=== PATIENT | female | born 1940 | race Hispanic/Latino ===

== ENCOUNTER 2017-12-12 22:17 | Emergency (ER) | payer MEDICARE ==
[2017-12-12] MEDS ORDERED: MOTRIN PO ONE (22:33)
--- NOTE | 2017-12-12 22:45 | Emergency Department Report ---
ED Fall HPI - General Chief Complaint: Extremity Injury, Lower Stated Complaint: FALL HIP PAIN Time Seen by Provider: 12/12/17 22:27 Source: patient, family, EMS Mode of arrival: Stretcher Limitations: No Limitations - History of Present Illness Initial Comments: 77-year-old female presents to the hospital complaining of right hip pain status post fall. Earlier today patient fell backwards landing on toilet and has had right hip pain ever since. Able to ambulate without assistance since injury. Pain is moderate in intensity, constant, worse with palpation and movement. No alleviating factors reported. No head injury or LOC reported. Patient is not on anticoagulants. - Related Data Home Medications Medication Instructions Recorded Confirmed Last Taken Ezetimibe [Zetia] 10 mg PO DAILY 06/20/14 07/13/16 06/20/15 Rosuvastatin Calcium [Crestor] 40 mg PO HS 06/20/14 07/13/16 06/20/15 Aspirin [Aspirin TAB] 81 mg PO ONCE 06/20/15 07/13/16 06/20/15 PriLOSEC Otc 1 tab PO DAILY 07/13/16 07/13/16 Unknown Previous Rx's Medication Instructions Recorded Last Taken Type Ciprofloxacin [Ciprofloxacin ORAL 250 mg PO Q12H 7 Days ml 07/16/16 Unknown Rx LIQ] Ibuprofen [Motrin] 800 mg PO Q8HR PRN #30 tablet 12/13/17 Unknown Rx Allergies Allergy/AdvReac Type Severity Reaction Status Date / Time No Known Allergies Allergy Unverified 06/20/14 22:55 ED Review of Systems ROS: Stated complaint: FALL HIP PAIN Other details as noted in HPI Comment: All other systems reviewed and negative ED Past Medical Hx - Past Medical History Hx Hypertension: Yes Hx CVA: Yes Hx Heart Attack/AMI: Yes (CVA 05/04/15) Hx Diabetes: Yes - Surgical History Additional Surgical History: hysterectomy 1981 - Social History Smoking Status: Never Smoker - Medications Home Medications: Home Medications Medication Instructions Recorded Confirmed Last Taken Type Ezetimibe [Zetia] 10 mg PO DAILY 06/20/14 07/13/16 06/20/15 History Rosuvastatin Calcium [Crestor] 40 mg PO HS 06/20/14 07/13/16 06/20/15 History Aspirin [Aspirin TAB] 81 mg PO ONCE 06/20/15 07/13/16 06/20/15 History PriLOSEC Otc 1 tab PO DAILY 07/13/16 07/13/16 Unknown History Ciprofloxacin [Ciprofloxacin ORAL 250 mg PO Q12H 7 Days ml 07/16/16 Unknown Rx LIQ] Ibuprofen [Motrin] 800 mg PO Q8HR PRN #30 tablet 12/13/17 Unknown Rx ED Physical Exam - General Limitations: Language Barrier, Altered Mental Status, Physical Limitation - Other Other exam information: General: No limitations, patient is alert in no acute distress Head exam: Atraumatic, normocephalic Eyes exam: Normal appearance, pupils equal reactive to light, extraocular movements intact ENT: Moist mucous membrane, normal oropharynx Neck exam: Normal inspection, full range of motion, no meningismus nontender Respiratory exam: Clear to auscultation bilateral, no wheezes, rales, crackles Cardiovascular: Normal rate and rhythm, normal heart sounds Abdomen: Soft, nondistended, and nontender, with normal bowel sounds, no rebound, or guarding Extremity: Full range of motion normal inspection no deformity. Mild tenderness to right buttock area with palpation. Full range of motion of the hip without shortening or deformity. Back: Normal Inspection, full range of motion, no bruising to back and nontender on examination Neurologic: Alert, oriented x3, cranial nerves intact, no motor or sensory deficit Psychiatric: normal affect, normal mood Skin: Warm, dry, intact ED Course Vital Signs 12/12/17 12/12/17 12/12/17 22:19 22:30 22:45 Temperature 97.5 F L Pulse Rate 75 69 Respiratory 16 22 23 Rate Blood Pressure 119/63 122/73 O2 Sat by Pulse 97 98 Oximetry 12/12/17 12/12/17 12/12/17 23:00 23:15 23:30 Temperature Pulse Rate 67 68 68 Respiratory 17 11 L 12 Rate Blood Pressure 120/66 116/71 116/71 O2 Sat by Pulse 98 97 99 Oximetry ED Medical Decision Making - Radiology Data Radiology results: report reviewed Right hip x-ray with pelvis: No acute fracture. Bilateral hip osteoarthritis. Degenerative disc disease at L4-5 - Medical Decision Making X-rays unremarkable. Pain improved with Motrin. Patient able to ambulate. We' ll discharge home - Differential Diagnosis fracture, contusion, sprain Critical Care Time: No Critical care attestation.: If time is entered above; I have spent that time in minutes in the direct care of this critically ill patient, excluding procedure time. ED Disposition Clinical Impression: Contusion of hip, right, Osteoarthritis, Degenerative disc disease Disposition: TO HOME OR SELFCARE Is pt being admited?: No Does the pt Need Aspirin: No Condition: Stable Instructions: Hip Sprain (ED), Osteoarthritis (ED), Degenerative Disc Disease ( ED) Additional Instructions: Taken medication as prescribed. Follow-up with your doctor. Return if symptoms worsen as indicated by your discharge instructions Prescriptions: Ibuprofen [Motrin] 800 mg PO Q8HR PRN #30 tablet PRN Reason: Pain Referrals: PRIMARY CARE, [Primary Care Provider] - 3-5 Days Time of Disposition: 00:17
--- NOTE | 2017-12-12 23:38 | XRay Report ---
FINAL REPORT PROCEDURE: XR HIP 2-3V RT TECHNIQUE: RIGHT hip radiographs, 2 views each, including AP view of the pelvis. HISTORY: right hip pain after fall COMPARISON: No prior studies are available for comparison. FINDINGS: There is mild degree narrowing of bilateral hip joint spaces. An acute fracture is not identified. Intervertebral disc space narrowing is noted at L4-5. Soft tissues are unremarkable IMPRESSION: No acute fracture Bilateral hip osteoarthritis Degenerative disc disease at L4-5
[2017-12-13 00:34] VITALS: BP 122/71
== END 2017-12-13 00:34 | disposition home or self-care (01) ==
LOC: ED 22:17
DX: S70.01XA Contusion of right hip, initial encounter (principal); I10 Essential (primary) hypertension; E11.9 Type 2 diabetes mellitus without complications; M16.0 Bilateral primary osteoarthritis of hip; M51.36 Other intervertebral disc degeneration, lumbar region; Z86.73 Personal history of transient ischemic attack (TIA), and cerebral infarction without residual deficits; Z90.710 Acquired absence of both cervix and uterus; Z79.899 Other long term (current) drug therapy; W18.11XA Fall from or off toilet without subsequent striking against object, initial encounter; Y93.89 Activity, other specified; Y99.8 Other external cause status; Y92.89 Other specified places as the place of occurrence of the external cause

== ENCOUNTER 2018-02-03 01:35 | Emergency (ER) | payer MEDICARE ==
[2018-02-03 02:49] LABS: Basophils % (Auto) 0.3 % (0.0-1.8); Eosinophils # (Auto) 0.1 K/mm3 (0.0-0.4); Eosinophils % (Auto) 1.1 % (0.0-4.3); Hematocrit 36.7 % (30.3-42.9); Hemoglobin 12.3 gm/dl (10.1-14.3); Lymphocytes # (Auto) 1.3 K/mm3 (1.2-5.4); Lymphocytes % (Auto) 15.8 % (13.4-35.0); Mean Corpuscular HGB Conc 33 % (30-34); Mean Corpuscular Hemoglobin 30 pg (28-32); Mean Corpuscular Volume 88 fl (79-97); Monocytes # (Auto) 0.6 K/mm3 (0.0-0.8); Monocytes % (Auto) 7.1 % (0.0-7.3); Platelet Count 179 K/mm3 (140-440); Red Blood Count 4.17 M/mm3 (3.65-5.03); Red Cell Distribution Width 14.3 % (13.2-15.2)
[2018-02-03 03:05] LABS: Calcium 8.4 mg/dL (8.4-10.2)
--- NOTE | 2018-02-03 04:39 | Cat Scan Report ---
FINAL REPORT EXAM: CT HEAD/BRAIN WO CON HISTORY: left leg weak 1 week. eval poss recent CVA TECHNIQUE: Routine axial imaging was obtained of the brain without IV contrast. Comparison is made to the study of 07/13/2016. FINDINGS: There is age related atrophy. There are stable remote lacunar infarcts in the deep white matter of the left temporal lobe and in the irene. There is no evidence of acute stroke or hemorrhage. There are benign basal ganglial calcifications. There are no extra-axial fluid collections. The ventricular system is appropriate in size and is symmetric. The sinuses reveal secretions in the right sphenoid sinus. This is unchanged the previous study. The mastoid air cells are well pneumatized IMPRESSION: Age related atrophy with remote lacunar infarcts in the deep white matter of the left temporal lobe and irene. No evidence of acute stroke or hemorrhage. Patchy secretions in the right sphenoid sinus.
[2018-02-03 05:53] VITALS: BP 138/57
--- NOTE | 2018-02-03 07:04 | XRay Report ---
FINAL REPORT EXAM: XR HIP 2-3V LT HISTORY: left leg pain, weakness; eval poss occult hip inj TECHNIQUE: An AP view of the pelvis was obtained along with an additional view of the left hip. FINDINGS: There is generalized osteoporosis. The left hip joint space is well maintained. There is no evidence of fracture. The bony pelvic ring appears intact. The right hip and SI joints appear well maintained also. There is disc degeneration in the lower lumbar spine. The soft tissues are unremarkable. IMPRESSION: Osteoporosis. No evidence of fracture or arthritic changes of the left hip. Disc degeneration in the lower lumbar spine
--- NOTE | 2018-02-03 07:20 | Emergency Department Report ---
ED Neuro Deficit HPI - General Chief Complaint: Medical Clearance Stated Complaint: DIFFICULTY MOVING LEFT LEG Time Seen by Provider: 02/03/18 03:55 Source: EMS Mode of arrival: Wheelchair Limitations: Physical Limitation - History of Present Illness Initial Comments: 77-year-old patient brought in by family members for concern about left leg weakness present for the past 7-10 days, with concern for whether she has had a new stroke. 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 Family has tried patient at a longterm, but she did not tolerate this, and patient does better with family, and is cared for by daughters. Family noticed that patient developed a distinct weakness in her left leg, with the leg slapping while she walks, but she's not had any other symptoms. In particular, she's had no left-sided arm discomfort, no facial droop, and has been conversant talking normally with no change elsewhere. Past medical history significant also for diabetes, insulin-dependent, which family cares for with basal unit plus sliding scale at meals. Glucose levels have been variable, and patient's glucose level is 460 here, but daughter reports that it is not unusual for her to go to 400 at home, which is why they managed with sliding scale. She has had no additional symptoms, no falls, no injuries, but patient was seen here 6 weeks ago for a fall due to chronic unsteadiness with possible hip injury, with negative evaluation at that time. Onset/Timin -: days(s) Location: left leg History of same: Yes Place: home Severity: moderate (difficulty with using leg appropriately due to weakness of foot) Quality: weak On Anticoagulants: No (intolerant of clopidogrel and aspirin, currently takes nothing for anticoag) Context: gradual onset Associated Symptoms: denies other symptoms Treatments Prior to Arrival: none - Related Data Home Medications: Home Medications Medication Instructions Recorded Confirmed Last Taken Ezetimibe [Zetia] 10 mg PO DAILY 06/20/14 07/13/16 06/20/15 Rosuvastatin Calcium [Crestor] 40 mg PO HS 06/20/14 07/13/16 06/20/15 Aspirin [Aspirin TAB] 81 mg PO ONCE 06/20/15 07/13/16 06/20/15 PriLOSEC Otc 1 tab PO DAILY 07/13/16 07/13/16 Unknown Previous Rx's Medication Instructions Recorded Last Taken Type Ciprofloxacin [Ciprofloxacin ORAL 250 mg PO Q12H 7 Days ml 07/16/16 Unknown Rx LIQ] Ibuprofen [Motrin] 800 mg PO Q8HR PRN #30 tablet 12/13/17 Unknown Rx Allergies/Adverse Reactions: Allergies Allergy/AdvReac Type Severity Reaction Status Date / Time No Known Allergies Allergy Verified 02/03/18 01:53 ED Review of Systems ROS: Stated complaint: DIFFICULTY MOVING LEFT LEG Other details as noted in HPI Constitutional: denies: chills, fever ENT: denies: ear pain, throat pain Respiratory: denies: cough, shortness of breath, wheezing Cardiovascular: denies: chest pain, palpitations Endocrine: no symptoms reported Gastrointestinal: denies: abdominal pain, nausea, diarrhea Genitourinary: denies: urgency, dysuria, discharge Musculoskeletal: denies: back pain, joint swelling, arthralgia Skin: denies: rash, lesions Neurological: weakness (left leg, foot) Psychiatric: denies: anxiety, depression Hematological/Lymphatic: denies: easy bleeding, easy bruising ED Past Medical Hx - Past Medical History Hx Hypertension: Yes Hx CVA: Yes (X3) Hx Heart Attack/AMI: Yes (CVA 05/04/15) Hx Diabetes: Yes - Surgical History Additional Surgical History: hysterectomy 1981 - Social History Smoking Status: Never Smoker Substance Use Type: None - Medications Home Medications: Home Medications Medication Instructions Recorded Confirmed Last Taken Type Ezetimibe [Zetia] 10 mg PO DAILY 06/20/14 07/13/16 06/20/15 History Rosuvastatin Calcium [Crestor] 40 mg PO HS 06/20/14 07/13/16 06/20/15 History Aspirin [Aspirin TAB] 81 mg PO ONCE 06/20/15 07/13/16 06/20/15 History PriLOSEC Otc 1 tab PO DAILY 07/13/16 07/13/16 Unknown History Ciprofloxacin [Ciprofloxacin ORAL 250 mg PO Q12H 7 Days ml 07/16/16 Unknown Rx LIQ] Ibuprofen [Motrin] 800 mg PO Q8HR PRN #30 tablet 12/13/17 Unknown Rx ED Neuro Physical Exam - General Limitations: Physical Limitation General appearance: alert, in no apparent distress, other (very hard of hearing , but generally alert and oriented and cooperative) Suspected Stroke: No - Head Head exam: Present: atraumatic - Eye Eye exam: Present: PERRL - ENT ENT exam: Present: normal exam, mucous membranes moist - Neck Neck exam: Present: normal inspection, full ROM. Absent: tenderness - Respiratory Respiratory exam: Present: normal lung sounds bilaterally - Cardiovascular Cardiovascular Exam: Present: regular rate, normal heart sounds - GI/Abdominal GI/Abdominal exam: Present: soft, normal bowel sounds. Absent: tenderness - Rectal Rectal exam: Present: deferred - Extremities Exam Extremities exam: Present: normal inspection, full ROM (some stiffness, muscular , a little worse on left than right, but good range of motion both hips), other (somewhat tremulous, generally unsteady, no bony defect, ). Absent: tenderness - Back Exam Back exam: Present: normal inspection. Absent: tenderness - Neurological Exam Neurological exam: Present: alert, CN II-XII intact, abnormal gait (grossly unsteady, poor balance, prominent left foot drop, but good general strength left lower extremity overall) - NIHSS Assessment Interval: Baseline 1a. Level of Consciousness: alert 1b. LOC Questions: answers correctly 1c. LOC Commands: performs tasks correctly 2. Best Gaze: normal 3. Visual: no visual loss 4. Facial Palsy: normal symmetrical movement 5b. Motor Arm Right: no drift 5a. Motor Arm Left: no drift 6a. Motor Leg Left: no drift (isolated footdrop, no distinct extremity weakness) 6b. Motor Leg Right: no drift 7. Limb Ataxia: present 2 limbs (all limbs with gross chronic ataxia) 8. Sensory: normal 9. Best Language: no aphasia (heart of hearing) 10. Dysarthria: normal 11. Extinction/Inattention: no abnormality Total Score: 2 Stroke Severity: Minor Stroke - Psychiatric Psychiatric exam: Present: normal affect, normal mood - Skin Skin exam: Present: warm, dry ED Course Vital Signs 02/03/18 02/03/18 02/03/18 01:53 03:50 05:52 Temperature 36.6 C Pulse Rate 80 78 81 Respiratory 14 18 18 Rate Blood Pressure 134/40 Blood Pressure 160/57 138/57 [Right] O2 Sat by Pulse 97 97 97 Oximetry - Reevaluation(s) Reevaluation #1: 02/03/18 07:28 Patient has remained stable during. Of observation, wakens easily, shows no signs of acute illness, no progression of deficit, and all findings appear to be typically chronic. Telephone consultation with stroke apartment leasing consultant, Dr. Gray, 0700 hrs., who agrees that patient is not candidate for acute interventional therapy, but given findings of negative CT scan, would benefit from MRI, although timing and benefit of urgent evaluation is not clear. - Lab Data Result diagrams: 02/03/18 02:40 02/03/18 02:40 Lab Results 02/03/18 02/03/18 Range/Units 02:40 02:40 WBC 8.5 (4.5-11.0) K/mm3 RBC 4.17 (3.65-5.03) M/mm3 Hgb 12.3 (10.1-14.3) gm/dl Hct 36.7 (30.3-42.9) % MCV 88 (79-97) fl MCH 30 (28-32) pg MCHC 33 (30-34) % RDW 14.3 (13.2-15.2) % Plt Count 179 (140-440) K/mm3 Lymph % (Auto) 15.8 (13.4-35.0) % [place] % (Auto) 7.1 (0.0-7.3) % Eos % (Auto) 1.1 (0.0-4.3) % Baso % (Auto) 0.3 (0.0-1.8) % Lymph # 1.3 (1.2-5.4) K/mm3 [place] # 0.6 (0.0-0.8) K/mm3 Eos # 0.1 (0.0-0.4) K/mm3 Baso # 0.0 (0.0-0.1) K/mm3 Seg Neutrophils % 75.7 H (40.0-70.0) % Seg Neutrophils # 6.4 (1.8-7.7) K/mm3 Sodium 137 (137-145) mmol/L Potassium 3.7 (3.6-5.0) mmol/L Chloride 95.5 L (98-107) mmol/L Carbon Dioxide 30 (22-30) mmol/L Anion Gap 15 mmol/L BUN 14 (7-17) mg/dL Creatinine 1.2 (0.7-1.2) mg/dL Estimated GFR 44 ml/min BUN/Creatinine Ratio 12 % Glucose 460 H (65-100) mg/dL Calcium 8.4 (8.4-10.2) mg/dL - Radiology Data Radiology results: report reviewed (CT scan shows no findings suggestive of new or recent stroke on right side that would ask lying patient's left foot drop) interpreted by me: No acute stroke findings, no fluid collection, no mass effect. Old lacunar infarcts, stable, noted in left basal ganglion, Hip x-rays are negative for fracture, unchanged from prior imaging November 2017 - Medical Decision Making Patient is medically neurologically stable, although she is chronically ill, and has had prior strokes. Patient has isolated finding of foot drop, which either suggest a completed stroke with a spastic gait, or an isolated peroneal nerve injury. Given her prior strokes, or intolerance of aspirin or clopidogrel , there is little additional benefit from hospitalization of this patient, or from additional therapy. Further, although patient has hyperglycemia, this is in the range of patient's glucose levels, which have a wide tendency to swelling , and which family is well aware of, and treat easily with sliding scale insulin , which they're accustomed to. Given that she is not in ketoacidosis, and she has no acute findings suggestive of recent stroke, she is stable for discharge home. Neurologist recommends MRI, to identify potential other underlying causes , but these are not acute, and do not require immediate imaging. Further evaluation can be carried out by patient's primary physician in [place], Dr. Duron, and since patient has not been under the routine care of neurologist due to family's dissatisfaction with previous neurologist, they can make further arrangements for neurological evaluation and consultation on the basis of significant findings at time of follow-up. - Core Measures AMI Core Measures Followed: Yes - Thrombolytic Inclusion/Exclusion Thrombolytic Exclusion Criteria: Symptom Onset > 3 Hours Critical care attestation.: If time is entered above; I have spent that time in minutes in the direct care of this critically ill patient, excluding procedure time. ED Disposition Clinical Impression: Left leg weakness, Foot drop, left Disposition: [id number] TO HOME OR SELFCARE Is pt being admited?: No Does the pt Need Aspirin: No Condition: Stable Instructions: Foot Drop (ED) Additional Instructions: CT scan of brain today shows no evidence of new or even recent stroke. There is evidence of prior strokes, but these are stable. We have consulted with the neurologic specialist, and he recommends an MRI to rule out other possible neurologic conditions, but these are not emergencies, and MRI can be arranged on an outpatient basis. Primary finding is weakness of the left foot, which is known as a foot drop, and suggests a palsy, or injury to a peripheral nerve in the leg, which is, in after being bumped or perhaps falling. There is no specific treatment for a foot drop, but bracing may help. Continue your use of walker. We recommend following up with Dr. Duron in the next few days, for follow-up, and to make arrangements for MRI. You can also discuss whether she needs further assistance with walking, or perhaps whether she needs a higher level of care, such as a longterm. There was high today, 460, but this is in the range that you have experienced at home before, and there are no findings to suggest ketoacidosis, and you can treat the high sugar with sliding scale insulin, as you have before. We're not recommending any additional changes to the insulin regimen today either. Referrals: PRIMARY MD LINDA [Primary Care Provider] - 3-5 Days CHET DURON MD [Staff Physician] - 3-5 Days Time of Disposition: 07:45
== END 2018-02-03 09:00 | disposition home or self-care (01) ==
LOC: ED 01:35
DX: M21.372 Foot drop, left foot (principal); I10 Essential (primary) hypertension; I25.2 Old myocardial infarction; E11.9 Type 2 diabetes mellitus without complications; Z86.73 Personal history of transient ischemic attack (TIA), and cerebral infarction without residual deficits; Z79.82 Long term (current) use of aspirin
CPT/HCPCS: 36415; 70450; 80048; 85025; 99284

== ENCOUNTER 2019-03-25 02:19 | Inpatient (IN) | payer MEDICARE ==
[2019-03-25] MEDS ORDERED: UNASYN/NS 3 GM/100 ML 3 GM/100 ML BAG IV ONE (03:13)
--- NOTE | 2019-03-25 03:48 | XRay Report ---
FOOT 3 VIEWS. INDICATION / CLINICAL INFORMATION: foot infection, diabetic, red swollen toe COMPARISON: None available. FINDINGS: BONES / JOINT(S): Satisfactory alignment without acute injury. Cortical erosion is seen along the tuf t of the distal phalanx of the first digit medially typical of osteomyelitis. Osteopenia and a large calcaneal spur are also noted. SOFT TISSUES: Vascular calcification and mild diffuse soft tissue swelling. ADDITIONAL FINDINGS: None. Signer Name: Mamadou Morales MD Signed: 03/25/2019 3:43 AM Workstation Name: [id number]
[2019-03-25 03:52] LABS: Basophils % (Auto) 0.5 % (0.0-1.8); Eosinophils # (Auto) 0.2 K/mm3 (0.0-0.4); Eosinophils % (Auto) 1.5 % (0.0-4.3); Hematocrit 39.6 % (30.3-42.9); Hemoglobin 13.1 gm/dl (10.1-14.3); Lymphocytes # (Auto) 1.8 K/mm3 (1.2-5.4); Lymphocytes % (Auto) 16.7 % (13.4-35.0); Mean Corpuscular HGB Conc 33 % (30-34); Mean Corpuscular Volume 88 fl (79-97); Monocytes # (Auto) 0.8 K/mm3 (0.0-0.8); Monocytes % (Auto) 7.5 % (0.0-7.3); Platelet Count 254 K/mm3 (140-440); Red Blood Count 4.49 M/mm3 (3.65-5.03); Red Cell Distribution Width 13.8 % (13.2-15.2)
[2019-03-25 04:11] LABS: Calcium 8.9 mg/dL (8.4-10.2)
[2019-03-25] MEDS ORDERED: VANCOMYCIN/NS 1 GM/250 ML 1 GM/250 ML BAG IV ONE (04:13)
--- NOTE | 2019-03-25 04:33 | Emergency Department Report ---
ED Lower Extremity HPI - General Chief Complaint: Extremity Injury, Lower Stated Complaint: RIGHT TOE PAIN Time Seen by Provider: 03/25/19 02:53 Source: family, EMS Mode of arrival: Stretcher Limitations: No Limitations - History of Present Illness Initial Comments: Mrs. Moreira is a 78 yo female with hx of CVA, DM, CKD, HTN, UTI who presents with red, tender right great toe. Unknown of trauma. Family member at bedside has noted fluctuating sugar reading. Patient is poor historian. Hx obtained from family member and EMR. Family called EMS because she had difficulty walking. PCP is Dr. Domi WARD Complaint: foot injury -: days(s) (1 day noticed by family), unknown Injury: Foot: Right, Toes: Right Type of Injury: unknown Place: home Severity: moderate Improves With: nothing Worsens With: weight bearing, movement, palpation Other Symptoms: other (fluctuating blood sugar readings at home) - Related Data Home Medications Medication Instructions Recorded Confirmed Last Taken Ezetimibe [Zetia] 10 mg PO DAILY 06/20/14 07/13/16 06/20/15 Rosuvastatin Calcium [Crestor] 40 mg PO HS 06/20/14 07/13/16 06/20/15 Aspirin 81 mg PO ONCE 06/20/15 07/13/16 06/20/15 PriLOSEC Otc 1 tab PO DAILY 07/13/16 07/13/16 Unknown Previous Rx's Medication Instructions Recorded Last Taken Type Ciprofloxacin [Ciprofloxacin ORAL 250 mg PO Q12H 7 Days ml 07/16/16 Unknown Rx LIQ] Ibuprofen [Motrin] 800 mg PO Q8HR PRN #30 tablet 12/13/17 Unknown Rx Allergies Allergy/AdvReac Type Severity Reaction Status Date / Time No Known Allergies Allergy Verified 02/03/18 01:53 ED Review of Systems ROS: Stated complaint: RIGHT TOE PAIN Other details as noted in HPI Comment: Unobtainable due to pts medical conditions (patient is unable to give history due to senility) ED Past Medical Hx - Past Medical History Previous Medical History?: Yes Hx Hypertension: Yes Hx CVA: Yes Hx Heart Attack/AMI: Yes (CVA 05/04/15) Hx Diabetes: Yes - Surgical History Past Surgical History?: Yes Additional Surgical History: hysterectomy 1981 - Social History Smoking Status: Former Smoker - Medications Home Medications: Home Medications Medication Instructions Recorded Confirmed Last Taken Type Ezetimibe [Zetia] 10 mg PO DAILY 06/20/14 07/13/16 06/20/15 History Rosuvastatin Calcium [Crestor] 40 mg PO HS 06/20/14 07/13/16 06/20/15 History Aspirin 81 mg PO ONCE 06/20/15 07/13/16 06/20/15 History PriLOSEC Otc 1 tab PO DAILY 07/13/16 07/13/16 Unknown History Ciprofloxacin [Ciprofloxacin ORAL 250 mg PO Q12H 7 Days ml 07/16/16 Unknown Rx LIQ] Ibuprofen [Motrin] 800 mg PO Q8HR PRN #30 tablet 12/13/17 Unknown Rx ED Physical Exam - General Limitations: No Limitations General appearance: alert, in no apparent distress - Head Head exam: Present: atraumatic, normocephalic - Eye Eye exam: Present: normal appearance - ENT ENT exam: Present: mucous membranes moist - Neck Neck exam: Present: normal inspection, full ROM - Respiratory Respiratory exam: Present: normal lung sounds bilaterally. Absent: respiratory distress, wheezes, rales, rhonchi - Cardiovascular Cardiovascular Exam: Present: regular rate, normal rhythm, normal heart sounds. Absent: rubs, gallop - GI/Abdominal GI/Abdominal exam: Present: soft. Absent: distended, tenderness, guarding, rebound - Extremities Exam Extremities exam: Present: other (right toe is edematous inflamed erythematous, erythema faintly extends to the dorsum of the foot) - Back Exam Back exam: Present: normal inspection - Neurological Exam Neurological exam: Present: alert - Psychiatric Psychiatric exam: Present: agitated, flat affect - Skin Skin exam: Present: warm, dry, intact, normal color. Absent: rash ED Course Vital Signs 03/25/19 02:25 Pulse Rate 88 Respiratory 17 Rate Blood Pressure 120/70 O2 Sat by Pulse 98 Oximetry ED Lower Extremity MDM - Lab Data Result diagrams: 03/25/19 03:29 03/25/19 03:29 - Radiology Data Radiology results: report reviewed Right foot x-ray: First digit erosion typical for osteomyelitis - Medical Decision Making Mrs. Thomas presents with diabetic foot infection, with great toe with extension of cellulitis to the foot. Radiographs concerning for osteomyelitis Admitted to hospital service for further care and treatment Critical care attestation.: If time is entered above; I have spent that time in minutes in the direct care of this critically ill patient, excluding procedure time. ED Disposition Clinical Impression: Diabetic infection of right foot, Cellulitis, Osteomyelitis Disposition: DC09 OP ADMIT IP TO THIS HOSP Is pt being admited?: Yes Does the pt Need Aspirin: No Condition: Stable
[2019-03-25] MEDS ORDERED: D50W (25GM) Syringe IV PRN (06:11)
[2019-03-25] MEDS ORDERED: SODIUM CHLORIDE FLUSH SYRINGE 10 ML IV PRN (06:11)
--- NOTE | 2019-03-25 06:18 | History and Physical Report ---
History of Present Illness Date of examination: 03/25/19 History of present illness: 78-year-old woman with history of hypertension, diabetes, coronary artery disease, CVA with dysarthia comes to the emergency room with complaints of red toe. History is per daughter, stating that 1-1/2 week ago to 2 became bright, swollen, I spent painful and the patient is having difficulty sleeping. Denies fever chills, drainage, and entry point. Difficult to obtain review of System PAST MEDICAL HISTORY: hypertension, diabetes, coronary artery disease, CVA with dysarthia PAST SURGICAL HISTORY: Hysterectomy SOCIAL HISTORY: Lives at home, no alcohol, tobacco, drugs FAMILY HISTORY: Hypertension Medications and Allergies Allergies Allergy/AdvReac Type Severity Reaction Status Date / Time No Known Allergies Allergy Verified 02/03/18 01:53 Home Medications Medication Instructions Recorded Confirmed Last Taken Type Rosuvastatin Calcium [Crestor] 40 mg PO DAILY 06/20/14 03/25/19 03/24/19 10:00 History Aspirin 81 mg PO DAILY 06/20/15 03/25/19 03/24/19 10:00 History PriLOSEC Otc 1 tab PO DAILY 07/13/16 03/25/19 03/24/19 10:00 History Ciprofloxacin [Ciprofloxacin ORAL 250 mg PO Q12H 7 Days ml 07/16/16 03/25/19 Unknown Rx LIQ] Ibuprofen [Motrin] 800 mg PO Q8HR PRN #30 tablet 12/13/17 03/25/19 03/24/19 22:00 Rx FLUoxetine HCL [Prozac] 60 mg PO DAILY 03/25/19 03/25/19 03/24/19 10:00 History Levemir VIAL 35 unit SUB-Q HS 03/25/19 03/25/19 03/24/19 11:00 History NovoLOG 100 UNITS/ML VIAL See Protocol SQ QACHS 03/25/19 03/25/19 03/24/19 16:30 History Active Meds: Active Medications Acetaminophen (Tylenol) 650 mg PO Q4H PRN PRN Reason: Pain MILD(1-3)/Fever >100.5/OQUENDO Dextrose (D50w (25gm) Syringe) 50 ml IV PRN PRN PRN Reason: Hypoglycemia Enoxaparin Sodium (Lovenox) 40 mg SUB-Q QDAY [facility] Insulin Human Lispro (Humalog) 0 unit SUB-Q ACHS [facility]; Protocol Ondansetron HCl (Zofran) 4 mg IV Q8H PRN PRN Reason: Nausea And Vomiting Sodium Chloride (Sodium Chloride Flush Syringe 10 Ml) 10 ml IV BID LOVELY Sodium Chloride (Sodium Chloride Flush Syringe 10 Ml) 10 ml IV PRN PRN PRN Reason: LINE FLUSH Exam - Physical Exam Narrative exam: Gen. appearance: Patient lying in bed, no apparent distress HEENT: Normocephalic, atraumatic, pupils equally round and reactive to light, extraocular movement intact, and no sclericterus,. No JVD or thyromegaly or nodule,neck supple, no carotid bruit ,mucous membranes moist, no exudate or erythema Heart: S1, S2, regular rate and rhythm Lungs: Clear to auscultation bilaterally, breathing comfortable Abdomen: Positive bowel sounds, nontender, nondistended, no organomegaly Extremity: No edema, cyanosis, clubbing Skin: Right great toe right, swollen, tender No rash, nodules, warm, dry Neuro: Difficult to assess - Constitutional Vitals: Temp Pulse Resp BP Pulse Ox 88 17 113/80 97 03/25/19 02:25 03/25/19 02:25 03/25/19 06:01 03/25/19 06:01 Results - Labs CBC & Chem 7: 04/02/19 04:29 04/05/19 06:53 Labs: Abnormal lab results 03/25/19 03/25/19 Range/Units 03:29 03:29 [place] % (Auto) 7.5 H (0.0-7.3) % Seg Neutrophils % 73.8 H (40.0-70.0) % Seg Neutrophils # 7.9 H (1.8-7.7) K/mm3 BUN 22 H (7-17) mg/dL Glucose 196 H (65-100) mg/dL Assessment and Plan X-ray of the foot revealed osseous changes of osteomyelitis Asessment Osteomyelitis of the right great toe, differential also include gout Diabetes type 2 Coronary artery disease History of CVA Admit to medicine Start IV Zosyn, consult infectious disease Check fingersticks initiated insulin sliding scale Start DVT prophylaxis
[2019-03-25] MEDS: HumaLOG SUB-Q SCH ×4 (08:27→22:06)
[2019-03-25] MEDS: LOVENOX SUB-Q SCH (09:44)
[2019-03-25] MEDS: SODIUM CHLORIDE FLUSH SYRINGE 10 ML IV SCH ×2 (09:45→22:12)
[2019-03-25] MEDS ORDERED: ZOSYN/NS 3.375GM/50ML 3.375 GM/50 ML BAG IV SCH (10:00)
--- NOTE | 2019-03-25 11:24 | Consultation ---
History of Present Illness - Reason for Consult Consult date: 03/25/19 Osteomyelitis, R toe Requesting physician: KAYLA FLORENCE - History of Present Illness The patient is a 78-year-old female with hypertension, diabetes, CVA with dysarthria, coronary artery disease was brought into the emergency room yesterday with a complain of a painful, swollen right great toe. Patient is a poor historian. She complains of the toe being swollen, painful and red. Denies any known trauma. History also obtained by chart review, apparently this has been worsening over 1-2 weeks. Denies any fever or chills. Review of Systems: General: no fevers,chills or rigors HEENT: no new visual disturbance Respiratory: No cough, sputum, hemoptysis or shortness of breath Cardiovascular: No chest pain, syncope Gastrointestinal: No nausea, vomiting or diarrhea Genitourinary: No dysuria or hematuria Musculoskeletal: No new or worsening neck pain or back pain Neurologic: No headaches, seizures Hematologic: No easy bruising or bleeding Endocrine: No night sweats or acute weight loss Skin: negative for rash, jaundice Psychiatric: No suicidal or homicidal ideation Medications and Allergies Allergies Allergy/AdvReac Type Severity Reaction Status Date / Time No Known Allergies Allergy Verified 02/03/18 01:53 Home Medications Medication Instructions Recorded Confirmed Last Taken Type Ezetimibe [Zetia] 10 mg PO DAILY 06/20/14 03/25/19 06/20/15 History Rosuvastatin Calcium [Crestor] 40 mg PO DAILY 06/20/14 03/25/19 03/24/19 10:00 History Aspirin 81 mg PO DAILY 06/20/15 03/25/19 03/24/19 10:00 History PriLOSEC Otc 1 tab PO DAILY 07/13/16 03/25/19 03/24/19 10:00 History Ciprofloxacin [Ciprofloxacin ORAL 250 mg PO Q12H 7 Days ml 07/16/16 03/25/19 Unknown Rx LIQ] Ibuprofen [Motrin] 800 mg PO Q8HR PRN #30 tablet 12/13/17 03/25/19 03/24/19 22:00 Rx FLUoxetine HCL [Prozac] 60 mg PO DAILY 03/25/19 03/25/19 03/24/19 10:00 History Levemir VIAL 35 unit SUB-Q HS 03/25/19 03/25/19 03/24/19 11:00 History NovoLOG 100 UNITS/ML VIAL See Protocol SQ QACHS 03/25/19 03/25/19 03/24/19 16:30 History Active Meds: Active Medications Acetaminophen (Tylenol) 650 mg PO Q4H PRN PRN Reason: Pain MILD(1-3)/Fever >100.5/OQUENDO Dextrose (D50w (25gm) Syringe) 50 ml IV PRN PRN PRN Reason: Hypoglycemia Enoxaparin Sodium (Lovenox) 40 mg SUB-Q QDAY [facility] Last Admin: 03/25/19 09:44 Dose: 40 mg Documented by: Piperacillin Sod/Tazobactam Sod (Zosyn/Ns 4.5gm/100ml) 4.5 gm in 100 mls @ 200 mls/hr IV Q8HR [facility] Insulin Human Lispro (Humalog) 0 unit SUB-Q ACHS [facility]; Protocol Last Admin: 03/25/19 08:27 Dose: Not Given Documented by: Ondansetron HCl (Zofran) 4 mg IV Q8H PRN PRN Reason: Nausea And Vomiting Sodium Chloride (Sodium Chloride Flush Syringe 10 Ml) 10 ml IV BID LOVELY Sodium Chloride (Sodium Chloride Flush Syringe 10 Ml) 10 ml IV PRN PRN PRN Reason: LINE FLUSH Physical Examination - Physical Exam Narrative exam: Physical Exam: Constitutional: Alert, cooperative. No acute distress. Small and cachectic. Head, Ears, Nose: Normocephalic, atraumatic. External ears, nose normal Eyes: Conjunctivae/corneas clear. No icterus. No ptosis. Neck: Supple, no meningeal signs Oral: edentulous, no thrush Cardiovascular: S1, S2 normal. Respiratory: Good air entry, clear to auscultation bilaterally GI: Soft, non-tender; bowel sounds normal. No peritoneal signs Musculoskeletal: No pedal edema, no cyanosis. Right great toe with erythema, swelling and severe tenderness. There is no open wound, no drainage. Skin: No rash or abscess Hem/Lymphatic: No palpable cervical or supraclavicular nodes. No lymphangitis Psych: Mood ok. Affect normal Neurological: Awake, alert, speech incoherent. - Constitutional Vitals: Vital Signs Temp Pulse Resp BP Pulse Ox 98.5 F 88 18 132/78 96 08/24/19 07:38 03/25/19 07:38 03/25/19 07:38 03/25/19 07:38 03/25/19 09:11 Temperature -Last 24 Hours Temperature 98.5 F Temperature 98.2 F Results - Labs CBC & Chem 7: 03/25/19 03:29 03/25/19 03:29 Labs: Abnormal lab results 03/25/19 03/25/19 Range/Units 03:29 03:29 [place] % (Auto) 7.5 H (0.0-7.3) % Seg Neutrophils % 73.8 H (40.0-70.0) % Seg Neutrophils # 7.9 H (1.8-7.7) K/mm3 BUN 22 H (7-17) mg/dL Glucose 196 H (65-100) mg/dL Assessment and Plan X-ray of the right foot, image reviewed, shows cortical erosion of the great toe distal phalanx, concerning for osteomyelitis. Cultures: 03/25/2019 blood culture: In progress A/P: 78-year-old female with hypertension, diabetes, CVA with dysarthria, coronary artery disease admitted with: 1) Probable right great toe acute osteomyelitis: xray shows cortical erosion of the distal phalanx concerning for osteomyelitis however there is no contiguous wound and hence not typical of a diabetic foot osteomyelitis. Differential diagnosis does include acute gout v/s pseudogout, but not much evidence of arthropathy involving the first MTP joint. Eval with vascular studies and MRI. Also ordered uric acid level (though levels could be falsely low during an acute attack). 2) DM-2: recommend glycemic control 3) CVA Recs: Differential diagnosis does include acute gout v/s pseudogout, but not much evidence of arthropathy involving the first MTP joint Eval with vascular studies and MRI Also ordered uric acid level (though levels could be falsely low during an acute attack) monitor response to abx, if there isn't much response, would favor non- infectious etiologies Augustine Sarah MD, FACP [facility] ([facility] C: [phone] O: [phone] F: [phone]
--- NOTE | 2019-03-25 12:12 | Progress Note ---
Assessment and Plan Rt Great toe cellulitis Probable right great toe acute osteomyelitis: xray shows cortical erosion of the distal phalanx concerning for osteomyelitis however there is no contiguous wound and hence not typical of a diabetic foot osteomyelitis. Differential diagnosis does include acute gout v/s pseudogout, but not much evidence of arthropathy involving the first MTP joint. Eval with vascular studies and MRI. Also ordered uric acid level (though levels could be falsely low during an acute attack). Diabetes type 2 Coronary artery disease History of CVA A/p Start IV Zosyn, ID consult appreciated Check fingersticks initiated insulin sliding scale Start DVT prophylaxis Subjective Date of service: 03/25/19 Principal diagnosis: Rt Grt toe cellulitis Interval history: 78-year-old woman with history of hypertension, diabetes, coronary artery d isease, CVA with dysarthia comes to the emergency room with complaints of Rt red Great toe. History is per daughter, stating that 1-1/2 week ago to 2 became bright, swollen, painful and the patient is having difficulty sleeping. Denies fever chills, drainage, and entry point. . T Objective - Constitutional Vitals: Vital Signs - 12hr 03/25/19 03/25/19 03/25/19 02:25 04:22 04:30 Temperature Pulse Rate 88 Respiratory 17 Rate Blood Pressure 120/70 O2 Sat by Pulse 98 97 98 Oximetry 03/25/19 03/25/19 03/25/19 04:46 05:00 05:16 Temperature Pulse Rate Respiratory Rate Blood Pressure 135/76 135/76 132/66 O2 Sat by Pulse 99 98 98 Oximetry 03/25/19 03/25/19 03/25/19 05:30 05:45 06:01 Temperature Pulse Rate Respiratory Rate Blood Pressure 120/80 120/80 113/80 O2 Sat by Pulse 97 97 97 Oximetry 03/25/19 03/25/19 03/25/19 06:24 06:25 07:38 Temperature 98.2 F 98.5 F Pulse Rate 74 88 Respiratory 16 18 Rate Blood Pressure 132/78 O2 Sat by Pulse 98 98 Oximetry 03/25/19 09:11 Temperature Pulse Rate Respiratory Rate Blood Pressure O2 Sat by Pulse 96 Oximetry General appearance: Present: no acute distress, well-nourished - EENT Eyes: PERRL, EOM intact ENT: hearing intact, clear oral mucosa Ears: bilateral: normal - Neck Neck: supple, normal ROM - Respiratory Respiratory effort: normal Respiratory: bilateral: CTA - Breasts Breasts: normal - Cardiovascular Rhythm: regular Heart Sounds: Present: S1 & S2. Absent: gallop, rub Extremities: pulses intact, No edema, normal color, Full ROM - Gastrointestinal General gastrointestinal: Present: soft, non-tender, non-distended, normal bowel sounds - Genitourinary Female genitourinary: normal - Integumentary Integumentary: clear, warm, dry, erythema (Rt Great toe) - Musculoskeletal Musculoskeletal: 1, strength equal bilaterally - Neurologic Neurologic: moves all extremities - Psychiatric Psychiatric: memory intact, appropriate mood/affect, intact judgment & insight - Labs CBC & Chem 7: 03/26/19 04:27 03/26/19 04:27 Labs: Abnormal lab results 03/25/19 03/25/19 Range/Units 03:29 03:29 [place] % (Auto) 7.5 H (0.0-7.3) % Seg Neutrophils % 73.8 H (40.0-70.0) % Seg Neutrophils # 7.9 H (1.8-7.7) K/mm3 BUN 22 H (7-17) mg/dL Glucose 196 H (65-100) mg/dL
[2019-03-25] MEDS ORDERED: ASPIRIN PO SCH (13:00)
--- NOTE | 2019-03-25 13:05 | Vascular Lab Report ---
DUPLEX DOPPLER LOWER EXTREMITY ARTERIAL, BILATERAL INDICATION: rt.great toe pain/ osteomyelitis. TECHNIQUE: Arterial duplex examination of both lower extremities performed using B-mode, color flow and spectral Doppler assessment. FINDINGS: RIGHT: Common Femoral Artery: PSV 124 cm/sec. Biphasic waveform. Proximal SFA: PSV 133 cm/sec. Biphasic waveform. Mid SFA: PSV 163 cm/sec. Triphasic waveform. Distal SFA: PSV 140 cm/sec. Triphasic waveform. Popliteal artery: PSV 77 cm/sec. Monophasic waveform. Posterior tibial artery: PSV 41 cm/sec. Monophasic waveform. Dorsalis Pedis Artery: PSV 50 cm/sec. Monophasic waveform. LEFT: Common Femoral Artery: PSV 125 cm/sec. Biphasic waveform. Proximal SFA: PSV 106 cm/sec. Biphasic waveform. Mid SFA: PSV 125 cm/sec. Biphasic waveform. Distal SFA: PSV 134 cm/sec. Biphasic waveform. Popliteal artery: PSV 86 cm/sec. Biphasic waveform. Posterior tibial artery: PSV 38 cm/sec. Monophasic waveform. Dorsalis Pedis Artery: PSV 62 cm/sec. Monophasic waveform. Right TY: Not obtained. Left TY: Not obtained. IMPRESSION: Abnormal arterial flow in the lower extremities, right worse than left, without sonographic visualiza tion of a focal stenosis. Signer Name: Lvei Yanez MD Signed: 03/25/2019 1:00 PM Workstation Name: [id number]
[2019-03-25] MEDS: BABY ASPIRIN PO SCH (13:08)
[2019-03-25] MEDS: ZOSYN/NS 4.5GM/100ML 4.5 GM/100 ML VIAL IV SCH ×2 (13:08→22:05)
[2019-03-25] MEDS: IBUPROFEN PO PRN (16:55)
[2019-03-25] MEDS: LANTUS SUB-Q SCH (21:59)
[2019-03-25] MEDS ORDERED: LEVEMIR 35 UNIT SUB-Q SCH (22:00)
[2019-03-26 04:41] LABS: Basophils % (Auto) 0.4 % (0.0-1.8); Eosinophils # (Auto) 0.2 K/mm3 (0.0-0.4); Eosinophils % (Auto) 1.5 % (0.0-4.3); Hematocrit 38.2 % (30.3-42.9); Hemoglobin 12.9 gm/dl (10.1-14.3); Lymphocytes # (Auto) 2.3 K/mm3 (1.2-5.4); Lymphocytes % (Auto) 22.4 % (13.4-35.0); Mean Corpuscular HGB Conc 34 % (30-34); Mean Corpuscular Volume 88 fl (79-97); Monocytes # (Auto) 0.8 K/mm3 (0.0-0.8); Monocytes % (Auto) 7.6 % (0.0-7.3); Platelet Count 266 K/mm3 (140-440); Red Blood Count 4.33 M/mm3 (3.65-5.03); Red Cell Distribution Width 14.1 % (13.2-15.2)
[2019-03-26 05:12] LABS: Calcium 8.9 mg/dL (8.4-10.2); Uric Acid 2.7 mg/dL (3.5-7.6)
[2019-03-26] MEDS: IBUPROFEN PO PRN ×2 (05:22→19:38)
[2019-03-26] MEDS: ZOSYN/NS 4.5GM/100ML 4.5 GM/100 ML VIAL IV SCH (05:23)
[2019-03-26] MEDS: HumaLOG SUB-Q SCH ×4 (08:30→21:58)
[2019-03-26] MEDS: LOVENOX SUB-Q SCH (09:50)
[2019-03-26] MEDS: BABY ASPIRIN PO SCH (09:50)
[2019-03-26] MEDS: PROzac PO SCH (09:50)
[2019-03-26] MEDS: PROTONIX PO SCH (09:50)
[2019-03-26] MEDS: SODIUM CHLORIDE FLUSH SYRINGE 10 ML IV SCH ×2 (09:51→22:00)
[2019-03-26] MEDS ORDERED: ZETIA PO SCH (10:00)
[2019-03-26] MEDS ORDERED: PRILOSEC OTC PO SCH (10:00)
[2019-03-26] MEDS ORDERED: NON-FORMULARY (Rosuvastatin Calcium [Crestor] 40 MG) PO SCH (10:00)
--- NOTE | 2019-03-26 13:49 | Progress Note ---
Assessment and Plan X-ray of the right foot, image reviewed, shows cortical erosion of the great toe distal phalanx, concerning for osteomyelitis. Cultures: 03/25/2019 blood culture: no growth A/P: 78-year-old female with hypertension, diabetes, CVA with dysarthria, coronary artery disease admitted with: 1) Probable right great toe acute osteomyelitis: xray shows cortical erosion of the distal phalanx concerning for osteomyelitis however there is no contiguous wound and hence not typical of a diabetic foot osteomyelitis. Differential diagnosis does include acute gout v/s pseudogout, but not much evidence of arthropathy involving the first MTP joint. Eval with vascular studies and MRI. Uric acid level is low at 2.7 (though levels could be falsely low during an acute attack). ?Embolic 2) DM-2: recommend glycemic control 3) CVA 4) Peripheral vascular disease: Arterial doppler reveals R>L arterial insufficiency. Recs: f/u MRI vascular consult monitor response to abx: empiric Cefepime and Vancomycin, if there isn't much response, would favor non-infectious etiologies ESR, CRP ordered for AM TTE ordered Augustine Sarah MD, FACP [facility] ([facility] C: [phone] O: [phone] F: [phone] Subjective Date of service: 03/26/19 Principal diagnosis: Rt Grt toe cellulitis Interval history: No fever. Still with pain and swelling of toe. Objective - Exam Narrative Exam: Physical Exam: Constitutional: Alert, cooperative. No acute distress. Small and cachectic. Head, Ears, Nose: Normocephalic, atraumatic. External ears, nose normal Eyes: Conjunctivae/corneas clear. No icterus. No ptosis. Neck: Supple, no meningeal signs Oral: edentulous, no thrush or ulcers Cardiovascular: S1, S2 normal. Respiratory: Good air entry, clear to auscultation bilaterally GI: Soft, non-tender; bowel sounds normal. No peritoneal signs Musculoskeletal: No pedal edema, no cyanosis. Right great toe with erythema, swelling and severe tenderness. There is no open wound, no drainage. Skin: No rash or abscess Hem/Lymphatic: No palpable cervical or supraclavicular nodes. No lymphangitis Psych: Mood ok. Affect normal Neurological: Awake, alert, speech incoherent. - Constitutional Vitals: Vital Signs Temp Pulse Resp BP Pulse Ox 97.8 F 76 18 103/57 100 03/26/19 07:32 03/26/19 10:00 03/26/19 07:32 03/26/19 07:32 03/26/19 10:00 Temperature -Last 24 Hours Temperature 97.8 F Temperature 98.6 F Temperature 98.8 F Temperature 98.0 F - Labs CBC & Chem 7: 03/26/19 04:27 03/26/19 04:27 Labs: Abnormal lab results 03/25/19 03/25/19 03/26/19 Range/Units 16:20 21:37 04:27 [place] % (Auto) 7.6 H (0.0-7.3) % BUN (7-17) mg/dL Glucose (65-100) mg/dL POC Glucose 166 H 167 H (70-105) Uric Acid (3.5-7.6) mg/dL 03/26/19 03/26/19 03/26/19 Range/Units 04:27 07:42 11:45 [place] % (Auto) (0.0-7.3) % BUN 20 H (7-17) mg/dL Glucose 132 H (65-100) mg/dL POC Glucose 112 H 229 H (70-105) Uric Acid 2.7 L (3.5-7.6) mg/dL
[2019-03-26] MEDS ORDERED: VANCOMYCIN PHARMACY TO DOSE IV SCH (14:00)
[2019-03-26] MEDS ORDERED: MAXIPIME/NS 1 GM/100 ML 1 GM/100 ML BAG IV SCH (14:00)
--- NOTE | 2019-03-26 15:34 | Progress Note ---
Assessment and Plan Assessment and plan: 78-year-old female with hypertension, diabetes, CVA with dysarthria, coronary artery disease awho presents with red, tender right great toe. Unknown of trauma. Family member at bedside has noted fluctuating sugar reading. Patient is poor historian Probable right great toe acute osteomyelitis: xray shows cortical erosion of the distal phalanx concerning for osteomyelitis . Differential diagnosis does include acute gout v/s pseudogout, .obtain vascular studies -F/U MRI, cont abx per ID -fup ESR, CRP ordered for AM, TTE ordered DM-2: Optimize insulins hx of CVA cont meds for secondary ppx Peripheral vascular disease: Arterial doppler reveals R>L arterial insuffici ency. vasc consult History Interval history: no fever still relating trouble with walking, and r big toe pain no vomiting no cough or cp Hospitalist Physical - Physical exam Narrative exam: General.: Appears well, no distress, nontoxic HEENT: Moist mucous membranes, extraocular muscles intact, no lymphadenopathy Neck: supple Cardiac: S1-S2 heard Lungs: clear to auscultation bilaterally Abdomen: soft , nontender, nondistended, bowel sounds positive Extremities: no edema clubbing or cyanosis Skin: no rash or lesions Neurologic: no gross focal deficits, dysarthria, R big toe is red and swollen Psych: calm, and cooperative - Constitutional Vitals: Temp Pulse Resp BP Pulse Ox 97.4 F L 88 18 93/57 96 03/26/19 13:58 03/26/19 13:58 03/26/19 13:58 03/26/19 13:58 03/26/19 13:58 General appearance: Present: no acute distress, well-nourished Results - Labs CBC & Chem 7: 03/26/19 04:27 03/26/19 04:27 Labs: Laboratory Last Values WBC 10.1 K/mm3 (4.5-11.0) 03/26/19 04:27 RBC 4.33 M/mm3 (3.65-5.03) 03/26/19 04:27 Hgb 12.9 gm/dl (10.1-14.3) 03/26/19 04:27 Hct 38.2 % (30.3-42.9) 03/26/19 04:27 MCV 88 fl (79-97) 03/26/19 04:27 MCH 30 pg (28-32) 03/26/19 04:27 MCHC 34 % (30-34) 03/26/19 04:27 RDW 14.1 % (13.2-15.2) 03/26/19 04:27 Plt Count 266 K/mm3 (140-440) 03/26/19 04:27 Lymph % (Auto) 22.4 % (13.4-35.0) 03/26/19 04:27 [place] % (Auto) 7.6 % (0.0-7.3) H 03/26/19 04:27 Eos % (Auto) 1.5 % (0.0-4.3) 03/26/19 04:27 Baso % (Auto) 0.4 % (0.0-1.8) 03/26/19 04:27 Lymph # 2.3 K/mm3 (1.2-5.4) 03/26/19 04:27 [place] # 0.8 K/mm3 (0.0-0.8) 03/26/19 04:27 Eos # 0.2 K/mm3 (0.0-0.4) 03/26/19 04:27 Baso # 0.0 K/mm3 (0.0-0.1) 03/26/19 04:27 Seg Neutrophils % 68.1 % (40.0-70.0) 03/26/19 04:27 Seg Neutrophils # 6.9 K/mm3 (1.8-7.7) 03/26/19 04:27 Sodium 139 mmol/L (137-145) 03/26/19 04:27 Potassium 4.2 mmol/L (3.6-5.0) 03/26/19 04:27 Chloride 101.8 mmol/L (98-107) 03/26/19 04:27 Carbon Dioxide 28 mmol/L (22-30) 03/26/19 04:27 13 mmol/L 03/26/19 04:27 BUN 20 mg/dL (7-17) H 03/26/19 04:27 1.0 mg/dL (0.7-1.2) 03/26/19 04:27 Estimated GFR 54 ml/min 03/26/19 04:27 20 % 03/26/19 04:27 Glucose 132 mg/dL (65-100) H 03/26/19 04:27 POC Glucose 229 (70-105) H 03/26/19 11:45 2.7 mg/dL (3.5-7.6) L 03/26/19 04:27 Calcium 8.9 mg/dL (8.4-10.2) 03/26/19 04:27 Active Medications - Current Medications Current Medications: Generic Name Dose Route Start Last Admin Trade Name Freq PRN Reason Stop Dose Admin Acetaminophen 650 mg 03/25/19 06:11 Tylenol PO Q4H PRN Pain MILD(1-3)/Fever >100.5/OQUENDO Aspirin 81 mg 03/25/19 13:00 03/26/19 09:50 Baby Aspirin PO 81 mg QDAY LOVELY Administration Atorvastatin Calcium 40 mg 03/25/19 22:00 03/25/19 22:04 Lipitor PO 40 mg QHS LOVELY Administration Dextrose 50 ml 03/25/19 06:11 D50w (25gm) Syringe IV PRN PRN Hypoglycemia Enoxaparin Sodium 40 mg 03/25/19 10:00 03/26/19 09:50 Lovenox SUB-Q 40 mg QDAY LOVELY Administration Fluoxetine HCl 60 mg 03/26/19 10:00 03/26/19 09:50 Prozac PO 60 mg DAILY LOVELY Administration Cefepime HCl 2 gm in 100 mls @ 200 mls/hr 03/26/19 15:00 Maxipime/Ns 2 Gm/100 Ml IV Q12HR LOVELY Vancomycin HCl 1 gm in 250 mls @ 166.667 mls/hr 03/26/19 15:00 Vancomycin/Ns 1 Gm/250 Ml IV Q12H LOVELY Ibuprofen 800 mg 03/25/19 12:12 03/26/19 05:22 Ibuprofen PO 800 mg Q8H PRN Administration Pain Insulin Glargine 35 units 03/25/19 22:00 03/25/19 21:59 Lantus SUB-Q 35 units QHS LOVELY Administration Insulin Human Lispro 0 unit 03/25/19 07:30 03/26/19 12:30 Humalog SUB-Q 4 unit ACHS LOVELY Administration Protocol Ondansetron HCl 4 mg 03/25/19 06:11 Zofran IV Q8H PRN Nausea And Vomiting Pantoprazole Sodium 20 mg 03/26/19 10:00 03/26/19 09:50 Protonix PO 20 mg QDAY LOVELY Administration Sodium Chloride 10 ml 03/25/19 10:00 03/26/19 09:51 Sodium Chloride Flush Syringe 10 Ml IV 10 ml BID LOVELY Administration Sodium Chloride 10 ml 03/25/19 06:11 Sodium Chloride Flush Syringe 10 Ml IV PRN PRN LINE FLUSH
[2019-03-26] MEDS: MAXIPIME/NS 2 GM/100 ML 2 GM/100 ML BAG IV SCH ×2 (15:42→21:59)
[2019-03-26] MEDS: VANCOMYCIN/NS 1 GM/250 ML 1 GM/250 ML BAG IV SCH (16:12)
[2019-03-26] MEDS: LANTUS SUB-Q SCH (21:56)
[2019-03-27] MEDS: VANCOMYCIN/NS 1 GM/250 ML 1 GM/250 ML BAG IV SCH (02:29)
--- NOTE | 2019-03-27 07:27 | Progress Note ---
Assessment and Plan Assessment and plan: 78-year-old female with hypertension, diabetes, CVA with dysarthria, coronary artery disease awho presents with red, tender right great toe. Unknown of trauma. Family member at bedside has noted fluctuating sugar reading. Patient is poor historian Probable right great toe acute osteomyelitis: xray shows cortical erosion of the distal phalanx concerning for osteomyelitis . Differential diagnosis does include acute gout v/s pseudogout, .obtain vascular studies -F/U MRI, cont abx per ID -fup ESR, CRP ordered for AM, TTE ordered DM-2: Optimize insulins hx of CVA cont meds for secondary ppx Peripheral vascular disease: Arterial doppler reveals R>L arterial insuffici ency. vasc consult dvt ppx lovenox History Interval history: no fever still relating trouble with walking, and r big toe pain no vomiting no cough or cp Hospitalist Physical - Physical exam Narrative exam: General.: Appears well, no distress, nontoxic HEENT: Moist mucous membranes, extraocular muscles intact, no lymphadenopathy Neck: supple Cardiac: S1-S2 heard Lungs: clear to auscultation bilaterally Abdomen: soft , nontender, nondistended, bowel sounds positive Extremities: no edema clubbing or cyanosis Skin: no rash or lesions Neurologic: no gross focal deficits, dysarthria, R big toe is red and swollen Psych: calm, and cooperative - Constitutional Vitals: Temp Pulse Resp BP Pulse Ox 99.2 F 87 18 105/72 97 03/27/19 02:02 03/27/19 02:02 03/27/19 02:02 03/27/19 02:02 03/27/19 02:02 General appearance: Present: no acute distress, well-nourished Results - Labs CBC & Chem 7: 03/26/19 04:27 03/26/19 04:27 Labs: Laboratory Last Values WBC 10.1 K/mm3 (4.5-11.0) 03/26/19 04:27 RBC 4.33 M/mm3 (3.65-5.03) 03/26/19 04:27 Hgb 12.9 gm/dl (10.1-14.3) 03/26/19 04:27 Hct 38.2 % (30.3-42.9) 03/26/19 04:27 MCV 88 fl (79-97) 03/26/19 04:27 MCH 30 pg (28-32) 03/26/19 04:27 MCHC 34 % (30-34) 03/26/19 04:27 RDW 14.1 % (13.2-15.2) 03/26/19 04:27 Plt Count 266 K/mm3 (140-440) 03/26/19 04:27 Lymph % (Auto) 22.4 % (13.4-35.0) 03/26/19 04:27 [place] % (Auto) 7.6 % (0.0-7.3) H 03/26/19 04:27 Eos % (Auto) 1.5 % (0.0-4.3) 03/26/19 04:27 Baso % (Auto) 0.4 % (0.0-1.8) 03/26/19 04:27 Lymph # 2.3 K/mm3 (1.2-5.4) 03/26/19 04:27 [place] # 0.8 K/mm3 (0.0-0.8) 03/26/19 04:27 Eos # 0.2 K/mm3 (0.0-0.4) 03/26/19 04:27 Baso # 0.0 K/mm3 (0.0-0.1) 03/26/19 04:27 Seg Neutrophils % 68.1 % (40.0-70.0) 03/26/19 04:27 Seg Neutrophils # 6.9 K/mm3 (1.8-7.7) 03/26/19 04:27 ESR 58 mm/Hr (0-20) 03/27/19 04:04 Sodium 139 mmol/L (137-145) 03/26/19 04:27 Potassium 4.2 mmol/L (3.6-5.0) 03/26/19 04:27 Chloride 101.8 mmol/L (98-107) 03/26/19 04:27 Carbon Dioxide 28 mmol/L (22-30) 03/26/19 04:27 13 mmol/L 03/26/19 04:27 BUN 20 mg/dL (7-17) H 03/26/19 04:27 1.0 mg/dL (0.7-1.2) 03/26/19 04:27 Estimated GFR 54 ml/min 03/26/19 04:27 20 % 03/26/19 04:27 Glucose 132 mg/dL (65-100) H 03/26/19 04:27 POC Glucose 198 (70-105) H 03/26/19 21:44 2.7 mg/dL (3.5-7.6) L 03/26/19 04:27 Calcium 8.9 mg/dL (8.4-10.2) 03/26/19 04:27 2.70 mg/dL (0.00-1.30) H 03/27/19 04:04 Active Medications - Current Medications Current Medications: Generic Name Dose Route Start Last Admin Trade Name Freq PRN Reason Stop Dose Admin Acetaminophen 650 mg 03/25/19 06:11 Tylenol PO Q4H PRN Pain MILD(1-3)/Fever >100.5/OQUENDO Aspirin 81 mg 03/25/19 13:00 03/26/19 09:50 Baby Aspirin PO 81 mg QDAY LOVELY Administration Atorvastatin Calcium 40 mg 03/25/19 22:00 03/26/19 21:59 Lipitor PO 40 mg QHS LOVELY Administration Dextrose 50 ml 03/25/19 06:11 D50w (25gm) Syringe IV PRN PRN Hypoglycemia Enoxaparin Sodium 40 mg 03/25/19 10:00 03/26/19 09:50 Lovenox SUB-Q 40 mg QDAY LOVELY Administration Fluoxetine HCl 60 mg 03/26/19 10:00 03/26/19 09:50 Prozac PO 60 mg DAILY LOVELY Administration Cefepime HCl 2 gm in 100 mls @ 200 mls/hr 03/26/19 15:00 03/26/19 21:59 Maxipime/Ns 2 Gm/100 Ml IV 200 mls/hr Q12HR LOVELY Administration Vancomycin HCl 1 gm in 250 mls @ 166.667 mls/hr 03/26/19 15:00 03/27/19 02:29 Vancomycin/Ns 1 Gm/250 Ml IV 166.667 mls/hr Q12H LOVELY Administration Ibuprofen 800 mg 03/25/19 12:12 03/26/19 19:38 Ibuprofen PO 800 mg Q8H PRN Administration Pain Insulin Glargine 35 units 03/25/19 22:00 03/26/19 21:56 Lantus SUB-Q 35 units QHS LOVELY Administration Insulin Human Lispro 0 unit 03/25/19 07:30 03/26/19 21:58 Humalog SUB-Q 3 unit ACHS LVOELY Administration Protocol Ondansetron HCl 4 mg 03/25/19 06:11 Zofran IV Q8H PRN Nausea And Vomiting Pantoprazole Sodium 20 mg 03/26/19 10:00 03/26/19 09:50 Protonix PO 20 mg QDAY LOVELY Administration Sodium Chloride 10 ml 03/25/19 10:00 03/26/19 22:00 Sodium Chloride Flush Syringe 10 Ml IV 10 ml BID LOVELY Administration Sodium Chloride 10 ml 03/25/19 06:11 Sodium Chloride Flush Syringe 10 Ml IV PRN PRN LINE FLUSH
[2019-03-27] MEDS: HumaLOG SUB-Q SCH ×4 (07:40→22:30)
--- NOTE | 2019-03-27 09:18 | Progress Note ---
Assessment and Plan X-ray of the right foot, image reviewed, shows cortical erosion of the great toe distal phalanx, concerning for osteomyelitis. Cultures: 03/25/2019 blood culture: no growth A/P: 78-year-old female with hypertension, diabetes, CVA with dysarthria, coronary artery disease admitted with: 1) Probable right great toe acute osteomyelitis: xray shows cortical erosion of the distal phalanx concerning for osteomyelitis however there is no contiguous wound and hence not typical of a diabetic foot osteomyelitis. Differential diagnosis does include acute gout v/s pseudogout, but not much evidence of arthropathy involving the first MTP joint. Eval with vascular studies and MRI. Uric acid level is low at 2.7 (though levels could be falsely low during an acute attack). ?Embolic. ESR 58. CRP 2.7 2) DM-2: recommend glycemic control 3) CVA 4) Peripheral vascular disease: Arterial doppler reveals R>L arterial insufficiency. Recs: continue to monitor response to abx: empiric Cefepime and Vancomycin f/u MRI- Probable osteomyelitis, anticipate 6 weeks of antibiotics. recommend vascular consult follow-up [facility] M: [phone] O:[phone] Subjective Date of service: 03/27/19 Principal diagnosis: Rt Grt toe cellulitis Interval history: Patient seen and examined. Unintelligible speech. Continued pain, erythema and swelling to right great toe. No fevers. Objective - Exam Narrative Exam: Constitutional: Alert. Awake. unintelligible speech. Head, Ears, Nose: Normocephalic, atraumatic. External ears, nose normal Eyes: Conjunctivae/corneas clear. No icterus. No ptosis. Neck: Supple, no meningeal signs Oral: edentulous, no thrush or ulcers Cardiovascular: S1, S2 normal. Respiratory: Good air entry, clear to auscultation bilaterally GI: Soft, non-tender; bowel sounds normal. No peritoneal signs Musculoskeletal: No pedal edema, no cyanosis. Right great toe with erythema, swelling and severe tenderness. There is no open wound, no drainage. Skin: No rash or abscess Hem/Lymphatic: No palpable cervical or supraclavicular nodes. No lymphangitis Psych: Mood ok. Affect normal Neurological: Awake, alert, unintelligible speech - Constitutional Vitals: Vital Signs Temp Pulse Resp BP Pulse Ox 98.9 F 82 18 93/57 92 03/27/19 07:28 03/27/19 07:28 03/27/19 07:28 03/27/19 07:28 03/27/19 07:28 Temperature -Last 24 Hours Temperature 98.9 F Temperature 99.2 F Temperature 98.3 F Temperature 97.4 F - Labs CBC & Chem 7: 03/26/19 04:27 03/26/19 04:27 Labs: Abnormal lab results 03/26/19 03/26/19 03/26/19 Range/Units 11:45 16:24 21:44 POC Glucose 229 H 158 H 198 H (70-105) C-Reactive Protein (0.00-1.30) mg/dL 03/27/19 03/27/19 Range/Units 04:04 07:35 POC Glucose 132 H (70-105) C-Reactive Protein 2.70 H (0.00-1.30) mg/dL
[2019-03-27] MEDS: MAXIPIME/NS 2 GM/100 ML 2 GM/100 ML BAG IV SCH ×2 (09:48→22:22)
[2019-03-27] MEDS: PROzac PO SCH (09:49)
[2019-03-27] MEDS: LOVENOX SUB-Q SCH (09:49)
[2019-03-27] MEDS: BABY ASPIRIN PO SCH (09:49)
[2019-03-27] MEDS: PROTONIX PO SCH (09:49)
[2019-03-27] MEDS: SODIUM CHLORIDE FLUSH SYRINGE 10 ML IV SCH ×2 (09:50→22:31)
[2019-03-27] MEDS: IBUPROFEN PO PRN (13:42)
[2019-03-27] MEDS ORDERED: ATIVAN IV ONE (16:16)
--- NOTE | 2019-03-27 17:04 | Consultation ---
History of Present Illness - Reason for Consult Consult date: 03/27/19 painful right great toe - History of Present Illness HPI: 78yo female with DM hospitalized with a painful swollen right great toe for the past two weeks per the daughter. The patient just returned from MRI and is still somnolent from the medication given. The patient walks with a walker at home due previous stroke. Per the daughter, the patient has never smoked and does not complain of lower extremity claudication. PE: RRR non-labored respirations palpable femoral pulses bilat right foot warm with <1 sec cap refill right great toe swollen, erythematous with callous noted on the tip Arterial studies reviewed MRI pending Plan: Arterial studies demonstrates intact flow to the foot Unlikely toe findings related to arterial insufficiency MRI pending, if concerning for osteo, patient to possibly benefit from diagnostic angio will continue to follow Medications and Allergies Allergies Allergy/AdvReac Type Severity Reaction Status Date / Time No Known Allergies Allergy Verified 02/03/18 01:53 Home Medications Medication Instructions Recorded Confirmed Last Taken Type Rosuvastatin Calcium [Crestor] 40 mg PO DAILY 06/20/14 03/25/19 03/24/19 10:00 History Aspirin 81 mg PO DAILY 06/20/15 03/25/19 03/24/19 10:00 History PriLOSEC Otc 1 tab PO DAILY 07/13/16 03/25/19 03/24/19 10:00 History Ciprofloxacin [Ciprofloxacin ORAL 250 mg PO Q12H 7 Days ml 07/16/16 03/25/19 Unknown Rx LIQ] Ibuprofen [Motrin] 800 mg PO Q8HR PRN #30 tablet 12/13/17 03/25/19 03/24/19 22:00 Rx FLUoxetine HCL [Prozac] 60 mg PO DAILY 03/25/19 03/25/19 03/24/19 10:00 History Levemir VIAL 35 unit SUB-Q HS 03/25/19 03/25/19 03/24/19 11:00 History NovoLOG 100 UNITS/ML VIAL See Protocol SQ QACHS 03/25/19 03/25/19 03/24/19 16:30 History Active Meds: Active Medications Acetaminophen (Tylenol) 650 mg PO Q4H PRN PRN Reason: Pain MILD(1-3)/Fever >100.5/OQUENDO Aspirin (Baby Aspirin) 81 mg PO QDAY LOVELY Last Admin: 03/27/19 09:49 Dose: 81 mg Documented by: Atorvastatin Calcium (Lipitor) 40 mg PO QHS [facility] Last Admin: 03/26/19 21:59 Dose: 40 mg Documented by: Dextrose (D50w (25gm) Syringe) 50 ml IV PRN PRN PRN Reason: Hypoglycemia Enoxaparin Sodium (Lovenox) 40 mg SUB-Q QDAY [facility] Last Admin: 03/27/19 09:49 Dose: 40 mg Documented by: Fluoxetine HCl (Prozac) 60 mg PO DAILY [facility] Last Admin: 03/27/19 09:49 Dose: 60 mg Documented by: Cefepime HCl (Maxipime/Ns 2 Gm/100 Ml) 2 gm in 100 mls @ 200 mls/hr IV Q12HR [facility] Last Admin: 03/27/19 09:48 Dose: 200 mls/hr Documented by: Vancomycin HCl (Vancomycin/Ns 1 Gm/250 Ml) 1 gm in 250 mls @ 166.667 mls/hr IV Q24HR@0600 [facility] Ibuprofen (Ibuprofen) 800 mg PO Q8H PRN PRN Reason: Pain Last Admin: 03/27/19 13:42 Dose: 800 mg Documented by: Insulin Glargine (Lantus) 35 units SUB-Q QHS [facility] Last Admin: 03/26/19 21:56 Dose: 35 units Documented by: Insulin Human Lispro (Humalog) 0 unit SUB-Q [facility]; Protocol Last Admin: 03/27/19 12:50 Dose: 4 unit Documented by: Ondansetron HCl (Zofran) 4 mg IV Q8H PRN PRN Reason: Nausea And Vomiting Pantoprazole Sodium (Protonix) 20 mg PO QDAY [facility] Last Admin: 03/27/19 09:49 Dose: 20 mg Documented by: Sodium Chloride (Sodium Chloride Flush Syringe 10 Ml) 10 ml IV BID [facility] Last Admin: 03/27/19 09:50 Dose: 10 ml Documented by: Sodium Chloride (Sodium Chloride Flush Syringe 10 Ml) 10 ml IV PRN PRN PRN Reason: LINE FLUSH Exam - Constitutional Vitals: Temp Pulse Resp BP Pulse Ox 98.0 F 44 L 22 91/58 82 L 03/27/19 14:16 03/27/19 14:16 03/27/19 14:16 03/27/19 14:16 03/27/19 14:16 Results - Labs CBC & Chem 7: 03/26/19 04:27 03/26/19 04:27 Labs: Abnormal lab results 03/26/19 03/27/19 03/27/19 Range/Units 21:44 04:04 07:35 POC Glucose 198 H 132 H (70-105) C-Reactive Protein 2.70 H (0.00-1.30) mg/dL 03/27/19 03/27/19 Range/Units 11:15 16:21 POC Glucose 207 H 132 H (70-105) C-Reactive Protein (0.00-1.30) mg/dL
--- NOTE | 2019-03-27 17:07 | Magnetic Resonance Report ---
MR LE joint RT wo con INDICATION / CLINICAL INFORMATION: R great toe swelling, gout. TECHNIQUE: Multiplanar, multisequence MR images were obtained. COMPARISON: Radiographs 03/25/2019. FINDINGS: The exam is severely limited due to significant patient motion. There is diffuse abnormal signal within the distal phalanx of the great toe with cortical destruction . There appears to be a circumscribed fluid collection encasing the distal phalanx circumferentially (series 5 images for-7). This may communicate with the dorsal distal skin surface on images 3-4 of th e same series. Bone marrow signal is otherwise unremarkable. No additional fluid collections are seen. IMPRESSION: 1. Circumscribed fluid collection essentially encasing the first toe distal phalanx. This is concerni ng for abscess. There is diffuse osteomyelitis involving the distal phalanx. The exam is significantly limited due to patient motion. I do not see definite osteomyelitis within t he proximal phalanx of the great toe or elsewhere within the included forefoot. Signer Name: Rohit Almanza MD Signed: 03/27/2019 5:02 PM Workstation Name: [id number]
[2019-03-27] MEDS: LANTUS SUB-Q SCH (22:30)
[2019-03-27] MEDS: TYLENOL PO PRN (22:50)
[2019-03-28] MEDS: VANCOMYCIN/NS 1 GM/250 ML 1 GM/250 ML BAG IV SCH (05:01)
[2019-03-28] MEDS: HumaLOG SUB-Q SCH ×4 (07:30→22:54)
--- NOTE | 2019-03-28 08:21 | Event Note ---
Date: 03/28/19 MRI final report reviewed and demonstrates evidence of osteo. We will plan to take patient tomorrow for right lower extremity angiogram to evaluate arterial anatomy. DARNELL ROCHE.
--- NOTE | 2019-03-28 08:50 | Progress Note ---
Assessment and Plan X-ray of the right foot, image reviewed, shows cortical erosion of the great toe distal phalanx, concerning for osteomyelitis. Cultures: 03/25/2019 blood culture: no growth A/P: 78-year-old female with hypertension, diabetes, CVA with dysarthria, coronary artery disease admitted with: 1) Probable right great toe acute osteomyelitis: xray shows cortical erosion of the distal phalanx concerning for osteomyelitis however there is no contiguous wound and hence not typical of a diabetic foot osteomyelitis. Differential diagnosis does include acute gout v/s pseudogout, but not much evidence of arthropathy involving the first MTP joint. Eval with vascular studies and MRI. Uric acid level is low at 2.7 (though levels could be falsely low during an acute attack). ?Embolic. ESR 58. CRP 2.7 MRI shows circumscribed fluid collection encasing the first toe distal phalanx. Concerning for abscess. There is diffuse osteomyelitis involving the distal phalanx. Vascular to perform right lower extremity angiogram to evaluate arterial anatomy today. Recommend IR consult for I & D of abscess. 2) DM-2: recommend glycemic control 3) CVA 4) Peripheral vascular disease: Arterial doppler reveals R>L arterial insufficiency. Recs: Continue Cefepime and Vancomycin IR consult placed for I & D of right great toe abscess- please send specimen for cultures follow-up [facility] M: [phone] O:[phone] Subjective Date of service: 03/28/19 Principal diagnosis: Rt Grt toe cellulitis Interval history: Patient seen and examined. Asleep. Difficult to arouse. Continued pain, erythema and swelling to right great toe. No fevers. Daughter at bedside. Objective - Exam Narrative Exam: Constitutional: Asleep. Difficult to arouse. unintelligible speech. Head, Ears, Nose: Normocephalic, atraumatic. External ears, nose normal Eyes: Conjunctivae/corneas clear. No icterus. No ptosis. Neck: Supple, no meningeal signs Oral: edentulous, no thrush or ulcers Cardiovascular: S1, S2 normal. Respiratory: Good air entry, clear to auscultation bilaterally GI: Soft, non-tender; bowel sounds normal. No peritoneal signs Musculoskeletal: No pedal edema, no cyanosis. Right great toe with erythema, swelling and severe tenderness. There is no open wound, no drainage. Skin: No rash or abscess Hem/Lymphatic: No palpable cervical or supraclavicular nodes. No lymphangitis Psych: Mood ok. Affect normal Neurological: Asleep. Difficult to arouse. - Constitutional Vitals: Vital Signs Temp Pulse Resp BP Pulse Ox 98.6 F 83 20 147/81 97 03/28/19 07:20 03/28/19 07:20 03/28/19 07:20 03/28/19 07:20 03/28/19 07:20 Temperature -Last 24 Hours Temperature 98.6 F Temperature 97.6 F Temperature 98.3 F Temperature 98.0 F - Labs CBC & Chem 7: 03/26/19 04:27 03/26/19 04:27 Labs: Abnormal lab results 03/27/19 03/27/19 03/27/19 Range/Units 11:15 16:21 21:36 POC Glucose 207 H 132 H 255 H (70-105) 03/28/19 Range/Units 07:28 POC Glucose 143 H (70-105)
[2019-03-28] MEDS: PROTONIX PO SCH (09:31)
[2019-03-28] MEDS: LOVENOX SUB-Q SCH (09:31)
[2019-03-28] MEDS: MAXIPIME/NS 2 GM/100 ML 2 GM/100 ML BAG IV SCH ×2 (09:31→22:33)
[2019-03-28] MEDS: BABY ASPIRIN PO SCH (09:31)
[2019-03-28] MEDS: PROzac PO SCH (09:32)
[2019-03-28] MEDS: SODIUM CHLORIDE FLUSH SYRINGE 10 ML IV SCH ×2 (09:37→22:39)
[2019-03-28] MEDS: IBUPROFEN PO PRN (09:47)
--- NOTE | 2019-03-28 10:09 | Progress Note ---
Assessment and Plan Assessment and plan: 78-year-old female with hypertension, diabetes, CVA with dysarthria, coronary artery disease awho presents with red, tender right great toe. Unknown of trauma. Family member at bedside has noted fluctuating sugar reading. Patient is poor historian --Probable right great toe acute osteomyelitis: xray shows cortical erosion of the distal phalanx concerning for osteomyelitis MRI mattie:Collection encasing the first distal phalanx concerning for abscess and diffuse osteomyelitis involving the distal phalanx, continue cefepime and Vanco ID and Vascular following, planning angiogram today Echo; normal EF 65%, normal LV function . --DM-2: Accu-Chek sliding scale coverage and ADA diet, insulin as needed --hx of CVA ; antiplatelets and statin Supportive care --Peripheral vascular disease: Arterial doppler reveals R>L arterial insufficiency Vascular already following following recommendations. --Dvt ppx; lovenox Monitor closely and adjust management as needed Disposition; follow vascular recommendations evaluation and recommendations Plan of care reviewed with the patient and her daughter, her nurse and the case management History Interval history: Patient seen and examined medical records reviewed Patient's MRI of the toe consistent with abscess/osteomyelitis Vascular already on the case Patient is not in acute distress vital signs noted Hospitalist Physical - Constitutional Vitals: Temp Pulse Resp BP Pulse Ox 98.6 F 83 20 147/81 97 03/28/19 07:20 03/28/19 07:20 03/28/19 07:20 03/28/19 07:20 03/28/19 07:20 General appearance: Present: no acute distress, well-nourished - EENT Eyes: Present: PERRL, EOM intact - Neck Neck: Present: supple, normal ROM - Respiratory Respiratory effort: normal Respiratory: bilateral: diminished, negative: rales, rhonchi, wheezing - Cardiovascular Rhythm: regular Heart Sounds: Present: S1 & S2 - Extremities Extremities: no ischemia, abnormal (right great toe swelling and erythema tenderness ) Extremity abnormal: edema, erythema - Abdominal General gastrointestinal: soft, non-tender, non-distended, normal bowel sounds - Integumentary Integumentary: Present: clear, warm - Psychiatric Psychiatric: appropriate mood/affect, cooperative - Neurologic Neurologic: CNII-XII intact, moves all extremities Results - Labs CBC & Chem 7: 03/26/19 04:27 03/26/19 04:27 Labs: Laboratory Last Values WBC 10.1 K/mm3 (4.5-11.0) 03/26/19 04:27 RBC 4.33 M/mm3 (3.65-5.03) 03/26/19 04:27 Hgb 12.9 gm/dl (10.1-14.3) 03/26/19 04:27 Hct 38.2 % (30.3-42.9) 03/26/19 04:27 MCV 88 fl (79-97) 03/26/19 04:27 MCH 30 pg (28-32) 03/26/19 04:27 MCHC 34 % (30-34) 03/26/19 04:27 RDW 14.1 % (13.2-15.2) 03/26/19 04:27 Plt Count 266 K/mm3 (140-440) 03/26/19 04:27 Lymph % (Auto) 22.4 % (13.4-35.0) 03/26/19 04:27 [place] % (Auto) 7.6 % (0.0-7.3) H 03/26/19 04:27 Eos % (Auto) 1.5 % (0.0-4.3) 03/26/19 04:27 Baso % (Auto) 0.4 % (0.0-1.8) 03/26/19 04:27 Lymph # 2.3 K/mm3 (1.2-5.4) 03/26/19 04:27 [place] # 0.8 K/mm3 (0.0-0.8) 03/26/19 04:27 Eos # 0.2 K/mm3 (0.0-0.4) 03/26/19 04:27 Baso # 0.0 K/mm3 (0.0-0.1) 03/26/19 04:27 Seg Neutrophils % 68.1 % (40.0-70.0) 03/26/19 04: Seg Neutrophils # 6.9 K/mm3 (1.8-7.7) 03/26/19 04:27 ESR 58 mm/Hr (0-20) 03/27/19 04:04 Sodium 139 mmol/L (137-145) 03/26/19 04:27 Potassium 4.2 mmol/L (3.6-5.0) 03/26/19 04:27 Chloride 101.8 mmol/L (98-107) 03/26/19 04:27 Carbon Dioxide 28 mmol/L (22-30) 03/26/19 04:27 13 mmol/L 03/26/19 04:27 BUN 20 mg/dL (7-17) H 03/26/19 04:27 1.0 mg/dL (0.7-1.2) 03/26/19 04:27 Estimated GFR 54 ml/min 03/26/19 04:27 20 % 03/26/19 04:27 Glucose 132 mg/dL (65-100) H 03/26/19 04:27 POC Glucose 143 (70-105) H 03/28/19 07:28 2.7 mg/dL (3.5-7.6) L 03/26/19 04:27 Calcium 8.9 mg/dL (8.4-10.2) 03/26/19 04:27 2.70 mg/dL (0.00-1.30) H 03/27/19 04:04 Active Medications - Current Medications Current Medications: Generic Name Dose Route Start Last Admin Trade Name Freq PRN Reason Stop Dose Admin Acetaminophen 650 mg 03/25/19 06:11 03/27/19 22:50 Tylenol PO 650 mg Q4H PRN Administration Pain MILD(1-3)/Fever >100.5/OQUENDO Aspirin 81 mg 03/25/19 13:00 03/28/19 09:31 Baby Aspirin PO 81 mg QDAY LOVELY Administration Atorvastatin Calcium 40 mg 03/25/19 22:00 03/27/19 22:30 Lipitor PO 40 mg QHS LOVELY Administration Dextrose 50 ml 03/25/19 06:11 D50w (25gm) Syringe IV PRN PRN Hypoglycemia Enoxaparin Sodium 40 mg 03/25/19 10:00 03/28/19 09:31 Lovenox SUB-Q 40 mg QDAY LOVELY Administration Fluoxetine HCl 60 mg 03/26/19 10:00 03/28/19 09:32 Prozac PO 60 mg DAILY LOVELY Administration Cefepime HCl 2 gm in 100 mls @ 200 mls/hr 03/26/19 15:00 03/28/19 09:31 Maxipime/Ns 2 Gm/100 Ml IV 200 mls/hr Q12HR LOVELY Administration Vancomycin HCl 1 gm in 250 mls @ 166.667 mls/hr 03/28/19 06:00 03/28/19 05:01 Vancomycin/Ns 1 Gm/250 Ml IV 166.667 mls/hr Q24HR@0600 LOVELY Administration Ibuprofen 800 mg 03/25/19 12:12 03/28/19 09:47 Ibuprofen PO 800 mg Q8H PRN Administration Pain Insulin Glargine 35 units 03/25/19 22:00 03/27/19 22:30 Lantus SUB-Q 35 units QHS LOVELY Administration Insulin Human Lispro 0 unit 03/25/19 07:30 03/28/19 07:30 Humalog SUB-Q Not Given ACHS [facility] Protocol Ondansetron HCl 4 mg 03/25/19 06:11 Zofran IV Q8H PRN Nausea And Vomiting Pantoprazole Sodium 20 mg 03/26/19 10:00 03/28/19 09:31 Protonix PO 20 mg QDAY LOVELY Administration Sodium Chloride 10 ml 03/25/19 10:00 03/28/19 09:37 Sodium Chloride Flush Syringe 10 Ml IV 10 ml BID LOVELY Administration Sodium Chloride 10 ml 03/25/19 06:11 Sodium Chloride Flush Syringe 10 Ml IV PRN PRN LINE FLUSH
[2019-03-28] MEDS: LANTUS SUB-Q SCH (22:34)
[2019-03-28] MEDS: TYLENOL PO PRN (22:34)
[2019-03-29] MEDS: VANCOMYCIN/NS 1 GM/250 ML 1 GM/250 ML BAG IV SCH (05:46)
[2019-03-29] MEDS ORDERED: TORADOL IV ONE (06:19)
[2019-03-29] MEDS: HumaLOG SUB-Q SCH ×3 (07:30→17:17)
[2019-03-29] MEDS ORDERED: NACL 0.9% 500 ML 500 ML ONE (09:48)
[2019-03-29] MEDS: PROTONIX PO SCH (10:00)
[2019-03-29] MEDS: PROzac PO SCH (10:00)
[2019-03-29] MEDS ORDERED: NACL 0.9% 500 ML 500 ML IV SCH (10:00)
[2019-03-29] MEDS: BABY ASPIRIN PO SCH (10:00)
[2019-03-29] MEDS: MAXIPIME/NS 2 GM/100 ML 2 GM/100 ML BAG IV SCH (10:00)
[2019-03-29] MEDS: LOVENOX SUB-Q SCH (10:00)
[2019-03-29] MEDS: SODIUM CHLORIDE FLUSH SYRINGE 10 ML IV SCH (10:00)
[2019-03-29 10:05] LABS: INR 0.99 (0.87-1.13); Partial Thromboplastin Time 27.5 Sec. (24.2-36.6)
[2019-03-29] MEDS ORDERED: XYLOCAINE 2% INFILTRATI ONE (10:15)
[2019-03-29] MEDS ORDERED: HEPARIN/NS 5000 UNIT/500ML(CATH LAB) 500 ML IR ONE ×2 (10:15→11:02)
[2019-03-29] MEDS ORDERED: HEPARIN 10,000 UNITS/10 ML ONE (10:15)
[2019-03-29] MEDS ORDERED: VERSED ONE (10:16)
[2019-03-29] MEDS ORDERED: SUBLIMAZE ONE (10:16)
[2019-03-29] MEDS ORDERED: ANCEF/STERILE WATER 2 GM/20 ML 0 GM/0 ML SYRINGE IV ONE (10:16)
[2019-03-29 10:19] LABS: BUN/Creatinine Ratio 22; Blood Urea Nitrogen 20 mg/dL (7-17); Calcium 9.1 mg/dL (8.4-10.2); Hemolysis Index 1
[2019-03-29] MEDS ORDERED: PROTAMINE SULFATE ONE (11:48)
--- NOTE | 2019-03-29 12:37 | Post Operative Note ---
Pre-op diagnosis: Right Lower Extremity Critical Limb Ischemia Post-op diagnosis: same Findings: Aorto-iliac system patent bilaterally, Right Common Femoral, proximal-mid Superficial Femoral and profunda femoral patent, 50% stenosis of the distal SFA, [place] popliteal patent, 60% stenosis of the mid-popliteal and patent BK popliteal artery, THERMAL SPRAY OPERATOR of the proximal AT, THERMAL SPRAY OPERATOR of the proximal TP trunk, reconstitution of severely disease and atretic proximal peroneal throughout, no reconstitution of any named vessel in the foot, significant collaterals noted in the foot Procedure: 1. Left Femoral Arterial Access under ultrasound guidance 2. Diagnostic Aortogram with Radiologic Supervision and Interpretation 3. Right Lower Extremity Angiogram with 3rd Order Catheter Placement 4. Monitored Conscious Sedation 5. Closure of Femoral Access with Mynx closure device Anesthesia: MAC, local Surgeon: FRANK ESPINOZA Estimated blood loss: minimal Pathology: none Condition: stable Disposition: floor
--- NOTE | 2019-03-29 13:46 | Progress Note ---
Assessment and Plan X-ray of the right foot, image reviewed, shows cortical erosion of the great toe distal phalanx, concerning for osteomyelitis. Cultures: 03/25/2019 blood culture: no growth A/P: 78-year-old female with hypertension, diabetes, CVA with dysarthria, coronary artery disease admitted with: 1) Probable right great toe acute osteomyelitis: xray shows cortical erosion of the distal phalanx concerning for osteomyelitis however there is no contiguous wound and hence not typical of a diabetic foot osteomyelitis. Differential diagnosis does include acute gout v/s pseudogout, but not much evidence of arthropathy involving the first MTP joint. Eval with vascular studies and MRI. Uric acid level is low at 2.7 (though levels could be falsely low during an acute attack). ?Embolic. ESR 58. CRP 2.7 MRI shows circumscribed fluid collection encasing the first toe distal phalanx. Concerning for abscess. There is diffuse osteomyelitis involving the distal phalanx. Endovascular revascularization scheduled for tomorrow. Recommend IR consult for I & D of abscess. TTE shows no valvular vegetation. 2) DM-2: recommend glycemic control 3) CVA 4) Peripheral vascular disease: Arterial doppler reveals R>L arterial insufficiency. Recs: Continue Cefepime and Vancomycin Follow-up IR consult for I & D of right great toe abscess- please send specimen for cultures [facility] M: [phone] O:[phone] Subjective Date of service: 03/29/19 Principal diagnosis: Rt Grt toe cellulitis Interval history: Patient seen and examined. Asleep. Easy to arouse. Continued pain to great right toe discomfort. Daughter at bedside. Objective - Exam Narrative Exam: Constitutional: Asleep. East to arouse. unintelligible speech. Head, Ears, Nose: Normocephalic, atraumatic. External ears, nose normal Eyes: Conjunctivae/corneas clear. No icterus. No ptosis. Neck: Supple, no meningeal signs Oral: edentulous, no thrush or ulcers Cardiovascular: S1, S2 normal. Respiratory: Good air entry, clear to auscultation bilaterally GI: Soft, non-tender; bowel sounds normal. No peritoneal signs Musculoskeletal: No pedal edema, no cyanosis. Right great toe with erythema, swelling and severe tenderness. There is no open wound, no drainage. Skin: No rash or abscess Hem/Lymphatic: No palpable cervical or supraclavicular nodes. No lymphangitis Psych: Mood ok. Affect normal Neurological: Asleep. Easy to arouse. unintelligible speech - Constitutional Vitals: Vital Signs Temp Pulse Resp BP Pulse Ox 98.0 F 80 17 149/59 96 03/29/19 12:30 03/29/19 12:45 03/29/19 12:45 03/29/19 12:45 03/29/19 12:45 Temperature -Last 24 Hours Temperature 98.0 F Temperature 98.6 F Temperature 98.4 F Temperature 98.9 F - Labs CBC & Chem 7: 03/26/19 04:27 03/29/19 09:45 Labs: Abnormal lab results 03/28/19 03/28/19 03/29/19 Range/Units 16:58 22:18 09:45 BUN 20 H (7-17) mg/dL POC Glucose 173 H 156 H (70-105)
--- NOTE | 2019-03-29 14:51 | Event Note ---
Date: 03/29/19 Patient with significant tibial disease in the right leg and at serious risk for limb loss. patient with no open revascularization options. after long discussion with patient's daughter discussing current clinical picture and limited options, they have agreed to undergo attempt at endovascular revascularization tomorrow. DARNELL raines [place]
--- NOTE | 2019-03-29 15:11 | Operative Report ---
SURGEON: Dr. Alex Gilmore. PREOPERATIVE DIAGNOSIS: Right lower extremity, critical limb ischemia. POSTOPERATIVE DIAGNOSIS: Right lower extremity, critical limb ischemia. PROCEDURES PERFORMED: 1. Left femoral arterial access under ultrasound guidance. 2. Diagnostic aortogram with radiologic supervision and interpretation. 3. Right lower extremity angiogram with third order catheter placement. 4. Monitored conscious sedation. 5. Closure of femoral access with a Mynx closure device. COMPLICATIONS: None. ESTIMATED BLOOD LOSS: Less than 10 mL. ANESTHESIA: Local MAC. ANGIOGRAPHIC FINDINGS: The aortoiliac system was widely patent bilaterally. The right common femoral, proximal to mid superficial femoral and profunda femoral arteries were all widely patent. There was a 50% stenosis of the distal superficial femoral artery. The above knee popliteal artery was widely patent with a 60% stenosis of the mid popliteal artery and below-knee popliteal artery was also patent. There was a complete total occlusion of the proximal anterior tibial artery. There was also a complete total occlusion of the proximal tibioperoneal trunk with reconstitution of a severely diseased and atretic proximal peroneal artery throughout. There was no reconstitution of any named vessels in the foot with a significant number of collaterals noted in the foot. INDICATIONS FOR PROCEDURE: This is a 78-year-old female with diabetes mellitus who is currently hospitalized with a right great toe abscess and associated osteomyelitis for which a vascular consultation was obtained due to arterial insufficiency noted on recent arterial studies. Therefore, it was felt that the patient would benefit from diagnostic imaging to evaluate the patient's arterial anatomy. The patient and the patient's family were explained all the risks, benefits and alternatives of the procedure, expressed understanding, and wished to proceed. DESCRIPTION OF PROCEDURE: After appropriate consent was obtained, the patient was brought back to the labor arbitrator hearing office, placed on table in supine position. Both groins were prepped and draped in the usual sterile fashion with ChloraPrep. Appropriate timeout was performed indicating correct patient, procedure, and site of the procedure. We then began the intervention by obtaining percutaneous access of the left common femoral artery using a micropuncture technique under ultrasound guidance, was to obtain access, needle was exchanged for a micropuncture sheath using Seldinger technique and then upsized to a 5-Tamazight sheath over a stiff J wire, then a Glidewire was placed into the infrarenal aorta. An Omniflush catheter was placed over the wire. The wire was removed and a diagnostic aortogram was performed, which demonstrated the findings noted above. With this, we then proceeded to cannulate the right iliac system with a combination of the Omniflush catheter. Glidewire was thus completed, then the TrailBlazer catheter was then advanced over the Glidewire into the distal external iliac artery and a series of diagnostic imaging of the right lower extremity was performed, which demonstrated the findings noted above to get better imaging of the tibial runoff. Glidewire was advanced into the distal popliteal artery with a TrailBlazer catheter being advanced over the wire. The wire was removed and a series of diagnostic imaging was performed, which again demonstrated the findings noted above. This then proceeded to remove the TrailBlazer catheter over the Glidewire and then a 5-Tamazight Mynx closure device was then used to close the access site. It was deployed adequately. Further compression was held at the access site for further hemostasis. Once satisfied hemostasis, appropriate dressing was placed. The patient tolerated the procedure well, emerged from the conscious sedation, and was sent to recovery in stable condition. JOB# [id number] BRET/WING
[2019-03-29] MEDS: NACL 0.9% 1000 ML 1,000 ML IV SCH (16:40)
--- NOTE | 2019-03-29 17:43 | Progress Note ---
Assessment and Plan Assessment and plan: 78-year-old female with hypertension, diabetes, CVA with dysarthria, coronary artery disease awho presents with red, tender right great toe. Unknown of trauma. Family member at bedside has noted fluctuating sugar reading. Patient is poor historian --Right lower extremity critical limb ischemia; vascular following s/p vascular Procedure today 03/29/2019 Diagnostic Aortogram with Radiologic Supervision and Interpretation Right Lower Extremity Angiogram with 3rd Order Catheter Placement --Right great toe osteomyelitis and abscess; xray shows cortical erosion of the distal phalanx concerning for osteomyelitis MRI show:Collection encasing the first distal phalanx concerning for abscess and diffuse osteomyelitis involving the distal phalanx, continue cefepime and Vanco, ID and Vascular following,s/p angiogram today Echo; normal EF 65%, normal LV function . --DM-2: Accu-Chek sliding scale coverage and ADA diet, insulin as needed --hx of CVA ; antiplatelets and statin, Supportive care --Peripheral vascular disease: Arterial doppler reveals R>L arterial insuffic iency Vascular following --Dvt ppx; lovenox Monitor closely and adjust management as needed Plan of care reviewed with the patient and her daughter, her nurse and the case management History Interval history: Patient seen and examined medical records reviewed Patient had vascular procedure today Patient complains of pain in the right great toe Alert and awake confused Vital signs reviewed Hospitalist Physical - Constitutional Vitals: Temp Pulse Resp BP Pulse Ox 97.4 F L 82 18 170/69 96 03/29/19 13:34 03/29/19 13:34 03/29/19 13:34 03/29/19 13:34 03/29/19 13:34 General appearance: Present: no acute distress, well-nourished, other (confused) - EENT Eyes: Present: PERRL, EOM intact - Neck Neck: Present: supple, normal ROM - Respiratory Respiratory effort: normal Respiratory: bilateral: diminished, negative: rales, rhonchi, wheezing - Cardiovascular Rhythm: regular Heart Sounds: Present: S1 & S2 - Extremities Extremities: abnormal (right great toe swelling, tenderness, osteomyelitis) Extremity abnormal: erythema - Abdominal General gastrointestinal: soft, non-tender, non-distended, normal bowel sounds - Integumentary Integumentary: Present: clear, warm - Psychiatric Psychiatric: appropriate mood/affect, other (confused at times) - Neurologic Neurologic: moves all extremities Results - Labs CBC & Chem 7: 03/30/19 04:36 03/30/19 04:36 Labs: Laboratory Last Values WBC 10.1 K/mm3 (4.5-11.0) 03/26/19 04:27 RBC 4.33 M/mm3 (3.65-5.03) 03/26/19 04:27 Hgb 12.9 gm/dl (10.1-14.3) 03/26/19 04:27 Hct 38.2 % (30.3-42.9) 03/26/19 04:27 MCV 88 fl (79-97) 03/26/19 04:27 MCH 30 pg (28-32) 03/26/19 04:27 MCHC 34 % (30-34) 03/26/19 04:27 RDW 14.1 % (13.2-15.2) 03/26/19 04:27 Plt Count 266 K/mm3 (140-440) 03/26/19 04:27 Lymph % (Auto) 22.4 % (13.4-35.0) 03/26/19 04:27 [place] % (Auto) 7.6 % (0.0-7.3) H 03/26/19 04:27 Eos % (Auto) 1.5 % (0.0-4.3) 03/26/19 04:27 Baso % (Auto) 0.4 % (0.0-1.8) 03/26/19 04:27 Lymph # 2.3 K/mm3 (1.2-5.4) 03/26/19 04:27 [place] # 0.8 K/mm3 (0.0-0.8) 03/26/19 04:27 Eos # 0.2 K/mm3 (0.0-0.4) 03/26/19 04:27 Baso # 0.0 K/mm3 (0.0-0.1) 03/26/19 04:27 Seg Neutrophils % 68.1 % (40.0-70.0) 03/26/19 04:27 Seg Neutrophils # 6.9 K/mm3 (1.8-7.7) 03/26/19 04:27 ESR 58 mm/Hr (0-20) 03/27/19 04:04 PT 12.8 Sec. (12.2-14.9) 03/29/19 09:45 INR 0.99 (0.87-1.13) 03/29/19 09:45 APTT 27.5 Sec. (24.2-36.6) 03/29/19 09:45 Sodium 140 mmol/L (137-145) 03/29/19 09:45 Potassium 4.2 mmol/L (3.6-5.0) 03/29/19 09:45 Chloride 101.6 mmol/L (98-107) 03/29/19 09:45 Carbon Dioxide 26 mmol/L (22-30) 03/29/19 09:45 17 mmol/L 03/29/19 09:45 BUN 20 mg/dL (7-17) H 03/29/19 09:45 0.9 mg/dL (0.7-1.2) 03/29/19 09:45 Estimated GFR > 60 ml/min 03/29/19 09:45 22 % 03/29/19 09:45 Glucose 85 mg/dL (65-100) 03/29/19 09:45 POC Glucose 87 (70-105) 03/29/19 16:53 2.7 mg/dL (3.5-7.6) L 03/26/19 04:27 Calcium 9.1 mg/dL (8.4-10.2) 03/29/19 09:45 2.70 mg/dL (0.00-1.30) H 03/27/19 04:04 Active Medications - Current Medications Current Medications: Generic Name Dose Route Start Last Admin Trade Name Freq PRN Reason Stop Dose Admin Acetaminophen 650 mg 03/25/19 06:11 03/28/19 22:34 Tylenol PO 650 mg Q4H PRN Administration Pain MILD(1-3)/Fever >100.5/OQUENDO Aspirin 81 mg 03/25/19 13:00 03/29/19 10:00 Baby Aspirin PO Not Given QDAY LOVELY Atorvastatin Calcium 40 mg 03/25/19 22:00 03/28/19 22:34 Lipitor PO 40 mg QHS LOVELY Administration Dextrose 50 ml 03/25/19 06:11 D50w (25gm) Syringe IV PRN PRN Hypoglycemia Enoxaparin Sodium 40 mg 03/25/19 10:00 03/29/19 10:00 Lovenox SUB-Q Not Given QDAY LOVELY Fluoxetine HCl 60 mg 03/26/19 10:00 03/29/19 10:00 Prozac PO Not Given DAILY LOVELY Cefepime HCl 2 gm in 100 mls @ 200 mls/hr 03/26/19 15:00 03/29/19 10:00 Maxipime/Ns 2 Gm/100 Ml IV Not Given Q12HR LOVELY Vancomycin HCl 1 gm in 250 mls @ 166.667 mls/hr 03/28/19 06:00 03/29/19 05:46 Vancomycin/Ns 1 Gm/250 Ml IV 166.667 mls/hr Q24HR@0600 LOVELY Administration Sodium Chloride 500 mls @ 50 mls/hr 03/29/19 10:00 Nacl 0.9% 500 Ml IV 03/29/19 21:00 DIRECT LOVELY Sodium Chloride 1,000 mls @ 75 mls/hr 03/29/19 16:00 03/29/19 16:40 Nacl 0.9% 1000 Ml IV 75 mls/hr DIRECT LOVELY Administration Ibuprofen 800 mg 03/25/19 12:12 03/28/19 09:47 Ibuprofen PO 800 mg Q8H PRN Administration Pain Insulin Glargine 35 units 03/25/19 22:00 03/28/19 22:34 Lantus SUB-Q 35 units QHS LOVELY Administration Insulin Human Lispro 0 unit 03/25/19 07:30 03/29/19 17:17 Humalog SUB-Q Not Given ACHS [facility] Protocol Ondansetron HCl 4 mg 03/25/19 06:11 Zofran IV Q8H PRN Nausea And Vomiting Pantoprazole Sodium 20 mg 03/26/19 10:00 03/29/19 10:00 Protonix PO Not Given QDAY LOVELY Sodium Chloride 10 ml 03/25/19 10:00 03/29/19 10:00 Sodium Chloride Flush Syringe 10 Ml IV Not Given BID LOVELY Sodium Chloride 10 ml 03/25/19 06:11 Sodium Chloride Flush Syringe 10 Ml IV PRN PRN LINE FLUSH
[2019-03-30] MEDS: PROzac PO SCH ×2 (00:13→09:03)
[2019-03-30] MEDS: IBUPROFEN PO PRN ×2 (00:14→21:25)
[2019-03-30] MEDS: MAXIPIME/NS 2 GM/100 ML 2 GM/100 ML BAG IV SCH ×3 (00:15→21:23)
[2019-03-30] MEDS: LANTUS SUB-Q SCH ×2 (00:16→21:26)
[2019-03-30] MEDS: SODIUM CHLORIDE FLUSH SYRINGE 10 ML IV SCH ×2 (00:20→09:12)
[2019-03-30] MEDS: HumaLOG SUB-Q SCH ×4 (00:30→16:38)
[2019-03-30 05:24] LABS: Basophils % (Auto) 0.3 % (0.0-1.8); Eosinophils # (Auto) 0.2 K/mm3 (0.0-0.4); Eosinophils % (Auto) 2.2 % (0.0-4.3); Hematocrit 32.6 % (30.3-42.9); Hemoglobin 10.9 gm/dl (10.1-14.3); Lymphocytes # (Auto) 1.8 K/mm3 (1.2-5.4); Lymphocytes % (Auto) 16.5 % (13.4-35.0); Mean Corpuscular HGB Conc 33 % (30-34); Mean Corpuscular Volume 89 fl (79-97); Monocytes # (Auto) 0.8 K/mm3 (0.0-0.8); Monocytes % (Auto) 7.7 % (0.0-7.3); Platelet Count 250 K/mm3 (140-440); Red Blood Count 3.69 M/mm3 (3.65-5.03)
[2019-03-30 05:36] LABS: BUN/Creatinine Ratio 22; Blood Urea Nitrogen 20 mg/dL (7-17); Calcium 8.2 mg/dL (8.4-10.2); Hemolysis Index 1
[2019-03-30] MEDS: NACL 0.9% 1000 ML 1,000 ML IV SCH (06:23)
[2019-03-30] MEDS: VANCOMYCIN/NS 1 GM/250 ML 1 GM/250 ML BAG IV SCH (06:46)
--- NOTE | 2019-03-30 08:51 | Progress Note ---
Assessment and Plan X-ray of the right foot, image reviewed, shows cortical erosion of the great toe distal phalanx, concerning for osteomyelitis. Cultures: 03/25/2019 blood culture: no growth A/P: 78-year-old female with hypertension, diabetes, CVA with dysarthria, coronary artery disease admitted with: 1) Probable right great toe acute osteomyelitis: xray shows cortical erosion of the distal phalanx concerning for osteomyelitis however there is no contiguous wound and hence not typical of a diabetic foot osteomyelitis. Differential diagnosis does include acute gout v/s pseudogout, but not much evidence of arthropathy involving the first MTP joint. Eval with vascular studies and MRI. Uric acid level is low at 2.7 (though levels could be falsely low during an acute attack). ?Embolic. ESR 58. CRP 2.7 MRI shows circumscribed fluid collection encasing the first toe distal phalanx. Concerning for abscess. There is diffuse osteomyelitis involving the distal phalanx. Endovascular revascularization scheduled for today. Recommend IR consult for I & D of abscess. Possible amputation per daughter. TTE shows no valvular vegetation. 2) DM-2: recommend glycemic control 3) CVA 4) Peripheral vascular disease: Arterial doppler reveals R>L arterial insufficiency. Recs: Continue Cefepime and Vancomycin Follow-up IR consult for I & D of right great toe abscess- please send specimen for cultures Final antibiotic plan based on surgical recommendations [facility] M: [phone] O:[phone] Subjective Date of service: 03/30/19 Principal diagnosis: Rt Grt toe cellulitis Interval history: Patient seen and examined. Asleep. Easy to arouse. Continued pain to great right toe discomfort. Daughter at bedside. Objective - Exam Narrative Exam: Constitutional: Asleep. East to arouse. unintelligible speech. Head, Ears, Nose: Normocephalic, atraumatic. External ears, nose normal Eyes: Conjunctivae/corneas clear. No icterus. No ptosis. Neck: Supple, no meningeal signs Oral: edentulous, no thrush or ulcers Cardiovascular: S1, S2 normal. Respiratory: Good air entry, clear to auscultation bilaterally GI: Soft, non-tender; bowel sounds normal. No peritoneal signs Musculoskeletal: No pedal edema, no cyanosis. Right great toe with erythema, swelling and severe tenderness. There is no open wound, no drainage. Skin: No rash or abscess Hem/Lymphatic: No palpable cervical or supraclavicular nodes. No lymphangitis Psych: Mood ok. Affect normal Neurological: Asleep. Easy to arouse. unintelligible speech - Constitutional Vitals: Vital Signs Temp Pulse Resp BP Pulse Ox 98.2 F 85 18 133/67 94 03/30/19 07:25 03/30/19 07:25 03/30/19 07:25 03/30/19 07:25 03/30/19 07:25 Temperature -Last 24 Hours Temperature 98.2 F Temperature 98.7 F Temperature 97.7 F Temperature 98.9 F Temperature 97.4 F Temperature 98.0 F - Labs CBC & Chem 7: 03/30/19 04:36 03/30/19 04:36 Labs: Abnormal lab results 03/29/19 03/29/19 03/30/19 Range/Units 09:45 21:20 04:36 [place] % (Auto) (0.0-7.3) % Seg Neutrophils % (40.0-70.0) % Seg Neutrophils # (1.8-7.7) K/mm3 Chloride 107.7 H (98-107) mmol/L BUN 20 H 20 H (7-17) mg/dL POC Glucose 188 H (70-105) Calcium 8.2 L (8.4-10.2) mg/dL 03/30/19 Range/Units 04:36 [place] % (Auto) 7.7 H (0.0-7.3) % Seg Neutrophils % 73.3 H (40.0-70.0) % Seg Neutrophils # 7.8 H (1.8-7.7) K/mm3 Chloride (98-107) mmol/L BUN (7-17) mg/dL POC Glucose (70-105) Calcium (8.4-10.2) mg/dL
[2019-03-30] MEDS: BABY ASPIRIN PO SCH (09:02)
[2019-03-30] MEDS: LOVENOX SUB-Q SCH (09:03)
[2019-03-30] MEDS: PROTONIX PO SCH (09:03)
--- NOTE | 2019-03-30 13:15 | Progress Note ---
Assessment and Plan Assessment and plan: 78-year-old female with hypertension, diabetes, CVA with dysarthria, coronary artery disease awho presents with red, tender right great toe. Unknown of trauma. Family member at bedside has noted fluctuating sugar reading. Patient is poor historian --Right lower extremity critical limb ischemia; vascular following s/p vascular Procedure 03/29/2019 Diagnostic Aortogram with Radiologic Supervision and Interpretation Right Lower Extremity Angiogram with 3rd Order Catheter Placement Revascularization procedure today --Right great toe osteomyelitis and abscess; xray shows cortical erosion of the distal phalanx concerning for osteomyelitis MRI show:Collection encasing the first distal phalanx concerning for abscess and diffuse osteomyelitis involving the distal phalanx, continue cefepime and Vanco, ID and Vascular following,s/p angiogram today Echo; normal EF 65%, normal LV function . --DM-2: Accu-Chek sliding scale coverage and ADA diet, insulin as needed --hx of CVA ; antiplatelets and statin, Supportive care --Peripheral vascular disease: Arterial doppler reveals R>L arterial insufficiency Vascular following --Dvt ppx; lovenox Monitor closely and adjust management as needed Plan of care reviewed with the patient and her daughter, her nurse and the case management History Interval history: Patient seen and examined medical records reviewed Patient was scheduled for revascularization procedure of the lower extremity However unable to schedule because of emergency procedures in the lab support tech Rescheduled for tomorrow The patient has no new complaints Vital signs noted Hospitalist Physical - Constitutional Vitals: Temp Pulse Resp BP Pulse Ox 98.2 F 85 18 133/67 94 03/30/19 07:25 03/30/19 09:59 03/30/19 07:25 03/30/19 07:25 03/30/19 09:59 General appearance: Present: no acute distress, well-nourished, other (confused) - EENT Eyes: Present: PERRL, EOM intact - Neck Neck: Present: supple, normal ROM - Respiratory Respiratory effort: normal Respiratory: bilateral: diminished, negative: rales, rhonchi, wheezing - Cardiovascular Rhythm: regular Heart Sounds: Present: S1 & S2 - Extremities Extremities: no ischemia, pulses intact, pulses symmetrical - Abdominal General gastrointestinal: soft, non-tender, non-distended, normal bowel sounds - Integumentary Integumentary: Present: clear, warm - Psychiatric Psychiatric: appropriate mood/affect, cooperative - Neurologic Neurologic: CNII-XII intact, moves all extremities Results - Labs CBC & Chem 7: 03/30/19 04:36 03/30/19 04:36 Labs: Laboratory Last Values WBC 10.6 K/mm3 (4.5-11.0) 03/30/19 04:36 RBC 3.69 M/mm3 (3.65-5.03) 03/30/19 04:36 Hgb 10.9 gm/dl (10.1-14.3) 03/30/19 04:36 Hct 32.6 % (30.3-42.9) 03/30/19 04:36 MCV 89 fl (79-97) 03/30/19 04:36 MCH 30 pg (28-32) 03/30/19 04:36 MCHC 33 % (30-34) 03/30/19 04:36 RDW 14.0 % (13.2-15.2) 03/30/19 04:36 Plt Count 250 K/mm3 (140-440) 03/30/19 04:36 Lymph % (Auto) 16.5 % (13.4-35.0) 03/30/19 04:36 [place]ayer % (Auto) 7.7 % (0.0-7.3) H 03/30/19 04:36 Eos % (Auto) 2.2 % (0.0-4.3) 03/30/19 04:36 Baso % (Auto) 0.3 % (0.0-1.8) 03/30/19 04:36 Lymph # 1.8 K/mm3 (1.2-5.4) 03/30/19 04:36 Thayer # 0.8 K/mm3 (0.0-0.8) 03/30/19 04:36 Eos # 0.2 K/mm3 (0.0-0.4) 03/30/19 04:36 Baso # 0.0 K/mm3 (0.0-0.1) 03/30/19 04:36 Seg Neutrophils % 73.3 % (40.0-70.0) H 03/30/19 04:36 Seg Neutrophils # 7.8 K/mm3 (1.8-7.7) H 03/30/19 04:36 ESR 58 mm/Hr (0-20) 03/27/19 04:04 PT 12.8 Sec. (12.2-14.9) 03/29/19 09:45 INR 0.99 (0.87-1.13) 03/29/19 09:45 APTT 27.5 Sec. (24.2-36.6) 03/29/19 09:45 Sodium 142 mmol/L (137-145) 03/30/19 04:36 Potassium 4.0 mmol/L (3.6-5.0) 03/30/19 04:36 Chloride 107.7 mmol/L (98-107) H 03/30/19 04:36 Carbon Dioxide 24 mmol/L (22-30) 03/30/19 04:36 14 mmol/L 03/30/19 04:36 BUN 20 mg/dL (7-17) H 03/30/19 04:36 0.9 mg/dL (0.7-1.2) 03/30/19 04:36 Estimated GFR > 60 ml/min 03/30/19 04:36 22 % 03/30/19 04:36 Glucose 85 mg/dL (65-100) 03/30/19 04:36 POC Glucose 72 (70-105) 03/30/19 11:24 2.7 mg/dL (3.5-7.6) L 03/26/19 04:27 Calcium 8.2 mg/dL (8.4-10.2) L 03/30/19 04:36 2.70 mg/dL (0.00-1.30) H 03/27/19 04:04 Vancomycin Trough 14.1 ug/mL (5.0-20.0) 03/30/19 04:36 Active Medications - Current Medications Current Medications: Generic Name Dose Route Start Last Admin Trade Name Freq PRN Reason Stop Dose Admin Acetaminophen 650 mg 03/25/19 06:11 03/28/19 22:34 Tylenol PO 650 mg Q4H PRN Administration Pain MILD(1-3)/Fever >100.5/OQUENDO Aspirin 81 mg 03/25/19 13:00 03/30/19 09:02 Baby Aspirin PO 81 mg QDAY LOVELY Administration Atorvastatin Calcium 40 mg 03/25/19 22:00 03/30/19 00:15 Lipitor PO 40 mg QHS LOVELY Administration Dextrose 50 ml 03/25/19 06:11 D50w (25gm) Syringe IV PRN PRN Hypoglycemia Enoxaparin Sodium 40 mg 03/25/19 10:00 03/30/19 09:03 Lovenox SUB-Q Not Given QDAY LOVELY Fluoxetine HCl 60 mg 03/26/19 10:00 03/30/19 09:03 Prozac PO 60 mg DAILY LOVELY Administration Cefepime HCl 2 gm in 100 mls @ 200 mls/hr 03/26/19 15:00 03/30/19 09:01 Maxipime/Ns 2 Gm/100 Ml IV 200 mls/hr Q12HR LOVELY Administration Vancomycin HCl 1 gm in 250 mls @ 166.667 mls/hr 03/28/19 06:00 03/30/19 06:46 Vancomycin/Ns 1 Gm/250 Ml IV 166.667 mls/hr Q24HR@0600 LOVELY Administration Sodium Chloride 1,000 mls @ 75 mls/hr 03/29/19 16:00 03/30/19 06:23 Nacl 0.9% 1000 Ml IV 75 mls/hr DIRECT LOVELY Administration Ibuprofen 800 mg 03/25/19 12:12 03/30/19 00:14 Ibuprofen PO 800 mg Q8H PRN Administration Pain Insulin Glargine 35 units 03/25/19 22:00 03/30/19 00:16 Lantus SUB-Q 35 units QHS LOVELY Administration Insulin Human Lispro 0 unit 03/25/19 07:30 03/30/19 11:48 Humalog SUB-Q Not Given ACHS [facility] Protocol Ondansetron HCl 4 mg 03/25/19 06:11 Zofran IV Q8H PRN Nausea And Vomiting Pantoprazole Sodium 20 mg 03/26/19 10:00 03/30/19 09:03 Protonix PO 20 mg QDAY LOVELY Administration Sodium Chloride 10 ml 03/25/19 10:00 03/30/19 09:12 Sodium Chloride Flush Syringe 10 Ml IV Not Given BID LOVELY Sodium Chloride 10 ml 03/25/19 06:11 Sodium Chloride Flush Syringe 10 Ml IV PRN PRN LINE FLUSH
[2019-03-30] MEDS ORDERED: NACL 0.9% 500 ML 500 ML ONE (14:13)
[2019-03-30] MEDS ORDERED: HEPARIN/NS 5000 UNIT/500ML(CATH LAB) 500 ML IR ONE (14:24)
[2019-03-30] MEDS ORDERED: XYLOCAINE 2% INFILTRATI ONE (14:25)
[2019-03-30] MEDS ORDERED: HEPARIN 10,000 UNITS/10 ML ONE (14:25)
[2019-03-30] MEDS ORDERED: SUBLIMAZE ONE (14:26)
[2019-03-30] MEDS: VERSED ONE (14:57)
[2019-03-30] MEDS ORDERED: NACL 0.9% 500 ML 500 ML IV SCH (15:00)
--- NOTE | 2019-03-30 15:52 | Event Note ---
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 will attempt at revascularization tomorrow morning. DARNELL ROCHE.
[2019-03-31] MEDS: IBUPROFEN PO PRN ×2 (03:41→23:12)
[2019-03-31] MEDS: HumaLOG SUB-Q SCH ×4 (03:44→17:11)
[2019-03-31] MEDS: SODIUM CHLORIDE FLUSH SYRINGE 10 ML IV SCH ×2 (06:12→15:44)
[2019-03-31] MEDS ORDERED: D50W (25GM) Syringe IV ONE (08:10)
[2019-03-31] MEDS ORDERED: HEPARIN/NS 5000 UNIT/500ML(CATH LAB) 500 ML IR ONE ×3 (08:16→10:14)
[2019-03-31] MEDS ORDERED: XYLOCAINE 2% INFILTRATI ONE (08:16)
[2019-03-31] MEDS ORDERED: VERSED ONE (08:17)
[2019-03-31] MEDS ORDERED: NACL 0.9% 500 ML 500 ML ONE (08:30)
[2019-03-31] MEDS: SUBLIMAZE ONE ×2 (08:50→10:38)
[2019-03-31] MEDS: VERSED ONE (08:50)
--- NOTE | 2019-03-31 08:57 | Progress Note ---
Assessment and Plan X-ray of the right foot, image reviewed, shows cortical erosion of the great toe distal phalanx, concerning for osteomyelitis. Cultures: 03/25/2019 blood culture: no growth A/P: 78-year-old female with hypertension, diabetes, CVA with dysarthria, coronary artery disease admitted with: 1) Probable right great toe acute osteomyelitis: xray shows cortical erosion of the distal phalanx concerning for osteomyelitis however there is no contiguous wound and hence not typical of a diabetic foot osteomyelitis. Differential diagnosis does include acute gout v/s pseudogout, but not much evidence of arthropathy involving the first MTP joint. Eval with vascular studies and MRI. Uric acid level is low at 2.7 (though levels could be falsely low during an acute attack). ?Embolic. ESR 58. CRP 2.7 MRI shows circumscribed fluid collection encasing the first toe distal phalanx. Concerning for abscess. There is diffuse osteomyelitis involving the distal phalanx. Recanalization of the anterior tibial artery today. Final plan pending abscess drainage vs. amputation. Please send for cultures in either case. TTE shows no valvular vegetation. 2) DM-2: recommend glycemic control 3) CVA 4) Peripheral vascular disease: Arterial doppler reveals R>L arterial insuffi ciency. Recs: Continue Cefepime and Vancomycin Final plan pending abscess drainage vs. amputation. Duration of antibiotics vastly different in either case. Regardless of surgery please send for cultures. Dr. Hernandez is telecommunication operator this weekend, . Please call for questions. Barbara Tao NP [facility] M: [id number] O:[phone] Subjective Date of service: 03/31/19 Principal diagnosis: Rt Grt toe cellulitis Interval history: Patient seen and examined. Laying flat, s/p vascular procedure. Opens eyes to name. no acute distress observed. No fevers. Objective - Exam Narrative Exam: Constitutional: Asleep, easily arousable. No acute distress Head, Ears, Nose: Normocephalic, atraumatic. External ears, nose normal Eyes: Conjunctivae/corneas clear. No icterus. No ptosis. Neck: Supple, no meningeal signs Oral: edentulous, no thrush or ulcers Cardiovascular: S1, S2 normal. Respiratory: Good air entry, clear to auscultation bilaterally GI: Soft, non-tender; bowel sounds normal. No peritoneal signs Musculoskeletal: No pedal edema, no cyanosis. Right great toe with erythema, swelling and severe tenderness. Closed w/o drainage. Skin: No rash Hem/Lymphatic: No palpable cervical or supraclavicular nodes. No lymphangitis Psych: Mood ok. Affect normal Neurological: Asleep. Easy to arouse. unintelligible speech - Constitutional Vitals: Vital Signs Temp Pulse Resp BP Pulse Ox 98.8 F 77 18 106/60 97 03/31/19 07:16 03/31/19 07:16 03/31/19 07:16 03/31/19 07:16 03/31/19 07:16 Temperature -Last 24 Hours Temperature 98.8 F Temperature 98.1 F Temperature 98.0 F Temperature 97.7 F - Labs CBC & Chem 7: 03/30/19 04:36 03/30/19 04:36 Labs: Abnormal lab results 03/30/19 03/31/19 03/31/19 Range/Units 20:50 07:22 08:14 POC Glucose 121 H 62 L 58 L (70-105)
[2019-03-31] MEDS: HEPARIN 10,000 UNITS/10 ML ONE ×3 (09:01→10:26)
[2019-03-31] MEDS ORDERED: HEPARIN 10,000 UNITS/10 ML ONE (10:03)
[2019-03-31] MEDS ORDERED: NACL 0.9% 1000 ML 1,000 ML ONE (10:09)
[2019-03-31] MEDS ORDERED: TRIDIL DRIP 50MG/250ML 50 MG/250 ML BOTTLE ONE (10:09)
[2019-03-31] MEDS ORDERED: CALAN ONE (10:10)
--- NOTE | 2019-03-31 10:27 | Progress Note ---
Assessment and Plan Assessment and plan: 78-year-old female with hypertension, diabetes, CVA with dysarthria, coronary artery disease awho presents with red, tender right great toe. Patient was extensively evaluated , MRI shows cellulitis encasing first distal phalanx concerning for abscess and diffuse osteomyelitis Receiving IV antibiotics, underwent multiple vascular studies and revascularization procedures. --Aortogram with Radiologic Supervision and Interpretation Right Lower Extremity Angiogram with 3rd Order Catheter Placement Scheduled for revascularization procedure today --Right great toe osteomyelitis and abscess; xray shows cortical erosion of the distal phalanx concerning for osteomyelitis MRI ; findings consistent with abscess and diffuse osteomyelitis involving the distal phalanx, continue cefepime and Vanco, ID and Vascular following,s/p angiogram today Echo; normal EF 65%, normal LV function . --DM-2: Accu-Chek sliding scale coverage and ADA diet, insulin as needed --hx of CVA ; antiplatelets and statin, Supportive care --Peripheral vascular disease: Arterial doppler reveals R>L arterial insufficiency Vascular following --Dvt ppx; lovenox Monitor closely and adjust management as needed Plan of care reviewed with the patient and her daughter, her nurse and the case management Follow vascular / surgical evaluation and recommendations Disposition follow clinically, discharge when stable; History Interval history: Patient seen and examined medical records reviewed Patient feels slightly better no new complaints Scheduled for revascularization procedure today Vital signs noted Hospitalist Physical - Constitutional Vitals: Temp Pulse Resp BP Pulse Ox 98.8 F 77 18 106/60 97 03/31/19 07:16 03/31/19 07:16 03/31/19 07:16 03/31/19 07:16 03/31/19 07:16 General appearance: Present: no acute distress, well-nourished, other (confused) - EENT Eyes: Present: PERRL, EOM intact - Neck Neck: Present: supple, normal ROM - Respiratory Respiratory effort: normal Respiratory: bilateral: diminished, negative: rales, rhonchi, wheezing - Cardiovascular Rhythm: regular Heart Sounds: Present: S1 & S2 - Extremities Extremities: no ischemia, No edema, abnormal (osteomyelitis of the Rt.great toe) - Abdominal General gastrointestinal: soft, non-tender, non-distended, normal bowel sounds - Integumentary Integumentary: Present: clear, warm - Psychiatric Psychiatric: appropriate mood/affect, cooperative - Neurologic Neurologic: CNII-XII intact, moves all extremities Results - Labs CBC & Chem 7: 03/30/19 04:36 03/30/19 04:36 Labs: Laboratory Last Values WBC 10.6 K/mm3 (4.5-11.0) 03/30/19 04:36 RBC 3.69 M/mm3 (3.65-5.03) 03/30/19 04:36 Hgb 10.9 gm/dl (10.1-14.3) 03/30/19 04:36 Hct 32.6 % (30.3-42.9) 03/30/19 04:36 MCV 89 fl (79-97) 03/30/19 04:36 MCH 30 pg (28-32) 03/30/19 04:36 MCHC 33 % (30-34) 03/30/19 04:36 RDW 14.0 % (13.2-15.2) 03/30/19 04:36 Plt Count 250 K/mm3 (140-440) 03/30/19 04:36 Lymph % (Auto) 16.5 % (13.4-35.0) 03/30/19 04:36 [place] % (Auto) 7.7 % (0.0-7.3) H 03/30/19 04:36 Eos % (Auto) 2.2 % (0.0-4.3) 03/30/19 04:36 Baso % (Auto) 0.3 % (0.0-1.8) 03/30/19 04:36 Lymph # 1.8 K/mm3 (1.2-5.4) 03/30/19 04:36 [place] # 0.8 K/mm3 (0.0-0.8) 03/30/19 04:36 Eos # 0.2 K/mm3 (0.0-0.4) 03/30/19 04:36 Baso # 0.0 K/mm3 (0.0-0.1) 03/30/19 04:36 Seg Neutrophils % 73.3 % (40.0-70.0) H 03/30/19 04:36 Seg Neutrophils # 7.8 K/mm3 (1.8-7.7) H 03/30/19 04:36 ESR 58 mm/Hr (0-20) 03/27/19 04:04 PT 12.8 Sec. (12.2-14.9) 03/29/19 09:45 INR 0.99 (0.87-1.13) 03/29/19 09:45 APTT 27.5 Sec. (24.2-36.6) 03/29/19 09:45 Sodium 142 mmol/L (137-145) 03/30/19 04:36 Potassium 4.0 mmol/L (3.6-5.0) 03/30/19 04:36 Chloride 107.7 mmol/L (98-107) H 03/30/19 04:36 Carbon Dioxide 24 mmol/L (22-30) 03/30/19 04:36 14 mmol/L 03/30/19 04:36 BUN 20 mg/dL (7-17) H 03/30/19 04:36 0.9 mg/dL (0.7-1.2) 03/30/19 04:36 Estimated GFR > 60 ml/min 03/30/19 04:36 22 % 03/30/19 04:36 Glucose 85 mg/dL (65-100) 03/30/19 04:36 POC Glucose 58 (70-105) L 03/31/19 08:14 2.7 mg/dL (3.5-7.6) L 03/26/19 04:27 Calcium 8.2 mg/dL (8.4-10.2) L 03/30/19 04:36 2.70 mg/dL (0.00-1.30) H 03/27/19 04:04 Vancomycin Trough 14.1 ug/mL (5.0-20.0) 03/30/19 04:36 Active Medications - Current Medications Current Medications: Generic Name Dose Route Start Last Admin Trade Name Freq PRN Reason Stop Dose Admin Acetaminophen 650 mg 03/25/19 06:11 03/28/19 22:34 Tylenol PO 650 mg Q4H PRN Administration Pain MILD(1-3)/Fever >100.5/OQUENDO Aspirin 81 mg 03/25/19 13:00 03/30/19 09:02 Baby Aspirin PO 81 mg QDAY LOVELY Administration Atorvastatin Calcium 40 mg 03/25/19 22:00 03/30/19 21:26 Lipitor PO 40 mg QHS LOVELY Administration Dextrose 50 ml 03/25/19 06:11 03/31/19 08:09 D50w (25gm) Syringe IV 50 ml PRN PRN Administration Hypoglycemia Enoxaparin Sodium 40 mg 03/25/19 10:00 03/30/19 09:03 Lovenox SUB-Q Not Given QDAY LOVELY Fluoxetine HCl 60 mg 03/26/19 10:00 03/30/19 09:03 Prozac PO 60 mg DAILY LOVELY Administration Cefepime HCl 2 gm in 100 mls @ 200 mls/hr 03/26/19 15:00 03/30/19 21:23 Maxipime/Ns 2 Gm/100 Ml IV 200 mls/hr Q12HR LOVELY Administration Vancomycin HCl 1 gm in 250 mls @ 166.667 mls/hr 03/28/19 06:00 03/30/19 06:46 Vancomycin/Ns 1 Gm/250 Ml IV 166.667 mls/hr Q24HR@0600 LOVELY Administration Sodium Chloride 1,000 mls @ 75 mls/hr 03/29/19 16:00 03/30/19 06:23 Nacl 0.9% 1000 Ml IV 75 mls/hr DIRECT LOVELY Administration Sodium Chloride 500 mls @ 50 mls/hr 03/30/19 15:00 Nacl 0.9% 500 Ml IV DIRECT LOVELY Ibuprofen 800 mg 03/25/19 12:12 03/31/19 03:41 Ibuprofen PO 800 mg Q8H PRN Administration Pain Insulin Glargine 35 units 03/25/19 22:00 03/30/19 21:26 Lantus SUB-Q 35 units QHS LOVELY Administration Insulin Human Lispro 0 unit 03/25/19 07:30 03/31/19 03:44 Humalog SUB-Q Not Given ACHS [facility] Protocol Ondansetron HCl 4 mg 03/25/19 06:11 Zofran IV Q8H PRN Nausea And Vomiting Pantoprazole Sodium 20 mg 03/26/19 10:00 03/30/19 09:03 Protonix PO 20 mg QDAY LOVELY Administration Sodium Chloride 10 ml 03/25/19 10:00 03/31/19 06:12 Sodium Chloride Flush Syringe 10 Ml IV Not Given BID LOVELY Sodium Chloride 10 ml 03/25/19 06:11 Sodium Chloride Flush Syringe 10 Ml IV PRN PRN LINE FLUSH
[2019-03-31] MEDS: DILAUDID ONE ×2 (11:05→11:28)
[2019-03-31] MEDS ORDERED: PROTAMINE SULFATE ONE (11:50)
[2019-03-31] MEDS: VANCOMYCIN/NS 1 GM/250 ML 1 GM/250 ML BAG IV SCH (11:56)
[2019-03-31] MEDS ORDERED: PLAVIX ONE (12:01)
--- NOTE | 2019-03-31 12:09 | Post Operative Note ---
Date of procedure: 03/31/19 Pre-op diagnosis: Right Lower Extremity Critical Limb Ischemia Post-op diagnosis: same Findings: Pre-procedure findings: Aorto-iliac system patent bilaterally, SEO MANAGER, profunda and proximal to mid SFA, 50% stenosis of the distal SFA, 60% stenosis of the mid-p opliteal, HAND BRAILLE TRANSCRIBER of the proximal Anterior Tibial and TP trunk without reconstitution of a named vessel in the foot, with multiple collaterals noted in the foot Post-procedure findings: <10% residual stenosis of the SFA and popliteal artery, successful recanalization of the Anterior Tibial Artery with intact flow to the ankle with maintained collateralization in the foot Procedure: 1. Left Femoral Arterial Access under ultrasound guidance 2. Diagnostic Aortogram with Ragiologic Supervision and Interpretation 3. Right Lower Extremity Angiogram with 3rd Order Catheter Placement 4. Right SFA and Popliteal Athrectomy and Angioplasty 5. Right Anterior Tibial Athrectomy and Angioplasty 6. Drug-coated balloon angioplasty of the SFA and popliteal artery 7. Closure of Left Femoral Access with Mynx Closure Device 8. Monitored Conscious Sedation for 3 hours Anesthesia: MAC, local Surgeon: FRANK ESPINOZA Estimated blood loss: other (25ml) Pathology: none Condition: stable Disposition: floor
--- NOTE | 2019-03-31 13:23 | Operative Report ---
STAFF SURGEON: Dr. Alex Gilmore. PREOPERATIVE DIAGNOSIS: Right lower extremity, critical limb ischemia. POSTOPERATIVE DIAGNOSIS: Right lower extremity, critical limb ischemia. PROCEDURE PERFORMED: 1. Left femoral arterial access under ultrasound guidance. 2. Diagnostic aortogram with radiologic supervision and interpretation. 3. Right lower extremity angiogram with third order catheter placement. 4. Right superficial femoral and popliteal artery atherectomy and angioplasty. 5. Right anterior tibial atherectomy and angioplasty. 6. Drug-coated balloon angioplasty of the superficial femoral and popliteal arteries. 7. Closure of the left femoral access with a Mynx closure device. 8. Monitored conscious sedation for 3 hours. COMPLICATIONS: None. ESTIMATED BLOOD LOSS: 25 mL. ANESTHESIA: Local MAC. ANGIOGRAPHIC FINDINGS: The aortoiliac system was widely patent bilaterally. The common femoral, profunda femoral and proximal to mid superficial femoral arteries were all widely patent with a 50% stenosis of the distal superficial femoral artery, a 60% stenosis of the mid popliteal artery. A complete total occlusion of the proximal anterior tibial and tibioperoneal trunk without reconstitution of any named vessel in the foot with multiple collaterals noted in the foot. POSTPROCEDURE FINDINGS: Less than 10% residual stenosis of the right superficial femoral and popliteal arteries. A successful recanalization of the anterior tibial artery with intact flow to the ankle with maintained collateralization in the foot. INDICATIONS FOR PROCEDURE: This is a 78-year-old female with diabetes mellitus who currently is hospitalized with abscess and osteomyelitis of the right great toe. The patient had diagnostic imaging, which demonstrated significant tibial disease and after much discussion, the risk of limb loss with the patient and the family, they decided to pursue endovascular intervention. They were explained the all risks, benefits and alternatives of the procedure, expressed understanding and wished to proceed. DESCRIPTION OF PROCEDURE: After appropriate consent was obtained, the patient was brought back to the laborer vineyard, placed on table in supine position. Both groins were prepped and draped in the usual sterile fashion with ChloraPrep. Appropriate timeout was performed indicating correct patient, procedure, and site of procedure. Then, we began intervention by obtaining percutaneous access of the left common femoral artery using a micropuncture technique under ultrasound guidance. Once we obtained access, the needle was exchanged for a micropuncture sheath using Seldinger technique. This was then upsized to a 6-Malaysian sheath over a stiff J wire. The patient was then given unfractionated heparin intravenously and ACTs were obtained throughout the remainder of the case for adequate anticoagulation. We then proceeded to place an Omniflush catheter into the infrarenal aorta and the wire was removed and a diagnostic aortogram was performed, which demonstrated the findings noted above. We that, we then proceeded to cannulate the right iliac system with a combination Omniflush catheter and Glidewire. Once cannulated, the Omniflush catheter was removed and the TrailBlazer was advanced into the external iliac artery. We then proceeded to perform a series of diagnostic imaging of the right lower extremity to demonstrate the preprocedural pre-intervention findings which demonstrated the findings noted above. With that, I then proceeded to advance the Glidewire into the mid to distal SFA and the TrailBlazer was advanced over the wire. The wire was removed and exchanged for an Amplatz wire and then proceeded to remove the short 6-Malaysian sheath, then exchanged for a 6-Malaysian destination sheath, which was advanced over the bifurcation into the femoral arterial system on the right. We then proceeded with a combination of a V18 and 0.018 TrailBlazer catheter, cannulate the anterior tibial artery and multiple attempts were made to cross the lesions noted in the AT. This was a successful to about the mid anterior tibial artery and was no longer able to advance the wire catheter. Then, multiple wires and catheters were attempted to cross the lesion noted in the mid AT and was also successful using the angled 0.018 TrailBlazer and a Warrick Asahi wire. This was then able to be advanced into the distal AT and then once in the distal AT, I was able to advance the wire into the dorsalis pedis at the level of the ankle just below the ankle, but was unable to advance the 0.018 catheter and then proceeded to take a PT ChoICE wire and exchanged it for the Warrick wire and advanced that into the distal AT. The multiple catheters were attempted to cross the distal AT. They were unsuccessful and was ultimately successful using a coronary balloon as a crossing catheter and this was able to be advanced into the dorsalis pedis. Then, the PT ChoICE wire was removed. An angio was performed demonstrating that we were definitely within the true lumen of the AT into the foot and then a Viper wire was advanced through the balloon into the foot. The balloon was removed. I then proceeded to take bring on the field. A 1.25 solid CSI orbital atherectomy device, which was adequately prepped on the back table and then this was advanced to the origin of the anterior tibial artery. Then, I proceeded to perform orbital atherectomy of the anterior tibial artery in its entirety under low and medium settings at 30-second intervals along the entirety of the AT. Once that was complete, then the device was removed and a 2.5 mm balloon was brought on the field and placed across the lesion in the AT and the anterior tibial artery was balloon angioplasty under low pressures for approximately 3 minutes. Once complete, a completion angiogram was performed demonstrating a patent AT to the ankle with intact collateralization in the foot in a less than 10% residual stenosis along the AT. Then, I proceeded to take a 1.5 solid CSI device and proceeded to perform orbital atherectomy of the lesion in the SFA and popliteal arteries under low, medium and high settings. Once that was completed, then a 5 mm balloon angioplasty was performed under low pressures of each lesion and then a 5 mm drug-coated IMPACT balloon was then used to balloon angioplasty the lesions in the SFA and popliteal arteries. Then, a completion angiogram was performed again demonstrating less than 10% residual stenosis in the SFA and popliteal and maintained flow in the AT to the ankle and multiple collaterals noted in the foot. Once that was complete, the balloon and wires were removed. The long sheath was exchanged for a short 6-Malaysian sheath over an Amplatz wire and a Mynx closure device was deployed successfully. Once completed, a digital compression was held at the access site for hemostasis. Once we were satisfied with hemostasis, appropriate dressing was placed. The patient tolerated the procedure well emerged from the conscious sedation and was sent to recovery in stable condition. JOB# [id number] BRET/WING
[2019-03-31] MEDS: MAXIPIME/NS 2 GM/100 ML 2 GM/100 ML BAG IV SCH (13:30)
[2019-03-31] MEDS: BABY ASPIRIN PO SCH (15:40)
[2019-03-31] MEDS: LOVENOX SUB-Q SCH (15:41)
[2019-03-31] MEDS: PROTONIX PO SCH (15:43)
[2019-03-31] MEDS: PROzac PO SCH (15:43)
[2019-03-31] MEDS: LANTUS SUB-Q SCH (23:13)
[2019-04-01] MEDS: NACL 0.9% 1000 ML 1,000 ML IV SCH ×2 (00:30→15:15)
[2019-04-01] MEDS: HumaLOG SUB-Q SCH ×4 (07:30→22:50)
--- NOTE | 2019-04-01 09:18 | Progress Note ---
Assessment and Plan Cultures: 03/25/2019 blood culture: no growth A/P: 78-year-old female with hypertension, diabetes, CVA with dysarthria, coronary artery disease admitted with: 1) Probable right great toe acute osteomyelitis: xray shows cortical erosion of the distal phalanx concerning for osteomyelitis however there is no contiguous wound and hence not typical of a diabetic foot osteomyelitis. Differential diagnosis does include acute gout v/s pseudogout, but not much evidence of arthropathy involving the first MTP joint. ESR 58. CRP 2.7 MRI shows circumscribed fluid collection encasing the first toe distal phalanx. Concerning for abscess. There is diffuse osteomyelitis involving the distal phalanx. TTE shows no valvular vegetation. S/p ballon angioplasty on 03/31/2019. On cefepime and vancomycin. 2) DM-2: recommend glycemic control 3) CVA 4) Peripheral vascular disease: Arterial doppler reveals R>L arterial insufficiency. Recs: Continue Cefepime and Vancomycin Agree with Dr Galeano consult for I+D v/s amputation. please send deep tissue cx Further rec depending on surgical procedure Discussed with daughter Will follow Cordelia Easton MD Infectious Diseases Label [facility], [place], [facility] [phone] O [phone] Subjective Date of service: 04/01/19 Principal diagnosis: Rt Grt toe cellulitis Interval history: Feels ok, no complaints. No fever. Objective - Exam Narrative Exam: General appearance: Alert in NAD Eyes: anicteric sclerae, moist conjunctivae; no lid-lag; PERRLA HENT: Atraumatic; oropharynx clear with moist mucous membranes and no mucosal ulcerations/no oral thrush; normal hard and soft palate. Lungs: CTA, with normal respiratory effort and no intercostal retractions CV: RRR no murmur Abdomen: Soft, non-tender; no masses or hepatosplenomegaly Extremities: left great toe tip with erythematous discoloration very tender Skin: No rash. Psych: no agitation Neuro: alert and oriented x 3. Moving all extermities - Constitutional Vitals: Vital Signs Temp Pulse Resp BP Pulse Ox 97.8 F 80 20 148/59 95 04/01/19 07:21 04/01/19 07:21 04/01/19 07:21 04/01/19 07:21 04/01/19 07:21 Temperature -Last 24 Hours Temperature 97.8 F Temperature 98.3 F Temperature 97.5 F Temperature 97.4 F Temperature 97.2 F - Labs CBC & Chem 7: 03/30/19 04:36 03/30/19 04:36 Labs: Abnormal lab results 03/31/19 03/31/19 03/31/19 Range/Units 09:24 11:40 22:26 Activated Clotting Time 224 H 208 H (74-137) POC Glucose 138 H (70-105)
--- NOTE | 2019-04-01 10:24 | Progress Note ---
Assessment and Plan Will consult wound care/Dr. Galeano for evaluation of right first toe. The patient is status post revascularization procedure however has gangrenous changes to the distal phalanx and underlying osteomyelitis and a fluid collection. Subjective Date of service: 04/01/19 Principal diagnosis: Rt Grt toe cellulitis Interval history: Patient status post right extremity revascularization with improved flow to the foot. The foot is warm including the toe. The patient's first toe has gangrenous changes to the distal aspect of the phalanx. The MRI demonstrates fluid collection around the bone with diffuse osteomyelitis. Objective - Constitutional Vitals: Vital Signs - 12hr 04/01/19 04/01/19 01:56 07:21 Temperature 98.3 F 97.8 F Pulse Rate 84 80 Respiratory 18 20 Rate Blood Pressure 149/56 148/59 O2 Sat by Pulse 96 95 Oximetry General appearance: Present: no acute distress - EENT ENT: hearing intact - Neck Neck: supple - Respiratory Respiratory effort: normal Extremities: abnormal Extremity abnormal: edema (first toe right foot) - Gastrointestinal General gastrointestinal: Present: deferred Rectal Exam: deferred - Genitourinary Female genitourinary: deferred - Labs CBC & Chem 7: 03/30/19 04:36 03/30/19 04:36 Labs: Abnormal lab results 03/31/19 03/31/19 03/31/19 Range/Units 09:24 11:40 22:26 Activated Clotting Time 224 H 208 H (74-137) POC Glucose 138 H (70-105) Medications & Allergies - Medications Allergies/Adverse Reactions: Allergies No Known Allergies Allergy (Verified 02/03/18 01:53) Home Medications: Home Medications Medication Instructions Recorded Confirmed Last Taken Type Rosuvastatin Calcium [Crestor] 40 mg PO DAILY 06/20/14 03/25/19 03/24/19 10:00 History Aspirin 81 mg PO DAILY 06/20/15 03/25/19 03/24/19 10:00 History PriLOSEC Otc 1 tab PO DAILY 07/13/16 03/25/19 03/24/19 10:00 History Ciprofloxacin [Ciprofloxacin ORAL 250 mg PO Q12H 7 Days ml 07/16/16 03/25/19 Unknown Rx LIQ] Ibuprofen [Motrin] 800 mg PO Q8HR PRN #30 tablet 12/13/17 03/25/19 03/24/19 22:00 Rx FLUoxetine HCL [Prozac] 60 mg PO DAILY 03/25/19 03/25/19 03/24/19 10:00 History Levemir VIAL 35 unit SUB-Q HS 03/25/19 03/25/19 03/24/19 11:00 History NovoLOG 100 UNITS/ML VIAL See Protocol SQ QACHS 03/25/19 03/25/19 03/24/19 16:30 History Active Medications: Generic Name Dose Route Start Last Admin Trade Name Freq PRN Reason Stop Dose Admin Acetaminophen 650 mg 03/25/19 06:11 03/28/19 22:34 Tylenol PO 650 mg Q4H PRN Administration Pain MILD(1-3)/Fever >100.5/OQUENDO Aspirin 81 mg 03/25/19 13:00 03/31/19 15:40 Baby Aspirin PO 81 mg QDAY LOVELY Administration Atorvastatin Calcium 40 mg 03/25/19 22:00 03/31/19 23:13 Lipitor PO 40 mg QHS LOVELY Administration Clopidogrel Bisulfate 75 mg 04/01/19 10:00 Plavix PO QDAY LOVELY Dextrose 50 ml 03/25/19 06:11 03/31/19 08:09 D50w (25gm) Syringe IV 50 ml PRN PRN Administration Hypoglycemia Enoxaparin Sodium 40 mg 03/25/19 10:00 03/31/19 15:41 Lovenox SUB-Q Not Given QDAY LOVELY Fluoxetine HCl 60 mg 03/26/19 10:00 03/31/19 15:43 Prozac PO 60 mg DAILY LOVELY Administration Cefepime HCl 2 gm in 100 mls @ 200 mls/hr 03/26/19 15:00 03/31/19 13:30 Maxipime/Ns 2 Gm/100 Ml IV 200 mls/hr Q12HR LOVELY Administration Vancomycin HCl 1 gm in 250 mls @ 166.667 mls/hr 03/28/19 06:00 03/31/19 11:56 Vancomycin/Ns 1 Gm/250 Ml IV Not Given Q24HR@0600 LOVELY Sodium Chloride 1,000 mls @ 75 mls/hr 03/29/19 16:00 04/01/19 00:30 Nacl 0.9% 1000 Ml IV 75 mls/hr DIRECT LOVELY Administration Sodium Chloride 500 mls @ 50 mls/hr 03/30/19 15:00 Nacl 0.9% 500 Ml IV DIRECT LOVELY Ibuprofen 800 mg 03/25/19 12:12 03/31/19 23:12 Ibuprofen PO 800 mg Q8H PRN Administration Pain Insulin Glargine 35 units 03/25/19 22:00 03/31/19 23:13 Lantus SUB-Q 35 units QHS LOVELY Administration Insulin Human Lispro 0 unit 03/25/19 07:30 03/31/19 17:11 Humalog SUB-Q Not Given ACHS [facility] Protocol Morphine Sulfate 2 mg 03/31/19 13:33 Morphine IV Q4H PRN Pain, Moderate (4-6) Ondansetron HCl 4 mg 03/25/19 06:11 Zofran IV Q8H PRN Nausea And Vomiting Pantoprazole Sodium 20 mg 03/26/19 10:00 03/31/19 15:43 Protonix PO 20 mg QDAY LOVELY Administration Sodium Chloride 10 ml 03/25/19 10:00 03/31/19 15:44 Sodium Chloride Flush Syringe 10 Ml IV Not Given BID LOVELY Sodium Chloride 10 ml 03/25/19 06:11 Sodium Chloride Flush Syringe 10 Ml IV PRN PRN LINE FLUSH
[2019-04-01] MEDS: BABY ASPIRIN PO SCH (11:04)
[2019-04-01] MEDS: LOVENOX SUB-Q SCH (11:04)
[2019-04-01] MEDS: MAXIPIME/NS 2 GM/100 ML 2 GM/100 ML BAG IV SCH ×3 (11:04→22:49)
[2019-04-01] MEDS: PLAVIX PO SCH (11:04)
[2019-04-01] MEDS: PROzac PO SCH (11:04)
[2019-04-01] MEDS: SODIUM CHLORIDE FLUSH SYRINGE 10 ML IV SCH ×2 (11:05→22:51)
[2019-04-01] MEDS: PROTONIX PO SCH (11:05)
[2019-04-01] MEDS: VANCOMYCIN/NS 1 GM/250 ML 1 GM/250 ML BAG IV SCH (11:05)
[2019-04-01] MEDS: MORPHINE IV PRN (12:17)
[2019-04-01] MEDS: IBUPROFEN PO PRN (15:13)
--- NOTE | 2019-04-01 16:24 | Progress Note ---
Assessment and Plan 78-year-old female with hypertension, diabetes, CVA with dysarthria, coronary artery disease awho presents with red, tender right great toe. Unknown of trauma. Family member at bedside has noted fluctuating sugar reading. Patient is poor historian --Right lower extremity critical limb ischemia; vascular following s/p vascular Procedure 03/29/2019 Diagnostic Aortogram with Radiologic Supervision and Interpretation Right Lower Extremity Angiogram with 3rd Order Catheter Placement Revascularization procedure today --Right great toe osteomyelitis and abscess; xray shows cortical erosion of the distal phalanx concerning for osteomyelitis MRI show:Collection encasing the first distal phalanx concerning for abscess and diffuse osteomyelitis involving the distal phalanx, continue cefepime and Vanco, ID and Vascular following,s/p angiogram Echo; normal EF 65%, normal LV function . --DM-2: Accu-Chek sliding scale coverage and ADA diet, insulin as needed --hx of CVA ; antiplatelets and statin, Supportive care --Peripheral vascular disease: Arterial doppler reveals R>L arterial insufficiency Vascular following --Dvt ppx; lovenox Monitor closely and adjust management as needed Subjective Date of service: 04/01/19 Principal diagnosis: Rt Grt toe cellulitis Interval history: Lying quietly in bed. Confused. Objective - Exam Narrative Exam: Constitutional: Well-nourished well-developed. In no distress Head: Normocephalic atraumatic Eyes: Pupils are equal round and reactive to light Nose: No enlarged turbinates, no septal deviation. Mouth: Moist mucous membranes. Neck: Supple no thyromegaly. No bruit. No JVD Heart: Regular rate and rhythm, S1-S2 normal. No rubs murmurs or gallop Lungs: Clear to auscultation bilaterally. no rales or rhonchi Abdomen: Soft, nontender. Bowel sound are present. Extremities: No edema, no clubbing. Right big toe discoloration Neuro: Alert oriented Oriented x3. No focal sensory or motor deficit. Skin: No rashes or hyperpigmented spots Musculoskeletal system: No joint pain or swelling Hematological: No petechia or subcutanous hemorrhages. Immunological: No multiple septic spots on the skin Lymphatic: No generalized lymphadenopathy Psychiatry: Euthymic. Calm. - Constitutional Vitals: Vital Signs - 12hr 08/31/19 08/31/19 07:21 14:16 Temperature 97.8 F 98.8 F Pulse Rate 80 91 H Respiratory 20 20 Rate Blood Pressure 148/59 158/67 O2 Sat by Pulse 95 93 Oximetry - Labs CBC & Chem 7: 03/30/19 04:36 03/30/19 04:36 Labs: Abnormal lab results 03/31/19 04/01/19 Range/Units 22:26 11:32 POC Glucose 138 H 131 H (70-105)
[2019-04-01] MEDS: LANTUS SUB-Q SCH (22:49)
[2019-04-02] MEDS: MORPHINE IV PRN ×2 (00:44→21:24)
[2019-04-02 05:00] LABS: Basophils % (Auto) 0.5 % (0.0-1.8); Eosinophils # (Auto) 0.3 K/mm3 (0.0-0.4); Eosinophils % (Auto) 2.8 % (0.0-4.3); Hematocrit 29.7 % (30.3-42.9); Hemoglobin 10.2 gm/dl (10.1-14.3); Lymphocytes # (Auto) 1.9 K/mm3 (1.2-5.4); Lymphocytes % (Auto) 19.5 % (13.4-35.0); Mean Corpuscular HGB Conc 34 % (30-34); Mean Corpuscular Volume 88 fl (79-97); Monocytes % (Auto) 9.9 % (0.0-7.3); Platelet Count 220 K/mm3 (140-440); Red Blood Count 3.39 M/mm3 (3.65-5.03); Red Cell Distribution Width 14.1 % (13.2-15.2)
[2019-04-02 05:25] LABS: Alanine Aminotransferase 6 units/L (7-56); Albumin 2.7 g/dL (3.9-5); BUN/Creatinine Ratio 26; Blood Urea Nitrogen 21 mg/dL (7-17); Calcium 8.2 mg/dL (8.4-10.2); Hemolysis Index 1
[2019-04-02] MEDS: VANCOMYCIN/NS 1 GM/250 ML 1 GM/250 ML BAG IV SCH (06:23)
[2019-04-02] MEDS: HumaLOG SUB-Q SCH ×4 (07:30→22:17)
[2019-04-02] MEDS: NACL 0.9% 1000 ML 1,000 ML IV SCH (09:46)
[2019-04-02] MEDS: LOVENOX SUB-Q SCH (09:46)
[2019-04-02] MEDS: MAXIPIME/NS 2 GM/100 ML 2 GM/100 ML BAG IV SCH ×2 (09:46→22:15)
[2019-04-02] MEDS: PROTONIX PO SCH (09:46)
[2019-04-02] MEDS: PLAVIX PO SCH (09:46)
[2019-04-02] MEDS: PROzac PO SCH (09:46)
[2019-04-02] MEDS: BABY ASPIRIN PO SCH (09:47)
[2019-04-02] MEDS: SODIUM CHLORIDE FLUSH SYRINGE 10 ML IV SCH ×2 (09:47→22:16)
--- NOTE | 2019-04-02 10:07 | Progress Note ---
Assessment and Plan Assessment and plan: 78-year-old female with hypertension, diabetes, CVA with dysarthria, coronary artery disease awho presents with red, tender right great toe. Unknown of trauma. Family member at bedside has noted fluctuating sugar reading. Patient is poor historian --Right lower extremity critical limb ischemia; vascular following s/p vascular Procedure 03/29/2019 Diagnostic Aortogram with Radiologic Supervision and Interpretation Right Lower Extremity Angiogram with 3rd Order Catheter Placement Revascularization procedure today --Right great toe osteomyelitis and abscess; xray shows cortical erosion of the distal phalanx concerning for osteomyelitis MRI show:Collection encasing the first distal phalanx concerning for abscess and diffuse osteomyelitis involving the distal phalanx, continue cefepime and Vanco, ID and Vascular following,s/p angiogram Per vascular Will consult wound care/Dr. Galeano for evaluation of right first toe. The patient is status post revascularization procedure however has gangrenous changes to the distal phalanx and underlying osteomyelitis and a fluid collection. Echo; normal EF 65%, normal LV function . --DM-2: Accu-Chek sliding scale coverage and ADA diet, insulin as needed Hypoglycemia- will adjust unsulin. --hx of CVA ; antiplatelets and statin, Supportive care --Peripheral vascular disease: Arterial doppler reveals R>L arterial in sufficiency Vascular following --Dvt ppx; lovenox Monitor closely and adjust management as needed History Interval history: Patient seen and examined, resting comfortable. Hospitalist Physical - Physical exam Narrative exam: Constitutional: Well-nourished well-developed. In no distress Head: Normocephalic atraumatic Eyes: Pupils are equal round and reactive to light Nose: No enlarged turbinates, no septal deviation. Mouth: Moist mucous membranes. Neck: Supple no thyromegaly. No bruit. No JVD Heart: Regular rate and rhythm, S1-S2 normal. No rubs murmurs or gallop Lungs: Clear to auscultation bilaterally. no rales or rhonchi Abdomen: Soft, nontender. Bowel sound are present. Extremities: No edema, no clubbing. Right big toe discoloration, pulses deminished but negative Neuro: Alert oriented Oriented x3. No focal sensory or motor deficit. Skin: No rashes or hyperpigmented spots Musculoskeletal system: No joint pain or swelling Hematological: scartared petchea Immunological: multiple septic spots on the skin Lymphatic: No generalized lymphadenopathy Psychiatry: Euthymic. Calm. - Constitutional Vitals: Temp Pulse Resp BP Pulse Ox 98.8 F 83 18 120/51 92 04/02/19 07:39 04/02/19 07:39 04/02/19 07:39 04/02/19 07:39 04/02/19 07:39 General appearance: Present: no acute distress Results - Labs CBC & Chem 7: 04/02/19 04:29 04/02/19 04:29 Labs: Laboratory Last Values WBC 9.8 K/mm3 (4.5-11.0) 04/02/19 04:29 RBC 3.39 M/mm3 (3.65-5.03) L 04/02/19 04:29 Hgb 10.2 gm/dl (10.1-14.3) 04/02/19 04:29 Hct 29.7 % (30.3-42.9) L 04/02/19 04:29 MCV 88 fl (79-97) 04/02/19 04:29 MCH 30 pg (28-32) 04/02/19 04:29 MCHC 34 % (30-34) 04/02/19 04:29 RDW 14.1 % (13.2-15.2) 04/02/19 04:29 Plt Count 220 K/mm3 (140-440) 04/02/19 04:29 Lymph % (Auto) 19.5 % (13.4-35.0) 04/02/19 04:29 Elliott % (Auto) 9.9 % (0.0-7.3) H 04/02/19 04:29 Eos % (Auto) 2.8 % (0.0-4.3) 04/02/19 04:29 Baso % (Auto) 0.5 % (0.0-1.8) 04/02/19 04:29 Lymph # 1.9 K/mm3 (1.2-5.4) 04/02/19 04:29 Elliott # 1.0 K/mm3 (0.0-0.8) H 04/02/19 04:29 Eos # 0.3 K/mm3 (0.0-0.4) 04/02/19 04:29 Baso # 0.0 K/mm3 (0.0-0.1) 04/02/19 04:29 Seg Neutrophils % 67.3 % (40.0-70.0) 04/02/19 04:29 Seg Neutrophils # 6.6 K/mm3 (1.8-7.7) 04/02/19 04:29 ESR 58 mm/Hr (0-20) 03/27/19 04:04 PT 12.8 Sec. (12.2-14.9) 03/29/19 09:45 INR 0.99 (0.87-1.13) 03/29/19 09:45 APTT 27.5 Sec. (24.2-36.6) 03/29/19 09:45 208 (74-137) H 03/31/19 11:40 Sodium 142 mmol/L (137-145) 04/02/19 04:29 Potassium 3.7 mmol/L (3.6-5.0) 04/02/19 04:29 Chloride 109.3 mmol/L (98-107) H 04/02/19 04:29 Carbon Dioxide 22 mmol/L (22-30) 04/02/19 04:29 14 mmol/L 04/02/19 04:29 BUN 21 mg/dL (7-17) H 04/02/19 04:29 0.8 mg/dL (0.7-1.2) 04/02/19 04:29 Estimated GFR > 60 ml/min 04/02/19 04:29 26 % 04/02/19 04:29 Glucose 59 mg/dL (65-100) L 04/02/19 04:29 POC Glucose 56 (70-105) L 04/02/19 07:46 2.7 mg/dL (3.5-7.6) L 03/26/19 04:27 Calcium 8.2 mg/dL (8.4-10.2) L 04/02/19 04:29 0.20 mg/dL (0.1-1.2) 04/02/19 04:29 AST 10 units/L (5-40) 04/02/19 04:29 ALT 6 units/L (7-56) L 04/02/19 04:29 71 units/L (35-129) 04/02/19 04:29 2.70 mg/dL (0.00-1.30) H 03/27/19 04:04 5.9 g/dL (6.3-8.2) L 04/02/19 04:29 2.7 g/dL (3.9-5) L 04/02/19 04:29 0.8 % 04/02/19 04:29 Vancomycin Trough 14.1 ug/mL (5.0-20.0) 03/30/19 04:36 Active Medications - Current Medications Current Medications: Generic Name Dose Route Start Last Admin Trade Name Freq PRN Reason Stop Dose Admin Acetaminophen 650 mg 03/25/19 06:11 03/28/19 22:34 Tylenol PO 650 mg Q4H PRN Administration Pain MILD(1-3)/Fever >100.5/OQUENDO Aspirin 81 mg 03/25/19 13:00 04/02/19 09:47 Baby Aspirin PO 81 mg QDAY LOVELY Administration Atorvastatin Calcium 40 mg 03/25/19 22:00 04/01/19 22:50 Lipitor PO 40 mg QHS LOVELY Administration Clopidogrel Bisulfate 75 mg 04/01/19 10:00 04/02/19 09:46 Plavix PO 75 mg QDAY LOVELY Administration Dextrose 50 ml 03/25/19 06:11 03/31/19 08:09 D50w (25gm) Syringe IV 50 ml PRN PRN Administration Hypoglycemia Enoxaparin Sodium 40 mg 03/25/19 10:00 04/02/19 09:46 Lovenox SUB-Q 40 mg QDAY LOVELY Administration Fluoxetine HCl 60 mg 03/26/19 10:00 04/02/19 09:46 Prozac PO 60 mg DAILY LOVELY Administration Cefepime HCl 2 gm in 100 mls @ 200 mls/hr 03/26/19 15:00 04/02/19 09:46 Maxipime/Ns 2 Gm/100 Ml IV 200 mls/hr Q12HR LOVELY Administration Vancomycin HCl 1 gm in 250 mls @ 166.667 mls/hr 03/28/19 06:00 04/02/19 06:23 Vancomycin/Ns 1 Gm/250 Ml IV 166.667 mls/hr Q24HR@0600 LOVELY Administration Sodium Chloride 1,000 mls @ 75 mls/hr 03/29/19 16:00 04/02/19 09:46 Nacl 0.9% 1000 Ml IV 75 mls/hr DIRECT LOVELY Administration Sodium Chloride 500 mls @ 50 mls/hr 03/30/19 15:00 Nacl 0.9% 500 Ml IV DIRECT LOVELY Ibuprofen 800 mg 03/25/19 12:12 04/01/19 15:13 Ibuprofen PO 800 mg Q8H PRN Administration Pain Insulin Glargine 35 units 03/25/19 22:00 04/01/19 22:49 Lantus SUB-Q 35 units QHS LOVELY Administration Insulin Human Lispro 0 unit 03/25/19 07:30 04/02/19 07:30 Humalog SUB-Q Not Given ACHS [facility] Protocol Morphine Sulfate 2 mg 03/31/19 13:33 04/02/19 00:44 Morphine IV 2 mg Q4H PRN Administration Pain, Moderate (4-6) Ondansetron HCl 4 mg 03/25/19 06:11 Zofran IV Q8H PRN Nausea And Vomiting Pantoprazole Sodium 20 mg 03/26/19 10:00 04/02/19 09:46 Protonix PO 20 mg QDAY LOVELY Administration Sodium Chloride 10 ml 03/25/19 10:00 04/02/19 09:47 Sodium Chloride Flush Syringe 10 Ml IV 10 ml BID LOVELY Administration Sodium Chloride 10 ml 03/25/19 06:11 Sodium Chloride Flush Syringe 10 Ml IV PRN PRN LINE FLUSH
--- NOTE | 2019-04-02 11:18 | Progress Note ---
Assessment and Plan Patient will need evaluation by Dr. Galeano with wound care for further management of her first toe. Patient has optimized arterial inflow. Subjective Date of service: 04/02/19 Principal diagnosis: Rt Grt toe cellulitis Interval history: Patient resting comfortably in bed. A minimal amount of reperfusion edema is present. Her foot is warm. The patient has tenderness changes to the distal aspect of the first phalanx. Objective - Constitutional Vitals: Vital Signs - 12hr 04/02/19 04/02/19 04/02/19 00:44 01:14 02:33 Temperature 98.8 F Pulse Rate Respiratory 20 20 18 Rate Blood Pressure 139/77 O2 Sat by Pulse Oximetry 04/02/19 07:39 Temperature 98.8 F Pulse Rate 83 Respiratory 18 Rate Blood Pressure 120/51 O2 Sat by Pulse 92 Oximetry General appearance: Present: no acute distress - EENT Eyes: EOM intact ENT: hearing intact - Neck Neck: supple, normal ROM - Respiratory Respiratory effort: normal Extremities: abnormal - Gastrointestinal General gastrointestinal: Present: deferred Rectal Exam: deferred - Genitourinary Female genitourinary: deferred - Psychiatric Psychiatric: cooperative - Labs CBC & Chem 7: 04/02/19 04:29 04/02/19 04:29 Labs: Abnormal lab results 04/01/19 04/01/19 04/02/19 Range/Units 11:32 21:42 04:29 RBC 3.39 L (3.65-5.03) M/mm3 Hct 29.7 L (30.3-42.9) % [place] % (Auto) 9.9 H (0.0-7.3) % [place] # 1.0 H (0.0-0.8) K/mm3 Chloride (98-107) mmol/L BUN (7-17) mg/dL Glucose (65-100) mg/dL POC Glucose 131 H 163 H (70-105) Calcium (8.4-10.2) mg/dL ALT (7-56) units/L Total Protein (6.3-8.2) g/dL Albumin (3.9-5) g/dL 04/02/19 04/02/19 Range/Units 04:29 07:46 RBC (3.65-5.03) M/mm3 Hct (30.3-42.9) % [place] % (Auto) (0.0-7.3) % [place] # (0.0-0.8) K/mm3 Chloride 109.3 H (98-107) mmol/L BUN 21 H (7-17) mg/dL Glucose 59 L (65-100) mg/dL POC Glucose 56 L (70-105) Calcium 8.2 L (8.4-10.2) mg/dL ALT 6 L (7-56) units/L Total Protein 5.9 L (6.3-8.2) g/dL Albumin 2.7 L (3.9-5) g/dL Medications & Allergies - Medications Allergies/Adverse Reactions: Allergies No Known Allergies Allergy (Verified 02/03/18 01:53) Home Medications: Home Medications Medication Instructions Recorded Confirmed Last Taken Type Rosuvastatin Calcium [Crestor] 40 mg PO DAILY 06/20/14 03/25/19 03/24/19 10:00 History Aspirin 81 mg PO DAILY 06/20/15 03/25/19 03/24/19 10:00 History PriLOSEC Otc 1 tab PO DAILY 07/13/16 03/25/19 03/24/19 10:00 History Ciprofloxacin [Ciprofloxacin ORAL 250 mg PO Q12H 7 Days ml 07/16/16 03/25/19 Unknown Rx LIQ] Ibuprofen [Motrin] 800 mg PO Q8HR PRN #30 tablet 12/13/17 03/25/19 03/24/19 22:00 Rx FLUoxetine HCL [Prozac] 60 mg PO DAILY 03/25/19 03/25/19 03/24/19 10:00 History Levemir VIAL 35 unit SUB-Q HS 03/25/19 03/25/19 03/24/19 11:00 History NovoLOG 100 UNITS/ML VIAL See Protocol SQ QACHS 03/25/19 03/25/19 03/24/19 16:30 History Active Medications: Generic Name Dose Route Start Last Admin Trade Name Freq PRN Reason Stop Dose Admin Acetaminophen 650 mg 03/25/19 06:11 03/28/19 22:34 Tylenol PO 650 mg Q4H PRN Administration Pain MILD(1-3)/Fever >100.5/OQUENDO Aspirin 81 mg 03/25/19 13:00 04/02/19 09:47 Baby Aspirin PO 81 mg QDAY LOV[facility] Administration Atorvastatin Calcium 40 mg 03/25/19 22:00 04/01/19 22:50 Lipitor PO 40 mg QHS LOVELY Administration Clopidogrel Bisulfate 75 mg 04/01/19 10:00 04/02/19 09:46 Plavix PO 75 mg QDAY LOV[facility] Administration Dextrose 50 ml 03/25/19 06:11 03/31/19 08:09 D50w (25gm) Syringe IV 50 ml PRN PRN Administration Hypoglycemia Enoxaparin Sodium 40 mg 03/25/19 10:00 04/02/19 09:46 Lovenox SUB-Q 40 mg QDAY LOV[facility] Administration Fluoxetine HCl 60 mg 03/26/19 10:00 04/02/19 09:46 Prozac PO 60 mg DAILY LOV[facility] Administration Cefepime HCl 2 gm in 100 mls @ 200 mls/hr 03/26/19 15:00 04/02/19 09:46 Maxipime/Ns 2 Gm/100 Ml IV 200 mls/hr Q12HR L[facility] Administration Vancomycin HCl 1 gm in 250 mls @ 166.667 mls/hr 03/28/19 06:00 04/02/19 06:23 Vancomycin/Ns 1 Gm/250 Ml IV 166.667 mls/hr Q24HR@0600 [facility] Administration Sodium Chloride 1,000 mls @ 75 mls/hr 03/29/19 16:00 04/02/19 09:46 Nacl 0.9% 1000 Ml IV 75 mls/hr DIRECT LOVELY Administration Sodium Chloride 500 mls @ 50 mls/hr 03/30/19 15:00 Nacl 0.9% 500 Ml IV DIRECT LOV[facility] Ibuprofen 800 mg 03/25/19 12:12 04/01/19 15:13 Ibuprofen PO 800 mg Q8H PRN Administration Pain Insulin Glargine 30 units 04/02/19 10:09 Lantus SUB-Q QHS [facility] Insulin Human Lispro 0 unit 03/25/19 07:30 04/02/19 07:30 Humalog SUB-Q Not Given ACHS [facility] Protocol Morphine Sulfate 2 mg 03/31/19 13:33 04/02/19 00:44 Morphine IV 2 mg Q4H PRN Administration Pain, Moderate (4-6) Ondansetron HCl 4 mg 03/25/19 06:11 Zofran IV Q8H PRN Nausea And Vomiting Pantoprazole Sodium 20 mg 03/26/19 10:00 04/02/19 09:46 Protonix PO 20 mg QDAY LOV[facility] Administration Sodium Chloride 10 ml 03/25/19 10:00 04/02/19 09:47 Sodium Chloride Flush Syringe 10 Ml IV 10 ml BID LOVELY Administration Sodium Chloride 10 ml 03/25/19 06:11 Sodium Chloride Flush Syringe 10 Ml IV PRN PRN LINE FLUSH
[2019-04-02] MEDS: LANTUS SUB-Q SCH (22:16)
[2019-04-02] MEDS: TYLENOL PO PRN (23:42)
[2019-04-03] MEDS: VANCOMYCIN/NS 1 GM/250 ML 1 GM/250 ML BAG IV SCH (06:08)
[2019-04-03] MEDS: NACL 0.9% 1000 ML 1,000 ML IV SCH ×2 (06:08→23:28)
[2019-04-03] MEDS: HumaLOG SUB-Q SCH ×5 (07:20→23:04)
[2019-04-03] MEDS: PROTONIX PO SCH (09:05)
[2019-04-03] MEDS: PROzac PO SCH (09:05)
[2019-04-03] MEDS: PLAVIX PO SCH (09:05)
[2019-04-03] MEDS: MAXIPIME/NS 2 GM/100 ML 2 GM/100 ML BAG IV SCH ×2 (09:05→23:02)
[2019-04-03] MEDS: SODIUM CHLORIDE FLUSH SYRINGE 10 ML IV SCH ×3 (09:06→23:05)
[2019-04-03] MEDS: BABY ASPIRIN PO SCH (09:07)
[2019-04-03] MEDS: LOVENOX SUB-Q SCH (09:21)
[2019-04-03] MEDS: IBUPROFEN PO PRN (14:52)
[2019-04-03] MEDS: LANTUS SUB-Q SCH (22:48)
[2019-04-03] MEDS: MORPHINE IV PRN (23:46)
[2019-04-04] MEDS: VANCOMYCIN/NS 1 GM/250 ML 1 GM/250 ML BAG IV SCH (05:30)
--- NOTE | 2019-04-04 06:53 | Progress Note ---
Assessment and Plan 78-year-old female with hypertension, diabetes, CVA with dysarthria, coronary artery disease awho presents with red, tender right great toe. Unknown of trauma. Family member at bedside has noted fluctuating sugar reading. Patient is poor historian --Right lower extremity critical limb ischemia; vascular following s/p vascular Procedure 03/29/2019 Diagnostic Aortogram with Radiologic Supervision and Interpretation Right Lower Extremity Angiogram with 3rd Order Catheter Placement Patient will need evaluation by Dr. Galeano with wound care for further management of her first toe. Patient has optimized arterial inflow. --Right great toe osteomyelitis and abscess; xray shows cortical erosion of the distal phalanx concerning for osteomyelitis MRI show:Collection encasing the first distal phalanx concerning for abscess and diffuse osteomyelitis involving the distal phalanx, continue cefepime and Vanco, ID and Vascular following,s/p angiogram Per vascular Will consult wound care/Dr. Galeano for evaluation of right first toe. The patient is status post revascularization procedure however has gangrenous changes to the distal phalanx and underlying osteomyelitis and a fluid collection. Echo; normal EF 65%, normal LV function . --DM-2: Accu-Chek sliding scale coverage and ADA diet, insulin as needed Hypoglycemia- will adjust unsulin. --hx of CVA ; antiplatelets and statin, Supportive care --Peripheral vascular disease: Arterial doppler reveals R>L arterial i nsufficiency Vascular following --Dvt ppx; lovenox Monitor closely and adjust management as needed History Interval history: Patient seen and examined, resting comfortable. Subjective Date of service: 04/03/19 Principal diagnosis: Rt Grt toe cellulitis Interval history: 78-year-old woman with history of hypertension, diabetes, coronary artery disease, CVA with dysarthia comes to the emergency room with complaints of Rt red Great toe. History is per daughter, stating that 1-1/2 week ago to 2 became bright, swollen, painful and the patient is having difficulty sleeping. Denies fever chills, drainage, and entry point. . T Objective - Constitutional Vitals: Vital Signs - 12hr 04/03/19 04/03/19 04/03/19 20:34 21:00 22:00 Temperature 98.7 F Pulse Rate 77 Pulse Rate [ 77 From Monitor] Respiratory 18 Rate Blood Pressure 131/62 O2 Sat by Pulse 94 94 Oximetry 04/04/19 02:32 Temperature 98.4 F Pulse Rate 73 Pulse Rate [ From Monitor] Respiratory 18 Rate Blood Pressure 155/64 O2 Sat by Pulse 95 Oximetry General appearance: Present: no acute distress, well-nourished - EENT Eyes: PERRL, EOM intact ENT: hearing intact, clear oral mucosa Ears: bilateral: normal - Neck Neck: supple, normal ROM - Respiratory Respiratory effort: normal Respiratory: bilateral: CTA - Breasts Breasts: normal - Cardiovascular Heart rate: 78 Rhythm: regular Heart Sounds: Present: S1 & S2. Absent: gallop, rub Extremities: pulses intact, No edema, normal color, Full ROM - Gastrointestinal General gastrointestinal: Present: soft, non-tender, non-distended, normal bowel sounds - Genitourinary Female genitourinary: normal - Integumentary Integumentary: clear, warm, dry - Musculoskeletal Musculoskeletal: 1, strength equal bilaterally - Neurologic Neurologic: moves all extremities - Psychiatric Psychiatric: memory intact, appropriate mood/affect, intact judgment & insight - Labs CBC & Chem 7: 04/02/19 04:29 04/02/19 04:29 Labs: Abnormal lab results 04/03/19 04/03/19 04/03/19 Range/Units 11:26 16:23 21:45 POC Glucose 139 H 202 H 392 H (70-105)
[2019-04-04] MEDS: HumaLOG SUB-Q SCH ×4 (07:27→23:32)
[2019-04-04] MEDS: IBUPROFEN PO PRN ×2 (08:11→16:43)
--- NOTE | 2019-04-04 08:46 | Progress Note ---
Assessment and Plan Cultures: 03/25/2019 blood culture: no growth A/P: 78-year-old female with hypertension, diabetes, CVA with dysarthria, coronary artery disease admitted with: 1) Probable right great toe acute osteomyelitis: xray shows cortical erosion of the distal phalanx concerning for osteomyelitis however there is no contiguous wound and hence not typical of a diabetic foot osteomyelitis. Differential jennie gnosis does include acute gout v/s pseudogout, but not much evidence of arthropathy involving the first MTP joint. ESR 58. CRP 2.7 MRI shows circumscribed fluid collection encasing the first toe distal phalanx. Concerning for abscess. There is diffuse osteomyelitis involving the distal phalanx. TTE shows no valvular vegetation. S/p ballon angioplasty on 03/31/2019. Gangrenous changes to the distal aspect of the phalanx. Dr. Galeano to perform transmetatarsal amputation of right great toe tomorrow. Please obtain cultures and pathology. 2) DM-2: recommend glycemic control 3) CVA 4) Peripheral vascular disease: Arterial doppler reveals R>L arterial insufficiency. Recs: Continue Cefepime and Vancomycin Agree with transmetatarsal amputaion of great right toe. Please obtain cultures and pathology. Final antibiotic plan based on surgical cultures and pathology [facility] M: [id number] O:[phone] Subjective Date of service: 04/04/19 Principal diagnosis: Rt Grt toe cellulitis Interval history: Patient seen and examined. Sitting up in the bed eating. +right foot dressing. No fevers. Daughter at bedside. Objective - Exam Narrative Exam: Constitutional: Awake. Alert. No acute distress Head, Ears, Nose: Normocephalic, atraumatic. External ears, nose normal Eyes: Conjunctivae/corneas clear. No icterus. No ptosis. Neck: Supple, no meningeal signs Oral: edentulous, no thrush or ulcers Cardiovascular: S1, S2 normal. Respiratory: Good air entry, clear to auscultation bilaterally GI: Soft, non-tender; bowel sounds normal. No peritoneal signs Musculoskeletal: No pedal edema, no cyanosis. Right foot wrapped in dressing. + sanguineous drainage. Skin: No rash Hem/Lymphatic: No palpable cervical or supraclavicular nodes. No lymphangitis Psych: Mood ok. Affect normal Neurological: Awake. Alert. unintelligible speech - Constitutional Vitals: Vital Signs Temp Pulse Resp BP Pulse Ox 97.6 F 77 18 180/71 96 04/04/19 07:25 04/04/19 07:25 04/04/19 07:25 04/04/19 07:25 04/04/19 07:25 Temperature -Last 24 Hours Temperature 97.6 F Temperature 98.4 F Temperature 98.7 F Temperature 98.3 F - Labs CBC & Chem 7: 04/02/19 04:29 04/02/19 04:29 Labs: Abnormal lab results 04/03/19 04/03/19 04/03/19 Range/Units 11:26 16:23 21:45 POC Glucose 139 H 202 H 392 H (70-105)
[2019-04-04] MEDS: LOVENOX SUB-Q SCH (09:09)
[2019-04-04] MEDS: MAXIPIME/NS 2 GM/100 ML 2 GM/100 ML BAG IV SCH ×2 (09:09→21:53)
[2019-04-04] MEDS: BABY ASPIRIN PO SCH (09:09)
[2019-04-04] MEDS: PLAVIX PO SCH (09:10)
[2019-04-04] MEDS: PROzac PO SCH (09:10)
[2019-04-04] MEDS: PROTONIX PO SCH (09:10)
[2019-04-04] MEDS: SODIUM CHLORIDE FLUSH SYRINGE 10 ML IV SCH ×2 (09:11→21:53)
--- NOTE | 2019-04-04 11:12 | Consultation ---
History of Present Illness Consult date: 04/04/19 Chief complaint: Right great toe infection/osteomyelitis - History of present illness History of present illness: 78 yo diabetic female with right great toe infection and osteomyelitis. She was revascularized on 03/31/19. She is s/p a remote CVA. Past History Past Medical History: diabetes, stroke Medications and Allergies Allergies Allergy/AdvReac Type Severity Reaction Status Date / Time No Known Allergies Allergy Verified 02/03/18 01:53 Home Medications Medication Instructions Recorded Confirmed Last Taken Type Rosuvastatin Calcium [Crestor] 40 mg PO DAILY 06/20/14 03/25/19 03/24/19 10:00 History Aspirin 81 mg PO DAILY 06/20/15 03/25/19 03/24/19 10:00 History PriLOSEC Otc 1 tab PO DAILY 07/13/16 03/25/19 03/24/19 10:00 History Ciprofloxacin [Ciprofloxacin ORAL 250 mg PO Q12H 7 Days ml 07/16/16 03/25/19 Unknown Rx LIQ] Ibuprofen [Motrin] 800 mg PO Q8HR PRN #30 tablet 12/13/17 03/25/19 03/24/19 22:00 Rx FLUoxetine HCL [Prozac] 60 mg PO DAILY 03/25/19 03/25/19 03/24/19 10:00 History Levemir VIAL 35 unit SUB-Q HS 03/25/19 03/25/19 03/24/19 11:00 History NovoLOG 100 UNITS/ML VIAL See Protocol SQ QACHS 03/25/19 03/25/19 03/24/19 16:30 History Active Meds: Active Medications Acetaminophen (Tylenol) 650 mg PO Q4H PRN PRN Reason: Pain MILD(1-3)/Fever >100.5/OQUENDO Last Admin: 04/02/19 23:42 Dose: 650 mg Documented by: Aspirin (Baby Aspirin) 81 mg PO QDAY [facility] Last Admin: 04/04/19 09:09 Dose: 81 mg Documented by: Atorvastatin Calcium (Lipitor) 40 mg PO QHS [facility] Last Admin: 04/03/19 22:43 Dose: 40 mg Documented by: Clopidogrel Bisulfate (Plavix) 75 mg PO QDAY [facility] Last Admin: 04/04/19 09:10 Dose: 75 mg Documented by: Dextrose (D50w (25gm) Syringe) 50 ml IV PRN PRN PRN Reason: Hypoglycemia Last Admin: 03/31/19 08:09 Dose: 50 ml Documented by: Enoxaparin Sodium (Lovenox) 40 mg SUB-Q QDAY [facility] Last Admin: 04/04/19 09:09 Dose: Not Given Documented by: Fluoxetine HCl (Prozac) 60 mg PO DAILY [facility] Last Admin: 04/04/19 09:10 Dose: 60 mg Documented by: Cefepime HCl (Maxipime/Ns 2 Gm/100 Ml) 2 gm in 100 mls @ 200 mls/hr IV Q12HR [facility] Last Admin: 04/04/19 09:09 Dose: 200 mls/hr Documented by: Vancomycin HCl (Vancomycin/Ns 1 Gm/250 Ml) 1 gm in 250 mls @ 166.667 mls/hr IV Q24HR@0600 [facility] Last Admin: 04/04/19 05:30 Dose: 166.667 mls/hr Documented by: Sodium Chloride (Nacl 0.9% 1000 Ml) 1,000 mls @ 75 mls/hr IV DIRECT [facility]OV[facility] Last Admin: 04/03/19 23:28 Dose: 75 mls/hr Documented by: Sodium Chloride (Nacl 0.9% 500 Ml) 500 mls @ 50 mls/hr IV DIRECT LOVELY Ibuprofen (Ibuprofen) 800 mg PO Q8H PRN PRN Reason: Pain Last Admin: 04/04/19 08:11 Dose: 800 mg Documented by: Insulin Glargine (Lantus) 30 units SUB-Q QHS [facility] Last Admin: 04/03/19 22:48 Dose: 30 units Documented by: Insulin Human Lispro (Humalog) 0 unit SUB-Q ACHS [facility]; Protocol Last Admin: 04/04/19 07:27 Dose: Not Given Documented by: Morphine Sulfate (Morphine) 2 mg IV Q4H PRN PRN Reason: Pain, Moderate (4-6) Last Admin: 04/03/19 23:46 Dose: 2 mg Documented by: Ondansetron HCl (Zofran) 4 mg IV Q8H PRN PRN Reason: Nausea And Vomiting Pantoprazole Sodium (Protonix) 20 mg PO QDAY [facility] Last Admin: 04/04/19 09:10 Dose: 20 mg Documented by: Sodium Chloride (Sodium Chloride Flush Syringe 10 Ml) 10 ml IV BID [facility] Last Admin: 04/04/19 09:11 Dose: 10 ml Documented by: Sodium Chloride (Sodium Chloride Flush Syringe 10 Ml) 10 ml IV PRN PRN PRN Reason: LINE FLUSH Review of Systems ROS unobtainable: due to mental status Exam Vital Signs Pulse Resp BP Pulse Ox 88 17 120/70 98 03/25/19 02:25 03/25/19 02:25 03/25/19 02:25 03/25/19 02:25 - General physical appearance Positive: well developed, well nourished, no distress - Eyes Positive: PERRL, normal occular movement - ENT Positive: normal pinna, normal nares, normal mucosa, no hearing loss, no congestion - Neck Positive: no masses, no bruits, trachea midline, no venous distension - Respiratory Positive: normal expansion, normal respiratory effort, clear to auscultation - Cardiovascular Rhythm: regular Heart Sounds: Present: S1 & S2. Absent: rub, click - Extremities Extremity abnormal: other (There is a draining infection of her distal right great toe without proximal cellulitis. No discernable undrained abscess is present.) - Breasts Breasts: deferred - Abdomen Abdomen: Present: soft, bowel sounds normal. Absent: tender, distended Hernia: none - Neurologic Neurologic: other (Talking incoherently.) Results - Labs 04/02/19 04:29 04/02/19 04:29 Abnormal lab results 04/03/19 04/03/19 04/03/19 Range/Units 11:26 16:23 21:45 POC Glucose 139 H 202 H 392 H (70-105) - Imaging Additional studies: MRI of RLE on 03/27/19 revealed osteomyelitis of her right great distal phalanx. Assessment and Plan - Patient Problems (1) Osteomyelitis Current Visit: Yes Status: Acute Plan to address problem: 1) I have placed the pt on the schedule for tomorrow for a transmetatarsal amputation of her right great toe. 2) NPO after MN 3) I will leave her wound open. She can f/u terminal supervisor in the [facility].
[2019-04-04] MEDS: NACL 0.9% 1000 ML 1,000 ML IV SCH (21:55)
[2019-04-04] MEDS: LANTUS SUB-Q SCH (23:33)
[2019-04-05] MEDS: VANCOMYCIN/NS 1 GM/250 ML 1 GM/250 ML BAG IV SCH (07:01)
[2019-04-05] MEDS: HumaLOG SUB-Q SCH ×4 (07:32→21:43)
--- NOTE | 2019-04-05 07:32 | Progress Note ---
Assessment and Plan 78-year-old female with hypertension, diabetes, CVA with dysarthria, coronary artery disease awho presents with red, tender right great toe. Unknown of trauma. Family member at bedside has noted fluctuating sugar reading. Patient is poor historian --Right lower extremity critical limb ischemia; vascular following s/p vascular Procedure 03/29/2019 Diagnostic Aortogram with Radiologic Supervision and Interpretation Right Lower Extremity Angiogram with 3rd Order Catheter Placement Patient will need evaluation by Dr. Galeano with wound care and debridement Per Dr Galeano for a transmetatarsal amputation of her right great toe. 2) NPO after MN 3) I will leave her wound open. She can f[facility]u [facility] --Right great toe osteomyelitis and abscess; xray shows cortical erosion of the distal phalanx concerning for osteomyelitis MRI show:Collection encasing the first distal phalanx concerning for abscess and diffuse osteomyelitis involving the distal phalanx, continue cefepime and Vanco, ID and Vascular following,s/p angiogram Per vascular Will consult wound care/Dr. Galeano for evaluation of right first toe. The patient is status post revascularization procedure however has gangrenous changes to the distal phalanx and underlying osteomyelitis and a fluid collection. Echo; normal EF 65%, normal LV function . --DM-2: Accu-Chek sliding scale coverage and ADA diet, insulin as needed Hypoglycemia- will adjust unsulin. --hx of CVA ; antiplatelets and statin, Supportive care --Peripheral vascular disease: Arterial doppler reveals R>L arterial insufficiency Vascular following --Dvt ppx; lovenox Monitor closely and adjust management as needed History Interval history: Patient seen and examined, resting comfortable. Subjective Date of service: 04/04/19 Principal diagnosis: Rt Grt toe cellulitis Interval history: 78-year-old woman with history of hypertension, diabetes, coronary artery disease, CVA with dysarthia comes to the emergency room with complaints of Rt red Great toe. History is per daughter, stating that 1-1/2 week ago to 2 became bright, swollen, painful and the patient is having difficulty sleeping. Denies fever chills, drainage, and entry point. . T Objective - Constitutional Vitals: Vital Signs - 12hr 04/04/19 04/05/19 22:00 02:03 Temperature 98.6 F Pulse Rate 74 Pulse Rate [ 79 From Monitor] Respiratory 18 Rate Blood Pressure 160/49 O2 Sat by Pulse 104 H 96 Oximetry General appearance: Present: no acute distress, well-nourished - EENT Eyes: PERRL, EOM intact ENT: hearing intact, clear oral mucosa Ears: bilateral: normal - Neck Neck: supple, normal ROM - Respiratory Respiratory effort: normal Respiratory: bilateral: CTA - Breasts Breasts: normal - Cardiovascular Heart rate: 78 Rhythm: regular Heart Sounds: Present: S1 & S2. Absent: gallop, rub Extremities: pulses intact, No edema, normal color, Full ROM, abnormal (Rt Grt toe in dressing) - Gastrointestinal General gastrointestinal: Present: soft, non-tender, non-distended, normal bowel sounds - Genitourinary Female genitourinary: normal - Integumentary Integumentary: clear, warm, dry - Musculoskeletal Musculoskeletal: 1, strength equal bilaterally - Neurologic Neurologic: moves all extremities - Psychiatric Psychiatric: memory intact, appropriate mood/affect, intact judgment & insight - Labs CBC & Chem 7: 04/02/19 04:29 04/02/19 04:29 Labs: Abnormal lab results 04/04/19 04/04/19 04/04/19 Range/Units 11:25 16:20 21:53 POC Glucose 168 H 163 H 182 H (70-105)
[2019-04-05 07:58] LABS: BUN/Creatinine Ratio 20; Blood Urea Nitrogen 18 mg/dL (7-17); Calcium 8.6 mg/dL (8.4-10.2); Hemolysis Index 1
[2019-04-05] MEDS: MORPHINE IV PRN ×2 (08:51→21:47)
[2019-04-05] MEDS: PROzac PO SCH (08:59)
[2019-04-05] MEDS: PROTONIX PO SCH (08:59)
[2019-04-05] MEDS: PLAVIX PO SCH (08:59)
[2019-04-05] MEDS: SODIUM CHLORIDE FLUSH SYRINGE 10 ML IV SCH ×2 (09:00→21:43)
[2019-04-05] MEDS: MAXIPIME/NS 2 GM/100 ML 2 GM/100 ML BAG IV SCH ×2 (09:00→21:43)
[2019-04-05] MEDS: LOVENOX SUB-Q SCH (09:00)
[2019-04-05] MEDS: BABY ASPIRIN PO SCH (09:00)
--- NOTE | 2019-04-05 09:11 | Progress Note ---
Assessment and Plan Cultures: 03/25/2019 blood culture: no growth A/P: 78-year-old female with hypertension, diabetes, CVA with dysarthria, coronary artery disease admitted with: 1) Probable right great toe acute osteomyelitis: xray shows cortical erosion of the distal phalanx concerning for osteomyelitis however there is no contiguous wound and hence not typical of a diabetic foot osteomyelitis. Differential jennie gnosis does include acute gout v/s pseudogout, but not much evidence of arthropathy involving the first MTP joint. ESR 58. CRP 2.7 MRI shows circumscribed fluid collection encasing the first toe distal phalanx. Concerning for abscess. There is diffuse osteomyelitis involving the distal phalanx. TTE shows no valvular vegetation. S/p ballon angioplasty on 03/31/2019. Gangrenous changes to the distal aspect of the phalanx. Dr. Galeano to perform transmetatarsal amputation of right great toe today. Please obtain cultures and pathology. 2) DM-2: recommend glycemic control 3) CVA 4) Peripheral vascular disease: Arterial doppler reveals R>L arterial insufficiency. Recs: Continue Cefepime and Vancomycin Agree with transmetatarsal amputaion of great right toe. Please send for cultures and proximal bone pathology to evaluate for surgical cure. Final antibiotic plan based on surgical cultures and pathology [facility] M: [id number] O:[phone] Subjective Date of service: 04/05/19 Principal diagnosis: Rt Grt toe cellulitis Interval history: Patient seen and examined. Sitting up in the bed eating. +right foot dressing. No fevers. Daughter at bedside. Objective - Exam Narrative Exam: Constitutional: Awake. Alert. No acute distress Head, Ears, Nose: Normocephalic, atraumatic. External ears, nose normal Eyes: Conjunctivae/corneas clear. No icterus. No ptosis. Neck: Supple, no meningeal signs Oral: edentulous, no thrush or ulcers Cardiovascular: S1, S2 normal. Respiratory: Good air entry, clear to auscultation bilaterally GI: Soft, non-tender; bowel sounds normal. No peritoneal signs Musculoskeletal: No pedal edema, no cyanosis. Right foot wrapped in dressing. + sanguineous drainage. Skin: No rash Hem/Lymphatic: No palpable cervical or supraclavicular nodes. No lymphangitis Psych: Mood ok. Affect normal Neurological: Awake. Alert. unintelligible speech - Constitutional Vitals: Vital Signs Temp Pulse Resp BP Pulse Ox 97.8 F 80 20 196/79 97 04/05/19 07:16 04/05/19 07:16 04/05/19 07:16 04/05/19 07:16 04/05/19 07:16 Temperature -Last 24 Hours Temperature 97.8 F Temperature 98.6 F Temperature 97.3 F Temperature 97.6 F - Labs CBC & Chem 7: 04/02/19 04:29 04/05/19 06:53 Labs: Abnormal lab results 04/04/19 04/04/19 04/04/19 Range/Units 11:25 16:20 21:53 BUN (7-17) mg/dL POC Glucose 168 H 163 H 182 H (70-105) 04/05/19 Range/Units 06:53 BUN 18 H (7-17) mg/dL POC Glucose (70-105)
[2019-04-05] MEDS: NACL 0.9% 1000 ML 1,000 ML IV SCH ×2 (12:34→20:55)
--- NOTE | 2019-04-05 12:43 | Progress Note ---
Assessment and Plan Assessment and plan: 78-year-old female with hypertension, diabetes, CVA with dysarthria, coronary artery disease who presents with red, tender right great toe. Unknown of trauma. Family member at bedside has noted fluctuating sugar reading. Patient is poor historian right great toe acute osteomyelitis and abscess: sp amputation on 04/05 Peripheral vascular disease: Arterial doppler reveals R>L arterial insufficiency. vasc consult,s/p re-vascularization Procedure 03/29/2019 DM-2: Optimize insulins hx of CVA cont meds for secondary ppx dvt ppx lovenox History Interval history: no fever pain at r toe stump is improved no vomiting no cough or cp Hospitalist Physical - Physical exam Narrative exam: General.: Appears well, no distress, nontoxic HEENT: Moist mucous membranes, extraocular muscles intact, no lymphadenopathy Neck: supple Cardiac: S1-S2 heard Lungs: clear to auscultation bilaterally Abdomen: soft , nontender, nondistended, bowel sounds positive Extremities: bandage to R toe stump not removed Skin: no rash or lesions Neurologic: no gross focal deficits, dysarthria, Psych: calm, and cooperative - Constitutional Vitals: Temp Pulse Resp BP Pulse Ox 97.8 F 75 20 119/65 97 04/05/19 07:16 04/05/19 09:59 04/05/19 07:16 04/05/19 09:19 04/05/19 09:59 General appearance: Present: no acute distress, well-nourished Results - Labs CBC & Chem 7: 04/02/19 04:29 04/05/19 06:53 Labs: Laboratory Last Values WBC 9.8 K/mm3 (4.5-11.0) 04/02/19 04:29 RBC 3.39 M/mm3 (3.65-5.03) L 04/02/19 04:29 Hgb 10.2 gm/dl (10.1-14.3) 04/02/19 04:29 Hct 29.7 % (30.3-42.9) L 04/02/19 04:29 MCV 88 fl (79-97) 04/02/19 04:29 MCH 30 pg (28-32) 04/02/19 04:29 MCHC 34 % (30-34) 04/02/19 04:29 RDW 14.1 % (13.2-15.2) 04/02/19 04:29 Plt Count 220 K/mm3 (140-440) 04/02/19 04:29 Lymph % (Auto) 19.5 % (13.4-35.0) 04/02/19 04:29 [place] % (Auto) 9.9 % (0.0-7.3) H 04/02/19 04:29 Eos % (Auto) 2.8 % (0.0-4.3) 04/02/19 04:29 Baso % (Auto) 0.5 % (0.0-1.8) 04/02/19 04:29 Lymph # 1.9 K/mm3 (1.2-5.4) 04/02/19 04:29 [place] # 1.0 K/mm3 (0.0-0.8) H 04/02/19 04:29 Eos # 0.3 K/mm3 (0.0-0.4) 04/02/19 04:29 Baso # 0.0 K/mm3 (0.0-0.1) 04/02/19 04:29 Seg Neutrophils % 67.3 % (40.0-70.0) 04/02/19 04:29 Seg Neutrophils # 6.6 K/mm3 (1.8-7.7) 04/02/19 04:29 ESR 58 mm/Hr (0-20) 03/27/19 04:04 PT 12.8 Sec. (12.2-14.9) 03/29/19 09:45 INR 0.99 (0.87-1.13) 03/29/19 09:45 APTT 27.5 Sec. (24.2-36.6) 03/29/19 09:45 208 (74-137) H 03/31/19 11:40 Sodium 140 mmol/L (137-145) 04/05/19 06:53 Potassium 3.9 mmol/L (3.6-5.0) 04/05/19 06:53 Chloride 106.5 mmol/L (98-107) 04/05/19 06:53 Carbon Dioxide 23 mmol/L (22-30) 04/05/19 06:53 14 mmol/L 04/05/19 06:53 BUN 18 mg/dL (7-17) H 04/05/19 06:53 0.9 mg/dL (0.7-1.2) 04/05/19 06:53 Estimated GFR > 60 ml/min 04/05/19 06:53 20 % 04/05/19 06:53 Glucose 86 mg/dL (65-100) 04/05/19 06:53 POC Glucose 83 (70-105) 04/05/19 11:15 2.7 mg/dL (3.5-7.6) L 03/26/19 04:27 Calcium 8.6 mg/dL (8.4-10.2) 04/05/19 06:53 0.20 mg/dL (0.1-1.2) 04/02/19 04:29 AST 10 units/L (5-40) 04/02/19 04:29 ALT 6 units/L (7-56) L 04/02/19 04:29 71 units/L (35-129) 04/02/19 04:29 2.70 mg/dL (0.00-1.30) H 03/27/19 04:04 5.9 g/dL (6.3-8.2) L 04/02/19 04:29 2.7 g/dL (3.9-5) L 04/02/19 04:29 0.8 % 04/02/19 04:29 Vancomycin Trough 14.2 ug/mL (5.0-20.0) 04/05/19 04:01 Random Vancomycin 31.0 ug/mL (0-40.0) 04/04/19 05:56 Active Medications - Current Medications Current Medications: Generic Name Dose Route Start Last Admin Trade Name Freq PRN Reason Stop Dose Admin Acetaminophen 650 mg 03/25/19 06:11 04/02/19 23:42 Tylenol PO 650 mg Q4H PRN Administration Pain MILD(1-3)/Fever >100.5/OQUENDO Aspirin 81 mg 03/25/19 13:00 04/05/19 09:00 Baby Aspirin PO Not Given QDAY LOVELY Atorvastatin Calcium 40 mg 03/25/19 22:00 04/04/19 21:54 Lipitor PO 40 mg QHS LOVELY Administration Bisacodyl 10 mg 04/05/19 11:00 Dulcolax [place] QDAY PRN Constipation Clopidogrel Bisulfate 75 mg 04/01/19 10:00 04/05/19 08:59 Plavix PO Not Given QDAY LOVELY Dextrose 50 ml 03/25/19 06:11 03/31/19 08:09 D50w (25gm) Syringe IV 50 ml PRN PRN Administration Hypoglycemia Enoxaparin Sodium 40 mg 03/25/19 10:00 04/05/19 09:00 Lovenox SUB-Q Not Given QDAY LOVELY Fluoxetine HCl 60 mg 03/26/19 10:00 04/05/19 08:59 Prozac PO 60 mg DAILY LOVELY Administration Cefepime HCl 2 gm in 100 mls @ 200 mls/hr 03/26/19 15:00 04/05/19 09:00 Maxipime/Ns 2 Gm/100 Ml IV 200 mls/hr Q12HR LOVELY Administration Vancomycin HCl 1 gm in 250 mls @ 166.667 mls/hr 03/28/19 06:00 04/05/19 07:01 Vancomycin/Ns 1 Gm/250 Ml IV 166.667 mls/hr Q24HR@0600 LOVELY Administration Sodium Chloride 1,000 mls @ 75 mls/hr 03/29/19 16:00 04/04/19 21:55 Nacl 0.9% 1000 Ml IV 75 mls/hr DIRECT LOVELY Administration Sodium Chloride 500 mls @ 50 mls/hr 03/30/19 15:00 Nacl 0.9% 500 Ml IV DIRECT LOVELY Ibuprofen 800 mg 03/25/19 12:12 04/04/19 16:43 Ibuprofen PO 800 mg Q8H PRN Administration Pain Insulin Glargine 30 units 04/02/19 10:09 04/04/19 23:33 Lantus SUB-Q 15 units QHS LOVELY Administration Insulin Human Lispro 0 unit 03/25/19 07:30 04/05/19 11:13 Humalog SUB-Q Not Given ACHS [facility] Protocol Morphine Sulfate 2 mg 03/31/19 13:33 04/05/19 08:51 Morphine IV 2 mg Q4H PRN Administration Pain, Moderate (4-6) Ondansetron HCl 4 mg 03/25/19 06:11 Zofran IV Q8H PRN Nausea And Vomiting Pantoprazole Sodium 20 mg 03/26/19 10:00 04/05/19 08:59 Protonix PO 20 mg QDAY LOVELY Administration Polyethylene Glycol 17 gm 04/06/19 10:00 Miralax 3350 PO QDAY LOVELY Sodium Chloride 10 ml 03/25/19 10:00 04/05/19 09:00 Sodium Chloride Flush Syringe 10 Ml IV Not Given BID LOVELY Sodium Chloride 10 ml 03/25/19 06:11 Sodium Chloride Flush Syringe 10 Ml IV PRN PRN LINE FLUSH Nutrition/Malnutrition Assess - Dietary Evaluation Nutrition/Malnutrition Findings: Nutrition Notes Start: 04/03/19 12:00 Freq: Status: Active Protocol: Document 04/03/19 12:00 LM (Rec: 04/03/19 12:12 LM [id number]) Nutrition Notes Need for Assessment generated from: LOS Current Diagnosis Diabetes Other Pertinent Diagnosis R great toe cellulitis/ osteomyelitis Current Diet Consistent CHO Subjective/Other Information Screen for LOS. Pt eating 100% . Family memeber in room concerned about pt's BG and managing DM. #1 Nutrition Diagnosis Food and nutrition-related knowledge deficit Etiology No prior DM related nutrition education As Evidenced by Signs and Symptoms Pt's family member needing DM education, pt with diabetic foot infection Nutrition Intervention Teaching Recipient Family Learning Readiness Good Teaching Methods Discussion,Handout Response to Teaching Verbalize understanding Education Handouts Provided CHO Counting for People with Diabetes Barriers to Learning No Barriers RD phone number provided Yes Patient aware of follow up options Yes Revisit per MD consult or patient Sign Off request:
--- NOTE | 2019-04-05 12:44 | Anesthesia Day of Surgery ---
Anesthesia Day of Surgery - Day of Surgery Patient Examined: Yes Patient H&P Reviewed: Yes Patient is NPO: Yes
--- NOTE | 2019-04-05 12:44 | Anesthesia Consultation ---
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 History and anesthesia consent obtained from daughter at bedside.
[2019-04-05] MEDS ORDERED: SUBLIMAZE ONE (13:16)
[2019-04-05] MEDS ORDERED: SUBLIMAZE IV PRN (13:30)
[2019-04-05] MEDS ORDERED: MARCAINE 0.5% INFILTRATI ONE ×3 (13:42→13:57)
[2019-04-05] MEDS ORDERED: DIPRIVAN 10 MG/ML IV ONE ×2 (13:47→14:21)
[2019-04-05] MEDS ORDERED: NACL 0.9% IR ONE (13:57)
--- NOTE | 2019-04-05 15:34 | Procedure Note ---
Date of procedure: 04/05/19 Pre-op diagnosis: Right great toe abscess with osteomyelitis Post-op diagnosis: same Procedure: TMA of right great toe Description of procedure: Pt was placed supine on the OR table. She was sedated IV. Her right foot was prepped and draped. Skin and SQ tissue at the proposed incision was infiltrated with 6 ml of 0.5% Marcaine. A tear drop incision was made the toe and the toe amputated at the MTP joint. Periosteum was elevated off of the metatarsal head and distal shaft and the distal shaft amputated with a bone saw. Hemostasis was obtained with the Bovie and Surgicel. Wound was packed open with a dilute Betadine Kerlix roll followed by 4 X 4's and a Kerlix wrap about the foot. Pt tolerated the procedure well and was taken to PACU in stable condition. Anesthesia: MAC Surgeon: FREDDY MATHEWS Estimated blood loss: minimal Pathology: list (Right great toe and metatarsal head) Specimen disposition: to lab Condition: stable Disposition: PACU
[2019-04-05] MEDS: ZOFRAN IV PRN (15:49)
[2019-04-05] MEDS: LANTUS SUB-Q SCH (21:47)
[2019-04-06] MEDS: MORPHINE IV PRN ×3 (03:07→17:31)
[2019-04-06] MEDS: VANCOMYCIN/NS 1 GM/250 ML 1 GM/250 ML BAG IV SCH (06:12)
[2019-04-06] MEDS: HumaLOG SUB-Q SCH ×4 (07:30→22:34)
--- NOTE | 2019-04-06 07:41 | Progress Note ---
Assessment and Plan Assessment and plan: 78-year-old female with hypertension, diabetes, CVA with dysarthria, coronary artery disease who presents with red, tender right great toe. Unknown of trauma. Family member at bedside has noted fluctuating sugar reading. Patient is poor historian right great toe acute osteomyelitis and abscess: sp amputation on 04/05, abx per ID Peripheral vascular disease: Arterial doppler reveals R>L arterial insufficiency. vasc consult,s/p re-vascularization Procedure 03/29/2019 DM-2: Optimize insulins hx of CVA cont meds for secondary ppx dvt ppx lovenox daughter is interested in [facility] placement, but her insurance does not cover it planned is home with abx, fup surgical cultures History Interval history: no fever pain at r toe stump is improved no vomiting no cough or cp Hospitalist Physical - Physical exam Narrative exam: General.: Appears well, no distress, nontoxic HEENT: Moist mucous membranes, extraocular muscles intact, no lymphadenopathy Neck: supple Cardiac: S1-S2 heard Lungs: clear to auscultation bilaterally Abdomen: soft , nontender, nondistended, bowel sounds positive Extremities: bandage to R toe stump not removed Skin: no rash or lesions Neurologic: no gross focal deficits, dysarthria, Psych: calm, and cooperative - Constitutional Vitals: Temp Pulse Resp BP Pulse Ox 98.3 F 73 18 153/61 95 04/06/19 02:19 04/06/19 02:19 04/06/19 03:37 04/06/19 02:19 04/06/19 02:19 General appearance: Present: no acute distress, well-nourished Results - Labs CBC & Chem 7: 04/02/19 04:29 04/05/19 06:53 Labs: Laboratory Last Values WBC 9.8 K/mm3 (4.5-11.0) 04/02/19 04:29 RBC 3.39 M/mm3 (3.65-5.03) L 04/02/19 04:29 Hgb 10.2 gm/dl (10.1-14.3) 04/02/19 04:29 Hct 29.7 % (30.3-42.9) L 04/02/19 04:29 MCV 88 fl (79-97) 04/02/19 04:29 MCH 30 pg (28-32) 04/02/19 04:29 MCHC 34 % (30-34) 04/02/19 04:29 RDW 14.1 % (13.2-15.2) 04/02/19 04:29 Plt Count 220 K/mm3 (140-440) 04/02/19 04:29 Lymph % (Auto) 19.5 % (13.4-35.0) 04/02/19 04:29 [place] % (Auto) 9.9 % (0.0-7.3) H 04/02/19 04:29 Eos % (Auto) 2.8 % (0.0-4.3) 04/02/19 04:29 Baso % (Auto) 0.5 % (0.0-1.8) 04/02/19 04:29 Lymph # 1.9 K/mm3 (1.2-5.4) 04/02/19 04:29 [place] # 1.0 K/mm3 (0.0-0.8) H 04/02/19 04:29 Eos # 0.3 K/mm3 (0.0-0.4) 04/02/19 04:29 Baso # 0.0 K/mm3 (0.0-0.1) 04/02/19 04:29 Seg Neutrophils % 67.3 % (40.0-70.0) 04/02/19 04:29 Seg Neutrophils # 6.6 K/mm3 (1.8-7.7) 04/02/19 04:29 ESR 58 mm/Hr (0-20) 03/27/19 04:04 PT 12.8 Sec. (12.2-14.9) 03/29/19 09:45 INR 0.99 (0.87-1.13) 03/29/19 09:45 APTT 27.5 Sec. (24.2-36.6) 03/29/19 09:45 208 (74-137) H 03/31/19 11:40 Sodium 140 mmol/L (137-145) 04/05/19 06:53 Potassium 3.9 mmol/L (3.6-5.0) 04/05/19 06:53 Chloride 106.5 mmol/L (98-107) 04/05/19 06:53 Carbon Dioxide 23 mmol/L (22-30) 04/05/19 06:53 14 mmol/L 04/05/19 06:53 BUN 18 mg/dL (7-17) H 04/05/19 06:53 0.9 mg/dL (0.7-1.2) 04/05/19 06:53 Estimated GFR > 60 ml/min 04/05/19 06:53 20 % 04/05/19 06:53 Glucose 86 mg/dL (65-100) 04/05/19 06:53 POC Glucose 72 (70-105) 04/06/19 07:33 2.7 mg/dL (3.5-7.6) L 03/26/19 04:27 Calcium 8.6 mg/dL (8.4-10.2) 04/05/19 06:53 0.20 mg/dL (0.1-1.2) 04/02/19 04:29 AST 10 units/L (5-40) 04/02/19 04:29 ALT 6 units/L (7-56) L 04/02/19 04:29 71 units/L (35-129) 04/02/19 04:29 2.70 mg/dL (0.00-1.30) H 03/27/19 04:04 5.9 g/dL (6.3-8.2) L 04/02/19 04:29 2.7 g/dL (3.9-5) L 04/02/19 04:29 0.8 % 04/02/19 04:29 Vancomycin Trough 14.2 ug/mL (5.0-20.0) 04/05/19 04:01 Random Vancomycin 31.0 ug/mL (0-40.0) 04/04/19 05:56 Active Medications - Current Medications Current Medications: Generic Name Dose Route Start Last Admin Trade Name Freq PRN Reason Stop Dose Admin Acetaminophen 650 mg 03/25/19 06:11 04/02/19 23:42 Tylenol PO 650 mg Q4H PRN Administration Pain MILD(1-3)/Fever >100.5/OQUENDO Aspirin 81 mg 03/25/19 13:00 04/05/19 09:00 Baby Aspirin PO Not Given QDAY LOVELY Atorvastatin Calcium 40 mg 03/25/19 22:00 04/05/19 21:43 Lipitor PO 40 mg QHS LOVELY Administration Bisacodyl 10 mg 04/05/19 11:00 Dulcolax [place] QDAY PRN Constipation Clopidogrel Bisulfate 75 mg 04/01/19 10:00 04/05/19 08:59 Plavix PO Not Given QDAY [facility] Dextrose 50 ml 03/25/19 06:11 03/31/19 08:09 D50w (25gm) Syringe IV 50 ml PRN PRN Administration Hypoglycemia Enoxaparin Sodium 40 mg 03/25/19 10:00 04/05/19 09:00 Lovenox SUB-Q Not Given QDAY [facility] Fluoxetine HCl 60 mg 03/26/19 10:00 04/05/19 08:59 Prozac PO 60 mg DAILY LOVELY Administration Cefepime HCl 2 gm in 100 mls @ 200 mls/hr 03/26/19 15:00 04/05/19 21:43 Maxipime/Ns 2 Gm/100 Ml IV 200 mls/hr Q12HR LOV[facility] Administration Vancomycin HCl 1 gm in 250 mls @ 166.667 mls/hr 03/28/19 06:00 04/06/19 06:12 Vancomycin/Ns 1 Gm/250 Ml IV 166.667 mls/hr Q24HR@0600 LOVELY Administration Sodium Chloride 1,000 mls @ 75 mls/hr 03/29/19 16:00 04/05/19 20:55 Nacl 0.9% 1000 Ml IV 75 mls/hr DIRECT LOVELY Administration Sodium Chloride 500 mls @ 50 mls/hr 03/30/19 15:00 Nacl 0.9% 500 Ml IV DIRECT LOVELY Ibuprofen 800 mg 03/25/19 12:12 04/04/19 16:43 Ibuprofen PO 800 mg Q8H PRN Administration Pain Insulin Glargine 30 units 04/02/19 10:09 04/05/19 21:47 Lantus SUB-Q 30 units QHS [facility] Administration Insulin Human Lispro 0 unit 03/25/19 07:30 04/05/19 21:43 Humalog SUB-Q Not Given ACHS [facility] Protocol Morphine Sulfate 2 mg 03/31/19 13:33 04/06/19 03:07 Morphine IV 2 mg Q4H PRN Administration Pain, Moderate (4-6) Ondansetron HCl 4 mg 03/25/19 06:11 04/05/19 15:49 Zofran IV 4 mg Q8H PRN Administration Nausea And Vomiting Pantoprazole Sodium 20 mg 03/26/19 10:00 04/05/19 08:59 Protonix PO 20 mg QDAY LOVELY Administration Polyethylene Glycol 17 gm 04/06/19 10:00 Miralax 3350 PO QDAY LOVELY Sodium Chloride 10 ml 03/25/19 10:00 04/05/19 21:43 Sodium Chloride Flush Syringe 10 Ml IV 10 ml BID LOVELY Administration Sodium Chloride 10 ml 03/25/19 06:11 Sodium Chloride Flush Syringe 10 Ml IV PRN PRN LINE FLUSH Nutrition/Malnutrition Assess - Dietary Evaluation Nutrition/Malnutrition Findings: Nutrition Notes Start: 04/03/19 12:00 Freq: Status: Active Protocol: Document 04/03/19 12:00 LM (Rec: 04/03/19 12:12 LM [id number]) Nutrition Notes Need for Assessment generated from: LOS Current Diagnosis Diabetes Other Pertinent Diagnosis R great toe cellulitis/ osteomyelitis Current Diet Consistent CHO Subjective/Other Information Screen for LOS. Pt eating 100% . Family memeber in room concerned about pt's BG and managing DM. #1 Nutrition Diagnosis Food and nutrition-related knowledge deficit Etiology No prior DM related nutrition education As Evidenced by Signs and Symptoms Pt's family member needing DM education, pt with diabetic foot infection Nutrition Intervention Teaching Recipient Family Learning Readiness Good Teaching Methods Discussion,Handout Response to Teaching Verbalize understanding Education Handouts Provided CHO Counting for People with Diabetes Barriers to Learning No Barriers RD phone number provided Yes Patient aware of follow up options Yes Revisit per MD consult or patient Sign Off request:
--- NOTE | 2019-04-06 08:23 | Progress Note ---
Assessment and Plan Cultures: 03/25/2019 blood culture: no growth 04/06/2019 right big toe: no growth to date A/P: 78-year-old female with hypertension, diabetes, CVA with dysarthria, coronary artery disease admitted with: 1) Probable right great toe acute osteomyelitis: xray shows cortical erosion of the distal phalanx concerning for osteomyelitis however there is no contiguous wound and hence not typical of a diabetic foot osteomyelitis. Differential diagnosis does include acute gout v/s pseudogout, but not much evidence of arthropathy involving the first MTP joint. ESR 58. CRP 2.7 MRI shows circumscribed fluid collection encasing the first toe distal phalanx. Concerning for abscess. There is diffuse osteomyelitis involving the distal phalanx. TTE shows no valvular vegetation. S/p balloon angioplasty on 03/31/2019. Gangrenous changes to the distal aspect of the phalanx. s/p Amputation of great right toe and metatarsal head 04/05/19. 2) DM-2: recommend glycemic control 3) CVA 4) Peripheral vascular disease: Arterial doppler reveals R>L arterial insufficiency. Recs: Continue Cefepime and Vancomycin Final antibiotic plan based on surgical cultures after 48 hours - Will likely need IV antibiotics outpatient. Continue wound care outpatient Will follow-up in office in 2 weeks for pathology results [facility] M: [id number] O:[phone] Subjective Date of service: 04/06/19 Principal diagnosis: Rt Grt toe cellulitis Interval history: Patient seen and examined. Asleep in bed. Eyes open to name. Daughter at bedside. No fevers. Objective - Exam Narrative Exam: Constitutional: Asleep. Easy to arouse. Right foot pain. Head, Ears, Nose: Normocephalic, atraumatic. External ears, nose normal Eyes: Conjunctivae/corneas clear. No icterus. No ptosis. Neck: Supple, no meningeal signs Oral: edentulous, no thrush or ulcers Cardiovascular: S1, S2 normal. Respiratory: Good air entry, clear to auscultation bilaterally GI: Soft, non-tender; bowel sounds normal. No peritoneal signs Musculoskeletal: No pedal edema, no cyanosis. s/p right toe amputation. Right foot wrapped in dressing. + sanguineous drainage. Skin: No rash Hem/Lymphatic: No palpable cervical or supraclavicular nodes. No lymphangitis Psych: Mood ok. Affect normal Neurological: Awake. Alert. unintelligible speech - Constitutional Vitals: Vital Signs Temp Pulse Resp BP Pulse Ox 98.0 F 75 20 170/62 93 04/06/19 07:25 04/06/19 07:25 04/06/19 07:25 04/06/19 07:25 04/06/19 07:25 Temperature -Last 24 Hours Temperature 98.0 F Temperature 98.3 F Temperature 97.5 F Temperature 98.0 F Temperature 98.1 F Temperature 97.8 F Temperature 97.4 F Temperature 97.5 F Temperature 98.3 F Temperature 98.3 F - Labs CBC & Chem 7: 04/02/19 04:29 04/05/19 06:53
[2019-04-06] MEDS: MAXIPIME/NS 2 GM/100 ML 2 GM/100 ML BAG IV SCH ×2 (09:17→22:26)
[2019-04-06] MEDS: MIRALAX 3350 PO SCH (09:17)
[2019-04-06] MEDS: BABY ASPIRIN PO SCH (09:17)
[2019-04-06] MEDS: PROTONIX PO SCH (09:18)
[2019-04-06] MEDS: LOVENOX SUB-Q SCH (09:18)
[2019-04-06] MEDS: PLAVIX PO SCH (09:18)
[2019-04-06] MEDS: PROzac PO SCH (09:18)
[2019-04-06] MEDS: SODIUM CHLORIDE FLUSH SYRINGE 10 ML IV SCH ×2 (09:19→22:35)
--- NOTE | 2019-04-06 09:28 | Post Anesthesia Evaluation ---
- Post Anesthesia Evaluation Patient Participated: Yes Airway Patent: Yes Stable Respiratory Function: Yes Nausea/Vomiting: No Temp > 96.8F: Yes Pain Manageable: Yes Adequeate Hydration: Yes Anesthesia Complications: No Block Receding Appropriately: Not Applicable Patient on Ventilator: No
--- NOTE | 2019-04-06 10:11 | Progress Note ---
Subjective Date of service: 04/06/19 Principal diagnosis: Rt Grt toe cellulitis Interval history: s/p Right lower extremity revascularization patient doing well recently underwent right great toe amputation, appreciate assistance by Dr. Galeano right foot remains warm and well perfused ok from my standpoint to d/c home once medically stable follow-up 2 weeks continue ASA and plavix Objective - Constitutional Vitals: Vital Signs - 12hr 04/05/19 04/06/19 04/06/19 22:17 02:19 03:07 Temperature 98.3 F Pulse Rate 73 Respiratory 18 20 20 Rate Blood Pressure 153/61 O2 Sat by Pulse 95 Oximetry 04/06/19 04/06/19 03:37 07:25 Temperature 98.0 F Pulse Rate 75 Respiratory 18 20 Rate Blood Pressure 170/62 O2 Sat by Pulse 93 Oximetry - Labs CBC & Chem 7: 04/02/19 04:29 04/05/19 06:53 Medications & Allergies - Medications Allergies/Adverse Reactions: Allergies No Known Allergies Allergy (Verified 02/03/18 01:53) Home Medications: Home Medications Medication Instructions Recorded Confirmed Last Taken Type Rosuvastatin Calcium [Crestor] 40 mg PO DAILY 06/20/14 03/25/19 03/24/19 10:00 History Aspirin 81 mg PO DAILY 06/20/15 03/25/19 03/24/19 10:00 History PriLOSEC Otc 1 tab PO DAILY 07/13/16 03/25/19 03/24/19 10:00 History Ciprofloxacin [Ciprofloxacin ORAL 250 mg PO Q12H 7 Days ml 07/16/16 03/25/19 Unknown Rx LIQ] Ibuprofen [Motrin] 800 mg PO Q8HR PRN #30 tablet 12/13/17 03/25/19 03/24/19 22:00 Rx FLUoxetine HCL [Prozac] 60 mg PO DAILY 03/25/19 03/25/19 03/24/19 10:00 History Levemir VIAL 35 unit SUB-Q HS 03/25/19 03/25/19 03/24/19 11:00 History NovoLOG 100 UNITS/ML VIAL See Protocol SQ QACHS 03/25/19 03/25/19 03/24/19 16:30 History Active Medications: Generic Name Dose Route Start Last Admin Trade Name Freq PRN Reason Stop Dose Admin Acetaminophen 650 mg 03/25/19 06:11 04/02/19 23:42 Tylenol PO 650 mg Q4H PRN Administration Pain MILD(1-3)/Fever >100.5/OQUENDO Aspirin 81 mg 03/25/19 13:00 04/06/19 09:17 Baby Aspirin PO 81 mg QDAY LOVELY Administration Atorvastatin Calcium 40 mg 03/25/19 22:00 04/05/19 21:43 Lipitor PO 40 mg QHS LOVELY Administration Bisacodyl 10 mg 04/05/19 11:00 Dulcolax [place] QDAY PRN Constipation Clopidogrel Bisulfate 75 mg 04/01/19 10:00 04/06/19 09:18 Plavix PO 75 mg QDAY [facility]OV[facility] Administration Dextrose 50 ml 03/25/19 06:11 03/31/19 08:09 D50w (25gm) Syringe IV 50 ml PRN PRN Administration Hypoglycemia Enoxaparin Sodium 40 mg 03/25/19 10:00 04/06/19 09:18 Lovenox SUB-Q 40 mg QDAY LOV[facility] Administration Fluoxetine HCl 60 mg 03/26/19 10:00 04/06/19 09:18 Prozac PO 60 mg DAILY LOV[facility] Administration Cefepime HCl 2 gm in 100 mls @ 200 mls/hr 03/26/19 15:00 04/06/19 09:17 Maxipime/Ns 2 Gm/100 Ml IV 200 mls/hr Q12HR [facility] Administration Vancomycin HCl 1 gm in 250 mls @ 166.667 mls/hr 03/28/19 06:00 04/06/19 06:12 Vancomycin/Ns 1 Gm/250 Ml IV 166.667 mls/hr Q24HR@0600 LOV[facility] Administration Sodium Chloride 1,000 mls @ 75 mls/hr 03/29/19 16:00 04/05/19 20:55 Nacl 0.9% 1000 Ml IV 75 mls/hr DIRECT LOVELY Administration Sodium Chloride 500 mls @ 50 mls/hr 03/30/19 15:00 Nacl 0.9% 500 Ml IV DIRECT LOVELY Ibuprofen 800 mg 03/25/19 12:12 04/04/19 16:43 Ibuprofen PO 800 mg Q8H PRN Administration Pain Insulin Glargine 30 units 04/02/19 10:09 04/05/19 21:47 Lantus SUB-Q 30 units QHS [facility] Administration Insulin Human Lispro 0 unit 03/25/19 07:30 04/06/19 07:30 Humalog SUB-Q Not Given ACHS [facility] Protocol Morphine Sulfate 2 mg 03/31/19 13:33 04/06/19 09:18 Morphine IV 2 mg Q4H PRN Administration Pain, Moderate (4-6) Ondansetron HCl 4 mg 03/25/19 06:11 04/05/19 15:49 Zofran IV 4 mg Q8H PRN Administration Nausea And Vomiting Pantoprazole Sodium 20 mg 03/26/19 10:00 04/06/19 09:18 Protonix PO 20 mg QDAY [facility]OV[facility] Administration Polyethylene Glycol 17 gm 04/06/19 10:00 04/06/19 09:17 Miralax 3350 PO 17 gm QDAY [facility]OV[facility] Administration Sodium Chloride 10 ml 03/25/19 10:00 04/06/19 09:19 Sodium Chloride Flush Syringe 10 Ml IV 10 ml BID LOVELY Administration Sodium Chloride 10 ml 03/25/19 06:11 Sodium Chloride Flush Syringe 10 Ml IV PRN PRN LINE FLUSH
[2019-04-06] MEDS: NACL 0.9% 1000 ML 1,000 ML IV SCH (17:31)
[2019-04-06] MEDS: ZOFRAN IV PRN (17:37)
[2019-04-06] MEDS: IBUPROFEN PO PRN (22:27)
[2019-04-06] MEDS: LANTUS SUB-Q SCH (22:34)
[2019-04-07] MEDS: TYLENOL PO PRN ×2 (05:52→18:17)
[2019-04-07] MEDS: DULCOLAX PR PRN (05:52)
[2019-04-07] MEDS: VANCOMYCIN/NS 1 GM/250 ML 1 GM/250 ML BAG IV SCH (05:52)
[2019-04-07] MEDS: NACL 0.9% 1000 ML 1,000 ML IV SCH (05:56)
[2019-04-07] MEDS: HumaLOG SUB-Q SCH ×4 (07:30→23:21)
--- NOTE | 2019-04-07 08:10 | Progress Note ---
Assessment and Plan Cultures: 03/25/2019 blood culture: no growth 04/05/2019 right big toe: no growth to date A/P: 78-year-old female with hypertension, diabetes, CVA with dysarthria, coronary artery disease admitted with: 1) Probable right great toe acute osteomyelitis: xray shows cortical erosion of the distal phalanx concerning for osteomyelitis however there is no contiguous wound and hence not typical of a diabetic foot osteomyelitis. Differential diagnosis does include acute gout v/s pseudogout, but not much evidence of arthropathy involving the first MTP joint. ESR 58. CRP 2.7 MRI shows circumscribed fluid collection encasing the first toe distal phalanx. Concerning for abscess. There is diffuse osteomyelitis involving the distal phalanx. TTE shows no valvular vegetation. S/p balloon angioplasty on 03/31/2019. Gangrenous changes to the distal aspect of the phalanx. s/p Amputation of great right toe and metatarsal head 04/05/19. 2) DM-2: recommend glycemic control 3) CVA 4) Peripheral vascular disease: Arterial doppler reveals R>L arterial insufficiency. 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 Mas will be workers' compensation commissioner this weekend, . Please call for questions. Barbara Tao NP [facility] M: [phone] O:[phone] Subjective Date of service: 04/07/19 Principal diagnosis: Rt Grt toe cellulitis Interval history: Patient seen and examined. Asleep in bed. Eyes open to name. Daughter at bedside. No fevers. Objective - Exam Narrative Exam: Constitutional: Asleep. Easy to arouse. Right foot pain. Head, Ears, Nose: Normocephalic, atraumatic. External ears, nose normal Eyes: Conjunctivae/corneas clear. No icterus. No ptosis. Neck: Supple, no meningeal signs Oral: edentulous, no thrush or ulcers Cardiovascular: S1, S2 normal. Respiratory: Good air entry, clear to auscultation bilaterally GI: Soft, non-tender; bowel sounds normal. No peritoneal signs Musculoskeletal: No pedal edema, no cyanosis. s/p right toe amputation. Right foot wrapped in dressing. + sanguineous drainage. Skin: No rash Hem/Lymphatic: No palpable cervical or supraclavicular nodes. No lymphangitis Psych: Mood ok. Affect normal Neurological: Awake. Alert. unintelligible speech - Constitutional Vitals: Vital Signs Temp Pulse Resp BP Pulse Ox 97.9 F 78 18 163/61 93 04/07/19 07:22 04/07/19 07:22 04/07/19 07:22 04/07/19 07:22 04/07/19 07:22 Temperature -Last 24 Hours Temperature 97.9 F Temperature 98.8 F Temperature 98.7 F Temperature 98.4 F - Labs CBC & Chem 7: 04/02/19 04:29 04/05/19 06:53 Labs: Abnormal lab results 04/06/19 04/06/19 04/07/19 Range/Units 11:41 17:42 07:31 POC Glucose 108 H 108 H 66 L (70-105)
[2019-04-07] MEDS: ZOFRAN IV PRN (10:06)
[2019-04-07] MEDS: PLAVIX PO SCH (10:40)
[2019-04-07] MEDS: MAXIPIME/NS 2 GM/100 ML 2 GM/100 ML BAG IV SCH ×2 (10:40→21:36)
[2019-04-07] MEDS: LOVENOX SUB-Q SCH (10:40)
[2019-04-07] MEDS: MIRALAX 3350 PO SCH (10:41)
[2019-04-07] MEDS: PROTONIX PO SCH (10:41)
[2019-04-07] MEDS: BABY ASPIRIN PO SCH (10:41)
[2019-04-07] MEDS: PROzac PO SCH (10:41)
[2019-04-07] MEDS: SODIUM CHLORIDE FLUSH SYRINGE 10 ML IV SCH ×2 (10:41→21:37)
--- NOTE | 2019-04-07 10:50 | Progress Note ---
Assessment and Plan Assessment and plan: 78-year-old female with hypertension, diabetes, CVA with dysarthria, coronary artery disease who presents with red, tender right great toe. Unknown of trauma. Family member at bedside has noted fluctuating sugar reading. Patient is poor historian right great toe acute osteomyelitis and abscess: sp amputation on 04/05, abx per ID Anticipate discharge on Cefepime 2gm IV every 12 hours and Vancomycin 1 gm IV every 24 hours for 3 weeks ending 04-18-19 Peripheral vascular disease: Arterial doppler reveals R>L arterial insufficiency. vasc consult,s/p re-vascularization Procedure 03/29/2019 DM-2: Optimize insulins hx of CVA cont meds for secondary ppx dvt ppx lovenox Anticipate discharge on Cefepime 2gm IV every 12 hours and Vancomycin 1 gm IV every 24 hours for 3 weeks ending 04-18-19 dispo; awaiting snf placement History Interval history: no fever pain at r toe stump is improved no vomiting no cough or cp Hospitalist Physical - Physical exam Narrative exam: General.: Appears well, no distress, nontoxic HEENT: Moist mucous membranes, extraocular muscles intact, no lymphadenopathy Neck: supple Cardiac: S1-S2 heard Lungs: clear to auscultation bilaterally Abdomen: soft , nontender, nondistended, bowel sounds positive Extremities: bandage to R toe stump not removed Skin: no rash or lesions Neurologic: no gross focal deficits, dysarthria, Psych: calm, and cooperative - Constitutional Vitals: Temp Pulse Resp BP Pulse Ox 97.9 F 78 18 163/61 93 04/07/19 07:22 04/07/19 07:22 04/07/19 07:22 04/07/19 07:22 04/07/19 07:22 General appearance: Present: no acute distress, well-nourished Results - Labs CBC & Chem 7: 04/02/19 04:29 04/05/19 06:53 Labs: Laboratory Last Values WBC 9.8 K/mm3 (4.5-11.0) 04/02/19 04:29 RBC 3.39 M/mm3 (3.65-5.03) L 04/02/19 04:29 Hgb 10.2 gm/dl (10.1-14.3) 04/02/19 04:29 Hct 29.7 % (30.3-42.9) L 04/02/19 04:29 MCV 88 fl (79-97) 04/02/19 04:29 MCH 30 pg (28-32) 04/02/19 04:29 MCHC 34 % (30-34) 04/02/19 04:29 RDW 14.1 % (13.2-15.2) 04/02/19 04:29 Plt Count 220 K/mm3 (140-440) 04/02/19 04:29 Lymph % (Auto) 19.5 % (13.4-35.0) 04/02/19 04:29 [place] % (Auto) 9.9 % (0.0-7.3) H 04/02/19 04:29 Eos % (Auto) 2.8 % (0.0-4.3) 04/02/19 04:29 Baso % (Auto) 0.5 % (0.0-1.8) 04/02/19 04:29 Lymph # 1.9 K/mm3 (1.2-5.4) 04/02/19 04:29 [place] # 1.0 K/mm3 (0.0-0.8) H 04/02/19 04:29 Eos # 0.3 K/mm3 (0.0-0.4) 04/02/19 04:29 Baso # 0.0 K/mm3 (0.0-0.1) 04/02/19 04:29 Seg Neutrophils % 67.3 % (40.0-70.0) 04/02/19 04:29 Seg Neutrophils # 6.6 K/mm3 (1.8-7.7) 04/02/19 04:29 ESR 58 mm/Hr (0-20) 03/27/19 04:04 PT 12.8 Sec. (12.2-14.9) 03/29/19 09:45 INR 0.99 (0.87-1.13) 03/29/19 09:45 APTT 27.5 Sec. (24.2-36.6) 03/29/19 09:45 208 (74-137) H 03/31/19 11:40 Sodium 140 mmol/L (137-145) 04/05/19 06:53 Potassium 3.9 mmol/L (3.6-5.0) 04/05/19 06:53 Chloride 106.5 mmol/L (98-107) 04/05/19 06:53 Carbon Dioxide 23 mmol/L (22-30) 04/05/19 06:53 14 mmol/L 04/05/19 06:53 BUN 18 mg/dL (7-17) H 04/05/19 06:53 0.9 mg/dL (0.7-1.2) 04/05/19 06:53 Estimated GFR > 60 ml/min 04/05/19 06:53 20 % 04/05/19 06:53 Glucose 86 mg/dL (65-100) 04/05/19 06:53 POC Glucose 66 (70-105) L 04/07/19 07:31 2.7 mg/dL (3.5-7.6) L 03/26/19 04:27 Calcium 8.6 mg/dL (8.4-10.2) 04/05/19 06:53 0.20 mg/dL (0.1-1.2) 04/02/19 04:29 AST 10 units/L (5-40) 04/02/19 04:29 ALT 6 units/L (7-56) L 04/02/19 04:29 71 units/L (35-129) 04/02/19 04:29 2.70 mg/dL (0.00-1.30) H 03/27/19 04:04 5.9 g/dL (6.3-8.2) L 04/02/19 04:29 2.7 g/dL (3.9-5) L 04/02/19 04:29 0.8 % 04/02/19 04:29 Vancomycin Trough 14.2 ug/mL (5.0-20.0) 04/05/19 04:01 Random Vancomycin 31.0 ug/mL (0-40.0) 04/04/19 05:56 Active Medications - Current Medications Current Medications: Generic Name Dose Route Start Last Admin Trade Name Freq PRN Reason Stop Dose Admin Acetaminophen 650 mg 03/25/19 06:11 04/07/19 05:52 Tylenol PO 650 mg Q4H PRN Administration Pain MILD(1-3)/Fever >100.5/OQUENDO Aspirin 81 mg 03/25/19 13:00 04/07/19 10:41 Baby Aspirin PO 81 mg QDAY LOVELY Administration Atorvastatin Calcium 40 mg 03/25/19 22:00 04/06/19 22:27 Lipitor PO 40 mg QHS LOVELY Administration Bisacodyl 10 mg 04/05/19 11:00 04/07/19 05:52 Dulcolax ID 10 mg QDAY PRN Administration Constipation Clopidogrel Bisulfate 75 mg 04/01/19 10:00 04/07/19 10:40 Plavix PO 75 mg QDAY LOVELY Administration Dextrose 50 ml 03/25/19 06:11 03/31/19 08:09 D50w (25gm) Syringe IV 50 ml PRN PRN Administration Hypoglycemia Enoxaparin Sodium 40 mg 03/25/19 10:00 04/07/19 10:40 Lovenox SUB-Q 40 mg QDAY LOVELY Administration Fluoxetine HCl 60 mg 03/26/19 10:00 04/07/19 10:41 Prozac PO 60 mg DAILY LOVELY Administration Cefepime HCl 2 gm in 100 mls @ 200 mls/hr 03/26/19 15:00 04/07/19 10:40 Maxipime/Ns 2 Gm/100 Ml IV 200 mls/hr Q12HR LOVELY Administration Vancomycin HCl 1 gm in 250 mls @ 166.667 mls/hr 03/28/19 06:00 04/07/19 05:52 Vancomycin/Ns 1 Gm/250 Ml IV 166.667 mls/hr Q24HR@0600 LOVELY Administration Sodium Chloride 1,000 mls @ 75 mls/hr 03/29/19 16:00 04/07/19 05:56 Nacl 0.9% 1000 Ml IV 75 mls/hr DIRECT LOVELY Administration Sodium Chloride 500 mls @ 50 mls/hr 03/30/19 15:00 Nacl 0.9% 500 Ml IV DIRECT LOVELY Ibuprofen 800 mg 03/25/19 12:12 04/06/19 22:27 Ibuprofen PO 800 mg Q8H PRN Administration Pain Insulin Glargine 25 units 04/07/19 10:50 Lantus SUB-Q QHS [facility] Insulin Human Lispro 0 unit 03/25/19 07:30 04/07/19 07:30 Humalog SUB-Q Not Given ACHS [facility] Protocol Morphine Sulfate 2 mg 03/31/19 13:33 09/05/19 17:31 Morphine IV 2 mg Q4H PRN Administration Pain, Moderate (4-6) Ondansetron HCl 4 mg 03/25/19 06:11 04/07/19 10:06 Zofran IV 4 mg Q8H PRN Administration Nausea And Vomiting Pantoprazole Sodium 20 mg 03/26/19 10:00 04/07/19 10:41 Protonix PO 20 mg QDAY LOVELY Administration Polyethylene Glycol 17 gm 04/06/19 10:00 04/07/19 10:41 Miralax 3350 PO 17 gm QDAY LOVELY Administration Sodium Chloride 10 ml 03/25/19 10:00 04/07/19 10:41 Sodium Chloride Flush Syringe 10 Ml IV 10 ml BID LOVELY Administration Sodium Chloride 10 ml 03/25/19 06:11 Sodium Chloride Flush Syringe 10 Ml IV PRN PRN LINE FLUSH Nutrition/Malnutrition Assess - Dietary Evaluation Nutrition/Malnutrition Findings: Nutrition Notes Start: 04/03/19 12:00 Freq: Status: Active Protocol: Document 04/03/19 12:00 LM (Rec: 04/03/19 12:12 LM [id number]) Nutrition Notes Need for Assessment generated from: LOS Current Diagnosis Diabetes Other Pertinent Diagnosis R great toe cellulitis/ osteomyelitis Current Diet Consistent CHO Subjective/Other Information Screen for LOS. Pt eating 100% . Family memeber in room concerned about pt's BG and managing DM. #1 Nutrition Diagnosis Food and nutrition-related knowledge deficit Etiology No prior DM related nutrition education As Evidenced by Signs and Symptoms Pt's family member needing DM education, pt with diabetic foot infection Nutrition Intervention Teaching Recipient Family Learning Readiness Good Teaching Methods Discussion,Handout Response to Teaching Verbalize understanding Education Handouts Provided CHO Counting for People with Diabetes Barriers to Learning No Barriers RD phone number provided Yes Patient aware of follow up options Yes Revisit per MD consult or patient Sign Off request:
[2019-04-07] MEDS: MORPHINE IV PRN (21:49)
[2019-04-07] MEDS: LANTUS SUB-Q SCH (23:25)
[2019-04-08] MEDS: NACL 0.9% 1000 ML 1,000 ML IV SCH ×2 (03:32→22:58)
[2019-04-08] MEDS: VANCOMYCIN/NS 1 GM/250 ML 1 GM/250 ML BAG IV SCH (05:58)
[2019-04-08] MEDS: HumaLOG SUB-Q SCH ×4 (08:17→22:50)
[2019-04-08] MEDS: LOVENOX SUB-Q SCH (10:14)
[2019-04-08] MEDS: PLAVIX PO SCH (10:14)
[2019-04-08] MEDS: BABY ASPIRIN PO SCH (10:14)
[2019-04-08] MEDS: MIRALAX 3350 PO SCH (10:14)
[2019-04-08] MEDS: PROzac PO SCH (10:14)
[2019-04-08] MEDS: PROTONIX PO SCH (10:14)
[2019-04-08] MEDS: SODIUM CHLORIDE FLUSH SYRINGE 10 ML IV SCH ×2 (10:15→23:08)
[2019-04-08] MEDS: MAXIPIME/NS 2 GM/100 ML 2 GM/100 ML BAG IV SCH ×2 (10:15→22:48)
[2019-04-08] MEDS: IBUPROFEN PO PRN ×2 (14:18→22:48)
--- NOTE | 2019-04-08 15:38 | Progress Note ---
Assessment and Plan Assessment and plan: 78-year-old female with hypertension, diabetes, CVA with dysarthria, coronary artery disease who presents with red, tender right great toe. Unknown of trauma. Family member at bedside has noted fluctuating sugar reading. Patient is poor historian right great toe acute osteomyelitis and abscess: sp amputation on 04/05, abx per ID Anticipate discharge on Cefepime 2gm IV every 12 hours and Vancomycin 1 gm IV every 24 hours for 3 weeks ending 04-18-19 Peripheral vascular disease: Arterial doppler reveals R>L arterial insufficiency. vasc consult,s/p re-vascularization Procedure 03/29/2019 DM-2: Optimize insulins hx of CVA cont meds for secondary ppx dvt ppx lovenox Anticipate discharge on Cefepime 2gm IV every 12 hours and Vancomycin 1 gm IV every 24 hours for 3 weeks ending 04-18-19 dispo; awaiting snf placement History Interval history: no fever pain at r toe stump is improved no vomiting no cough or cp Hospitalist Physical - Physical exam Narrative exam: General.: Appears well, no distress, nontoxic HEENT: Moist mucous membranes, extraocular muscles intact, no lymphadenopathy Neck: supple Cardiac: S1-S2 heard Lungs: clear to auscultation bilaterally Abdomen: soft , nontender, nondistended, bowel sounds positive Extremities: bandage to R toe stump not removed Skin: no rash or lesions Neurologic: no gross focal deficits, dysarthria, Psych: calm, and cooperative - Constitutional Vitals: Temp Pulse Resp BP Pulse Ox 98.9 F 74 20 149/44 92 04/08/19 13:39 04/08/19 13:39 04/08/19 14:18 04/08/19 13:39 04/08/19 13:39 General appearance: Present: no acute distress, well-nourished Results - Labs CBC & Chem 7: 04/02/19 04:29 04/05/19 06:53 Labs: Laboratory Last Values WBC 9.8 K/mm3 (4.5-11.0) 04/02/19 04:29 RBC 3.39 M/mm3 (3.65-5.03) L 04/02/19 04:29 Hgb 10.2 gm/dl (10.1-14.3) 04/02/19 04:29 Hct 29.7 % (30.3-42.9) L 04/02/19 04:29 MCV 88 fl (79-97) 04/02/19 04:29 MCH 30 pg (28-32) 04/02/19 04:29 MCHC 34 % (30-34) 04/02/19 04:29 RDW 14.1 % (13.2-15.2) 04/02/19 04:29 Plt Count 220 K/mm3 (140-440) 04/02/19 04:29 Lymph % (Auto) 19.5 % (13.4-35.0) 04/02/19 04:29 [place] % (Auto) 9.9 % (0.0-7.3) H 04/02/19 04:29 Eos % (Auto) 2.8 % (0.0-4.3) 04/02/19 04:29 Baso % (Auto) 0.5 % (0.0-1.8) 04/02/19 04:29 Lymph # 1.9 K/mm3 (1.2-5.4) 04/02/19 04:29 [place] # 1.0 K/mm3 (0.0-0.8) H 04/02/19 04:29 Eos # 0.3 K/mm3 (0.0-0.4) 04/02/19 04:29 Baso # 0.0 K/mm3 (0.0-0.1) 04/02/19 04:29 Seg Neutrophils % 67.3 % (40.0-70.0) 04/02/19 04:29 Seg Neutrophils # 6.6 K/mm3 (1.8-7.7) 04/02/19 04:29 ESR 58 mm/Hr (0-20) 03/27/19 04:04 PT 12.8 Sec. (12.2-14.9) 03/29/19 09:45 INR 0.99 (0.87-1.13) 03/29/19 09:45 APTT 27.5 Sec. (24.2-36.6) 03/29/19 09:45 208 (74-137) H 03/31/19 11:40 Sodium 140 mmol/L (137-145) 04/05/19 06:53 Potassium 3.9 mmol/L (3.6-5.0) 04/05/19 06:53 Chloride 106.5 mmol/L (98-107) 04/05/19 06:53 Carbon Dioxide 23 mmol/L (22-30) 04/05/19 06:53 14 mmol/L 04/05/19 06:53 BUN 18 mg/dL (7-17) H 04/05/19 06:53 0.9 mg/dL (0.7-1.2) 04/05/19 06:53 Estimated GFR > 60 ml/min 04/05/19 06:53 20 % 04/05/19 06:53 Glucose 86 mg/dL (65-100) 04/05/19 06:53 POC Glucose 137 (70-105) H 04/08/19 12:05 2.7 mg/dL (3.5-7.6) L 03/26/19 04:27 Calcium 8.6 mg/dL (8.4-10.2) 04/05/19 06:53 0.20 mg/dL (0.1-1.2) 04/02/19 04:29 AST 10 units/L (5-40) 04/02/19 04:29 ALT 6 units/L (7-56) L 04/02/19 04:29 71 units/L (35-129) 04/02/19 04:29 2.70 mg/dL (0.00-1.30) H 03/27/19 04:04 5.9 g/dL (6.3-8.2) L 04/02/19 04:29 2.7 g/dL (3.9-5) L 04/02/19 04:29 0.8 % 04/02/19 04:29 Vancomycin Trough 14.2 ug/mL (5.0-20.0) 04/05/19 04:01 Random Vancomycin 31.0 ug/mL (0-40.0) 04/04/19 05:56 Active Medications - Current Medications Current Medications: Generic Name Dose Route Start Last Admin Trade Name Freq PRN Reason Stop Dose Admin Acetaminophen 650 mg 03/25/19 06:11 04/07/19 18:17 Tylenol PO 650 mg Q4H PRN Administration Pain MILD(1-3)/Fever >100.5/OQUENDO Aspirin 81 mg 03/25/19 13:00 04/08/19 10:14 Baby Aspirin PO 81 mg QDAY LOVELY Administration Atorvastatin Calcium 40 mg 03/25/19 22:00 04/07/19 21:36 Lipitor PO 40 mg QHS LOVELY Administration Bisacodyl 10 mg 04/05/19 11:00 04/07/19 05:52 Dulcolax MO 10 mg QDAY PRN Administration Constipation Clopidogrel Bisulfate 75 mg 04/01/19 10:00 04/08/19 10:14 Plavix PO 75 mg QDAY LOVELY Administration Dextrose 50 ml 03/25/19 06:11 03/31/19 08:09 D50w (25gm) Syringe IV 50 ml PRN PRN Administration Hypoglycemia Enoxaparin Sodium 40 mg 03/25/19 10:00 04/08/19 10:14 Lovenox SUB-Q 40 mg QDAY LOVELY Administration Fluoxetine HCl 60 mg 03/26/19 10:00 04/08/19 10:14 Prozac PO 60 mg DAILY LOVELY Administration Cefepime HCl 2 gm in 100 mls @ 200 mls/hr 03/26/19 15:00 04/08/19 10:15 Maxipime/Ns 2 Gm/100 Ml IV 04/18/19 23:59 200 mls/hr Q12HR LOVELY Administration Vancomycin HCl 1 gm in 250 mls @ 166.667 mls/hr 03/28/19 06:00 04/08/19 05:58 Vancomycin/Ns 1 Gm/250 Ml IV 04/18/19 23:59 166.667 mls/hr Q24HR@0600 LOVELY Administration Sodium Chloride 1,000 mls @ 75 mls/hr 03/29/19 16:00 04/08/19 03:32 Nacl 0.9% 1000 Ml IV 75 mls/hr DIRECT LOVELY Administration Sodium Chloride 500 mls @ 50 mls/hr 03/30/19 15:00 Nacl 0.9% 500 Ml IV DIRECT LOVELY Ibuprofen 800 mg 03/25/19 12:12 04/08/19 14:18 Ibuprofen PO 800 mg Q8H PRN Administration Pain Insulin Glargine 25 units 04/07/19 22:00 04/07/19 23:25 Lantus SUB-Q 25 units QHS LOVELY Administration Insulin Human Lispro 0 unit 03/25/19 07:30 04/08/19 12:10 Humalog SUB-Q Not Given ACHS LOVELY Protocol Morphine Sulfate 2 mg 03/31/19 13:33 04/07/19 21:49 Morphine IV 2 mg Q4H PRN Administration Pain, Moderate (4-6) Ondansetron HCl 4 mg 03/25/19 06:11 04/07/19 10:06 Zofran IV 4 mg Q8H PRN Administration Nausea And Vomiting Pantoprazole Sodium 20 mg 03/26/19 10:00 04/08/19 10:14 Protonix PO 20 mg QDAY LOVELY Administration Polyethylene Glycol 17 gm 04/06/19 10:00 04/08/19 10:14 Miralax 3350 PO 17 gm QDAY LOVELY Administration Sodium Chloride 10 ml 03/25/19 10:00 04/08/19 10:15 Sodium Chloride Flush Syringe 10 Ml IV 10 ml BID LOVELY Administration Sodium Chloride 10 ml 03/25/19 06:11 Sodium Chloride Flush Syringe 10 Ml IV PRN PRN LINE FLUSH Nutrition/Malnutrition Assess - Dietary Evaluation Nutrition/Malnutrition Findings: Nutrition Notes Start: 04/03/19 12:00 Freq: Status: Active Protocol: Document 04/03/19 12:00 LM (Rec: 04/03/19 12:12 LM [id number]) Nutrition Notes Need for Assessment generated from: LOS Current Diagnosis Diabetes Other Pertinent Diagnosis R great toe cellulitis/ osteomyelitis Current Diet Consistent CHO Subjective/Other Information Screen for LOS. Pt eating 100% . Family memeber in room concerned about pt's BG and managing DM. #1 Nutrition Diagnosis Food and nutrition-related knowledge deficit Etiology No prior DM related nutrition education As Evidenced by Signs and Symptoms Pt's family member needing DM education, pt with diabetic foot infection Nutrition Intervention Teaching Recipient Family Learning Readiness Good Teaching Methods Discussion,Handout Response to Teaching Verbalize understanding Education Handouts Provided CHO Counting for People with Diabetes Barriers to Learning No Barriers RD phone number provided Yes Patient aware of follow up options Yes Revisit per MD consult or patient Sign Off request:
[2019-04-08] MEDS: LANTUS SUB-Q SCH (22:51)
[2019-04-09] MEDS: VANCOMYCIN/NS 1 GM/250 ML 1 GM/250 ML BAG IV SCH (06:20)
[2019-04-09] MEDS: HumaLOG SUB-Q SCH ×3 (08:21→16:59)
[2019-04-09] MEDS: PROTONIX PO SCH (09:30)
[2019-04-09] MEDS: PROzac PO SCH (09:30)
[2019-04-09] MEDS: MAXIPIME/NS 2 GM/100 ML 2 GM/100 ML BAG IV SCH ×2 (09:30→21:37)
[2019-04-09] MEDS: PLAVIX PO SCH (09:30)
[2019-04-09] MEDS: BABY ASPIRIN PO SCH (09:30)
[2019-04-09] MEDS: MIRALAX 3350 PO SCH (09:31)
[2019-04-09] MEDS: SODIUM CHLORIDE FLUSH SYRINGE 10 ML IV SCH ×2 (09:31→21:39)
[2019-04-09] MEDS: LOVENOX SUB-Q SCH (09:31)
[2019-04-09] MEDS: IBUPROFEN PO PRN (09:41)
--- NOTE | 2019-04-09 17:52 | Progress Note ---
Assessment and Plan Assessment and plan: 78-year-old female with hypertension, diabetes, CVA with dysarthria, coronary artery disease who presents with red, tender right great toe. Unknown of trauma. Family member at bedside has noted fluctuating sugar reading. Patient is poor historian right great toe acute osteomyelitis and abscess: sp amputation on 04/05, abx per ID Anticipate discharge on Cefepime 2gm IV every 12 hours and Vancomycin 1 gm IV every 24 hours for 3 weeks ending 04-18-19 Peripheral vascular disease: Arterial doppler reveals R>L arterial insufficiency. vasc consult,s/p re-vascularization Procedure 03/29/2019 DM-2: Optimize insulins hx of CVA cont meds for secondary ppx dvt ppx lovenox Anticipate discharge on Cefepime 2gm IV every 12 hours and Vancomycin 1 gm IV every 24 hours for 3 weeks ending 04-18-19 dispo; awaiting snf placement History Interval history: no fever pain at r toe stump is improved no vomiting no cough or cp Hospitalist Physical - Physical exam Narrative exam: General.: Appears well, no distress, nontoxic HEENT: Moist mucous membranes, extraocular muscles intact, no lymphadenopathy Neck: supple Cardiac: S1-S2 heard Lungs: clear to auscultation bilaterally Abdomen: soft , nontender, nondistended, bowel sounds positive Extremities: bandage to R toe stump not removed Skin: no rash or lesions Neurologic: no gross focal deficits, dysarthria, Psych: calm, and cooperative - Constitutional Vitals: Temp Pulse Resp BP Pulse Ox 98.4 F 75 18 162/43 95 04/09/19 13:39 04/09/19 13:39 04/09/19 13:39 04/09/19 13:39 04/09/19 13:39 General appearance: Present: no acute distress, well-nourished Results - Labs CBC & Chem 7: 04/02/19 04:29 04/05/19 06:53 Labs: Laboratory Last Values WBC 9.8 K/mm3 (4.5-11.0) 04/02/19 04:29 RBC 3.39 M/mm3 (3.65-5.03) L 04/02/19 04:29 Hgb 10.2 gm/dl (10.1-14.3) 04/02/19 04:29 Hct 29.7 % (30.3-42.9) L 04/02/19 04:29 MCV 88 fl (79-97) 04/02/19 04:29 MCH 30 pg (28-32) 04/02/19 04:29 MCHC 34 % (30-34) 04/02/19 04:29 RDW 14.1 % (13.2-15.2) 04/02/19 04:29 Plt Count 220 K/mm3 (140-440) 04/02/19 04:29 Lymph % (Auto) 19.5 % (13.4-35.0) 04/02/19 04:29 [place] % (Auto) 9.9 % (0.0-7.3) H 04/02/19 04:29 Eos % (Auto) 2.8 % (0.0-4.3) 04/02/19 04:29 Baso % (Auto) 0.5 % (0.0-1.8) 04/02/19 04:29 Lymph # 1.9 K/mm3 (1.2-5.4) 04/02/19 04:29 [place] # 1.0 K/mm3 (0.0-0.8) H 04/02/19 04:29 Eos # 0.3 K/mm3 (0.0-0.4) 04/02/19 04:29 Baso # 0.0 K/mm3 (0.0-0.1) 04/02/19 04:29 Seg Neutrophils % 67.3 % (40.0-70.0) 04/02/19 04:29 Seg Neutrophils # 6.6 K/mm3 (1.8-7.7) 04/02/19 04:29 ESR 58 mm/Hr (0-20) 03/27/19 04:04 PT 12.8 Sec. (12.2-14.9) 03/29/19 09:45 INR 0.99 (0.87-1.13) 03/29/19 09:45 APTT 27.5 Sec. (24.2-36.6) 03/29/19 09:45 208 (74-137) H 03/31/19 11:40 Sodium 140 mmol/L (137-145) 04/05/19 06:53 Potassium 3.9 mmol/L (3.6-5.0) 04/05/19 06:53 Chloride 106.5 mmol/L (98-107) 04/05/19 06:53 Carbon Dioxide 23 mmol/L (22-30) 04/05/19 06:53 14 mmol/L 04/05/19 06:53 BUN 18 mg/dL (7-17) H 04/05/19 06:53 0.9 mg/dL (0.7-1.2) 04/05/19 06:53 Estimated GFR > 60 ml/min 04/05/19 06:53 20 % 04/05/19 06:53 Glucose 86 mg/dL (65-100) 04/05/19 06:53 POC Glucose 87 (70-105) 04/09/19 16:39 2.7 mg/dL (3.5-7.6) L 03/26/19 04:27 Calcium 8.6 mg/dL (8.4-10.2) 04/05/19 06:53 0.20 mg/dL (0.1-1.2) 04/02/19 04:29 AST 10 units/L (5-40) 04/02/19 04:29 ALT 6 units/L (7-56) L 04/02/19 04:29 71 units/L (35-129) 04/02/19 04:29 2.70 mg/dL (0.00-1.30) H 03/27/19 04:04 5.9 g/dL (6.3-8.2) L 04/02/19 04:29 2.7 g/dL (3.9-5) L 04/02/19 04:29 0.8 % 04/02/19 04:29 Vancomycin Trough 14.2 ug/mL (5.0-20.0) 04/05/19 04:01 Random Vancomycin 31.0 ug/mL (0-40.0) 04/04/19 05:56 Active Medications - Current Medications Current Medications: Generic Name Dose Route Start Last Admin Trade Name Freq PRN Reason Stop Dose Admin Acetaminophen 650 mg 03/25/19 06:11 04/07/19 18:17 Tylenol PO 650 mg Q4H PRN Administration Pain MILD(1-3)/Fever >100.5/OQUENDO Aspirin 81 mg 03/25/19 13:00 04/09/19 09:30 Baby Aspirin PO 81 mg QDAY LOVELY Administration Atorvastatin Calcium 40 mg 03/25/19 22:00 04/08/19 22:49 Lipitor PO 40 mg QHS LOVELY Administration Bisacodyl 10 mg 04/05/19 11:00 04/07/19 05:52 Dulcolax [place] 10 mg QDAY PRN Administration Constipation Clopidogrel Bisulfate 75 mg 04/01/19 10:00 04/09/19 09:30 Plavix PO 75 mg QDAY LOVELY Administration Dextrose 50 ml 03/25/19 06:11 03/31/19 08:09 D50w (25gm) Syringe IV 50 ml PRN PRN Administration Hypoglycemia Enoxaparin Sodium 40 mg 03/25/19 10:00 04/09/19 09:31 Lovenox SUB-Q 40 mg QDAY LOVELY Administration Fluoxetine HCl 60 mg 03/26/19 10:00 04/09/19 09:30 Prozac PO 60 mg DAILY LOVELY Administration Cefepime HCl 2 gm in 100 mls @ 200 mls/hr 03/26/19 15:00 04/09/19 09:30 Maxipime/Ns 2 Gm/100 Ml IV 04/18/19 23:59 200 mls/hr Q12HR LOVELY Administration Vancomycin HCl 1 gm in 250 mls @ 166.667 mls/hr 03/28/19 06:00 04/09/19 06:20 Vancomycin/Ns 1 Gm/250 Ml IV 04/18/19 23:59 166.667 mls/hr Q24HR@0600 LOVELY Administration Sodium Chloride 1,000 mls @ 75 mls/hr 03/29/19 16:00 04/08/19 22:58 Nacl 0.9% 1000 Ml IV 75 mls/hr DIRECT LOVELY Administration Sodium Chloride 500 mls @ 50 mls/hr 03/30/19 15:00 Nacl 0.9% 500 Ml IV DIRECT LOVELY Ibuprofen 800 mg 03/25/19 12:12 04/09/19 09:41 Ibuprofen PO 800 mg Q8H PRN Administration Pain Insulin Glargine 25 units 04/07/19 22:00 04/08/19 22:51 Lantus SUB-Q 25 units QHS LOVELY Administration Insulin Human Lispro 0 unit 03/25/19 07:30 04/09/19 16:59 Humalog SUB-Q Not Given ACHS [facility] Protocol Morphine Sulfate 2 mg 03/31/19 13:33 04/07/19 21:49 Morphine IV 2 mg Q4H PRN Administration Pain, Moderate (4-6) Ondansetron HCl 4 mg 03/25/19 06:11 04/07/19 10:06 Zofran IV 4 mg Q8H PRN Administration Nausea And Vomiting Pantoprazole Sodium 20 mg 03/26/19 10:00 04/09/19 09:30 Protonix PO 20 mg QDAY LOVELY Administration Polyethylene Glycol 17 gm 04/06/19 10:00 04/09/19 09:31 Miralax 3350 PO 17 gm QDAY LOVELY Administration Sodium Chloride 10 ml 03/25/19 10:00 04/09/19 09:31 Sodium Chloride Flush Syringe 10 Ml IV 10 ml BID LOVELY Administration Sodium Chloride 10 ml 03/25/19 06:11 Sodium Chloride Flush Syringe 10 Ml IV PRN PRN LINE FLUSH Nutrition/Malnutrition Assess - Dietary Evaluation Nutrition/Malnutrition Findings: Nutrition Notes Start: 04/03/19 12:00 Freq: Status: Active Protocol: Document 04/03/19 12:00 LM (Rec: 04/03/19 12:12 LM [id number]) Nutrition Notes Need for Assessment generated from: LOS Current Diagnosis Diabetes Other Pertinent Diagnosis R great toe cellulitis/ osteomyelitis Current Diet Consistent CHO Subjective/Other Information Screen for LOS. Pt eating 100% . Family memeber in room concerned about pt's BG and managing DM. #1 Nutrition Diagnosis Food and nutrition-related knowledge deficit Etiology No prior DM related nutrition education As Evidenced by Signs and Symptoms Pt's family member needing DM education, pt with diabetic foot infection Nutrition Intervention Teaching Recipient Family Learning Readiness Good Teaching Methods Discussion,Handout Response to Teaching Verbalize understanding Education Handouts Provided CHO Counting for People with Diabetes Barriers to Learning No Barriers RD phone number provided Yes Patient aware of follow up options Yes Revisit per MD consult or patient Sign Off request:
[2019-04-09] MEDS: NACL 0.9% 1000 ML 1,000 ML IV SCH (18:43)
[2019-04-09] MEDS: LANTUS SUB-Q SCH (21:43)
[2019-04-10] MEDS: HumaLOG SUB-Q SCH ×5 (01:38→23:05)
[2019-04-10] MEDS: VANCOMYCIN/NS 1 GM/250 ML 1 GM/250 ML BAG IV SCH (05:32)
--- NOTE | 2019-04-10 07:25 | Progress Note ---
Assessment and Plan Assessment and plan: 78-year-old female with hypertension, diabetes, CVA with dysarthria, coronary artery disease who presents with red, tender right great toe. Unknown of trauma. Family member at bedside has noted fluctuating sugar reading. Patient is poor historian right great toe acute osteomyelitis and abscess: sp amputation on 04/05, abx per ID Anticipate discharge on Cefepime 2gm IV every 12 hours and Vancomycin 1 gm IV every 24 hours for 3 weeks ending 04-18-19 Peripheral vascular disease: Arterial doppler reveals R>L arterial insufficiency. vasc consult,s/p re-vascularization Procedure 03/29/2019 DM-2: Optimize insulins hx of CVA cont meds for secondary ppx dvt ppx lovenox Anticipate discharge on Cefepime 2gm IV every 12 hours and Vancomycin 1 gm IV every 24 hours for 3 weeks ending 04-18-19 dispo; awaiting snf placement History Interval history: no fever pain at r toe stump is improved no vomiting no cough or cp Hospitalist Physical - Physical exam Narrative exam: General.: Appears well, no distress, nontoxic HEENT: Moist mucous membranes, extraocular muscles intact, no lymphadenopathy Neck: supple Cardiac: S1-S2 heard Lungs: clear to auscultation bilaterally Abdomen: soft , nontender, nondistended, bowel sounds positive Extremities: bandage to R toe stump not removed Skin: no rash or lesions Neurologic: no gross focal deficits, dysarthria, Psych: calm, and cooperative - Constitutional Vitals: Temp Pulse Resp BP Pulse Ox 98.3 F 76 18 170/65 97 04/10/19 01:57 04/10/19 01:57 04/10/19 01:57 04/10/19 01:57 04/10/19 01:57 General appearance: Present: no acute distress, well-nourished Results - Labs CBC & Chem 7: 04/02/19 04:29 04/05/19 06:53 Labs: Laboratory Last Values WBC 9.8 K/mm3 (4.5-11.0) 04/02/19 04:29 RBC 3.39 M/mm3 (3.65-5.03) L 04/02/19 04:29 Hgb 10.2 gm/dl (10.1-14.3) 04/02/19 04:29 Hct 29.7 % (30.3-42.9) L 04/02/19 04:29 MCV 88 fl (79-97) 04/02/19 04:29 MCH 30 pg (28-32) 04/02/19 04:29 MCHC 34 % (30-34) 04/02/19 04:29 RDW 14.1 % (13.2-15.2) 04/02/19 04:29 Plt Count 220 K/mm3 (140-440) 04/02/19 04:29 Lymph % (Auto) 19.5 % (13.4-35.0) 04/02/19 04:29 [place] % (Auto) 9.9 % (0.0-7.3) H 04/02/19 04:29 Eos % (Auto) 2.8 % (0.0-4.3) 04/02/19 04:29 Baso % (Auto) 0.5 % (0.0-1.8) 04/02/19 04:29 Lymph # 1.9 K/mm3 (1.2-5.4) 04/02/19 04:29 [place] # 1.0 K/mm3 (0.0-0.8) H 04/02/19 04:29 Eos # 0.3 K/mm3 (0.0-0.4) 04/02/19 04:29 Baso # 0.0 K/mm3 (0.0-0.1) 04/02/19 04:29 Seg Neutrophils % 67.3 % (40.0-70.0) 04/02/19 04:29 Seg Neutrophils # 6.6 K/mm3 (1.8-7.7) 04/02/19 04:29 ESR 58 mm/Hr (0-20) 03/27/19 04:04 PT 12.8 Sec. (12.2-14.9) 03/29/19 09:45 INR 0.99 (0.87-1.13) 03/29/19 09:45 APTT 27.5 Sec. (24.2-36.6) 03/29/19 09:45 208 (74-137) H 03/31/19 11:40 Sodium 140 mmol/L (137-145) 04/05/19 06:53 Potassium 3.9 mmol/L (3.6-5.0) 04/05/19 06:53 Chloride 106.5 mmol/L (98-107) 04/05/19 06:53 Carbon Dioxide 23 mmol/L (22-30) 04/05/19 06:53 14 mmol/L 04/05/19 06:53 BUN 18 mg/dL (7-17) H 04/05/19 06:53 0.9 mg/dL (0.7-1.2) 04/05/19 06:53 Estimated GFR > 60 ml/min 04/05/19 06:53 20 % 04/05/19 06:53 Glucose 86 mg/dL (65-100) 04/05/19 06:53 POC Glucose 75 (70-105) 04/10/19 07:27 2.7 mg/dL (3.5-7.6) L 03/26/19 04:27 Calcium 8.6 mg/dL (8.4-10.2) 04/05/19 06:53 0.20 mg/dL (0.1-1.2) 04/02/19 04:29 AST 10 units/L (5-40) 04/02/19 04:29 ALT 6 units/L (7-56) L 04/02/19 04:29 71 units/L (35-129) 04/02/19 04:29 2.70 mg/dL (0.00-1.30) H 03/27/19 04:04 5.9 g/dL (6.3-8.2) L 04/02/19 04:29 2.7 g/dL (3.9-5) L 04/02/19 04:29 0.8 % 04/02/19 04:29 Vancomycin Trough 14.2 ug/mL (5.0-20.0) 04/05/19 04:01 Random Vancomycin 31.0 ug/mL (0-40.0) 04/04/19 05:56 Active Medications - Current Medications Current Medications: Generic Name Dose Route Start Last Admin Trade Name Freq PRN Reason Stop Dose Admin Acetaminophen 650 mg 03/25/19 06:11 04/07/19 18:17 Tylenol PO 650 mg Q4H PRN Administration Pain MILD(1-3)/Fever >100.5/OQUENDO Aspirin 81 mg 03/25/19 13:00 04/09/19 09:30 Baby Aspirin PO 81 mg QDAY LOVELY Administration Atorvastatin Calcium 40 mg 03/25/19 22:00 04/09/19 21:37 Lipitor PO 40 mg QHS LOVELY Administration Bisacodyl 10 mg 04/05/19 11:00 04/07/19 05:52 Dulcolax [place] 10 mg QDAY PRN Administration Constipation Clopidogrel Bisulfate 75 mg 04/01/19 10:00 04/09/19 09:30 Plavix PO 75 mg QDAY LOVELY Administration Dextrose 50 ml 03/25/19 06:11 03/31/19 08:09 D50w (25gm) Syringe IV 50 ml PRN PRN Administration Hypoglycemia Enoxaparin Sodium 40 mg 03/25/19 10:00 04/09/19 09:31 Lovenox SUB-Q 40 mg QDAY LOVELY Administration Fluoxetine HCl 60 mg 03/26/19 10:00 04/09/19 09:30 Prozac PO 60 mg DAILY LOVELY Administration Cefepime HCl 2 gm in 100 mls @ 200 mls/hr 03/26/19 15:00 04/09/19 21:37 Maxipime/Ns 2 Gm/100 Ml IV 04/18/19 23:59 200 mls/hr Q12HR LOVELY Administration Vancomycin HCl 1 gm in 250 mls @ 166.667 mls/hr 03/28/19 06:00 04/10/19 05:32 Vancomycin/Ns 1 Gm/250 Ml IV 04/18/19 23:59 166.667 mls/hr Q24HR@0600 LOVELY Administration Sodium Chloride 1,000 mls @ 75 mls/hr 03/29/19 16:00 04/09/19 18:43 Nacl 0.9% 1000 Ml IV 75 mls/hr DIRECT LOVELY Administration Sodium Chloride 500 mls @ 50 mls/hr 03/30/19 15:00 Nacl 0.9% 500 Ml IV DIRECT LOVELY Ibuprofen 800 mg 03/25/19 12:12 04/09/19 09:41 Ibuprofen PO 800 mg Q8H PRN Administration Pain Insulin Glargine 25 units 04/07/19 22:00 04/09/19 21:43 Lantus SUB-Q 25 units QHS LOVELY Administration Insulin Human Lispro 0 unit 03/25/19 07:30 04/10/19 01:38 Humalog SUB-Q Not Given ACHS [facility] Protocol Morphine Sulfate 2 mg 03/31/19 13:33 04/07/19 21:49 Morphine IV 2 mg Q4H PRN Administration Pain, Moderate (4-6) Ondansetron HCl 4 mg 03/25/19 06:11 04/07/19 10:06 Zofran IV 4 mg Q8H PRN Administration Nausea And Vomiting Pantoprazole Sodium 20 mg 03/26/19 10:00 04/09/19 09:30 Protonix PO 20 mg QDAY LOVELY Administration Polyethylene Glycol 17 gm 04/06/19 10:00 04/09/19 09:31 Miralax 3350 PO 17 gm QDAY LOVELY Administration Sodium Chloride 10 ml 03/25/19 10:00 04/09/19 21:39 Sodium Chloride Flush Syringe 10 Ml IV 10 ml BID LOVELY Administration Sodium Chloride 10 ml 03/25/19 06:11 Sodium Chloride Flush Syringe 10 Ml IV PRN PRN LINE FLUSH Nutrition/Malnutrition Assess - Dietary Evaluation Nutrition/Malnutrition Findings: Nutrition Notes Start: 04/03/19 12:00 Freq: Status: Active Protocol: Document 04/03/19 12:00 LM (Rec: 04/03/19 12:12 LM [id number]) Nutrition Notes Need for Assessment generated from: LOS Current Diagnosis Diabetes Other Pertinent Diagnosis R great toe cellulitis/ osteomyelitis Current Diet Consistent CHO Subjective/Other Information Screen for LOS. Pt eating 100% . Family memeber in room concerned about pt's BG and managing DM. #1 Nutrition Diagnosis Food and nutrition-related knowledge deficit Etiology No prior DM related nutrition education As Evidenced by Signs and Symptoms Pt's family member needing DM education, pt with diabetic foot infection Nutrition Intervention Teaching Recipient Family Learning Readiness Good Teaching Methods Discussion,Handout Response to Teaching Verbalize understanding Education Handouts Provided CHO Counting for People with Diabetes Barriers to Learning No Barriers RD phone number provided Yes Patient aware of follow up options Yes Revisit per MD consult or patient Sign Off request:
--- NOTE | 2019-04-10 07:29 | Discharge Summary ---
Providers - Providers Date of Admission: 03/25/19 06:17 Attending physician: IAN CAMPOS MD 03/25/19 06:11 Consult to Physician [CONS] Routine Comment: Consulting Provider: EWELINA RUBIO Physician Instructions: Reason For Exam: osteo 03/26/19 21:18 Consult to Physician [CONS] Routine Comment: called office/[place] Consulting Provider: JOSE MARTIN CARRILLO Physician Instructions: Reason For Exam: PAD 03/28/19 13:05 Consult to Interventional Radiology [CONS] Routine Consulting Provider: JOSE MARTIN SCHMITZ Reason For Exam: Right great toe abscess Place consult to:: office Notified:: yes Phone number called:: [phone] Was contact made?: Yes If yes, spoke with:: golden Time called:: 13:38 Comment:: [facility] 04/01/19 10:21 Consult to Physician [CONS] Routine Comment: left mess/[facility] Consulting Provider: FREDDY MEHTA Physician Instructions: cant see patient till wednesday per dr. mehta Reason For Exam: distal phalyngeal gangrene 04/06/19 12:09 Physical Therapy Evaluation and Treat [CONS] Routine Comment: Reason For Exam: Unsteady Gait 04/07/19 11:33 PICC Line Insertion [Consult to PICC Line RN] [CONS] Routine Reason For Exam: OPAT Type Line:: PICC 04/07/19 12:01 Consult to Case Management [CONS] Routine Services Needed at Discharge: Home Health Services Notified:: EMMANUELLE Pardo Physician Instructions: [facility] ([facility] M [phone] O [phone] F [phone] OUTPATIENT PARENTERAL ANTIBIOTIC THERAPY ORDERS Diagnoses: RIght great toe osteomylitis. Antimicrobial administration: Anticipate discharge on Cefepime 2gm IV every 12 hours and Vancomycin 1 gm IV every 24 hours for 3 weeks ending 04-18-19. Will give further orders re garding discontinuing PICC line after ID f/u appointment. Lines: PICC Lab monitoring: CBC, BUN, Creatinine, ALT, AST, CRP, ESR vancomycin trough once a week preferly on Wednesday morning. Please fax results to [phone] and call [phone] for critical lab results. Barbara Tao NP/Dr. Mas Date: 04/07/19 Primary care physician: CASSIA YOUNGER MD Hospitalization Condition: Stable Disposition: DC/[place]-03 [facility] Time spent for discharge: 33 mins Core Measure Documentation - Palliative Care Palliative Care/ Comfort Measures: Not Applicable - Core Measures Any of the following diagnoses?: none Exam - Physical Exam Narrative exam: General.: Appears well, no distress, nontoxic HEENT: Moist mucous membranes, extraocular muscles intact, no lymphadenopathy Neck: supple Cardiac: S1-S2 heard Lungs: clear to auscultation bilaterally Abdomen: soft , nontender, nondistended, bowel sounds positive Extremities: bandage to R toe stump not removed Skin: no rash or lesions Neurologic: no gross focal deficits, dysarthria, Psych: calm, and cooperative - Constitutional Vitals: Temp Pulse Resp BP Pulse Ox 98.3 F 76 18 170/65 97 04/10/19 01:57 04/10/19 01:57 04/10/19 01:57 04/10/19 01:57 04/10/19 01:57 Plan Follow up with: CASSIA BAKER MD [Primary Care Provider] - 7 Days
[2019-04-10] MEDS: MAXIPIME/NS 2 GM/100 ML 2 GM/100 ML BAG IV SCH ×2 (08:59→22:18)
[2019-04-10] MEDS: PROzac PO SCH (08:59)
[2019-04-10] MEDS: PROTONIX PO SCH (08:59)
[2019-04-10] MEDS: MIRALAX 3350 PO SCH (08:59)
[2019-04-10] MEDS: LOVENOX SUB-Q SCH (09:00)
[2019-04-10] MEDS: BABY ASPIRIN PO SCH (09:00)
[2019-04-10] MEDS: PLAVIX PO SCH (09:00)
[2019-04-10] MEDS: MORPHINE IV PRN (09:52)
[2019-04-10] MEDS: IBUPROFEN PO PRN (09:56)
[2019-04-10] MEDS: SODIUM CHLORIDE FLUSH SYRINGE 10 ML IV SCH ×2 (10:13→22:22)
[2019-04-10] MEDS: NACL 0.9% 1000 ML 1,000 ML IV SCH (11:07)
[2019-04-10] MEDS: PERCOCET 5/325 PO PRN (11:27)
--- NOTE | 2019-04-10 12:53 | Progress Note ---
Assessment and Plan Cultures: 03/25/2019 blood culture: no growth 04/06/2019 right big toe: no growth to date A/P: 78-year-old female with hypertension, diabetes, CVA with dysarthria, coronary artery disease admitted with: 1) Probable right great toe acute osteomyelitis: xray shows cortical erosion of the distal phalanx concerning for osteomyelitis however there is no contiguous wound and hence not typical of a diabetic foot osteomyelitis. Differential diagnosis does include acute gout v/s pseudogout, but not much evidence of arthropathy involving the first MTP joint. ESR 58. CRP 2.7 MRI shows circumscribed fluid collection encasing the first toe distal phalanx. Concerning for abscess. There is diffuse osteomyelitis involving the distal phalanx. TTE shows no valvular vegetation. S/p balloon angioplasty on 03/31/2019. Gangrenous changes to the distal aspect of the phalanx. s/p Amputation of great right toe and metatarsal head 04/05/19. 2) DM-2: recommend glycemic control 3) CVA 4) Peripheral vascular disease: Arterial doppler reveals R>L arterial insufficiency. Recs: Continue Cefepime and Vancomycin Final antibiotic plan based on surgical cultures after 48 hours - Will likely need IV antibiotics outpatient. Continue wound care outpatient Will follow-up in office in 2 weeks for pathology results. 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 -will decide on if longer treatment required at that time. Thank you for the consult. We will sign off. Alyssa Mas MD [facility] ([facility]) M: [phone] O: [phone] F: [phone] Subjective Date of service: 04/10/19 Principal diagnosis: Rt Grt toe cellulitis Interval history: Pain improved. Afebrile. Objective - Exam Narrative Exam: Constitutional: Asleep. Easy to arouse. Right foot pain. Head, Ears, Nose: Normocephalic, atraumatic. External ears, nose normal Eyes: Conjunctivae/corneas clear. No icterus. No ptosis. Neck: Supple, no meningeal signs Oral: edentulous, no thrush or ulcers Cardiovascular: S1, S2 normal. Respiratory: Good air entry, clear to auscultation bilaterally GI: Soft, non-tender; bowel sounds normal. No peritoneal signs Musculoskeletal: No pedal edema, no cyanosis. s/p right toe amputation. Right foot wrapped in dressing. + sanguineous drainage. Skin: No rash Hem/Lymphatic: No palpable cervical or supraclavicular nodes. No lymphangitis Psych: Mood ok. Affect normal Neurological: Awake. Alert. unintelligible speech - Constitutional Vitals: Vital Signs Temp Pulse Resp BP Pulse Ox 98.7 F 84 20 172/60 94 04/10/19 07:04/10/19 07:04/10/19 07:04/10/19 07:04/10/19 09:32 Temperature -Last 24 Hours Temperature 98.7 F Temperature 98.3 F Temperature 98.7 F Temperature 98.4 F - Labs CBC & Chem 7: 04/02/19 04:29 04/05/19 06:53 Labs: Abnormal lab results 04/09/19 Range/Units 20:48 POC Glucose 121 H (70-105)
[2019-04-10] MEDS: LANTUS SUB-Q SCH (22:25)
[2019-04-11] MEDS: VANCOMYCIN/NS 1 GM/250 ML 1 GM/250 ML BAG IV SCH (05:52)
[2019-04-11] MEDS: NACL 0.9% 1000 ML 1,000 ML IV SCH ×2 (05:52→21:55)
[2019-04-11] MEDS: HumaLOG SUB-Q SCH ×4 (07:40→21:49)
[2019-04-11] MEDS: BABY ASPIRIN PO SCH (08:59)
[2019-04-11] MEDS: MIRALAX 3350 PO SCH (08:59)
[2019-04-11] MEDS: PROTONIX PO SCH (08:59)
[2019-04-11] MEDS: PLAVIX PO SCH (08:59)
[2019-04-11] MEDS: PROzac PO SCH (08:59)
[2019-04-11] MEDS: MAXIPIME/NS 2 GM/100 ML 2 GM/100 ML BAG IV SCH ×2 (09:00→21:47)
[2019-04-11] MEDS: LOVENOX SUB-Q SCH (09:00)
[2019-04-11] MEDS: SODIUM CHLORIDE FLUSH SYRINGE 10 ML IV SCH ×2 (09:01→21:48)
[2019-04-11] MEDS: PERCOCET 5/325 PO PRN (12:14)
--- NOTE | 2019-04-11 15:11 | Progress Note ---
Assessment and Plan Assessment and plan: Patient is a 78 yo woman with a history of hypertension, diabetes, CVA with dysarthria and coronary artery disease who presents to [facility] ED with right big toe pains -Probable right great toe acute osteomyelitis: sp amputation on 04/05/19, abx per ID, Anticipate discharge on Cefepime 2gm IV every 12 hours and Vancomycin 1 gm IV every 24 hours for 3 weeks ending 04-18-19 -DM-2: recommend glycemic control -CVA -Peripheral vascular disease: Arterial doppler reveals R>L arterial insufficiency. History Interval history: Patient was seen and examined. Follow-up on current diagnosis right foot pain. No overnight events reported to me. Patient denies any chest pain, shortness breath, nausea/vomiting or severe headaches. Imaging, nursing note, chart, labs and old chart reviewed. Discussed with patient and daughter at bedside Hospitalist Physical - Physical exam Narrative exam: Gen: chronically dis-able appearing, NAD, Awake, Alert, Orientated HEENT: NCAT, EOMI, PERRL, OP Clear Neck: supple, no adenopathy, no thyromegaly, no JVD CVS/Heart: RRR, normal S1S2, pulses present bilaterally Chest/Lungs: CTA B, Symmetrical chest expansion, good air entry bilaterally GI/Abdomen: soft, NTND, good bowel sounds, no guarding or rebound /Bladder: no suprapubic tenderness, no CVA or paraspinal tenderness Extermity/Skin: right toe infection MSK: FROM x 4 Neuro: CN 2-12 grossly intact, no new focal deficits Psych: calm - Constitutional Vitals: Temp Pulse Resp BP Pulse Ox 98.4 F 78 20 186/72 97 04/11/19 13:10 04/11/19 13:10 04/11/19 13:10 04/11/19 13:11 04/11/19 13:10 General appearance: Present: no acute distress, well-nourished Results - Labs CBC & Chem 7: 04/02/19 04:29 04/05/19 06:53 Labs: Laboratory Last Values WBC 9.8 K/mm3 (4.5-11.0) 04/02/19 04:29 RBC 3.39 M/mm3 (3.65-5.03) L 04/02/19 04:29 Hgb 10.2 gm/dl (10.1-14.3) 04/02/19 04:29 Hct 29.7 % (30.3-42.9) L 04/02/19 04:29 MCV 88 fl (79-97) 04/02/19 04:29 MCH 30 pg (28-32) 04/02/19 04:29 MCHC 34 % (30-34) 04/02/19 04:29 RDW 14.1 % (13.2-15.2) 04/02/19 04:29 Plt Count 220 K/mm3 (140-440) 04/02/19 04:29 Lymph % (Auto) 19.5 % (13.4-35.0) 04/02/19 04:29 [place] % (Auto) 9.9 % (0.0-7.3) H 04/02/19 04:29 Eos % (Auto) 2.8 % (0.0-4.3) 04/02/19 04:29 Baso % (Auto) 0.5 % (0.0-1.8) 04/02/19 04:29 Lymph # 1.9 K/mm3 (1.2-5.4) 04/02/19 04:29 [place] # 1.0 K/mm3 (0.0-0.8) H 04/02/19 04:29 Eos # 0.3 K/mm3 (0.0-0.4) 04/02/19 04:29 Baso # 0.0 K/mm3 (0.0-0.1) 04/02/19 04:29 Seg Neutrophils % 67.3 % (40.0-70.0) 04/02/19 04:29 Seg Neutrophils # 6.6 K/mm3 (1.8-7.7) 04/02/19 04:29 ESR 58 mm/Hr (0-20) 03/27/19 04:04 PT 12.8 Sec. (12.2-14.9) 03/29/19 09:45 INR 0.99 (0.87-1.13) 03/29/19 09:45 APTT 27.5 Sec. (24.2-36.6) 03/29/19 09:45 208 (74-137) H 03/31/19 11:40 Sodium 140 mmol/L (137-145) 04/05/19 06:53 Potassium 3.9 mmol/L (3.6-5.0) 04/05/19 06:53 Chloride 106.5 mmol/L (98-107) 04/05/19 06:53 Carbon Dioxide 23 mmol/L (22-30) 04/05/19 06:53 14 mmol/L 04/05/19 06:53 BUN 18 mg/dL (7-17) H 04/05/19 06:53 0.9 mg/dL (0.7-1.2) 04/05/19 06:53 Estimated GFR > 60 ml/min 04/05/19 06:53 20 % 04/05/19 06:53 Glucose 86 mg/dL (65-100) 04/05/19 06:53 POC Glucose 122 (70-105) H 04/11/19 11:14 2.7 mg/dL (3.5-7.6) L 03/26/19 04:27 Calcium 8.6 mg/dL (8.4-10.2) 04/05/19 06:53 0.20 mg/dL (0.1-1.2) 04/02/19 04:29 AST 10 units/L (5-40) 04/02/19 04:29 ALT 6 units/L (7-56) L 04/02/19 04:29 71 units/L (35-129) 04/02/19 04:29 2.70 mg/dL (0.00-1.30) H 03/27/19 04:04 5.9 g/dL (6.3-8.2) L 04/02/19 04:29 2.7 g/dL (3.9-5) L 04/02/19 04:29 0.8 % 04/02/19 04:29 Vancomycin Trough 14.2 ug/mL (5.0-20.0) 04/05/19 04:01 Random Vancomycin 31.0 ug/mL (0-40.0) 04/04/19 05:56 Active Medications - Current Medications Current Medications: Generic Name Dose Route Start Last Admin Trade Name Freq PRN Reason Stop Dose Admin Acetaminophen 650 mg 03/25/19 06:11 04/07/19 18:17 Tylenol PO 650 mg Q4H PRN Administration Pain MILD(1-3)/Fever >100.5/OQUENDO Aspirin 81 mg 03/25/19 13:00 04/11/19 08:59 Baby Aspirin PO 81 mg QDAY LOVELY Administration Atorvastatin Calcium 40 mg 03/25/19 22:00 04/10/19 22:19 Lipitor PO 40 mg QHS LOVELY Administration Bisacodyl 10 mg 04/05/19 11:00 04/07/19 05:52 Dulcolax [place] 10 mg QDAY PRN Administration Constipation Clopidogrel Bisulfate 75 mg 04/01/19 10:00 04/11/19 08:59 Plavix PO 75 mg QDAY LOVELY Administration Dextrose 50 ml 03/25/19 06:11 03/31/19 08:09 D50w (25gm) Syringe IV 50 ml PRN PRN Administration Hypoglycemia Enoxaparin Sodium 40 mg 03/25/19 10:00 04/11/19 09:00 Lovenox SUB-Q Not Given QDAY LOVELY Fluoxetine HCl 60 mg 03/26/19 10:00 04/11/19 08:59 Prozac PO 60 mg DAILY LOVELY Administration Cefepime HCl 2 gm in 100 mls @ 200 mls/hr 03/26/19 15:00 04/11/19 09:00 Maxipime/Ns 2 Gm/100 Ml IV 04/18/19 22:29 200 mls/hr Q12HR LOVELY Administration Vancomycin HCl 1 gm in 250 mls @ 166.667 mls/hr 03/28/19 06:00 04/11/19 05:52 Vancomycin/Ns 1 Gm/250 Ml IV 04/18/19 07:29 166.667 mls/hr Q24HR@0600 LOVELY Administration Sodium Chloride 1,000 mls @ 75 mls/hr 03/29/19 16:00 04/11/19 05:52 Nacl 0.9% 1000 Ml IV 75 mls/hr DIRECT LOVELY Administration Sodium Chloride 500 mls @ 50 mls/hr 03/30/19 15:00 Nacl 0.9% 500 Ml IV DIRECT LOVELY Ibuprofen 800 mg 03/25/19 12:12 04/10/19 09:56 Ibuprofen PO 800 mg Q8H PRN Administration Pain Insulin Glargine 25 units 04/07/19 22:00 04/10/19 22:25 Lantus SUB-Q 25 units QHS LOVELY Administration Insulin Human Lispro 0 unit 03/25/19 07:30 04/11/19 11:24 Humalog SUB-Q Not Given ACHS [facility] Protocol Morphine Sulfate 2 mg 03/31/19 13:33 04/10/19 09:52 Morphine IV 2 mg Q4H PRN Administration Pain, Moderate (4-6) Ondansetron HCl 4 mg 03/25/19 06:11 04/07/19 10:06 Zofran IV 4 mg Q8H PRN Administration Nausea And Vomiting Oxycodone/Acetaminophen 1 tab 04/10/19 11:30 04/11/19 12:14 Percocet 5/325 PO 1 tab Q6H PRN Administration Pain, Moderate (4-6) Pantoprazole Sodium 20 mg 03/26/19 10:00 04/11/19 08:59 Protonix PO 20 mg QDAY LOVELY Administration Polyethylene Glycol 17 gm 04/06/19 10:00 04/11/19 08:59 Miralax 3350 PO 17 gm QDAY LOVELY Administration Sodium Chloride 10 ml 03/25/19 10:00 04/11/19 09:01 Sodium Chloride Flush Syringe 10 Ml IV 10 ml BID LOVELY Administration Sodium Chloride 10 ml 03/25/19 06:11 Sodium Chloride Flush Syringe 10 Ml IV PRN PRN LINE FLUSH Nutrition/Malnutrition Assess - Dietary Evaluation Nutrition/Malnutrition Findings: Nutrition Notes Start: 04/03/19 12:00 Freq: Status: Active Protocol: Document 04/03/19 12:00 LM (Rec: 04/03/19 12:12 LM [id number]) Nutrition Notes Need for Assessment generated from: LOS Current Diagnosis Diabetes Other Pertinent Diagnosis R great toe cellulitis/ osteomyelitis Current Diet Consistent CHO Subjective/Other Information Screen for LOS. Pt eating 100% . Family memeber in room concerned about pt's BG and managing DM. #1 Nutrition Diagnosis Food and nutrition-related knowledge deficit Etiology No prior DM related nutrition education As Evidenced by Signs and Symptoms Pt's family member needing DM education, pt with diabetic foot infection Nutrition Intervention Teaching Recipient Family Learning Readiness Good Teaching Methods Discussion,Handout Response to Teaching Verbalize understanding Education Handouts Provided CHO Counting for People with Diabetes Barriers to Learning No Barriers RD phone number provided Yes Patient aware of follow up options Yes Revisit per MD consult or patient Sign Off request:
[2019-04-11] MEDS ORDERED: APRESOLINE IV PRN (15:16)
[2019-04-11] MEDS: LANTUS SUB-Q SCH (21:47)
[2019-04-12] MEDS: ZOFRAN IV PRN ×3 (00:27→17:19)
[2019-04-12] MEDS: MORPHINE IV PRN ×4 (00:27→18:18)
[2019-04-12] MEDS: VANCOMYCIN/NS 1 GM/250 ML 1 GM/250 ML BAG IV SCH (05:26)
[2019-04-12] MEDS ORDERED: VANCOMYCIN/NS 1 GM/250 ML 1 GM/250 ML BAG IV SCH (06:00)
[2019-04-12 06:23] LABS: BUN/Creatinine Ratio 17; Blood Urea Nitrogen 15 mg/dL (7-17); Calcium 8.3 mg/dL (8.4-10.2); Hemolysis Index 8
[2019-04-12] MEDS: HumaLOG SUB-Q SCH ×4 (08:16→22:44)
[2019-04-12] MEDS: LOVENOX SUB-Q SCH (09:16)
[2019-04-12] MEDS: PLAVIX PO SCH (09:16)
[2019-04-12] MEDS: PROTONIX PO SCH (09:16)
[2019-04-12] MEDS: PROzac PO SCH (09:16)
[2019-04-12] MEDS: MAXIPIME/NS 2 GM/100 ML 2 GM/100 ML BAG IV SCH ×2 (09:17→22:42)
[2019-04-12] MEDS: SODIUM CHLORIDE FLUSH SYRINGE 10 ML IV SCH ×2 (09:18→22:43)
[2019-04-12] MEDS: MIRALAX 3350 PO SCH (09:20)
[2019-04-12] MEDS: BABY ASPIRIN PO SCH (09:21)
[2019-04-12] MEDS ORDERED: K-DUR PO ONE (10:00)
--- NOTE | 2019-04-12 10:16 | Progress Note ---
Assessment and Plan Assessment and plan: Patient is a 78 yo woman with a history of hypertension, diabetes, CVA with dysarthria and coronary artery disease who presents to [facility] ED with right big toe pains -Right right great toe acute osteomyelitis s/p amputation on 04/05/19, abx per ID, Anticipate discharge on Cefepime 2gm IV every 12 hours and Vancomycin 1 gm IV every 24 hours for 3 weeks ending 04-18-19 -DM-2: recommend glycemic control -History of CVA with dysarthria -Peripheral vascular disease: Arterial doppler reveals R>L arterial insu fficiency. -Hypokalemia: replete History Interval history: Patient was seen and examined. Follow-up on current diagnosis right foot pain. No overnight events reported to me. Patient denies any chest pain, shortness breath, nausea/vomiting or severe headaches. Imaging, nursing note, chart, labs and old chart reviewed. Discussed with patient and daughter Jessica at bedside Hospitalist Physical - Physical exam Narrative exam: Gen: chronically dis-able appearing, NAD, Awake, Alert, Orientated HEENT: NCAT, EOMI, PERRL, OP Clear Neck: supple, no adenopathy, no thyromegaly, no JVD CVS/Heart: RRR, normal S1S2, pulses present bilaterally Chest/Lungs: CTA B, Symmetrical chest expansion, good air entry bilaterally GI/Abdomen: soft, NTND, good bowel sounds, no guarding or rebound /Bladder: no suprapubic tenderness, no CVA or paraspinal tenderness Extermity/Skin: right toe s/p amputation, dressing with slight serosangious drainage MSK: FROM x 4 Neuro: CN 2-12 grossly intact, no new focal deficits, old dyarthria Psych: calm - Constitutional Vitals: Temp Pulse Resp BP Pulse Ox 98.5 F 75 18 162/59 95 04/12/19 07:46 04/12/19 07:46 04/12/19 07:46 04/12/19 07:46 04/12/19 07:46 General appearance: Present: no acute distress, well-nourished Results - Labs CBC & Chem 7: 04/02/19 04:29 04/12/19 05:42 Labs: Laboratory Last Values WBC 9.8 K/mm3 (4.5-11.0) 04/02/19 04:29 RBC 3.39 M/mm3 (3.65-5.03) L 04/02/19 04:29 Hgb 10.2 gm/dl (10.1-14.3) 04/02/19 04:29 Hct 29.7 % (30.3-42.9) L 04/02/19 04:29 MCV 88 fl (79-97) 04/02/19 04:29 MCH 30 pg (28-32) 04/02/19 04:29 MCHC 34 % (30-34) 04/02/19 04:29 RDW 14.1 % (13.2-15.2) 04/02/19 04:29 Plt Count 220 K/mm3 (140-440) 04/02/19 04:29 Lymph % (Auto) 19.5 % (13.4-35.0) 04/02/19 04:29 [place] % (Auto) 9.9 % (0.0-7.3) H 04/02/19 04:29 Eos % (Auto) 2.8 % (0.0-4.3) 04/02/19 04:29 Baso % (Auto) 0.5 % (0.0-1.8) 04/02/19 04:29 Lymph # 1.9 K/mm3 (1.2-5.4) 04/02/19 04:29 [place] # 1.0 K/mm3 (0.0-0.8) H 04/02/19 04:29 Eos # 0.3 K/mm3 (0.0-0.4) 04/02/19 04:29 Baso # 0.0 K/mm3 (0.0-0.1) 04/02/19 04:29 Seg Neutrophils % 67.3 % (40.0-70.0) 04/02/19 04:29 Seg Neutrophils # 6.6 K/mm3 (1.8-7.7) 04/02/19 04:29 ESR 58 mm/Hr (0-20) 03/27/19 04:04 PT 12.8 Sec. (12.2-14.9) 03/29/19 09:45 INR 0.99 (0.87-1.13) 03/29/19 09:45 APTT 27.5 Sec. (24.2-36.6) 03/29/19 09:45 208 (74-137) H 03/31/19 11:40 Sodium 142 mmol/L (137-145) 04/12/19 05:42 Potassium 3.5 mmol/L (3.6-5.0) L 04/12/19 05:42 Chloride 107.5 mmol/L (98-107) H 04/12/19 05:42 Carbon Dioxide 24 mmol/L (22-30) 04/12/19 05:42 14 mmol/L 04/12/19 05:42 BUN 15 mg/dL (7-17) 04/12/19 05:42 0.9 mg/dL (0.7-1.2) 04/12/19 05:42 Estimated GFR > 60 ml/min 04/12/19 05:42 17 % 04/12/19 05:42 Glucose 94 mg/dL (65-100) 04/12/19 05:42 POC Glucose 74 (70-105) 04/12/19 07:55 2.7 mg/dL (3.5-7.6) L 03/26/19 04:27 Calcium 8.3 mg/dL (8.4-10.2) L 04/12/19 05:42 0.20 mg/dL (0.1-1.2) 04/02/19 04:29 AST 10 units/L (5-40) 04/02/19 04:29 ALT 6 units/L (7-56) L 04/02/19 04:29 71 units/L (35-129) 04/02/19 04:29 2.70 mg/dL (0.00-1.30) H 03/27/19 04:04 5.9 g/dL (6.3-8.2) L 04/02/19 04:29 2.7 g/dL (3.9-5) L 04/02/19 04:29 0.8 % 04/02/19 04:29 Vancomycin Trough 19.4 ug/mL (5.0-20.0) 04/12/19 05:42 Random Vancomycin 31.0 ug/mL (0-40.0) 04/04/19 05:56 Active Medications - Current Medications Current Medications: Generic Name Dose Route Start Last Admin Trade Name Freq PRN Reason Stop Dose Admin Acetaminophen 650 mg 03/25/19 06:11 04/07/19 18:17 Tylenol PO 650 mg Q4H PRN Administration Pain MILD(1-3)/Fever >100.5/OQUENDO Aspirin 81 mg 03/25/19 13:00 04/12/19 09:21 Baby Aspirin PO 81 mg QDAY LOVELY Administration Atorvastatin Calcium 40 mg 03/25/19 22:00 04/11/19 21:47 Lipitor PO 40 mg QHS LOVELY Administration Bisacodyl 10 mg 04/05/19 11:00 04/07/19 05:52 Dulcolax [place] 10 mg QDAY PRN Administration Constipation Clopidogrel Bisulfate 75 mg 04/01/19 10:00 04/12/19 09:16 Plavix PO 75 mg QDAY LOVELY Administration Dextrose 50 ml 03/25/19 06:11 03/31/19 08:09 D50w (25gm) Syringe IV 50 ml PRN PRN Administration Hypoglycemia Enoxaparin Sodium 40 mg 03/25/19 10:00 04/12/19 09:16 Lovenox SUB-Q 40 mg QDAY LOVELY Administration Fluoxetine HCl 60 mg 03/26/19 10:00 04/12/19 09:16 Prozac PO 60 mg DAILY LOVELY Administration Hydralazine HCl 10 mg 04/11/19 15:16 Apresoline IV Q4HR PRN Blood Pressure Cefepime HCl 2 gm in 100 mls @ 200 mls/hr 03/26/19 15:00 04/12/19 09:17 Maxipime/Ns 2 Gm/100 Ml IV 04/18/19 22:29 200 mls/hr Q12HR LOVELY Administration Sodium Chloride 1,000 mls @ 75 mls/hr 03/29/19 16:00 04/11/19 21:55 Nacl 0.9% 1000 Ml IV 75 mls/hr DIRECT LOVELY Administration Sodium Chloride 500 mls @ 50 mls/hr 03/30/19 15:00 Nacl 0.9% 500 Ml IV DIRECT LOVELY Vancomycin HCl 1 gm in 250 mls @ 166.667 mls/hr 04/12/19 06:00 04/12/19 05:26 Vancomycin/Ns 1 Gm/250 Ml IV 04/18/19 05:59 166.667 mls/hr 0600 LOVELY Administration Insulin Glargine 25 units 04/07/19 22:00 04/11/19 21:47 Lantus SUB-Q 25 units QHS LOVELY Administration Insulin Human Lispro 0 unit 03/25/19 07:30 04/12/19 08:16 Humalog SUB-Q Not Given ACHS [facility] Protocol Morphine Sulfate 2 mg 03/31/19 13:33 04/12/19 09:40 Morphine IV 2 mg Q4H PRN Administration Pain, Moderate (4-6) Ondansetron HCl 4 mg 03/25/19 06:11 04/12/19 09:40 Zofran IV 4 mg Q8H PRN Administration Nausea And Vomiting Oxycodone/Acetaminophen 1 tab 04/10/19 11:30 04/11/19 12:14 Percocet 5/325 PO 1 tab Q6H PRN Administration Pain, Moderate (4-6) Pantoprazole Sodium 20 mg 03/26/19 10:00 04/12/19 09:16 Protonix PO 20 mg QDAY LOVELY Administration Polyethylene Glycol 17 gm 04/06/19 10:00 04/12/19 09:20 Miralax 3350 PO 17 gm QDAY LOVELY Administration Sodium Chloride 10 ml 03/25/19 10:00 04/12/19 09:18 Sodium Chloride Flush Syringe 10 Ml IV 10 ml BID LOVELY Administration Sodium Chloride 10 ml 03/25/19 06:11 Sodium Chloride Flush Syringe 10 Ml IV PRN PRN LINE FLUSH Nutrition/Malnutrition Assess - Dietary Evaluation Nutrition/Malnutrition Findings: Nutrition Notes Start: 04/03/19 12:00 Freq: Status: Active Protocol: Document 04/03/19 12:00 LM (Rec: 04/03/19 12:12 LM [id number]) Nutrition Notes Need for Assessment generated from: LOS Current Diagnosis Diabetes Other Pertinent Diagnosis R great toe cellulitis/ osteomyelitis Current Diet Consistent CHO Subjective/Other Information Screen for LOS. Pt eating 100% . Family memeber in room concerned about pt's BG and managing DM. #1 Nutrition Diagnosis Food and nutrition-related knowledge deficit Etiology No prior DM related nutrition education As Evidenced by Signs and Symptoms Pt's family member needing DM education, pt with diabetic foot infection Nutrition Intervention Teaching Recipient Family Learning Readiness Good Teaching Methods Discussion,Handout Response to Teaching Verbalize understanding Education Handouts Provided CHO Counting for People with Diabetes Barriers to Learning No Barriers RD phone number provided Yes Patient aware of follow up options Yes Revisit per MD consult or patient Sign Off request:
[2019-04-12] MEDS: NACL 0.9% 1000 ML 1,000 ML IV SCH (12:45)
[2019-04-12] MEDS: PERCOCET 5/325 PO PRN (12:49)
--- NOTE | 2019-04-12 13:50 | Progress Note ---
Subjective Date of service: 04/12/19 Principal diagnosis: Rt Grt toe cellulitis Interval history: right foot remains warm and well perfused right foot wound clean, continue local wound care continue ASA and plavix patient awaiting placement f/u 2 weeks Objective - Constitutional Vitals: Vital Signs - 12hr 04/12/19 07:46 Temperature 98.5 F Pulse Rate 75 Respiratory 18 Rate Blood Pressure 162/59 O2 Sat by Pulse 95 Oximetry - Labs CBC & Chem 7: 04/02/19 04:29 04/12/19 05:42 Labs: Abnormal lab results 04/11/19 04/11/19 04/12/19 Range/Units 16:19 21:45 05:42 Potassium 3.5 L (3.6-5.0) mmol/L Chloride 107.5 H (98-107) mmol/L POC Glucose 142 H 192 H (70-105) Calcium 8.3 L (8.4-10.2) mg/dL 04/12/19 Range/Units 11:43 Potassium (3.6-5.0) mmol/L Chloride (98-107) mmol/L POC Glucose 69 L (70-105) Calcium (8.4-10.2) mg/dL Medications & Allergies - Medications Allergies/Adverse Reactions: Allergies No Known Allergies Allergy (Verified 02/03/18 01:53) Home Medications: Home Medications Medication Instructions Recorded Confirmed Last Taken Type Rosuvastatin Calcium [Crestor] 40 mg PO DAILY 06/20/14 03/25/19 03/24/19 10:00 History Aspirin 81 mg PO DAILY 06/20/15 03/25/19 03/24/19 10:00 History PriLOSEC Otc 1 tab PO DAILY 07/13/16 03/25/19 03/24/19 10:00 History Ibuprofen [Motrin 800 MG tab] 800 mg PO Q8HR PRN #30 tablet 12/13/17 03/25/19 03/24/19 22:00 Rx FLUoxetine HCL [Prozac] 60 mg PO DAILY 03/25/19 03/25/19 03/24/19 10:00 History Bisacodyl [Dulcolax suppos] 10 mg ND QDAY PRN supp.rect 04/10/19 Unknown Rx Clopidogrel [Plavix] 75 mg PO QDAY tablet 04/10/19 Unknown Rx Insulin Glargine [Lantus VIAL] 25 units SUB-Q QHS units 04/10/19 Unknown Rx Lispro Insulin [HumaLOG] 0 unit SUB-Q ACHS units 04/10/19 Unknown Rx Polyethylene Glycol 3350 [Miralax 17 gm PO QDAY powd.pack 04/10/19 Unknown Rx 3350] traMADol [Ultram 50 MG tab] 50 mg PO Q6HR PRN #7 tablet 04/10/19 Unknown Rx Active Medications: Generic Name Dose Route Start Last Admin Trade Name Freq PRN Reason Stop Dose Admin Acetaminophen 650 mg 03/25/19 06:11 04/07/19 18:17 Tylenol PO 650 mg Q4H PRN Administration Pain MILD(1-3)/Fever >100.5/OQUENDO Aspirin 81 mg 03/25/19 13:00 04/12/19 09:21 Baby Aspirin PO 81 mg QDAY LOVELY Administration Atorvastatin Calcium 40 mg 03/25/19 22:00 04/11/19 21:47 Lipitor PO 40 mg QHS LOVELY Administration Bisacodyl 10 mg 04/05/19 11:00 04/07/19 05:52 Dulcolax [place] 10 mg QDAY PRN Administration Constipation Clopidogrel Bisulfate 75 mg 04/01/19 10:00 04/12/19 09:16 Plavix PO 75 mg QDAY LOVELY Administration Dextrose 50 ml 03/25/19 06:11 03/31/19 08:09 D50w (25gm) Syringe IV 50 ml PRN PRN Administration Hypoglycemia Enoxaparin Sodium 40 mg 03/25/19 10:00 04/12/19 09:16 Lovenox SUB-Q 40 mg QDAY LOVELY Administration Fluoxetine HCl 60 mg 03/26/19 10:00 04/12/19 09:16 Prozac PO 60 mg DAILY LOVELY Administration Hydralazine HCl 10 mg 04/11/19 15:16 Apresoline IV Q4HR PRN Blood Pressure Cefepime HCl 2 gm in 100 mls @ 200 mls/hr 03/26/19 15:00 04/12/19 09:17 Maxipime/Ns 2 Gm/100 Ml IV 04/18/19 22:29 200 mls/hr Q12HR LOVELY Administration Sodium Chloride 1,000 mls @ 75 mls/hr 03/29/19 16:00 04/12/19 12:45 Nacl 0.9% 1000 Ml IV 75 mls/hr DIRECT LOVELY Administration Sodium Chloride 500 mls @ 50 mls/hr 03/30/19 15:00 Nacl 0.9% 500 Ml IV DIRECT LOVELY Vancomycin HCl 1 gm in 250 mls @ 166.667 mls/hr 04/12/19 06:00 04/12/19 05:26 Vancomycin/Ns 1 Gm/250 Ml IV 04/18/19 05:59 166.667 mls/hr 0600 LOVELY Administration Insulin Glargine 25 units 04/07/19 22:00 04/11/19 21:47 Lantus SUB-Q 25 units QHS LOVELY Administration Insulin Human Lispro 0 unit 03/25/19 07:30 04/12/19 12:06 Humalog SUB-Q Not Given ACHS [facility] Protocol Morphine Sulfate 2 mg 03/31/19 13:33 04/12/19 09:40 Morphine IV 2 mg Q4H PRN Administration Pain, Moderate (4-6) Ondansetron HCl 4 mg 03/25/19 06:11 04/12/19 09:40 Zofran IV 4 mg Q8H PRN Administration Nausea And Vomiting Oxycodone/Acetaminophen 1 tab 04/10/19 11:30 04/12/19 12:49 Percocet 5/325 PO 1 tab Q6H PRN Administration Pain, Moderate (4-6) Pantoprazole Sodium 20 mg 03/26/19 10:00 04/12/19 09:16 Protonix PO 20 mg QDAY LOVELY Administration Polyethylene Glycol 17 gm 04/06/19 10:00 04/12/19 09:20 Miralax 3350 PO 17 gm QDAY LOVELY Administration Sodium Chloride 10 ml 03/25/19 10:00 04/12/19 09:18 Sodium Chloride Flush Syringe 10 Ml IV 10 ml BID LOVELY Administration Sodium Chloride 10 ml 03/25/19 06:11 Sodium Chloride Flush Syringe 10 Ml IV PRN PRN LINE FLUSH
[2019-04-12] MEDS: LANTUS SUB-Q SCH (22:44)
[2019-04-13] MEDS: NACL 0.9% 1000 ML 1,000 ML IV SCH ×2 (02:38→17:19)
[2019-04-13] MEDS: VANCOMYCIN/NS 1 GM/250 ML 1 GM/250 ML BAG IV SCH (05:52)
[2019-04-13] MEDS: HumaLOG SUB-Q SCH ×4 (08:09→22:36)
[2019-04-13] MEDS: MAXIPIME/NS 2 GM/100 ML 2 GM/100 ML BAG IV SCH ×2 (09:14→22:30)
[2019-04-13] MEDS: SODIUM CHLORIDE FLUSH SYRINGE 10 ML IV SCH ×2 (09:14→22:31)
[2019-04-13] MEDS: LOVENOX SUB-Q SCH (09:14)
[2019-04-13] MEDS: MIRALAX 3350 PO SCH ×2 (09:15→23:02)
[2019-04-13] MEDS: BABY ASPIRIN PO SCH (09:15)
[2019-04-13] MEDS: ZOFRAN IV PRN (09:15)
[2019-04-13] MEDS: PLAVIX PO SCH (09:15)
[2019-04-13] MEDS: PROzac PO SCH (09:15)
[2019-04-13] MEDS: PROTONIX PO SCH (09:15)
[2019-04-13] MEDS: MORPHINE IV PRN (09:26)
--- NOTE | 2019-04-13 09:43 | Progress Note ---
Subjective Date of service: 04/13/19 Principal diagnosis: Rt Grt toe cellulitis Interval history: s/p Right lower extremity revascularization right foot remains warm and well perfused < 3 sec cap refill patient doing well awaiting placement f/u 2 weeks Objective - Constitutional Vitals: Vital Signs - 12hr 04/12/19 04/13/19 04/13/19 22:00 02:37 07:24 Temperature 98.4 F 98.5 F Pulse Rate 74 Respiratory 18 18 Rate Blood Pressure 162/71 173/75 O2 Sat by Pulse 92 93 Oximetry - Labs CBC & Chem 7: 04/02/19 04:29 04/12/19 05:42 Labs: Abnormal lab results 04/12/19 Range/Units 11:43 POC Glucose 69 L (70-105) Medications & Allergies - Medications Allergies/Adverse Reactions: Allergies No Known Allergies Allergy (Verified 02/03/18 01:53) Home Medications: Home Medications Medication Instructions Recorded Confirmed Last Taken Type Rosuvastatin Calcium [Crestor] 40 mg PO DAILY 06/20/14 03/25/19 03/24/19 10:00 History Aspirin 81 mg PO DAILY 06/20/15 03/25/19 03/24/19 10:00 History PriLOSEC Otc 1 tab PO DAILY 07/13/16 03/25/19 03/24/19 10:00 History Ibuprofen [Motrin 800 MG tab] 800 mg PO Q8HR PRN #30 tablet 12/13/17 03/25/19 03/24/19 22:00 Rx FLUoxetine HCL [Prozac] 60 mg PO DAILY 03/25/19 03/25/19 03/24/19 10:00 History Bisacodyl [Dulcolax suppos] 10 mg MO QDAY PRN supp.rect 04/10/19 Unknown Rx Clopidogrel [Plavix] 75 mg PO QDAY tablet 04/10/19 Unknown Rx Insulin Glargine [Lantus VIAL] 25 units SUB-Q QHS units 04/10/19 Unknown Rx Lispro Insulin [HumaLOG] 0 unit SUB-Q ACHS units 04/10/19 Unknown Rx Polyethylene Glycol 3350 [Miralax 17 gm PO QDAY powd.pack 04/10/19 Unknown Rx 3350] traMADol [Ultram 50 MG tab] 50 mg PO Q6HR PRN #7 tablet 04/10/19 Unknown Rx Active Medications: Generic Name Dose Route Start Last Admin Trade Name Freq PRN Reason Stop Dose Admin Acetaminophen 650 mg 03/25/19 06:11 04/07/19 18:17 Tylenol PO 650 mg Q4H PRN Administration Pain MILD(1-3)/Fever >100.5/OQUENDO Aspirin 81 mg 03/25/19 13:00 04/13/19 09:15 Baby Aspirin PO 81 mg QDAY LOVELY Administration Atorvastatin Calcium 40 mg 03/25/19 22:00 04/12/19 22:43 Lipitor PO 40 mg QHS LOVELY Administration Bisacodyl 10 mg 04/05/19 11:00 04/07/19 05:52 Dulcolax [place] 10 mg QDAY PRN Administration Constipation Clopidogrel Bisulfate 75 mg 04/01/19 10:00 04/13/19 09:15 Plavix PO 75 mg QDAY LOVELY Administration Dextrose 50 ml 03/25/19 06:11 03/31/19 08:09 D50w (25gm) Syringe IV 50 ml PRN PRN Administration Hypoglycemia Enoxaparin Sodium 40 mg 03/25/19 10:00 04/13/19 09:14 Lovenox SUB-Q 40 mg QDAY LOVELY Administration Fluoxetine HCl 60 mg 03/26/19 10:00 04/13/19 09:15 Prozac PO 60 mg DAILY LOVELY Administration Hydralazine HCl 10 mg 04/11/19 15:16 Apresoline IV Q4HR PRN Blood Pressure Cefepime HCl 2 gm in 100 mls @ 200 mls/hr 03/26/19 15:00 04/13/19 09:14 Maxipime/Ns 2 Gm/100 Ml IV 04/18/19 22:29 200 mls/hr Q12HR LOVELY Administration Sodium Chloride 1,000 mls @ 75 mls/hr 03/29/19 16:00 04/13/19 02:38 Nacl 0.9% 1000 Ml IV 75 mls/hr DIRECT LOVELY Administration Sodium Chloride 500 mls @ 50 mls/hr 03/30/19 15:00 Nacl 0.9% 500 Ml IV DIRECT LOVELY Vancomycin HCl 1 gm in 250 mls @ 166.667 mls/hr 04/12/19 06:00 04/13/19 05:52 Vancomycin/Ns 1 Gm/250 Ml IV 04/18/19 05:59 166.667 mls/hr 0600 LOVELY Administration Insulin Glargine 25 units 04/07/19 22:00 04/12/19 22:44 Lantus SUB-Q 25 units QHS LOVELY Administration Insulin Human Lispro 0 unit 03/25/19 07:30 04/13/19 08:09 Humalog SUB-Q Not Given ACHS [facility] [place] Protocol Morphine Sulfate 2 mg 03/31/19 13:33 04/13/19 09:26 Morphine IV 2 mg Q4H PRN Administration Pain, Moderate (4-6) Ondansetron HCl 4 mg 03/25/19 06:11 04/13/19 09:15 Zofran IV 4 mg Q8H PRN Administration Nausea And Vomiting Oxycodone/Acetaminophen 1 tab 04/10/19 11:30 04/12/19 12:49 Percocet 5/325 PO 1 tab Q6H PRN Administration Pain, Moderate (4-6) Pantoprazole Sodium 20 mg 03/26/19 10:00 04/13/19 09:15 Protonix PO 20 mg QDAY LOVELY Administration Polyethylene Glycol 17 gm 04/06/19 10:00 04/13/19 09:15 Miralax 3350 PO 17 gm QDAY LOVELY Administration Sodium Chloride 10 ml 03/25/19 10:00 04/13/19 09:14 Sodium Chloride Flush Syringe 10 Ml IV 10 ml BID LOVELY Administration Sodium Chloride 10 ml 03/25/19 06:11 Sodium Chloride Flush Syringe 10 Ml IV PRN PRN LINE FLUSH
[2019-04-13] MEDS: PERCOCET 5/325 PO PRN (13:10)
--- NOTE | 2019-04-13 15:40 | Progress Note ---
Assessment and Plan Assessment and plan: Patient is a 78 yo woman with a history of hypertension, diabetes mellitus type 2, CVA with dysarthria and coronary artery disease who presents to [facility] ED with right big toe pains -Right right great toe acute osteomyelitis s/p amputation on 04/05/19, abx per ID, Anticipate discharge on Cefepime 2gm IV every 12 hours and Vancomycin 1 gm IV every 24 hours for 3 weeks ending 04-18-19 -DM-2: recommend glycemic control -History of CVA with dysarthria -Peripheral vascular disease s/p Right superficial femoral and popiteal artery atherectomy and angiopathy on 03/31/19: continue medical management, Vascular following -Hypokalemia: repleted Disposition: continue inpatient care, awaiting placement History Interval history: Patient was seen and examined. Follow-up on current diagnosis right foot pain. No overnight events reported to me. Patient denies any chest pain, shortness breath, severe headaches. Imaging, nursing note, chart, labs and old chart reviewed. Discussed with patient. d/w Jessica over the phone, Hospitalist Physical - Physical exam Narrative exam: Gen: chronically dis-able appearing, NAD, Awake, Alert, Orientated HEENT: NCAT, EOMI, PERRL, OP Clear Neck: supple, no adenopathy, no thyromegaly, no JVD CVS/Heart: RRR, normal S1S2, pulses present bilaterally Chest/Lungs: CTA B, Symmetrical chest expansion, good air entry bilaterally GI/Abdomen: soft, NTND, good bowel sounds, no guarding or rebound /Bladder: no suprapubic tenderness, no CVA or paraspinal tenderness Extermity/Skin: right toe s/p amputation, dressing with slight serosangious drainage MSK: FROM x 4 Neuro: CN 2-12 grossly intact, no new focal deficits, old dyarthria Psych: calm - Constitutional Vitals: Temp Pulse Resp BP Pulse Ox 98.5 F 74 18 173/75 93 04/13/19 07:24 04/13/19 07:24 04/13/19 07:24 04/13/19 07:24 04/13/19 07:24 General appearance: Present: no acute distress, well-nourished Results - Labs CBC & Chem 7: 04/02/19 04:29 04/12/19 05:42 Labs: Laboratory Last Values WBC 9.8 K/mm3 (4.5-11.0) 04/02/19 04:29 RBC 3.39 M/mm3 (3.65-5.03) L 04/02/19 04:29 Hgb 10.2 gm/dl (10.1-14.3) 04/02/19 04:29 Hct 29.7 % (30.3-42.9) L 04/02/19 04:29 MCV 88 fl (79-97) 04/02/19 04:29 MCH 30 pg (28-32) 04/02/19 04:29 MCHC 34 % (30-34) 04/02/19 04:29 RDW 14.1 % (13.2-15.2) 04/02/19 04:29 Plt Count 220 K/mm3 (140-440) 04/02/19 04:29 Lymph % (Auto) 19.5 % (13.4-35.0) 04/02/19 04:29 [place] % (Auto) 9.9 % (0.0-7.3) H 04/02/19 04:29 Eos % (Auto) 2.8 % (0.0-4.3) 04/02/19 04:29 Baso % (Auto) 0.5 % (0.0-1.8) 04/02/19 04:29 Lymph # 1.9 K/mm3 (1.2-5.4) 04/02/19 04:29 [place] # 1.0 K/mm3 (0.0-0.8) H 04/02/19 04:29 Eos # 0.3 K/mm3 (0.0-0.4) 04/02/19 04:29 Baso # 0.0 K/mm3 (0.0-0.1) 04/02/19 04:29 Seg Neutrophils % 67.3 % (40.0-70.0) 04/02/19 04:29 Seg Neutrophils # 6.6 K/mm3 (1.8-7.7) 04/02/19 04:29 ESR 58 mm/Hr (0-20) 03/27/19 04:04 PT 12.8 Sec. (12.2-14.9) 03/29/19 09:45 INR 0.99 (0.87-1.13) 03/29/19 09:45 APTT 27.5 Sec. (24.2-36.6) 03/29/19 09:45 208 (74-137) H 03/31/19 11:40 Sodium 142 mmol/L (137-145) 04/12/19 05:42 Potassium 3.5 mmol/L (3.6-5.0) L 04/12/19 05:42 Chloride 107.5 mmol/L (98-107) H 04/12/19 05:42 Carbon Dioxide 24 mmol/L (22-30) 04/12/19 05:42 14 mmol/L 04/12/19 05:42 BUN 15 mg/dL (7-17) 04/12/19 05:42 0.9 mg/dL (0.7-1.2) 04/12/19 05:42 Estimated GFR > 60 ml/min 04/12/19 05:42 17 % 04/12/19 05:42 Glucose 94 mg/dL (65-100) 04/12/19 05:42 POC Glucose 83 (70-105) 04/13/19 11:45 2.7 mg/dL (3.5-7.6) L 03/26/19 04:27 Calcium 8.3 mg/dL (8.4-10.2) L 04/12/19 05:42 0.20 mg/dL (0.1-1.2) 04/02/19 04:29 AST 10 units/L (5-40) 04/02/19 04:29 ALT 6 units/L (7-56) L 04/02/19 04:29 71 units/L (35-129) 04/02/19 04:29 2.70 mg/dL (0.00-1.30) H 03/27/19 04:04 5.9 g/dL (6.3-8.2) L 04/02/19 04:29 2.7 g/dL (3.9-5) L 04/02/19 04:29 0.8 % 04/02/19 04:29 Vancomycin Trough 19.4 ug/mL (5.0-20.0) 04/12/19 05:42 Random Vancomycin 31.0 ug/mL (0-40.0) 04/04/19 05:56 Active Medications - Current Medications Current Medications: Generic Name Dose Route Start Last Admin Trade Name Freq PRN Reason Stop Dose Admin Acetaminophen 650 mg 03/25/19 06:11 04/07/19 18:17 Tylenol PO 650 mg Q4H PRN Administration Pain MILD(1-3)/Fever >100.5/OQUENDO Aspirin 81 mg 03/25/19 13:00 04/13/19 09:15 Baby Aspirin PO 81 mg QDAY LOVELY Administration Atorvastatin Calcium 40 mg 03/25/19 22:00 04/12/19 22:43 Lipitor PO 40 mg QHS LOVELY Administration Bisacodyl 10 mg 04/05/19 11:00 04/07/19 05:52 Dulcolax CO 10 mg QDAY PRN Administration Constipation Clopidogrel Bisulfate 75 mg 04/01/19 10:00 04/13/19 09:15 Plavix PO 75 mg QDAY LOVELY Administration Dextrose 50 ml 03/25/19 06:11 03/31/19 08:09 D50w (25gm) Syringe IV 50 ml PRN PRN Administration Hypoglycemia Enoxaparin Sodium 40 mg 03/25/19 10:00 04/13/19 09:14 Lovenox SUB-Q 40 mg QDAY LOVELY Administration Fluoxetine HCl 60 mg 03/26/19 10:00 04/13/19 09:15 Prozac PO 60 mg DAILY LOVELY Administration Hydralazine HCl 10 mg 04/11/19 15:16 Apresoline IV Q4HR PRN Blood Pressure Cefepime HCl 2 gm in 100 mls @ 200 mls/hr 03/26/19 15:00 04/13/19 09:14 Maxipime/Ns 2 Gm/100 Ml IV 04/18/19 22:29 200 mls/hr Q12HR LOVELY Administration Sodium Chloride 1,000 mls @ 75 mls/hr 03/29/19 16:00 04/13/19 02:38 Nacl 0.9% 1000 Ml IV 75 mls/hr DIRECT LOVELY Administration Sodium Chloride 500 mls @ 50 mls/hr 03/30/19 15:00 Nacl 0.9% 500 Ml IV DIRECT LOVELY Vancomycin HCl 1 gm in 250 mls @ 166.667 mls/hr 04/12/19 06:00 04/13/19 05:52 Vancomycin/Ns 1 Gm/250 Ml IV 04/18/19 05:59 166.667 mls/hr 0600 LOVELY Administration Insulin Glargine 25 units 04/07/19 22:00 04/12/19 22:44 Lantus SUB-Q 25 units QHS LOVELY Administration Insulin Human Lispro 0 unit 03/25/19 07:30 04/13/19 11:30 Humalog SUB-Q Not Given ACHS [facility] Protocol Morphine Sulfate 2 mg 03/31/19 13:33 04/13/19 09:26 Morphine IV 2 mg Q4H PRN Administration Pain, Moderate (4-6) Ondansetron HCl 4 mg 03/25/19 06:11 04/13/19 09:15 Zofran IV 4 mg Q8H PRN Administration Nausea And Vomiting Oxycodone/Acetaminophen 1 tab 04/10/19 11:30 04/13/19 13:10 Percocet 5/325 PO 1 tab Q6H PRN Administration Pain, Moderate (4-6) Pantoprazole Sodium 20 mg 03/26/19 10:00 04/13/19 09:15 Protonix PO 20 mg QDAY LOVELY Administration Polyethylene Glycol 17 gm 04/06/19 10:00 04/13/19 09:15 Miralax 3350 PO 17 gm QDAY LOVELY Administration Sodium Chloride 10 ml 03/25/19 10:00 04/13/19 09:14 Sodium Chloride Flush Syringe 10 Ml IV 10 ml BID LOVELY Administration Sodium Chloride 10 ml 03/25/19 06:11 Sodium Chloride Flush Syringe 10 Ml IV PRN PRN LINE FLUSH Nutrition/Malnutrition Assess - Dietary Evaluation Nutrition/Malnutrition Findings: Nutrition Notes Start: 04/03/19 12:00 Freq: Status: Active Protocol: Document 04/03/19 12:00 LM (Rec: 04/03/19 12:12 LM [id number]) Nutrition Notes Need for Assessment generated from: LOS Current Diagnosis Diabetes Other Pertinent Diagnosis R great toe cellulitis/ osteomyelitis Current Diet Consistent CHO Subjective/Other Information Screen for LOS. Pt eating 100% . Family memeber in room concerned about pt's BG and managing DM. #1 Nutrition Diagnosis Food and nutrition-related knowledge deficit Etiology No prior DM related nutrition education As Evidenced by Signs and Symptoms Pt's family member needing DM education, pt with diabetic foot infection Nutrition Intervention Teaching Recipient Family Learning Readiness Good Teaching Methods Discussion,Handout Response to Teaching Verbalize understanding Education Handouts Provided CHO Counting for People with Diabetes Barriers to Learning No Barriers RD phone number provided Yes Patient aware of follow up options Yes Revisit per MD consult or patient Sign Off request:
[2019-04-13] MEDS: LANTUS SUB-Q SCH (22:36)
[2019-04-14] MEDS: PERCOCET 5/325 PO PRN ×3 (00:15→11:32)
[2019-04-14] MEDS: MORPHINE IV PRN (02:18)
[2019-04-14] MEDS: VANCOMYCIN/NS 1 GM/250 ML 1 GM/250 ML BAG IV SCH (06:08)
[2019-04-14] MEDS: DULCOLAX PR PRN (06:18)
[2019-04-14] MEDS: HumaLOG SUB-Q SCH ×2 (08:25→11:47)
[2019-04-14] MEDS: SODIUM CHLORIDE FLUSH SYRINGE 10 ML IV SCH (10:47)
[2019-04-14] MEDS: MIRALAX 3350 PO SCH (10:55)
[2019-04-14] MEDS: PLAVIX PO SCH (10:55)
[2019-04-14] MEDS: LOVENOX SUB-Q SCH (10:55)
[2019-04-14] MEDS: PROzac PO SCH (10:55)
[2019-04-14] MEDS: BABY ASPIRIN PO SCH (10:55)
[2019-04-14] MEDS: PROTONIX PO SCH (11:20)
--- NOTE | 2019-04-14 12:08 | Discharge Summary ---
Providers - Providers Date of Admission: 03/25/19 06:17 Date of discharge: 04/14/19 Attending physician: ANDREZ MORA 03/25/19 06:11 Consult to Physician [CONS] Routine Comment: Consulting Provider: EWELINA RUBIO Physician Instructions: Reason For Exam: osteo 03/26/19 21:18 Consult to Physician [CONS] Routine Comment: called office/[facility] Consulting Provider: JOSE MARTIN CARRILLO Physician Instructions: Reason For Exam: PAD 03/28/19 13:05 Consult to Interventional Radiology [CONS] Routine Consulting Provider: JOSE MARTIN SCHMITZ Reason For Exam: Right great toe abscess Place consult to:: office Notified:: yes Phone number called:: [phone] Was contact made?: Yes If yes, spoke with:: golden Time called:: 13:38 Comment:: [facility] 04/01/19 10:21 Consult to Physician [CONS] Routine Comment: left mess/haven Consulting Provider: FREDDY MEHTA Physician Instructions: cant see patient till wednesday per dr. mehta Reason For Exam: distal phalyngeal gangrene 04/06/19 12:09 Physical Therapy Evaluation and Treat [CONS] Routine Comment: Reason For Exam: Unsteady Gait 04/07/19 11:33 PICC Line Insertion [Consult to PICC Line RN] [CONS] Routine Reason For Exam: OPAT Type Line:: PICC 04/07/19 12:01 Consult to Case Management [CONS] Routine Services Needed at Discharge: Home Health Services Notified:: EMMANUELLE Pardo Physician Instructions: [facility] M [phone] O [phone] F [phone] OUTPATIENT PARENTERAL ANTIBIOTIC THERAPY ORDERS Diagnoses: RIght great toe osteomylitis. Antimicrobial administration: Anticipate discharge on Cefepime 2gm IV every 12 hours and Vancomycin 1 gm IV every 24 hours for 3 weeks ending 04-18-19. Will give further orders regarding discontinuing PICC line after ID f/u appointment. Lines: PICC Lab monitoring: CBC, BUN, Creatinine, ALT, AST, CRP, ESR vancomycin trough once a week preferly on Wednesday morning. Please fax results to [phone] and call [phone] for critical lab results. Barbara Tao NP/Dr. Mas Date: 04/07/19 04/10/19 11:15 Consult to Wound/ET Nurse [CONS] Routine Reason For Exam: wound eval [facility] Condition: Stable Hospital course: Patient is a 78 yo woman with a history of hypertension, diabetes mellitus type 2, CVA with dysarthria and coronary artery disease who presents to [facility] ED with right big toe pains Discharge Diagnoses: -Right right great toe acute osteomyelitis s/p amputation on 04/05/19, abx per ID, Anticipate discharge on Cefepime 2gm IV every 12 hours and Vancomycin 1 gm IV every 24 hours for 3 weeks ending 04-18-19 -DM-2: recommend glycemic control -History of CVA with dysarthria -Peripheral vascular disease s/p Right superficial femoral and popiteal artery atherectomy and angiopathy on 03/31/19: continue medical management, Vascular following -Hypokalemia: repleted Disposition: d/c to [facility] Disposition: DC/[place]-03 [facility] Time spent for discharge: 36 minutes Core Measure Documentation - Palliative Care Palliative Care/ Comfort Measures: Not Applicable - Core Measures Any of the following diagnoses?: none - VTE Discharge Requirements Deep Vein Thrombosis/Pulmonary Embolism Present on Admission: No Has pt received <5 days of overlap therapy or INR<2.0: No Anticoagulant overlap therapy prescribed at discharge: No Contraindication No Overlap Therapy order at DC: Not Indicated Exam - Physical Exam Narrative exam: Gen: chronically dis-able appearing, NAD, Awake, Alert, Orientated HEENT: NCAT, EOMI, PERRL, OP Clear Neck: supple, no adenopathy, no thyromegaly, no JVD CVS/Heart: RRR, normal S1S2, pulses present bilaterally Chest/Lungs: CTA B, Symmetrical chest expansion, good air entry bilaterally GI/Abdomen: soft, NTND, good bowel sounds, no guarding or rebound /Bladder: no suprapubic tenderness, no CVA or paraspinal tenderness Extermity/Skin: right toe s/p amputation, dressing with slight serosangious drainage MSK: FROM x 4 Neuro: CN 2-12 grossly intact, no new focal deficits, old dyarthria Psych: calm - Constitutional Vitals: Temp Pulse Resp BP Pulse Ox 98.3 F 86 18 169/63 92 04/14/19 07:50 04/14/19 07:50 04/14/19 07:50 04/14/19 07:50 04/14/19 07:50 Plan Activity: up only with assistance, fall precautions, other (no strenous activity) Diet: low salt, diabetic Special Instructions: record blood sugar diary (three times a day with meals, cover with Low dose SSI) Additional Instructions: Cefepime 2gm IV every 12 hours and Vancomycin 1 gm IV every 24 hours for 3 weeks ending 04-18-19 [facility]Primary Care Provider] - 7 Days FRANK ESPINOZA MD [Staff Physician] - 14 Days Prescriptions: Lispro Insulin [HumaLOG] 1 dose SQ ACHS PRN #1 vial PRN Reason: Hyperglycemia oxyCODONE /ACETAMINOPHEN [Percocet 5/325 mg] 1 tab PO Q6H PRN #15 tablet PRN Reason: Pain , Severe (7-10) traMADol [Ultram 50 MG tab] 50 mg PO Q6HR PRN #7 tablet PRN Reason: Pain
[2019-04-14] MEDS: MAXIPIME/NS 2 GM/100 ML 2 GM/100 ML BAG IV SCH (12:46)
[2019-04-14 13:47] VITALS: BP 146/61
== END 2019-04-14 14:00 | DRG 270 ==
LOC: ED 02:19 → 2B-ACE 06:17
PROVIDERS: ADMIT Internal Medicine; ATTEND Internal Medicine
PROC: B4101ZZ Fluoroscopy of Abdominal Aorta using Low Osmolar Contrast (ICD-10-PCS; 2019-03-29)
PROC: B41F1ZZ Fluoroscopy of Right Lower Extremity Arteries using Low Osmolar Contrast (ICD-10-PCS; 2019-03-29)
PROC: 04CP3ZZ Extirpation of Matter from Right Anterior Tibial Artery, Percutaneous Approach (ICD-10-PCS; 2019-03-31)
PROC: 04CM3ZZ Extirpation of Matter from Right Popliteal Artery, Percutaneous Approach (ICD-10-PCS; 2019-03-31)
PROC: 04CK3ZZ Extirpation of Matter from Right Femoral Artery, Percutaneous Approach (ICD-10-PCS; 2019-03-31)
PROC: 047K3Z1 Dilation of Right Femoral Artery using Drug-Coated Balloon, Percutaneous Approach (ICD-10-PCS; 2019-03-31)
PROC: 047M3Z1 Dilation of Right Popliteal Artery using Drug-Coated Balloon, Percutaneous Approach (ICD-10-PCS; 2019-03-31)
PROC: 047P3ZZ Dilation of Right Anterior Tibial Artery, Percutaneous Approach (ICD-10-PCS; 2019-03-31)
PROC: B41D1ZZ Fluoroscopy of Aorta and Bilateral Lower Extremity Arteries using Low Osmolar Contrast (ICD-10-PCS; 2019-03-31)
PROC: 0Y6M0Z9 Detachment at Right Foot, Partial 1st Ray, Open Approach (ICD-10-PCS; 2019-04-05)
PROC: 02HV33Z Insertion of Infusion Device into Superior Vena Cava, Percutaneous Approach (ICD-10-PCS; principal; 2019-04-08)
DX: E11.51 Type 2 diabetes mellitus with diabetic peripheral angiopathy without gangrene (principal); I21.3 ST elevation (STEMI) myocardial infarction of unspecified site; M86.171 Other acute osteomyelitis, right ankle and foot; L02.611 Cutaneous abscess of right foot; I70.92 Chronic total occlusion of artery of the extremities; I70.291 Other atherosclerosis of native arteries of extremities, right leg; E87.6 Hypokalemia; L03.031 Cellulitis of right toe; E11.69 Type 2 diabetes mellitus with other specified complication; M10.9 Gout, unspecified; E11.22 Type 2 diabetes mellitus with diabetic chronic kidney disease; N18.9 Chronic kidney disease, unspecified; I12.9 Hypertensive chronic kidney disease with stage 1 through stage 4 chronic kidney disease, or unspecified chronic kidney disease; E11.65 Type 2 diabetes mellitus with hyperglycemia; I25.10 Atherosclerotic heart disease of native coronary artery without angina pectoris; I69.322 Dysarthria following cerebral infarction; Z90.710 Acquired absence of both cervix and uterus; Z82.49 Family history of ischemic heart disease and other diseases of the circulatory system; Z79.82 Long term (current) use of aspirin; Z79.899 Other long term (current) drug therapy; Z87.891 Personal history of nicotine dependence; Z79.84 Long term (current) use of oral hypoglycemic drugs
CPT/HCPCS: 36247; 36415; 37225; 37229; 73721; 75625; 75710; 76937; 80048; 80053; 80202; 82962; 84550; 85025; 85347; 85610; 85652; 85730; 86140; 87040; 87075; 87116; 88302; 88304; 88305; 88311; 93306; 93925; 96374; G0378; A9270-GY; C1724; C1725; C1760; C1769; C1887; C1894; J0295; J0360; J0690; J0692; J1170; J1644; J1650; J1815; J1885; J2060; J2250; J2270; J2405; J2543; J2704; J2720; J3010; J3370; J7030; J7040; Q9967

== ENCOUNTER 2019-05-10 10:19 | Outpatient (CLI) | payer MEDICARE ==
[2019-05-10] MEDS ORDERED: LIDOCAINE (4%) 40 MG/ML TOPICAL SOLN 50 ML BOTTLE TP ONE (10:42)
== END 2019-05-10 10:20 | disposition home or self-care (01) ==
LOC: WOUND 10:19
PROVIDERS: ATTEND Surgery
DX: T87.89 Other complications of amputation stump (principal); L97.525 Non-pressure chronic ulcer of other part of left foot with muscle involvement without evidence of necrosis; L84 Corns and callosities; E11.51 Type 2 diabetes mellitus with diabetic peripheral angiopathy without gangrene; Z79.4 Long term (current) use of insulin; Z79.82 Long term (current) use of aspirin; Y83.5 Amputation of limb(s) as the cause of abnormal reaction of the patient, or of later complication, without mention of misadventure at the time of the procedure; Y92.89 Other specified places as the place of occurrence of the external cause
CPT/HCPCS: 11043; G0463; 99215

== ENCOUNTER 2019-06-08 09:45 | Outpatient (CLI) | payer MEDICARE ==
[2019-06-08] MEDS ORDERED: LIDOCAINE (4%) 40 MG/ML TOPICAL SOLN 50 ML BOTTLE TP ONE (12:07)
== END 2019-06-08 09:46 | disposition home or self-care (01) ==
LOC: WOUND 09:45
PROVIDERS: ATTEND Surgery
DX: T87.89 Other complications of amputation stump (principal); L97.525 Non-pressure chronic ulcer of other part of left foot with muscle involvement without evidence of necrosis; L84 Corns and callosities; E11.51 Type 2 diabetes mellitus with diabetic peripheral angiopathy without gangrene; Z79.4 Long term (current) use of insulin; Z79.82 Long term (current) use of aspirin; Y83.5 Amputation of limb(s) as the cause of abnormal reaction of the patient, or of later complication, without mention of misadventure at the time of the procedure

== ENCOUNTER 2019-08-10 11:05 | Outpatient (CLI) | payer MEDICARE | END 2019-08-10 11:06 | disposition home or self-care (01) | LOC: WOUND 11:05 | PROVIDERS: ATTEND Surgery | DX: E11.621 Type 2 diabetes mellitus with foot ulcer (principal); L97.511 Non-pressure chronic ulcer of other part of right foot limited to breakdown of skin; E11.51 Type 2 diabetes mellitus with diabetic peripheral angiopathy without gangrene; I10 Essential (primary) hypertension; Z89.411 Acquired absence of right great toe; Z86.73 Personal history of transient ischemic attack (TIA), and cerebral infarction without residual deficits; Z90.710 Acquired absence of both cervix and uterus | CPT/HCPCS: 99214; G0463 ==

== ENCOUNTER 2020-07-03 17:50 | Inpatient (IN) | payer MEDICARE ==
[2020-07-03] MEDS ORDERED: HYDROcodone/ACETAMINOPHEN 5-325 MG TAB PO ONE (18:07)
--- NOTE | 2020-07-03 18:11 | Emergency Department Report ---
ED Fall HPI - General Stated Complaint: FALL, HYPERTENSION Time Seen by Provider: 07/03/20 18:05 Source: patient, EMS, old records reviewed Mode of arrival: Stretcher Limitations: Other (dementia) - History of Present Illness Initial Comments: CC: fall HPI: This is a 79-year-old female with history of CVA, hypertension, diabetes mellitus, UTI, right foot osteomyelitis who fell from a bed. Daughter found her on the floor. She has right hip thigh pain. History limited due to history of dementia and dysarthria. Patient receives [facility] hospice care. Patient appeared pale. She has hx of dysarthria. Her speech seemed more slurred than usual. [id number] is concerned for possible stroke. She has persistent symptoms of dysarthria, dysphagia and gait imbalance due to previous strokes. 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 Fall Witnessed: yes, by family Place Fall Occurred: home Loss of Consciousness: none Prolonged Down Time?: no, yes Location: other (Right hip) Location - Extremities: Right: Leg Severity: mild, moderate Context: other (Patient fell from standing position) - Related Data Home Medications Medication Instructions Recorded Confirmed Last Taken Rosuvastatin Calcium [Crestor] 40 mg PO DAILY 06/20/14 03/25/19 03/24/19 10:00 FLUoxetine HCL [Prozac] 60 mg PO DAILY 03/25/19 03/25/19 03/24/19 10:00 Previous Rx's Medication Instructions Recorded Last Taken Type Clopidogrel [Plavix] 75 mg PO QDAY tablet 04/10/19 Unknown Rx bisacodyL [Dulcolax suppos] 10 mg PA QDAY PRN supp.rect 04/10/19 Unknown Rx traMADoL [Ultram 50 MG tab] 50 mg PO Q6HR PRN #7 tablet 04/10/19 Unknown Rx Acetaminophen [Acetaminophen TAB] 1 tab PO Q4H PRN #15 tablet 04/14/19 Unknown Rx Aspirin [Aspirin BABY CHEW TAB] 81 mg PO QDAY #30 tab.chew 04/14/19 Unknown Rx Lispro Insulin [HumaLOG] 1 dose SQ ACHS PRN #1 vial 04/14/19 Unknown Rx PriLOSEC Otc 20 mg PO DAILY #15 04/14/19 03/24/19 10:00 Rx oxyCODONE /ACETAMINOPHEN [Percocet 1 tab PO Q6H PRN #15 tablet 04/14/19 Unknown Rx 5/325 mg] Allergies Allergy/AdvReac Type Severity Reaction Status Date / Time No Known Allergies Allergy Verified 02/03/18 01:53 ED Review of Systems ROS: Stated complaint: FALL, HYPERTENSION Other details as noted in HPI Comment: Unobtainable due to pts medical conditions (Limited due to dementia) ED Past Medical Hx - Past Medical History Previous Medical History?: Yes Hx Hypertension: Yes Hx CVA: Yes Hx Heart Attack/AMI: No Hx Diabetes: Yes Hx Deep Vein Thrombosis: No Hx Liver Disease: No Hx Renal Disease: No - Surgical History Past Surgical History?: Yes Hx Pacemaker: No Hx Internal Defibrillator: No Additional Surgical History: hysterectomy 1981 - Social History Smoking Status: Never Smoker - Medications Home Medications: Home Medications Medication Instructions Recorded Confirmed Last Taken Type Rosuvastatin Calcium [Crestor] 40 mg PO DAILY 06/20/14 03/25/19 03/24/19 10:00 History FLUoxetine HCL [Prozac] 60 mg PO DAILY 03/25/19 03/25/19 03/24/19 10:00 History Clopidogrel [Plavix] 75 mg PO QDAY tablet 04/10/19 Unknown Rx bisacodyL [Dulcolax suppos] 10 mg PA QDAY PRN supp.rect 04/10/19 Unknown Rx traMADoL [Ultram 50 MG tab] 50 mg PO Q6HR PRN #7 tablet 04/10/19 Unknown Rx Acetaminophen [Acetaminophen TAB] 1 tab PO Q4H PRN #15 tablet 04/14/19 Unknown Rx Aspirin [Aspirin BABY CHEW TAB] 81 mg PO QDAY #30 tab.chew 04/14/19 Unknown Rx Lispro Insulin [HumaLOG] 1 dose SQ ACHS PRN #1 vial 04/14/19 Unknown Rx PriLOSEC Otc 20 mg PO DAILY #15 04/14/19 03/25/19 03/24/19 10:00 Rx oxyCODONE /ACETAMINOPHEN [Percocet 1 tab PO Q6H PRN #15 tablet 04/14/19 Unknown Rx 5/325 mg] ED Physical Exam - General Limitations: Other (Dementia) General appearance: alert, in no apparent distress - Head Head exam: Present: atraumatic, normocephalic - Eye Eye exam: Present: normal appearance - ENT ENT exam: Present: mucous membranes moist - Neck Neck exam: Present: normal inspection, full ROM - Respiratory Respiratory exam: Present: normal lung sounds bilaterally. Absent: respiratory distress, wheezes, rales, rhonchi - Cardiovascular Cardiovascular Exam: Present: regular rate, normal rhythm. Absent: rubs, gallop - GI/Abdominal GI/Abdominal exam: Present: soft, normal bowel sounds. Absent: distended, tenderness, guarding, rebound - Extremities Exam Extremities exam: Present: other (Patient holds right lower extremity flexed at the hip flex at the knee, patient is guarding the leg. No obvious deformity. Patient is able to move foot distally.) - Neurological Exam Neurological exam: Present: alert, other (Oriented to name) - Psychiatric Psychiatric exam: Present: flat affect - Skin Skin exam: Present: warm, dry, intact, normal color. Absent: rash ED Course Vital Signs 07/03/20 07/03/20 07/03/20 18:13 18:14 18:49 Temperature 97.9 F 97.9 F Pulse Rate 51 L 51 L 55 L Respiratory 15 15 Rate Blood Pressure 148/86 Blood Pressure 148/86 [Left] O2 Sat by Pulse 95 95 Oximetry ED Medical Decision Making - Radiology Data Radiology results: report reviewed X-ray radiographs: Right intertrochanteric femur fracture according to radiology findings and my personal interpretation - Medical Decision Making Right intertrochanteric femur fracture after a fall out of bed. I consulted Dr. Ness orthopedic surgeon who recommended making patient n.p.o. in anticipation that she will be a candidate for surgery tomorrow. I had an extensive conversation performed with multiple family members including 2 children and [id number]. They understand that conservative therapy may be an option considering patient's multiple medical conditions. Family member was concerned for possible stroke which led to the fall out of bed. Patient has baseline dysarthria dysphagia. I do not see a focal neurological finding to indicate acute CVA. I do not suspect TIA. NIH stroke scale 3 patient is unable to answer questions appropriately due to history of dementia. Patient also has baseline dysarthria. Patient admitted to the hospital service in stable condition. Critical care attestation.: If time is entered above; I have spent that time in minutes in the direct care of this critically ill patient, excluding procedure time. ED Disposition Clinical Impression: Fall from bed, Fracture, intertrochanteric, right femur Disposition: DC-09 OP ADMIT IP TO THIS HOSP Is pt being admited?: Yes Does the pt Need Aspirin: No Condition: Stable - Assessment Assessment Interval: Baseline - Level of Consciousness 1a. Level of Consciousness: alert/keenly responsive - LOC Questions 1b. LOC Questions: answers no questions correctly - LOC Command 1c. LOC Commands: performs tasks correctly - Best Gaze 2. Best Gaze: normal - Visual 3. Visual: no visual loss - Facial Palsy 4. Facial Palsy: normal symmetrical movement - Motor Arm 5a. Motor Arm Left: no drift 5b. Motor Arm Right: no drift - Motor Leg 6a. Motor Leg Left: no drift 6b. Motor Leg Right: no drift - Limb Ataxia 7. Limb Ataxia: absent - Sensory 8. Sensory: normal - Best Language 9. Best Language: no aphasia - Dysarthria 10. Dysarthria: mild/moderate dysarthria - Extinction and Inattention 11. Extinction/Inattention: no abnormality - Scoring Total Score: 3 Stroke Severity: Minor Stroke
--- NOTE | 2020-07-03 18:39 | XRay Report ---
RIGHT HIP 2 VIEWS INDICATION / CLINICAL INFORMATION: fall right hip pain COMPARISON: None available. FINDINGS: BONES / JOINT(S): There is an intertrochanteric fracture of the right femur. Degenerative change in b oth hip joints SOFT TISSUES: Atherosclerotic calcifications are noted ADDITIONAL FINDINGS: None. Signer Name: Yovanny Shoemaker MD Signed: 07/03/2020 6:35 PM Workstation Name: [id number]
[2020-07-03] MEDS ORDERED: ONDANSETRON 4 MG/2 ML INJ IV ONE (18:59)
[2020-07-03] MEDS ORDERED: MORPHINE 4 MG/1 ML INJ IV ONE (18:59)
[2020-07-03 19:21] LABS: Basophils % (Auto) 0.2 % (0.0-1.8); Eosinophils % (Auto) 0.3 % (0.0-4.3); Hematocrit 40.3 % (30.3-42.9); Hemoglobin 13.1 gm/dl (10.1-14.3); Lymphocytes # (Auto) 0.9 K/mm3 (1.2-5.4); Lymphocytes % (Auto) 5.9 % (13.4-35.0); Mean Corpuscular HGB Conc 33 % (30-34); Mean Corpuscular Volume 89 fl (79-97); Monocytes # (Auto) 0.6 K/mm3 (0.0-0.8); Monocytes % (Auto) 3.8 % (0.0-7.3); Platelet Count 196 K/mm3 (140-440); Red Blood Count 4.54 M/mm3 (3.65-5.03); Red Cell Distribution Width 14.7 % (13.2-15.2)
[2020-07-03 19:30] LABS: INR 0.9 (0.87-1.13); Partial Thromboplastin Time 24.3 Sec. (24.2-36.6)
[2020-07-03 19:39] LABS: BUN/Creatinine Ratio 23; Blood Urea Nitrogen 25 mg/dL (7-17); Calcium 9.5 mg/dL (8.4-10.2); Hemolysis Index 11
--- NOTE | 2020-07-03 19:49 | Cat Scan Report ---
CT head/brain wo con INDICATION / CLINICAL INFORMATION: 79 years Female; Stroke symptoms. TECHNIQUE: Routine CT head without contrast. All CT scans at this location are performed using CT dos e reduction for ALARA by means of automated exposure control. COMPARISON: The study is compared to the previous CT of 02/03/2018. FINDINGS: BRAIN / INTRACRANIAL CONTENTS: There are old infarcts involving the left montejo radiata and left irene which appear to correlate with previous CT given the differences in technique. There is otherwise mi ld cerebral white matter disease most consistent with microvascular angiopathy. There is also mild ce rebral atrophy with associated prominence of the ventricular system which appear stable. There are persistent a small foci of calcification within the basal ganglia. There is no clear CT joycelyn dence of acute intracranial hemorrhage or significant mass effect. ORBITS: No significant abnormality of visualized orbits. SINUSES / MASTOIDS: No significant abnormality in the visualized paranasal sinuses or mastoid air dianne ls. CRANIOCERVICAL JUNCTION: No significant abnormality. ADDITIONAL FINDINGS: None. IMPRESSION: 1. There is microvascular angiopathy as detailed above without CT evidence of acute intracranial hemo rrhage. Signer Name: Cyrus Nunes MD Signed: 07/03/2020 7:45 PM Workstation Name: [id number]
--- NOTE | 2020-07-03 20:18 | XRay Report ---
CHEST 1 VIEW 07/03/2020 7:05 PM INDICATION / CLINICAL INFORMATION: hip fracture. COMPARISON: 07/13/2016 FINDINGS: SUPPORT DEVICES: None. HEART / MEDIASTINUM: No significant abnormality. LUNGS / PLEURA: There are low lung volumes bilaterally. There is mild basilar atelectasis. No pneumot horax. ADDITIONAL FINDINGS: No significant additional findings. IMPRESSION: 1. No acute findings. Signer Name: Yovanny Shoemaker MD Signed: 07/03/2020 8:14 PM Workstation Name: [id number]
[2020-07-03] MEDS ORDERED: MORPHINE 2 MG/1 ML INJ ONE (20:42)
[2020-07-03] MEDS ORDERED: ONDANSETRON 4 MG/2 ML INJ ONE (20:42)
[2020-07-03] MEDS ORDERED: ACETAMINOPHEN 325 MG TAB PO PRN ×2 (23:54→23:55)
[2020-07-03] MEDS ORDERED: traMADol 50 MG TAB PO PRN (23:54)
[2020-07-03] MEDS ORDERED: METOCLOPRAMIDE 10 MG/2 ML INJ IV PRN (23:55)
[2020-07-03] MEDS ORDERED: ONDANSETRON 4 MG/2 ML INJ IV PRN (23:55)
[2020-07-03] MEDS ORDERED: HYDROmorphone 1 MG/1 ML INJ IV PRN (23:55)
--- NOTE | 2020-07-03 23:58 | History and Physical Report ---
History of Present Illness Date of examination: 07/03/20 Date of admission: 07/03/20 19:05 Chief complaint: Right hip pain for few hours History of present illness: 79-year-old female with history of cerebrovascular accident, hypertension, type 2 diabetes, right foot osteomyelitis fell from her bed. Daughter found her on the floor. Patient has right hip pain. Patient unable to walk and patient has severe pain ranging from 8-10 on a scale of 1-10. Patient is also in hospice care and getting home health. Patient is on Prilosec for stroke. No exposure to coronavirus. - Past Medical History Previous Medical History?: Yes --Hypertension: Yes --CVA: Yes --Diabetes: Yes - Surgical History Past Surgical History?: Yes Additional Surgical History: hysterectomy 1981 - Social History --Never Smoker --Family history Htn - Medications Home Medications: Home Medications Medication Instructions Recorded Confirmed Last Taken Type Rosuvastatin Calcium [Crestor] 40 mg PO DAILY 06/20/14 03/25/19 03/24/19 10:00 History FLUoxetine HCL [Prozac] 60 mg PO DAILY 03/25/19 03/25/19 03/24/19 10:00 History Clopidogrel [Plavix] 75 mg PO QDAY tablet 04/10/19 Unknown Rx bisacodyL [Dulcolax suppos] 10 mg ME QDAY PRN supp.rect 04/10/19 Unknown Rx traMADoL [Ultram 50 MG tab] 50 mg PO Q6HR PRN #7 tablet 04/10/19 Unknown Rx Acetaminophen [Acetaminophen TAB] 1 tab PO Q4H PRN #15 tablet 04/14/19 Unknown Rx Aspirin [Aspirin BABY CHEW TAB] 81 mg PO QDAY #30 tab.chew 04/14/19 Unknown Rx Lispro Insulin [HumaLOG] 1 dose SQ ACHS PRN #1 vial 04/14/19 Unknown Rx PriLOSEC Otc 20 mg PO DAILY #15 04/14/19 03/25/19 03/24/19 10:00 Rx oxyCODONE /ACETAMINOPHEN [Percocet 1 tab PO Q6H PRN #15 tablet 04/14/19 Unknown Rx 5/325 mg] Review of Systems ROS: Constitutional no weight loss or weight gain no fever or chills HEENT no sore throat no post nasal drip no diplopia Neck no neck stiffness no lymph gland enlargement Chest and lungs no shortness of breath cough or wheezing CVS no chest pain no diaphoresis no palpitations GI no nausea no vomiting no diarrhea Genitourinary system no dysuria no flank pain Musculoskeletal system pain in the right hip and decreased range of motion of the right hip [employer] no syncope no seizures Skin no rash no itching Psychiatric no depression no homicidal or suicidal tendencies Hematologic no lymphedema or bruising Endocrine no polydipsia no polyuria no cold intolerance no heat intolerance Medications and Allergies Allergies Allergy/AdvReac Type Severity Reaction Status Date / Time No Known Allergies Allergy Verified 02/03/18 01:53 Home Medications Medication Instructions Recorded Confirmed Last Taken Type Rosuvastatin Calcium [Crestor] 40 mg PO DAILY 06/20/14 03/25/19 03/24/19 10:00 History FLUoxetine HCL [Prozac] 60 mg PO DAILY 03/25/19 03/25/19 03/24/19 10:00 History Clopidogrel [Plavix] 75 mg PO QDAY tablet 04/10/19 Unknown Rx bisacodyL [Dulcolax suppos] 10 mg ME QDAY PRN supp.rect 04/10/19 Unknown Rx traMADoL [Ultram 50 MG tab] 50 mg PO Q6HR PRN #7 tablet 04/10/19 Unknown Rx Acetaminophen [Acetaminophen TAB] 1 tab PO Q4H PRN #15 tablet 04/14/19 Unknown Rx Aspirin [Aspirin BABY CHEW TAB] 81 mg PO QDAY #30 tab.chew 04/14/19 Unknown Rx Lispro Insulin [HumaLOG] 1 dose SQ ACHS PRN #1 vial 04/14/19 Unknown Rx PriLOSEC Otc 20 mg PO DAILY #15 04/14/19 03/25/19 03/24/19 10:00 Rx oxyCODONE /ACETAMINOPHEN [Percocet 1 tab PO Q6H PRN #15 tablet 04/14/19 Unknown Rx 5/325 mg] Exam - Constitutional Vitals: Temp Pulse Resp BP Pulse Ox 98.2 F 85 18 132/79 93 07/03/20 21:29 07/03/20 21:29 07/03/20 21:29 07/03/20 21:29 07/03/20 21:29 HEART Score - HEART Score Troponin: Troponin T < 0.010 ng/mL (0.00-0.029) 07/03/20 18:58 Results - Labs CBC & Chem 7: 07/03/20 18:58 07/03/20 18:58 Labs: Laboratory Last Values WBC 15.5 K/mm3 (4.5-11.0) H 07/03/20 18:58 RBC 4.54 M/mm3 (3.65-5.03) 07/03/20 18:58 Hgb 13.1 gm/dl (10.1-14.3) 07/03/20 18:58 Hct 40.3 % (30.3-42.9) 07/03/20 18:58 MCV 89 fl (79-97) 07/03/20 18:58 MCH 29 pg (28-32) 07/03/20 18:58 MCHC 33 % (30-34) 07/03/20 18:58 RDW 14.7 % (13.2-15.2) 07/03/20 18:58 Plt Count 196 K/mm3 (140-440) 07/03/20 18:58 Lymph % (Auto) 5.9 % (13.4-35.0) L 07/03/20 18:58 Blanco % (Auto) 3.8 % (0.0-7.3) 07/03/20 18:58 Eos % (Auto) 0.3 % (0.0-4.3) 07/03/20 18:58 Baso % (Auto) 0.2 % (0.0-1.8) 07/03/20 18:58 Lymph # (Auto) 0.9 K/mm3 (1.2-5.4) L 07/03/20 18:58 Blanco # (Auto) 0.6 K/mm3 (0.0-0.8) 07/03/20 18:58 Eos # (Auto) 0.0 K/mm3 (0.0-0.4) 07/03/20 18:58 Baso # (Auto) 0.0 K/mm3 (0.0-0.1) 07/03/20 18:58 Seg Neutrophils % 89.8 % (40.0-70.0) H 07/03/20 18:58 Seg Neutrophils # 14.0 K/mm3 (1.8-7.7) H 07/03/20 18:58 PT 12.0 Sec. (12.2-14.9) L 07/03/20 18:58 INR 0.90 (0.87-1.13) 07/03/20 18:58 APTT 24.3 Sec. (24.2-36.6) 07/03/20 18:58 Sodium 140 mmol/L (137-145) 07/03/20 18:58 Potassium 3.9 mmol/L (3.6-5.0) 07/03/20 18:58 Chloride 103.3 mmol/L (98-107) 07/03/20 18:58 Carbon Dioxide 26 mmol/L (22-30) 07/03/20 18:58 Anion Gap 15 mmol/L 07/03/20 18:58 BUN 25 mg/dL (7-17) H 07/03/20 18:58 Creatinine 1.1 mg/dL (0.6-1.2) 07/03/20 18:58 Estimated GFR 48 ml/min 07/03/20 18:58 BUN/Creatinine Ratio 23 % 07/03/20 18:58 Glucose 227 mg/dL (65-100) H 07/03/20 18:58 POC Glucose 191 mg/dL (70-105) H 07/03/20 21:48 Calcium 9.5 mg/dL (8.4-10.2) 07/03/20 18:58 Troponin T < 0.010 ng/mL (0.00-0.029) 07/03/20 18:58 - Imaging and Cardiology Chest x-ray: report reviewed (No acute findings) Venous US: pending Imaging and Cardiology: Right hip x-ray Right hip x-ray intertrochanteric fracture of the right femur Gudino/IV: Voiding Method External Female Catheter IV Catheter Type [Right INT / Saline Lock Antecubital] Assessment and Plan Advance Directives: Yes ( 5 DNR) VTE prophylaxis?: Chemical Plan of care discussed with patient/family: Yes - Patient Problems (1) Fracture, intertrochanteric, right femur Current Visit: Yes Status: Acute Qualifiers: Encounter type: initial encounter Plan to address problem: For ORIF tomorrow Dr. Ness consulted (2) Leukocytosis Current Visit: Yes Status: Acute Plan to address problem: Possible demargination no source of infection (3) HTN (hypertension) Current Visit: No Status: Chronic Qualifiers: Hypertension type: essential hypertension Qualified Code(s): I10 - Essential (primary) hypertension Plan to address problem: Continue antihypertensives (4) IDDM (insulin dependent diabetes mellitus) Current Visit: Yes Status: Chronic Plan to address problem: Coverage for now check hemoglobin A1c (5) HLD (hyperlipidemia) Current Visit: Yes Status: Chronic Qualifiers: Hyperlipidemia type: mixed hyperlipidemia Qualified Code(s): E78.2 - Mixed hyperlipidemia Plan to address problem: Hold statins for now (6) Depression Current Visit: Yes Status: Chronic Qualifiers: Depression Type: unspecified Qualified Code(s): F32.9 - Major depressive disorder, single episode, unspecified Plan to address problem: Continue fluoxetine (7) DVT prophylaxis Current Visit: Yes Status: Acute Plan to address problem: On heparin and GI prophylaxis
[2020-07-04] MEDS: FAMOTIDINE 20 MG/2 ML INJ IV SCH ×3 (01:35→22:15)
[2020-07-04] MEDS: SODIUM CHLORIDE 0.9% 1000 ML 1,000 ML IV SCH ×2 (01:35→23:32)
[2020-07-04 06:26] LABS: Basophils % (Auto) 0.1 % (0.0-1.8); Hemoglobin 12.9 gm/dl (10.1-14.3); Lymphocytes # (Auto) 0.8 K/mm3 (1.2-5.4); Lymphocytes % (Auto) 5.6 % (13.4-35.0); Mean Corpuscular HGB Conc 34 % (30-34); Mean Corpuscular Volume 89 fl (79-97); Monocytes # (Auto) 0.6 K/mm3 (0.0-0.8); Monocytes % (Auto) 4.6 % (0.0-7.3); Platelet Count 188 K/mm3 (140-440); Red Cell Distribution Width 14.7 % (13.2-15.2)
[2020-07-04 06:44] LABS: Alanine Aminotransferase 32 units/L (7-56); Albumin 3.5 g/dL (3.9-5); BUN/Creatinine Ratio 21; Blood Urea Nitrogen 19 mg/dL (7-17); Calcium 9.1 mg/dL (8.4-10.2); Hemolysis Index 22
[2020-07-04] MEDS: INSULIN LISPRO 100 UNIT/ML VIAL 3 mL SUB-Q SCH ×4 (08:00→23:24)
[2020-07-04] MEDS ORDERED: LACTATED RINGERS 1,000 ML ONE (14:06)
[2020-07-04] MEDS ORDERED: LACTATED RINGERS 1,000 ML IV SCH (15:15)
--- NOTE | 2020-07-04 16:51 | Consultation ---
History of Present Illness - [facility] Consult date: 07/04/20 Consult reason: fracture History of present illness: 79-year-old female with history of CVA, hypertension, type 2 diabetes, and right foot osteomyelitis fell from her bed. Daughter found her on the floor. Patient has right hip pain. Patient unable to walk and patient has severe pain ranging from 8-10 on a scale of 1-10. Patient is also in hospice care and getting home health. plain xrays taken in the ED reveal displaced right intertrochanteric fracture right hip... Medications and Allergies Allergies Allergy/AdvReac Type Severity Reaction Status Date / Time No Known Allergies Allergy Verified 02/03/18 01:53 Home Medications Medication Instructions Recorded Confirmed Last Taken Type Rosuvastatin Calcium [Crestor] 40 mg PO DAILY 06/20/14 03/25/19 03/24/19 10:00 History FLUoxetine HCL [Prozac] 60 mg PO DAILY 03/25/19 03/25/19 03/24/19 10:00 History Clopidogrel [Plavix] 75 mg PO QDAY tablet 04/10/19 Unknown Rx bisacodyL [Dulcolax suppos] 10 mg MD QDAY PRN supp.rect 04/10/19 Unknown Rx traMADoL [Ultram 50 MG tab] 50 mg PO Q6HR PRN #7 tablet 04/10/19 Unknown Rx Acetaminophen [Acetaminophen TAB] 1 tab PO Q4H PRN #15 tablet 04/14/19 Unknown Rx Aspirin [Aspirin BABY CHEW TAB] 81 mg PO QDAY #30 tab.chew 04/14/19 Unknown Rx Lispro Insulin [HumaLOG] 1 dose SQ ACHS PRN #1 vial 04/14/19 Unknown Rx PriLOSEC Otc 20 mg PO DAILY #15 04/14/19 03/25/19 03/24/19 10:00 Rx oxyCODONE /ACETAMINOPHEN [Percocet 1 tab PO Q6H PRN #15 tablet 04/14/19 Unknown Rx 5/325 mg] Active Meds: Active Medications Acetaminophen (Tylenol) 650 mg PO Q4H PRN PRN Reason: Pain MILD(1-3)/Fever >100.5/OQUENDO Bisacodyl (Dulcolax) 10 mg MD QDAY PRN PRN Reason: Constipation Famotidine (Pepcid) 20 mg IV BID LOVELY Last Admin: 07/04/20 10:00 Dose: 20 mg Documented by: Fluoxetine HCl (Prozac) 60 mg PO DAILY LOVELY Hydromorphone HCl (Dilaudid) 0.5 mg IV Q3H PRN PRN Reason: Pain , Severe (7-10) Last Admin: 07/04/20 01:35 Dose: 0.5 mg Documented by: Sodium Chloride (Nacl 0.9% 1000 Ml) 1,000 mls @ 75 mls/hr IV DIRECT LOVELY Last Admin: 07/04/20 01:35 Dose: 75 mls/hr Documented by: Lactated Ringer's (Lactated Ringers) 1,000 mls @ 42 mls/hr IV DIRECT LOVELY Insulin Human Lispro (Humalog) 0 unit SUB-Q ACHS LOVELY; Protocol Metoclopramide HCl (Reglan) 10 mg IV Q6H PRN PRN Reason: Nausea And Vomiting Ondansetron HCl (Zofran) 4 mg IV Q3H PRN PRN Reason: Nausea And Vomiting Last Admin: 07/04/20 01:41 Dose: 4 mg Documented by: Oxycodone/Acetaminophen (Percocet 5/325) 1 tab PO Q6H PRN PRN Reason: Pain, Moderate (4-6) Sodium Chloride (Sodium Chloride Flush Syringe 10 Ml) 10 ml IV BID LOVELY Last Admin: 07/04/20 10:01 Dose: Not Given Documented by: Sodium Chloride (Sodium Chloride Flush Syringe 10 Ml) 10 ml IV PRN PRN PRN Reason: LINE FLUSH Tramadol HCl (Ultram) 50 mg PO Q6H PRN PRN Reason: PAIN (4-6) Physical Examination - Physical exam Narrative exam: RLE - shortened externally rotated, moderate swelling, skin intact, tender proximally, decreased active ROM, distal n/v intact Eyes: PERRL ENT: Positive: clear oral mucosa Respiratory effort: normal Respiratory: bilateral: CTA Rhythm: regular Heart Sounds: Positive: S1 & S2 General gastrointestinal: Positive: soft, non-tender, non-distended, normal bowel sounds Integumentary: clear, warm, dry Neurologic: Positive: CNII-XII intact, moves all extremities, gait normal. Negative: focal deficits Assessment and Plan Right intertrochanteric hip fracture Recommendation since patient is somewhat ambulatory at home recommended intramedullary nail fixation for this patient
[2020-07-04] MEDS: FLUoxetine 20 MG CAP PO SCH (18:01)
--- NOTE | 2020-07-05 07:38 | Progress Note ---
Assessment and Plan - Patient Problems (1) Fracture, intertrochanteric, right femur Current Visit: Yes Status: Acute Qualifiers: Encounter type: initial encounter Plan to address problem: For ORIG Dr Ness consulted (2) Leukocytosis Current Visit: Yes Status: Acute Plan to address problem: Possible demargination no source of infection (3) HTN (hypertension) Current Visit: No Status: Chronic Qualifiers: Hypertension type: essential hypertension Qualified Code(s): I10 - Essential (primary) hypertension Plan to address problem: Continue antihypertensives (4) IDDM (insulin dependent diabetes mellitus) Current Visit: Yes Status: Chronic Plan to address problem: Coverage for now check hemoglobin A1c (5) HLD (hyperlipidemia) Current Visit: Yes Status: Chronic Qualifiers: Hyperlipidemia type: mixed hyperlipidemia Qualified Code(s): E78.2 - Mixed hyperlipidemia Plan to address problem: Hold statins for now (6) Depression Current Visit: Yes Status: Chronic Qualifiers: Depression Type: unspecified Qualified Code(s): F32.9 - Major depressive disorder, single episode, unspecified Plan to address problem: Continue fluoxetine (7) DVT prophylaxis Current Visit: Yes Status: Acute Plan to address problem: On heparin and GI prophylaxis Subjective Date of service: 07/04/20 Principal diagnosis: L Hip Fx Interval history: 79-year-old female with history of cerebrovascular accident, hypertension, type 2 diabetes, right foot osteomyelitis fell from her bed. Daughter found her on the floor. Patient has right hip pain. Patient unable to walk and patient has severe pain ranging from 8-10 on a scale of 1-10. Patient is also in hospice care and getting home health. Patient is on Prilosec for stroke. No exposure to coronavirus. Objective - Constitutional Vitals: Vital Signs - 12hr 07/04/20 07/05/20 22:37 03:55 Temperature 98.8 F 98.0 F Pulse Rate 88 91 H Respiratory 18 18 Rate Blood Pressure 96/54 105/70 O2 Sat by Pulse 96 97 Oximetry General appearance: Present: no acute distress, well-nourished - EENT Eyes: PERRL, EOM intact ENT: hearing intact, clear oral mucosa Ears: bilateral: normal - Neck Neck: supple, normal ROM - Respiratory Respiratory effort: normal Respiratory: bilateral: CTA - Breasts Breasts: normal - Cardiovascular Heart rate: 78 Rhythm: regular Heart Sounds: Present: S1 & S2. Absent: gallop, rub Extremities: pulses intact, No edema, normal color, Full ROM, abnormal (Decreased ROM L Hip) Extremity abnormal: other (Decreased ROM L Hip) - Gastrointestinal General gastrointestinal: Present: soft, non-tender, non-distended, normal bowel sounds - Genitourinary Female genitourinary: normal - Integumentary Integumentary: clear, warm, dry - Musculoskeletal Musculoskeletal: 1, strength equal bilaterally - Neurologic Neurologic: moves all extremities - Psychiatric Psychiatric: memory intact, appropriate mood/affect, intact judgment & insight - Labs CBC & Chem 7: 07/07/20 15:44 07/07/20 15:44 Labs: Abnormal lab results 07/04/20 07/04/20 07/04/20 Range/Units 10:38 13:13 14:00 POC Glucose 156 H 178 H 167 H (70-105) mg/dL 07/04/20 07/04/20 Range/Units 16:15 22:36 POC Glucose 179 H 220 H (70-105) mg/dL HEART Score - HEART Score Troponin: Troponin T < 0.010 ng/mL (0.00-0.029) 07/03/20 18:58
--- NOTE | 2020-07-05 07:52 | Anesthesia Consultation ---
Anesthesia Consult and Med Hx Date of service: 07/05/20 - Airway Anesthetic Teeth Evaluation: Poor ROM Head & Neck: Adequate Mental/Hyoid Distance: Adequate Mallampati Class: Class II Intubation Access Assessment: Probably Good - Pre-Operative Health Status ASA Pre-Surgery Classification: ASA3 Proposed Anesthetic Plan: General - Pulmonary Hx Smoking: No Hx Respiratory Symptoms: No - Cardiovascular System Hx Hypertension: Yes Hx Coronary Artery Disease: No ( high cholesterol) Hx Heart Attack/AMI: No Hx Percutaneous Transluminal Coronary Angioplasty (PTCA): No Hx Pacemaker: No Hx Internal Defibrillator: No - Central Nervous System 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
--- NOTE | 2020-07-05 07:52 | Anesthesia Day of Surgery ---
Anesthesia Day of Surgery - Day of Surgery Patient Examined: Yes Patient H&P Reviewed: Yes Patient is NPO: Yes
[2020-07-05] MEDS: INSULIN LISPRO 100 UNIT/ML VIAL 3 mL SUB-Q SCH ×4 (08:00→21:37)
[2020-07-05] MEDS ORDERED: ROCURONIUM 50 MG/5 ML INJ IV ONE (08:55)
[2020-07-05] MEDS ORDERED: LIDOCAINE MPF (2%) 20 MG/1 ML VIAL 5 ML ONE (08:55)
[2020-07-05] MEDS ORDERED: ONDANSETRON 4 MG/2 ML INJ ONE (08:55)
[2020-07-05] MEDS ORDERED: SODIUM CHLORIDE P/F VIAL 10 ML 10 ML ONE (08:56)
[2020-07-05] MEDS ORDERED: HYDROmorphone 1 MG/1 ML INJ ONE (08:56)
[2020-07-05] MEDS ORDERED: propofoL 200 MG/20 ML VIAL IV ONE (08:56)
[2020-07-05] MEDS ORDERED: KETOROLAC 30 MG/1 ML INJ ONE (09:41)
[2020-07-05] MEDS ORDERED: BUPIVACAINE/PF (0.5%) 5 MG/1 ML 30 ML VIAL INFILTRATI ONE ×2 (09:41→10:42)
[2020-07-05] MEDS ORDERED: MORPHINE 10 MG/1 ML INJ ONE (09:42)
[2020-07-05] MEDS ORDERED: SODIUM CHLORIDE 0.9% 250ML 250 ML ONE (09:42)
[2020-07-05] MEDS ORDERED: ceFAZolin 1 GM VIAL ONE ×2 (10:19)
[2020-07-05] MEDS ORDERED: KETOROLAC 30 MG/1 ML INJ IV ONE (10:42)
[2020-07-05] MEDS ORDERED: SODIUM CHLORIDE 0.9% 250 ML IVPB IV ONE (10:42)
[2020-07-05] MEDS ORDERED: MORPHINE 10 MG/1 ML INJ IM ONE (10:42)
[2020-07-05] MEDS ORDERED: PHENYLEPHRINE/NS 1,000 MCG/10 ML SYRINGE (OR USE) IV ONE (11:01)
[2020-07-05] MEDS ORDERED: GLYCOPYRROLATE 0.4 MG/2 ML INJ ONE (11:03)
[2020-07-05] MEDS ORDERED: NEOSTIGMINE 10MG/10 ML INJ MDV ONE (11:03)
--- NOTE | 2020-07-05 11:28 | Procedure Note ---
Date of procedure: 07/05/20 Pre-op diagnosis: Right intertrochanteric hip fracture Post-op diagnosis: same Procedure: Closed reduction insertion of intramedullary nail right femur Procedure The patient was brought to the OR on the hospital bed following induction and intubation by anesthesia the patient was then transferred onto the [place] table supine, the legs were placed in longitudinal traction The C-arm fluoroscope was brought in and the hip was reduced in both the AP and lateral planes. Next the right hip was prepped and draped in the usual sterile manner a stab wound was made posterior and superior to the greater trochanter this is carried down sharply through skin and fascia using a Salguero elevator the soft tissues were split down to the tip of the greater trochanter A large awl was used to enter the proximal medullary canal this was followed by placement of the guidewire again under C-arm visualization the tip of the guidewire was seen in the distal femur next the measurements were obtained a 11 x 360 intramedullary nail was selected this was followed by reaming up to a 12-1/2 mm diameter following this the intramedullary nail was inserted and a antegrade fashion down the proximal canal into the distal femur next the targeting device for the helical blade was placed and the stab wound was made along the lateral border of the thigh again under C-arm visualization a guidewire was inserted into the femoral neck again measuring this delay a 90 mm helical blade was chosen the forearm or near cortex was drilled followed by insertion of the proximal helical blade next the locking screw proximally was engaged again under C-arm direction AP and lateral views were obtained showing good reduction at the fracture and placement of the hardware following this a wound was copiously irrigated and was closed in a standard routine fashion and the patient tolerated the procedure there were no complications and he was sent to postanesthesia recovery in stable condition Anesthesia: GETA Surgeon: JOSE ROSADO Access Services Assistant: SERGEY CHOWDHURY Estimated blood loss: other (300 cc) Pathology: none Condition: stable Disposition: PACU
--- NOTE | 2020-07-05 11:40 | XRay Report ---
XR femur 1V RT INDICATION / CLINICAL INFORMATION: RT FEMUR RODDING. COMPARISON: None available. FINDINGS: ORIF of proximal right femur fracture Fluoroscopy time: 37 seconds. Fluoroscopic images: 2. IMPRESSION: 1. ORIF of proximal right femur fracture Signer Name: Luan Dominguez MD FACAnni Signed: 07/05/2020 11:36 AM Workstation Name: [id number]
[2020-07-05] MEDS ORDERED: HYDROmorphone 1 MG/1 ML INJ IV PRN ×2 (12:38)
[2020-07-05] MEDS ORDERED: ONDANSETRON 4 MG/2 ML INJ IV PRN (12:38)
[2020-07-05] MEDS: KETOROLAC 30 MG/1 ML INJ IV PRN (14:04)
[2020-07-05] MEDS: FAMOTIDINE 20 MG TAB PO SCH ×2 (16:40→21:28)
[2020-07-05] MEDS: FLUoxetine 20 MG CAP PO SCH (16:40)
[2020-07-05] MEDS: SODIUM CHLORIDE 0.9% 1000 ML 1,000 ML IV SCH (16:44)
--- NOTE | 2020-07-05 19:12 | Progress Note ---
Assessment and Plan - Patient Problems (1) Fracture, intertrochanteric, right femur Current Visit: Yes Status: Acute Qualifiers: Encounter type: initial encounter Plan to address problem: For ORIF tomorrow Dr. Ness consulted (2) Leukocytosis Current Visit: Yes Status: Acute Plan to address problem: Possible demargination no source of infection (3) HTN (hypertension) Current Visit: No Status: Chronic Qualifiers: Hypertension type: essential hypertension Qualified Code(s): I10 - Essential (primary) hypertension Plan to address problem: Continue antihypertensives (4) IDDM (insulin dependent diabetes mellitus) Current Visit: Yes Status: Chronic Plan to address problem: Coverage for now check hemoglobin A1c (5) HLD (hyperlipidemia) Current Visit: Yes Status: Chronic Qualifiers: Hyperlipidemia type: mixed hyperlipidemia Qualified Code(s): E78.2 - Mixed hyperlipidemia Plan to address problem: Hold statins for now (6) Depression Current Visit: Yes Status: Chronic Qualifiers: Depression Type: unspecified Qualified Code(s): F32.9 - Major depressive disorder, single episode, unspecified Plan to address problem: Continue fluoxetine (7) DVT prophylaxis Current Visit: Yes Status: Acute Plan to address problem: On heparin and GI prophylaxis Subjective Date of service: 07/05/20 Objective - Constitutional Vitals: Vital Signs - 12hr 07/05/20 07/05/20 07/05/20 07:30 09:37 11:16 Temperature 98.0 F 99.6 F Pulse Rate 92 H 53 L Respiratory 18 16 Rate Blood Pressure 124/74 162/69 O2 Sat by Pulse 97 97 100 Oximetry 07/05/20 07/05/20 07/05/20 11:20 11:25 11:30 Temperature Pulse Rate 84 81 Respiratory 16 16 16 Rate Blood Pressure 162/69 187/69 197/76 O2 Sat by Pulse 100 100 100 Oximetry 07/05/20 07/05/20 07/05/20 11:35 11:45 12:00 Temperature 98.6 F Pulse Rate 84 84 84 Respiratory 18 16 15 Rate Blood Pressure 178/73 164/56 184/55 O2 Sat by Pulse 99 99 99 Oximetry 07/05/20 07/05/20 07/05/20 12:06 12:16 16:03 Temperature 97.8 F 97.5 F L Pulse Rate 89 89 83 Respiratory 15 18 18 Rate Blood Pressure 160/59 160/59 121/51 O2 Sat by Pulse 99 97 97 Oximetry 07/05/20 16:52 Temperature Pulse Rate Respiratory Rate Blood Pressure O2 Sat by Pulse 95 Oximetry General appearance: Present: no acute distress, well-nourished - EENT Eyes: PERRL, EOM intact ENT: hearing intact, clear oral mucosa Ears: bilateral: normal - Neck Neck: supple, normal ROM - Respiratory Respiratory effort: normal Respiratory: bilateral: CTA - Breasts Breasts: normal - Cardiovascular Rhythm: regular Heart Sounds: Present: S1 & S2. Absent: gallop, rub Extremities: pulses intact, No edema, normal color, Full ROM - Gastrointestinal General gastrointestinal: Present: soft, non-tender, non-distended, normal bowel sounds - Genitourinary Female genitourinary: normal - Integumentary Integumentary: clear, warm, dry - Musculoskeletal Musculoskeletal: 1, strength equal bilaterally - Neurologic Neurologic: moves all extremities - Psychiatric Psychiatric: memory intact, appropriate mood/affect, intact judgment & insight - Labs CBC & Chem 7: 07/04/20 06:00 07/04/20 06:00 Labs: Abnormal lab results 07/04/20 07/05/20 07/05/20 Range/Units 22:36 07:30 12:06 POC Glucose 220 H 168 H 177 H (70-105) mg/dL 07/05/20 Range/Units 16:16 POC Glucose 185 H (70-105) mg/dL HEART Score - HEART Score Troponin: Troponin T < 0.010 ng/mL (0.00-0.029) 07/03/20 18:58
[2020-07-06] MEDS: SODIUM CHLORIDE 0.9% 1000 ML 1,000 ML IV SCH (00:27)
[2020-07-06] MEDS: KETOROLAC 30 MG/1 ML INJ IV PRN (00:53)
[2020-07-06 06:35] LABS: Hematocrit 27.3 % (30.3-42.9)
[2020-07-06] MEDS: INSULIN LISPRO 100 UNIT/ML VIAL 3 mL SUB-Q SCH ×4 (09:06→22:00)
[2020-07-06] MEDS: FLUoxetine 20 MG CAP PO SCH (09:07)
[2020-07-06] MEDS: FAMOTIDINE 20 MG TAB PO SCH ×2 (09:08→21:38)
[2020-07-06] MEDS: ENOXAPARIN 40 MG/0.4 ML INJ SUB-Q SCH (09:08)
[2020-07-06] MEDS: oxyCODONE /ACETAMINOPHEN 5-325MG TAB PO PRN ×2 (09:11→17:52)
--- NOTE | 2020-07-06 22:45 | Progress Note ---
Assessment and Plan - Patient Problems (1) Fracture, intertrochanteric, right femur Current Visit: Yes Status: Acute Qualifiers: Encounter type: initial encounter Plan to address problem: For ORIF tomorrow Dr. Ness consulted (2) Leukocytosis Current Visit: Yes Status: Acute Plan to address problem: Possible demargination no source of infection (3) HTN (hypertension) Current Visit: No Status: Chronic Qualifiers: Hypertension type: essential hypertension Qualified Code(s): I10 - Essential (primary) hypertension Plan to address problem: Continue antihypertensives (4) IDDM (insulin dependent diabetes mellitus) Current Visit: Yes Status: Chronic Plan to address problem: Coverage for now check hemoglobin A1c (5) HLD (hyperlipidemia) Current Visit: Yes Status: Chronic Qualifiers: Hyperlipidemia type: mixed hyperlipidemia Qualified Code(s): E78.2 - Mixed hyperlipidemia Plan to address problem: Hold statins for now (6) Depression Current Visit: Yes Status: Chronic Qualifiers: Depression Type: unspecified Qualified Code(s): F32.9 - Major depressive disorder, single episode, unspecified Plan to address problem: Continue fluoxetine (7) DVT prophylaxis Current Visit: Yes Status: Acute Plan to address problem: On heparin and GI prophylaxis Subjective Date of service: 07/06/20 Objective - Constitutional Vitals: Vital Signs - 12hr 07/06/20 07/06/20 07/06/20 11:42 12:00 13:25 Temperature 97.3 F L 97 F L Pulse Rate 100 H 101 H Respiratory 22 22 Rate Blood Pressure 125/43 Blood Pressure 125/43 [Left] O2 Sat by Pulse 96 98 94 Oximetry 07/06/20 07/06/20 07/06/20 15:10 18:52 22:00 Temperature 97.3 F L Pulse Rate 97 H Respiratory 20 17 Rate Blood Pressure 144/68 Blood Pressure [Left] O2 Sat by Pulse 96 100 Oximetry General appearance: Present: no acute distress, well-nourished - EENT Eyes: PERRL, EOM intact ENT: hearing intact, clear oral mucosa Ears: bilateral: normal - Neck Neck: supple, normal ROM - Respiratory Respiratory effort: normal Respiratory: bilateral: CTA - Breasts Breasts: normal - Cardiovascular Rhythm: regular Heart Sounds: Present: S1 & S2. Absent: gallop, rub Extremities: pulses intact, No edema, normal color, Full ROM - Gastrointestinal General gastrointestinal: Present: soft, non-tender, non-distended, normal bowel sounds - Genitourinary Female genitourinary: normal - Integumentary Integumentary: clear, warm, dry - Musculoskeletal Musculoskeletal: 1, strength equal bilaterally - Neurologic Neurologic: moves all extremities - Psychiatric Psychiatric: memory intact, appropriate mood/affect, intact judgment & insight - Labs CBC & Chem 7: 07/06/20 06:22 07/04/20 06:00 Labs: Abnormal lab results 07/06/20 07/06/20 07/06/20 Range/Units 06:22 07:15 11:38 Hgb 9.0 L D (10.1-14.3) gm/dl Hct 27.3 L D (30.3-42.9) % POC Glucose 147 H 171 H (70-105) mg/dL 07/06/20 07/06/20 Range/Units 16:29 22:10 Hgb (10.1-14.3) gm/dl Hct (30.3-42.9) % POC Glucose 168 H 166 H (70-105) mg/dL HEART Score - HEART Score Troponin: Troponin T < 0.010 ng/mL (0.00-0.029) 07/03/20 18:58
[2020-07-07] MEDS: INSULIN LISPRO 100 UNIT/ML VIAL 3 mL SUB-Q SCH ×4 (07:18→23:21)
[2020-07-07] MEDS: FLUoxetine 20 MG CAP PO SCH (12:09)
[2020-07-07] MEDS: ENOXAPARIN 40 MG/0.4 ML INJ SUB-Q SCH (12:09)
[2020-07-07] MEDS: FAMOTIDINE 20 MG TAB PO SCH ×2 (12:09→21:46)
[2020-07-07] MEDS: KETOROLAC 30 MG/1 ML INJ IV PRN (16:10)
[2020-07-07 16:26] LABS: Basophils % (Auto) 0.3 % (0.0-1.8); Eosinophils # (Auto) 0.2 K/mm3 (0.0-0.4); Hematocrit 27.9 % (30.3-42.9); Hemoglobin 9.5 gm/dl (10.1-14.3); Lymphocytes # (Auto) 1.2 K/mm3 (1.2-5.4); Lymphocytes % (Auto) 13.1 % (13.4-35.0); Mean Corpuscular HGB Conc 34 % (30-34); Mean Corpuscular Volume 89 fl (79-97); Monocytes # (Auto) 0.8 K/mm3 (0.0-0.8); Platelet Count 151 K/mm3 (140-440); Red Blood Count 3.15 M/mm3 (3.65-5.03); Red Cell Distribution Width 14.5 % (13.2-15.2)
[2020-07-07 16:40] LABS: BUN/Creatinine Ratio 20; Blood Urea Nitrogen 18 mg/dL (7-17); Calcium 8.3 mg/dL (8.4-10.2); Hemolysis Index 2
--- NOTE | 2020-07-07 21:21 | Progress Note ---
Assessment and Plan - Patient Problems (1) Fracture, intertrochanteric, right femur Current Visit: Yes Status: Acute Qualifiers: Encounter type: initial encounter Plan to address problem: For ORIF tomorrow Dr. Ness consulted (2) Leukocytosis Current Visit: Yes Status: Acute Plan to address problem: Possible demargination no source of infection (3) HTN (hypertension) Current Visit: No Status: Chronic Qualifiers: Hypertension type: essential hypertension Qualified Code(s): I10 - Essential (primary) hypertension Plan to address problem: Continue antihypertensives (4) IDDM (insulin dependent diabetes mellitus) Current Visit: Yes Status: Chronic Plan to address problem: Coverage for now check hemoglobin A1c (5) HLD (hyperlipidemia) Current Visit: Yes Status: Chronic Qualifiers: Hyperlipidemia type: mixed hyperlipidemia Qualified Code(s): E78.2 - Mixed hyperlipidemia Plan to address problem: Hold statins for now (6) Depression Current Visit: Yes Status: Chronic Qualifiers: Depression Type: unspecified Qualified Code(s): F32.9 - Major depressive disorder, single episode, unspecified Plan to address problem: Continue fluoxetine (7) DVT prophylaxis Current Visit: Yes Status: Acute Plan to address problem: On heparin and GI prophylaxis Subjective Date of service: 07/07/20 Objective - Constitutional Vitals: Vital Signs - 12hr 07/07/20 07/07/20 07/07/20 09:56 11:35 15:26 Temperature 98.8 F 98.2 F Pulse Rate 93 H 96 H Respiratory 20 24 Rate Blood Pressure 118/70 113/76 O2 Sat by Pulse 96 92 88 Oximetry 07/07/20 19:24 Temperature 98.8 F Pulse Rate 90 Respiratory 20 Rate Blood Pressure 158/54 O2 Sat by Pulse 96 Oximetry General appearance: Present: no acute distress, well-nourished - EENT Eyes: PERRL, EOM intact ENT: hearing intact, clear oral mucosa Ears: bilateral: normal - Neck Neck: supple, normal ROM - Respiratory Respiratory effort: normal Respiratory: bilateral: CTA - Breasts Breasts: normal - Cardiovascular Rhythm: regular Heart Sounds: Present: S1 & S2. Absent: gallop, rub Extremities: pulses intact, No edema, normal color, Full ROM - Gastrointestinal General gastrointestinal: Present: soft, non-tender, non-distended, normal bowel sounds - Genitourinary Female genitourinary: normal - Integumentary Integumentary: clear, warm, dry - Musculoskeletal Musculoskeletal: 1, strength equal bilaterally - Neurologic Neurologic: moves all extremities - Psychiatric Psychiatric: memory intact, appropriate mood/affect, intact judgment & insight - Labs CBC & Chem 7: 07/07/20 15:44 07/07/20 15:44 Labs: Abnormal lab results 07/06/20 07/07/20 07/07/20 Range/Units 22:10 07:35 11:33 RBC (3.65-5.03) M/mm3 Hgb (10.1-14.3) gm/dl Hct (30.3-42.9) % Lymph % (Auto) (13.4-35.0) % [place] % (Auto) (0.0-7.3) % Seg Neutrophils % (40.0-70.0) % BUN (7-17) mg/dL Glucose (65-100) mg/dL POC Glucose 166 H 153 H 198 H (70-105) mg/dL Calcium (8.4-10.2) mg/dL 07/07/20 07/07/20 07/07/20 Range/Units 15:44 15:44 16:44 RBC 3.15 L (3.65-5.03) M/mm3 Hgb 9.5 L (10.1-14.3) gm/dl Hct 27.9 L (30.3-42.9) % Lymph % (Auto) 13.1 L (13.4-35.0) % [place] % (Auto) 8.0 H (0.0-7.3) % Seg Neutrophils % 76.6 H (40.0-70.0) % BUN 18 H (7-17) mg/dL Glucose 208 H (65-100) mg/dL POC Glucose 162 H (70-105) mg/dL Calcium 8.3 L (8.4-10.2) mg/dL 07/07/20 Range/Units 19:53 RBC (3.65-5.03) M/mm3 Hgb (10.1-14.3) gm/dl Hct (30.3-42.9) % Lymph % (Auto) (13.4-35.0) % [place] % (Auto) (0.0-7.3) % Seg Neutrophils % (40.0-70.0) % BUN (7-17) mg/dL Glucose (65-100) mg/dL POC Glucose 205 H (70-105) mg/dL Calcium (8.4-10.2) mg/dL HEART Score - HEART Score Troponin: Troponin T < 0.010 ng/mL (0.00-0.029) 07/03/20 18:58
[2020-07-08] MEDS: INSULIN LISPRO 100 UNIT/ML VIAL 3 mL SUB-Q SCH ×3 (07:40→16:26)
[2020-07-08] MEDS: FLUoxetine 20 MG CAP PO SCH (12:16)
[2020-07-08] MEDS: ENOXAPARIN 40 MG/0.4 ML INJ SUB-Q SCH (12:16)
[2020-07-08] MEDS: FAMOTIDINE 20 MG TAB PO SCH ×2 (12:17→22:49)
--- NOTE | 2020-07-08 23:14 | Progress Note ---
Assessment and Plan - Patient Problems (1) Fracture, intertrochanteric, right femur Current Visit: Yes Status: Acute Qualifiers: Encounter type: initial encounter Plan to address problem: Had ORIF on 06/25 Post op doing well (2) Leukocytosis Current Visit: Yes Status: Acute Plan to address problem: Possible demargination no source of infection (3) HTN (hypertension) Current Visit: No Status: Chronic Qualifiers: Hypertension type: essential hypertension Qualified Code(s): I10 - Essential (primary) hypertension Plan to address problem: Continue antihypertensives (4) IDDM (insulin dependent diabetes mellitus) Current Visit: Yes Status: Chronic Plan to address problem: Coverage for now check hemoglobin A1c (5) HLD (hyperlipidemia) Current Visit: Yes Status: Chronic Qualifiers: Hyperlipidemia type: mixed hyperlipidemia Qualified Code(s): E78.2 - Mixed hyperlipidemia Plan to address problem: Hold statins for now (6) Depression Current Visit: Yes Status: Chronic Qualifiers: Depression Type: unspecified Qualified Code(s): F32.9 - Major depressive disorder, single episode, unspecified Plan to address problem: Continue fluoxetine (7) DVT prophylaxis Current Visit: Yes Status: Acute Plan to address problem: On heparin and GI prophylaxis (8) Discharge planning issues Current Visit: Yes Status: Acute Plan to address problem: Discharge to Home hospice Subjective Date of service: 07/08/20 Principal diagnosis: L hip fx Interval history: Had ORIF 06/25 Post op doing well Waiting for placement Objective - Constitutional Vitals: Vital Signs - 12hr 07/08/20 07/08/20 07/08/20 14:01 15:41 19:50 Temperature 98.7 F 98.5 F Pulse Rate 83 84 Respiratory 18 18 Rate Blood Pressure 168/52 163/57 O2 Sat by Pulse 99 98 96 Oximetry General appearance: Present: no acute distress, well-nourished - EENT Eyes: PERRL, EOM intact ENT: hearing intact, clear oral mucosa Ears: bilateral: normal - Neck Neck: supple, normal ROM - Respiratory Respiratory effort: normal Respiratory: bilateral: CTA - Breasts Breasts: normal - Cardiovascular Heart rate: 78 Rhythm: regular Heart Sounds: Present: S1 & S2. Absent: gallop, rub Extremities: pulses intact, No edema, normal color, Full ROM - Gastrointestinal General gastrointestinal: Present: soft, non-tender, non-distended, normal bowel sounds - Genitourinary Female genitourinary: normal - Integumentary Integumentary: clear, warm, dry - Musculoskeletal Musculoskeletal: 1, strength equal bilaterally - Neurologic Neurologic: moves all extremities - Psychiatric Psychiatric: memory intact, appropriate mood/affect, intact judgment & insight - Labs CBC & Chem 7: 07/07/20 15:44 07/07/20 15:44 Labs: Abnormal lab results 07/08/20 07/08/20 Range/Units 07:38 16:04 POC Glucose 120 H 132 H (70-105) mg/dL HEART Score - HEART Score Troponin: Troponin T < 0.010 ng/mL (0.00-0.029) 07/03/20 18:58
[2020-07-09] MEDS: INSULIN LISPRO 100 UNIT/ML VIAL 3 mL SUB-Q SCH ×3 (02:24→15:30)
--- NOTE | 2020-07-09 09:24 | Progress Note ---
Assessment and Plan Assessment and plan: Fracture, intertrochanteric, right femur Had ORIF on 06/25 Post op doing well Leukocytosis Possible demargination no source of infection HTN (hypertension) Continue antihypertensives IDDM (insulin dependent diabetes mellitus) Coverage for now check hemoglobin A1c HLD (hyperlipidemia) Hold statins for now Depression Continue fluoxetine DVT prophylaxis On heparin and GI prophylaxis Discharge planning issues Discharge to Home hospice History Interval history: No new issues Hospitalist Physical - Constitutional Vitals: Temp Pulse Resp BP Pulse Ox 98.2 F 79 18 164/69 99 07/09/20 07:34 07/09/20 07:34 07/09/20 07:34 07/09/20 07:34 07/09/20 07:34 General appearance: Present: no acute distress, well-nourished - EENT Eyes: Present: PERRL, EOM intact ENT: hearing intact, clear oral mucosa, dentition normal - Neck Neck: Present: supple, normal ROM - Respiratory Respiratory effort: normal Respiratory: bilateral: CTA - Cardiovascular Rhythm: regular Heart Sounds: Present: S1 & S2. Absent: gallop, rub - Extremities Extremities: no ischemia, No edema, Full ROM - Abdominal General gastrointestinal: soft, non-tender, non-distended, normal bowel sounds - Integumentary Integumentary: Present: clear, warm, dry - Neurologic Neurologic: CNII-XII intact, moves all extremities HEART Score - HEART Score Troponin: Troponin T < 0.010 ng/mL (0.00-0.029) 07/03/20 18:58 Results - Labs CBC & Chem 7: 07/07/20 15:44 07/07/20 15:44 Labs: Laboratory Last Values WBC 9.4 K/mm3 (4.5-11.0) 07/07/20 15:44 RBC 3.15 M/mm3 (3.65-5.03) L 07/07/20 15:44 Hgb 9.5 gm/dl (10.1-14.3) L 07/07/20 15:44 Hct 27.9 % (30.3-42.9) L 07/07/20 15:44 MCV 89 fl (79-97) 07/07/20 15:44 MCH 30 pg (28-32) 07/07/20 15:44 MCHC 34 % (30-34) 07/07/20 15:44 RDW 14.5 % (13.2-15.2) 07/07/20 15:44 Plt Count 151 K/mm3 (140-440) 07/07/20 15:44 Lymph % (Auto) 13.1 % (13.4-35.0) L 07/07/20 15:44 [place] % (Auto) 8.0 % (0.0-7.3) H 07/07/20 15:44 Eos % (Auto) 2.0 % (0.0-4.3) 07/07/20 15:44 Baso % (Auto) 0.3 % (0.0-1.8) 07/07/20 15:44 Lymph # (Auto) 1.2 K/mm3 (1.2-5.4) 07/07/20 15:44 [place] # (Auto) 0.8 K/mm3 (0.0-0.8) 07/07/20 15:44 Eos # (Auto) 0.2 K/mm3 (0.0-0.4) 07/07/20 15:44 Baso # (Auto) 0.0 K/mm3 (0.0-0.1) 07/07/20 15:44 Seg Neutrophils % 76.6 % (40.0-70.0) H 07/07/20 15:44 Seg Neutrophils # 7.2 K/mm3 (1.8-7.7) 07/07/20 15:44 PT 12.0 Sec. (12.2-14.9) L 07/03/20 18:58 INR 0.90 (0.87-1.13) 07/03/20 18:58 APTT 24.3 Sec. (24.2-36.6) 07/03/20 18:58 Sodium 141 mmol/L (137-145) 07/07/20 15:44 Potassium 4.0 mmol/L (3.6-5.0) 07/07/20 15:44 Chloride 106.3 mmol/L (98-107) 07/07/20 15:44 Carbon Dioxide 27 mmol/L (22-30) 07/07/20 15:44 Anion Gap 12 mmol/L 07/07/20 15:44 BUN 18 mg/dL (7-17) H 07/07/20 15:44 Creatinine 0.9 mg/dL (0.6-1.2) 07/07/20 15:44 Estimated GFR > 60 ml/min 07/07/20 15:44 BUN/Creatinine Ratio 20 % 07/07/20 15:44 Glucose 208 mg/dL (65-100) H 07/07/20 15:44 POC Glucose 133 mg/dL (70-105) H 07/09/20 07:34 Hemoglobin A1c 6.8 % (4-6) H 07/03/20 Unknown Calcium 8.3 mg/dL (8.4-10.2) L 07/07/20 15:44 Total Bilirubin 0.40 mg/dL (0.1-1.2) 07/04/20 06:00 AST 22 units/L (5-40) 07/04/20 06:00 ALT 32 units/L (7-56) 07/04/20 06:00 Alkaline Phosphatase 86 units/L (35-129) 07/04/20 06:00 Troponin T < 0.010 ng/mL (0.00-0.029) 07/03/20 18:58 Total Protein 6.9 g/dL (6.3-8.2) 07/04/20 06:00 Albumin 3.5 g/dL (3.9-5) L 07/04/20 06:00 Albumin/Globulin Ratio 1.0 % 07/04/20 06:00 [place]/IV: Voiding Method External Female Catheter IV Catheter Type [Left Forearm Peripheral IV ] IV Catheter Type [Right INT / Saline Lock Antecubital] Active Medications - Current Medications Current Medications: Generic Name Dose Route Start Last Admin Trade Name Freq PRN Reason Stop Dose Admin Acetaminophen 650 mg 07/03/20 23:55 Tylenol PO Q4H PRN Pain MILD(1-3)/Fever >100.5/OQUENDO Bisacodyl 10 mg 07/03/20 23:54 Dulcolax UT QDAY PRN Constipation Enoxaparin Sodium 40 mg 07/06/20 10:00 07/08/20 12:16 Enoxaparin SUB-Q 40 mg QDAY LOVELY Administration Famotidine 20 mg 07/05/20 10:00 07/08/20 22:49 Pepcid PO 20 mg BID LOVELY Administration Fluoxetine HCl 60 mg 07/04/20 10:00 07/08/20 12:16 Prozac PO 60 mg DAILY LOVELY Administration Hydromorphone HCl 0.5 mg 07/03/20 23:55 07/04/20 01:35 Dilaudid IV 0.5 mg Q3H PRN Administration Pain , Severe (7-10) Sodium Chloride 1,000 mls @ 75 mls/hr 07/03/20 23:45 07/06/20 00:27 Nacl 0.9% 1000 Ml IV 75 mls/hr DIRECT LOVELY Administration Lactated Ringer's 1,000 mls @ 42 mls/hr 07/04/20 15:15 07/07/20 06:13 Lactated Ringers IV 42 mls/hr DIRECT LOVELY Administration Insulin Human Lispro 0 unit 07/04/20 07:30 07/09/20 02:24 Humalog SUB-Q Not Given ACHS [facility] Protocol Ketorolac Tromethamine 15 mg 07/05/20 12:00 07/07/20 16:10 Toradol IV 07/10/20 11:59 15 mg Q6H PRN Administration Pain, Mild (1-3) Metoclopramide HCl 10 mg 07/03/20 23:55 Reglan IV Q6H PRN Nausea And Vomiting Ondansetron HCl 4 mg 07/03/20 23:55 07/04/20 01:41 Zofran IV 4 mg Q3H PRN Administration Nausea And Vomiting Ondansetron HCl 4 mg 07/05/20 12:38 Zofran IV ONCE PRN Nausea And Vomiting Oxycodone/Acetaminophen 1 tab 07/03/20 23:55 07/06/20 17:52 Percocet 5/325 PO 1 tab Q6H PRN Administration Pain, Moderate (4-6) Sodium Chloride 10 ml 07/04/20 10:00 07/08/20 22:49 Sodium Chloride Flush Syringe 10 Ml IV 10 ml BID LOVELY Administration Sodium Chloride 10 ml 07/03/20 23:55 Sodium Chloride Flush Syringe 10 Ml IV PRN PRN LINE FLUSH Sodium Chloride 10 ml 07/05/20 12:00 Sodium Chloride Flush Syringe 10 Ml IV PRN PRN flush Tramadol HCl 50 mg 07/03/20 23:54 Ultram PO Q6H PRN PAIN (4-6) Nutrition/Malnutrition Assess - Dietary Evaluation Nutrition/Malnutrition Findings: Nutrition Notes Start: 07/04/20 12:1 6 Freq: Status: Active Protocol: Document 07/04/20 12:16 AB (Rec: 07/04/20 12:50 AB [id number]) Co-Sign 07/04/20 12:16 MK Nutrition Notes 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 Pt NPO for hip surgery, per nurse. Pt unable to communicate clearly. Pt has hx of dysphagia per chart d/t previous stroke. Pt pending swallow evaluation. Burn Absent Trauma Absent GI Symptoms None Difficulty In Swallowing Food Allergy No Current % PO Negligible Minimum of two criteria No physical signs of malnutrition #1 Nutrition Diagnosis Predicted suboptimal energy intake Etiology hx of CVA As Evidenced by Signs and Symptoms hx of dysphagia Is patient on ventilator? No Is Patient Ambulatory and/or Out of Bed No REE-([place] Jeor-confined to bed) 1401.312 Calculation [facility] Additional Notes Protein: 73-88 g (1-1.2 g/kg) Fluid: 1 ml/kcal Nutrition Intervention Change Diet Order: Advance when medically feasible Goal #1 Diet advancement Anticipated Discharge Needs: Unable to determine at this time Follow-Up By: 07/09/20 Additional Comments F/U for intakes
[2020-07-09] MEDS: ENOXAPARIN 40 MG/0.4 ML INJ SUB-Q SCH (09:34)
[2020-07-09] MEDS: FLUoxetine 20 MG CAP PO SCH (09:34)
[2020-07-09] MEDS: oxyCODONE /ACETAMINOPHEN 5-325MG TAB PO PRN (09:34)
[2020-07-09] MEDS: FAMOTIDINE 20 MG TAB PO SCH (09:34)
--- NOTE | 2020-07-09 11:35 | Discharge Summary ---
Providers - Providers Date of Admission: 07/04/20 15:09 Date of discharge: 07/09/20 Attending physician: IVELISSE CALDWELL 07/03/20 19:03 Consult to Physician [CONS] Stat Comment: Consulting Provider: JOSE ROSADO Physician Instructions: Reason For Exam: femur fracture 07/05/20 11:23 Physical Therapy Evaluation and Treat [CONS] Routine Comment: Reason For Exam: Postop evaluation Weight bearing status?: Full wt bearing Assistive devices?: Yes If so list: Walker Primary care physician: EDUCATION PROGRAM ASSOCIATE Hospitalization Reason for admission: hip fx Condition: Stable Hospital course: 79-year-old female with history of CVA, hypertension, type 2 diabetes, and right foot osteomyelitis fell from her bed. Daughter found her on the floor. Patient had right hip pain. Patient was unable to walk and patient had severe pain ranging from 8-10 on a scale of 1-10. Patient is in hospice care and getting home health. Plain xrays taken in the ED reveal displaced right intertrochanteric fracture right hip. The patient was seen by orthopedics in consultation and underwent ORIF on 07/05/2020. Physical therapy saw the patient postoperatively and felt patient would benefit from skilled PT and subacute rehab. Disposition: DC-50 TO HOSPICE (HOME) Core Measure Documentation - Palliative Care Palliative Care/ Comfort Measures: Not Applicable - Core Measures Any of the following diagnoses?: none Exam - Constitutional Vitals: Temp Pulse Resp BP Pulse Ox 98.2 F 79 18 164/69 99 07/09/20 07:34 07/09/20 07:34 07/09/20 07:34 07/09/20 07:34 07/09/20 07:34 General appearance: Present: no acute distress, well-nourished - EENT Eyes: Present: PERRL ENT: hearing intact, clear oral mucosa - Neck Neck: Present: supple, normal ROM - Respiratory Respiratory effort: normal Respiratory: bilateral: CTA - Cardiovascular Heart Sounds: Present: S1 & S2. Absent: rub, click - Extremities Extremities: pulses symmetrical, No edema Peripheral Pulses: within normal limits - Abdominal General gastrointestinal: Present: soft, non-tender, non-distended, normal bowel sounds Female genitourinary: Present: normal - Integumentary Integumentary: Present: clear, warm, dry - Musculoskeletal Musculoskeletal: gait normal, strength equal bilaterally - Psychiatric Psychiatric: appropriate mood/affect, intact judgment & insight - Neurologic Neurologic: CNII-XII intact, moves all extremities Plan Activity: advance as tolerated Weight Bearing Status: Weight Bear as Tolerated Diet: regular Follow up with: PRIMARY CARE, [Primary Care Provider] - 7 Days
[2020-07-09 17:49] VITALS: BP 140/64
== END 2020-07-09 19:10 | disposition hospice, home (50) | DRG 481 ==
LOC: ED 17:50 → 3A 19:05 → 3B-SURG 19:52 → OBSVTOIN 07-04 15:09
PROVIDERS: ADMIT Internal Medicine; ATTEND Hospitalist
PROC: 0QSB36Z Reposition Right Lower Femur with Intramedullary Internal Fixation Device, Percutaneous Approach (ICD-10-PCS; principal; 2020-07-05)
DX: S72.141A Displaced intertrochanteric fracture of right femur, initial encounter for closed fracture (principal); R65.10 Systemic inflammatory response syndrome (SIRS) of non-infectious origin without acute organ dysfunction; F03.90 Unspecified dementia, unspecified severity, without behavioral disturbance, psychotic disturbance, mood disturbance, and anxiety; Z86.73 Personal history of transient ischemic attack (TIA), and cerebral infarction without residual deficits; I10 Essential (primary) hypertension; E11.9 Type 2 diabetes mellitus without complications; W06.XXXA Fall from bed, initial encounter; Y93.89 Activity, other specified; Y92.89 Other specified places as the place of occurrence of the external cause; Y99.8 Other external cause status; Z79.82 Long term (current) use of aspirin; Z90.710 Acquired absence of both cervix and uterus; Z79.899 Other long term (current) drug therapy; F32.9 Major depressive disorder, single episode, unspecified; E78.2 Mixed hyperlipidemia
CPT/HCPCS: 36415; 70450; 71045; 80048; 80053; 82962; 83036; 84484; 85014; 85018; 85025; 85610; 85730; 93005; 94760; 96365; 96375; G0378; C1713; C1769; J0690; J1170; J1650; J1885; J2270; J2370; J2405; J2704; J2710; J7030; J7050; J7120

== ENCOUNTER 2020-07-20 16:31 | Emergency (ER) | payer MEDICARE ==
[2020-07-20] MEDS ORDERED: SODIUM CHLORIDE 0.9% 500 ML 500 ML IV ONE ×2 (17:59→18:12)
--- NOTE | 2020-07-20 18:11 | Emergency Department Report ---
ED Altered Mental Status HPI - General Chief Complaint: Altered Mental Status Stated Complaint: AMS PUI?: No Time Seen by Provider: 07/20/20 17:55 Source: family, EMS, old records reviewed Mode of arrival: Wheelchair Limitations: Altered Mental Status, Physical Limitation - History of Present Illness Initial Comments: CC: altered mental status HPI: This is a 79-year-old female with history of CVA, hypertension, type 2 diabetes, right foot osteomyelitis who presents with altered mental status since discharge from hospital 11 days ago. History obtained from [id number] phone #[phone]. I have evaluated Mrs. Moreira when she was diagnosed with femur fracture earlier this month. Since discharge on July 09, patient has been delirious. She has been talking to persons not present in room. She is grabbing at objects that are not present. Her [id number] thinks that she may have had a reaction to Percocet. [id number] is also concerned for UTI. 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 [id number]-jl-[id number] is also concerned that hospice agency has not yet arranged for home physical th erapy. Prior to femur fracture, patient was mobile. She was able to ambulate and transfer with assistance. Patient underwent ORIF, intramedullary nailing of the right femur at this hospital on 07/05/2020 MD Complaint: altered mental status, other (Auditory visual hallucinations) -: Gradual, week(s) (Since discharge 11 days ago, worse over the past week) Severity: moderate Consistency of Symptoms: waxing and waning Context: other (New medication Percocet, recent hospitalization for femur fracture) - Related Data Home Medications Medication Instructions Recorded Confirmed Last Taken Rosuvastatin Calcium [Crestor] 40 mg PO DAILY 06/20/14 03/25/19 03/24/19 10:00 FLUoxetine HCL [Prozac] 60 mg PO DAILY 03/25/19 03/25/19 03/24/19 10:00 Previous Rx's Medication Instructions Recorded Last Taken Type Clopidogrel [Plavix] 75 mg PO QDAY tablet 04/10/19 Unknown Rx bisacodyL [Dulcolax suppos] 10 mg [place] QDAY PRN supp.rect 04/10/19 Unknown Rx traMADoL [Ultram 50 MG tab] 50 mg PO Q6HR PRN #7 tablet 04/10/19 Unknown Rx Acetaminophen [Acetaminophen TAB] 1 tab PO Q4H PRN #15 tablet 04/14/19 Unknown Rx Aspirin [Aspirin BABY CHEW TAB] 81 mg PO QDAY #30 tab.chew 04/14/19 Unknown Rx Lispro Insulin [HumaLOG] 1 dose SQ ACHS PRN #1 vial 04/14/19 Unknown Rx PriLOSEC Otc 20 mg PO DAILY #15 04/14/19 03/24/19 10:00 Rx oxyCODONE /ACETAMINOPHEN [Percocet 1 tab PO Q6H PRN #15 tablet 04/14/19 Unknown Rx 5/325 mg] Allergies Allergy/AdvReac Type Severity Reaction Status Date / Time No Known Allergies Allergy Verified 07/20/20 18:03 ED Review of Systems ROS: Stated complaint: AMS Other details as noted in HPI Comment: Unobtainable due to pts medical conditions (Altered mental status) ED Past Medical Hx - Past Medical History Previous Medical History?: Yes Hx Hypertension: Yes Hx CVA: Yes Hx Heart Attack/AMI: No Hx Diabetes: Yes Hx Deep Vein Thrombosis: No Hx Liver Disease: No Hx Renal Disease: No Hx Dementia: Yes Hx HIV: No Additional medical history: Dysarthria and dysphagia from CVA, osteomyelitis right foot - Surgical History Past Surgical History?: Yes Hx Pacemaker: No Hx Internal Defibrillator: No Additional Surgical History: hysterectomy 1981, toe amputation - Social History Smoking Status: Unknown if ever smoked - Medications Home Medications: Home Medications Medication Instructions Recorded Confirmed Last Taken Type Rosuvastatin Calcium [Crestor] 40 mg PO DAILY 06/20/14 03/25/19 03/24/19 10:00 History FLUoxetine HCL [Prozac] 60 mg PO DAILY 03/25/19 03/25/19 03/24/19 10:00 History Clopidogrel [Plavix] 75 mg PO QDAY tablet 04/10/19 Unknown Rx bisacodyL [Dulcolax suppos] 10 mg [place] QDAY PRN supp.rect 04/10/19 Unknown Rx traMADoL [Ultram 50 MG tab] 50 mg PO Q6HR PRN #7 tablet 04/10/19 Unknown Rx Acetaminophen [Acetaminophen TAB] 1 tab PO Q4H PRN #15 tablet 04/14/19 Unknown Rx Aspirin [Aspirin BABY CHEW TAB] 81 mg PO QDAY #30 tab.chew 04/14/19 Unknown Rx Lispro Insulin [HumaLOG] 1 dose SQ ACHS PRN #1 vial 04/14/19 Unknown Rx PriLOSEC Otc 20 mg PO DAILY #15 04/14/19 03/25/19 03/24/19 10:00 Rx oxyCODONE /ACETAMINOPHEN [Percocet 1 tab PO Q6H PRN #15 tablet 04/14/19 Unknown Rx 5/325 mg] ED Physical Exam - General Limitations: Altered Mental Status, Physical Limitation General appearance: alert, in no apparent distress, other (Patient is speaking to person is not present in the room, she is directable. She will answer questions.) - Head Head exam: Present: atraumatic, normocephalic - Eye Eye exam: Present: normal appearance - ENT ENT exam: Present: mucous membranes dry, other (No oropharyngeal lesions, normal anatomy, tacky dry mucous membranes) - Neck Neck exam: Present: normal inspection, full ROM - Respiratory Respiratory exam: Present: normal lung sounds bilaterally. Absent: respiratory distress, wheezes, rales, rhonchi - Cardiovascular Cardiovascular Exam: Present: regular rate, normal rhythm, normal heart sounds. Absent: systolic murmur, diastolic murmur, rubs, gallop - GI/Abdominal GI/Abdominal exam: Present: soft, normal bowel sounds. Absent: distended, tenderness, guarding, rebound - Neurological Exam Neurological exam: Present: alert, altered, other (Oriented to name only) - Psychiatric Psychiatric exam: Present: normal affect, normal mood - Skin Skin exam: Present: warm, dry, intact, normal color. Absent: rash ED Course Vital Signs 07/20/20 07/20/20 18:06 19:01 Temperature 97.6 F Pulse Rate 84 86 Respiratory 17 17 Rate Blood Pressure 132/39 163/49 O2 Sat by Pulse 94 96 Oximetry - Lab Data Result diagrams: 07/20/20 18:17 Lab Results 07/20/20 07/20/20 07/20/20 Range/Units 18:17 18:17 18:17 Sodium 139 (137-145) mmol/L Potassium 4.2 (3.6-5.0) mmol/L Chloride 101.2 (98-107) mmol/L Carbon Dioxide 32 H (22-30) mmol/L Anion Gap 10 mmol/L BUN 16 (7-17) mg/dL Creatinine 1.0 (0.6-1.2) mg/dL Estimated GFR 54 ml/min BUN/Creatinine Ratio 16 % Glucose 96 (65-100) mg/dL Lactic Acid 0.90 (0.7-2.0) mmol/L Calcium 9.2 (8.4-10.2) mg/dL Total Bilirubin 0.50 (0.1-1.2) mg/dL AST 20 (5-40) units/L ALT 11 (7-56) units/L Alkaline Phosphatase 156 H (35-129) units/L Ammonia 19.0 L (25-60) umol/L Troponin T < 0.010 (0.00-0.029) ng/mL Total Protein 6.8 (6.3-8.2) g/dL Albumin 3.1 L (3.9-5) g/dL Albumin/Globulin Ratio 0.8 % TSH (0.270-4.200) mlU/mL Urine Color (Yellow) Urine Turbidity (Clear) Urine pH (5.0-7.0) Ur Specific [place] (1.003-1.030) Urine Protein (Negative) mg/dL Urine Glucose (UA) (Negative) mg/dL Urine Ketones (Negative) mg/dL Urine Blood (Negative) Urine Nitrite (Negative) Urine Bilirubin (Negative) Urine Urobilinogen (<2.0) mg/dL Ur Leukocyte Esterase (Negative) Urine WBC (Auto) (0.0-6.0) /HPF Urine RBC (Auto) (0.0-6.0) /HPF U Epithel Cells (Auto) (0-13.0) /HPF Urine Bacteria (Auto) (Negative) /HPF Urine Mucus /HPF Salicylates (2.8-20.0) mg/dL Urine Opiates Screen Urine Methadone Screen Acetaminophen (10.0-30.0) ug/mL Ur Barbiturates Screen Ur Phencyclidine Scrn Ur Amphetamines Screen U Benzodiazepines Scrn Urine Cocaine Screen U Marijuana (THC) Screen Drugs of Abuse Note Plasma/Serum Alcohol (0-0.07) % 07/20/20 07/20/20 07/20/20 Range/Units 18:17 18:17 18:17 Sodium (137-145) mmol/L Potassium (3.6-5.0) mmol/L Chloride (98-107) mmol/L Carbon Dioxide (22-30) mmol/L Anion Gap mmol/L BUN (7-17) mg/dL Creatinine (0.6-1.2) mg/dL Estimated GFR ml/min BUN/Creatinine Ratio % Glucose (65-100) mg/dL Lactic Acid (0.7-2.0) mmol/L Calcium (8.4-10.2) mg/dL Total Bilirubin (0.1-1.2) mg/dL AST (5-40) units/L ALT (7-56) units/L Alkaline Phosphatase (35-129) units/L Ammonia (25-60) umol/L Troponin T (0.00-0.029) ng/mL Total Protein (6.3-8.2) g/dL Albumin (3.9-5) g/dL Albumin/Globulin Ratio % TSH 2.040 (0.270-4.200) mlU/mL Urine Color (Yellow) Urine Turbidity (Clear) Urine pH (5.0-7.0) Ur Specific [place] (1.003-1.030) Urine Protein (Negative) mg/dL Urine Glucose (UA) (Negative) mg/dL Urine Ketones (Negative) mg/dL Urine Blood (Negative) Urine Nitrite (Negative) Urine Bilirubin (Negative) Urine Urobilinogen (<2.0) mg/dL Ur Leukocyte Esterase (Negative) Urine WBC (Auto) (0.0-6.0) /HPF Urine RBC (Auto) (0.0-6.0) /HPF U Epithel Cells (Auto) (0-13.0) /HPF Urine Bacteria (Auto) (Negative) /HPF Urine Mucus /HPF Salicylates < 0.3 L (2.8-20.0) mg/dL Urine Opiates Screen Urine Methadone Screen Acetaminophen 15.0 (10.0-30.0) ug/mL Ur Barbiturates Screen Ur Phencyclidine Scrn Ur Amphetamines Screen U Benzodiazepines Scrn Urine Cocaine Screen U Marijuana (THC) Screen Drugs of Abuse Note Plasma/Serum Alcohol (0-0.07) % 07/20/20 07/20/20 07/20/20 Range/Units 18:17 Unknown Unknown Sodium (137-145) mmol/L Potassium (3.6-5.0) mmol/L Chloride (98-107) mmol/L Carbon Dioxide (22-30) mmol/L Anion Gap mmol/L BUN (7-17) mg/dL Creatinine (0.6-1.2) mg/dL Estimated GFR ml/min BUN/Creatinine Ratio % Glucose (65-100) mg/dL Lactic Acid (0.7-2.0) mmol/L Calcium (8.4-10.2) mg/dL Total Bilirubin (0.1-1.2) mg/dL AST (5-40) units/L ALT (7-56) units/L Alkaline Phosphatase (35-129) units/L Ammonia (25-60) umol/L Troponin T (0.00-0.029) ng/mL Total Protein (6.3-8.2) g/dL Albumin (3.9-5) g/dL Albumin/Globulin Ratio % TSH (0.270-4.200) mlU/mL Urine Color [place] (Yellow) Urine Turbidity Clear (Clear) Urine pH 5.0 (5.0-7.0) Ur Specific [place] 1.028 (1.003-1.030) Urine Protein 30 mg/dl (Negative) mg/dL Urine Glucose (UA) Neg (Negative) mg/dL Urine Ketones Neg (Negative) mg/dL Urine Blood Neg (Negative) Urine Nitrite Pos (Negative) Urine Bilirubin Neg (Negative) Urine Urobilinogen 4.0 (<2.0) mg/dL Ur Leukocyte Esterase Neg (Negative) Urine WBC (Auto) 3.0 (0.0-6.0) /HPF Urine RBC (Auto) 3.0 (0.0-6.0) /HPF U Epithel Cells (Auto) 5.0 (0-13.0) /HPF Urine Bacteria (Auto) 4+ (Negative) /HPF Urine Mucus 3+ /HPF Salicylates (2.8-20.0) mg/dL Urine Opiates Screen Positive Urine Methadone Screen Positive Acetaminophen (10.0-30.0) ug/mL Ur Barbiturates Screen Negative Ur Phencyclidine Scrn Negative Ur Amphetamines Screen Negative U Benzodiazepines Scrn Negative Urine Cocaine Screen Negative U Marijuana (THC) Screen Negative Drugs of Abuse Note Disclamer Plasma/Serum Alcohol < 0.01 (0-0.07) % - Radiology Data Radiology results: report reviewed, image reviewed CHEST 1 VIEW 07/20/2020 5:32 PM INDICATION / CLINICAL INFORMATION: Altered Mental Status. COMPARISON: 07/03/2020. FINDINGS: SUPPORT DEVICES: None. HEART / MEDIASTINUM: Stable. LUNGS / PLEURA: Bilateral interstitial prominence is suggestive of mild pulmonary edema No pneumothorax. 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 IMPRESSION: 1. Findings suggestive of mild interstitial edema. CT head/brain wo con INDICATION: Altered Mental Status. TECHNIQUE: Routine CT head without contrast. All CT scans at this location are performed using CT dose reduction for ALARA by means of automated exposure control. COMPARISON: None. FINDINGS: BRAIN / INTRACRANIAL CONTENTS: No acute hemorrhage, mass effect, midline shift, or hydrocephalus. No appreciable acute large territorial or lacunar infarct. Stable chronic lacunar infarct in the irene. Stable chronic lacunar infarct in the left periventricular white matter. Stable mild age commensurate ventricular and cisternal prominence. ORBITS: No significant abnormality of visualized orbits. SINUSES / MASTOIDS: No significant abnormality of visualized sinuses and mastoid air cells. ADDITIONAL FINDINGS: None. IMPRESSION: 1. No acute intracranial abnormality. No adverse change from the prior exam. - Medical Decision Making Acute delirium suspected because medication: Percocet. Upon a second discussion with [id number], I discovered the patient is taking both morphine liquid and Percocet. Morphine liquid provided by hospice agency. Percocet provided by hospitalist physician upon discharge. I suspect delirium due to polypharmacy. I recommended holding Percocet. Daughter will space out doses of morphine. I also recommended Tylenol for daytime use. Work-up today in the emergency department normal. CBC chemistry ammonia TSH all within normal limits. Urinalysis negative for infection. Chest x-ray absent of infection. CT head absent of intracranial hemorrhage. Urine toxicology positive for opiates. Patient will be transported home. Patient also received IV fluid therapy in the emergency department. Critical care attestation.: If time is entered above; I have spent that time in minutes in the direct care of this critically ill patient, excluding procedure time. ED Disposition Clinical Impression: Acute delirium, Polypharmacy, Opioid-induced delirium Disposition: DC-01 TO HOME OR SELFCARE Is pt being admited?: No Does the pt Need Aspirin: No Condition: Stable Referrals: PRIMARY CARE, [Primary Care Provider] - 3-5 Days
--- NOTE | 2020-07-20 18:38 | XRay Report ---
CHEST 1 VIEW 07/20/2020 5:32 PM INDICATION / CLINICAL INFORMATION: Altered Mental Status. COMPARISON: 07/03/2020. FINDINGS: SUPPORT DEVICES: None. HEART / MEDIASTINUM: Stable. LUNGS / PLEURA: Bilateral interstitial prominence is suggestive of mild pulmonary edema No pneumothor ax. 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 IMPRESSION: 1. Findings suggestive of mild interstitial edema. Signer Name: Morris Dominguez MD Signed: 07/20/2020 6:34 PM Workstation Name: [id number]
[2020-07-20 18:56] LABS: Alanine Aminotransferase 11 units/L (7-56); Albumin 3.1 g/dL (3.9-5); BUN/Creatinine Ratio 16; Blood Urea Nitrogen 16 mg/dL (7-17); Calcium 9.2 mg/dL (8.4-10.2); Hemolysis Index 4
[2020-07-20 19:10] LABS: Amphetamine Screen,Urine Negative; Benzodiazepines Screen,Urine Negative; Cannabinoid Screen,Urine Negative; Cocaine Screen,Urine Negative
[2020-07-20 19:13] LABS: Bacteria,Urine 4+ /HPF (Negative); Bilirubin,Urine NEG (Negative); Blood,Urine NEG (Negative); Color,Urine Amber (Yellow); Mucus,Urine 3+ /HPF
[2020-07-20 19:22] LABS: Methadone Screen,Urine Positive; Opiate Screen,Urine Positive
--- NOTE | 2020-07-20 19:57 | Cat Scan Report ---
CT head/brain wo con INDICATION: Altered Mental Status. TECHNIQUE: Routine CT head without contrast. All CT scans at this location are performed using CT dos e reduction for ALARA by means of automated exposure control. COMPARISON: None. FINDINGS: BRAIN / INTRACRANIAL CONTENTS: No acute hemorrhage, mass effect, midline shift, or hydrocephalus. No appreciable acute large territorial or lacunar infarct. Stable chronic lacunar infarct in the irene. S table chronic lacunar infarct in the left periventricular white matter. Stable mild age commensurate ventricular and cisternal prominence. ORBITS: No significant abnormality of visualized orbits. SINUSES / MASTOIDS: No significant abnormality of visualized sinuses and mastoid air cells. ADDITIONAL FINDINGS: None. IMPRESSION: 1. No acute intracranial abnormality. No adverse change from the prior exam. Signer Name: Bharath Jackson MD Signed: 07/20/2020 7:53 PM Workstation Name: [id number]
[2020-07-20 22:08] VITALS: BP 142/76
== END 2020-07-20 23:11 | disposition home or self-care (01) ==
LOC: ED 16:31
DX: F11.221 Opioid dependence with intoxication delirium (principal); R41.0 Disorientation, unspecified; I10 Essential (primary) hypertension; E11.9 Type 2 diabetes mellitus without complications; F03.90 Unspecified dementia, unspecified severity, without behavioral disturbance, psychotic disturbance, mood disturbance, and anxiety; Z98.890 Other specified postprocedural states; Z79.899 Other long term (current) drug therapy
CPT/HCPCS: 36415; 70450; 71045; 80048; 80053; 80307; 81001; 82140; 84443; 84484; 87040; 87086; 99285; J7040; 80320; 87076; 87186; G0480